=== PATIENT | male | born 1955 | race Caucasian/White ===

== ENCOUNTER 2017-09-16 19:04 | Inpatient (IN) ==
[2017-09-16] MEDS ORDERED: 0.9 % Sodium Chloride 500 ML IVC ONE (19:21)
[2017-09-16] MEDS ORDERED: Pantoprazole 40 MG VIAL IVP ONE (19:21)
--- NOTE | 2017-09-16 19:30 | Emergency Department Note ---
Disposition Clinical Impression: Esophagitis Chest pain Qualifiers: Chest pain type: precordial pain Qualified Code(s): R07.2 - Precordial pain Disposition: Home, Self-Care Condition: Fair Time of Disposition: 00:02 General Adult HPI - General Chief complaint: ED GI Bleed Stated complaint: vomiting blood Time Seen by Provider: 09/16/17 19:17 Source: patient, EMS Mode of arrival: EMS Limitations: no limitations Nursing Notes Reviewed: Yes Vital Signs Reviewed: Yes - History of Present Illness HPI Narrative: Patient is a 62-year-old male with a past medical history of COPD and hiatal hernia presenting to the emergency department with complaint of chest pain and 3 episodes of emesis with blood. Patient states this chest pain started yesterday it has been intermittent since that time he describes it as a sharp stabbing pain in the center of his chest without radiation. States the pain is a 10/10. Associated with exertion and nausea/emesis. Patient denies any cardiac history or history of blood clots. He denies being on a blood thinner at this time. Patient states that he had 2 episodes of vomiting this morning that had streaks of bright red blood in them. He denies any diarrhea or bloody stools, however he states that he does not members last bowel movement. Patient states that one week ago he also had one episode of bloody emesis that was brown/black. Patient denies any fevers, chills, headache, sore throat, congestion, cough, back pain, or lower extremity swelling. Pain Scale: 10 - Related Data Previous Rx's Medication Instructions Recorded Clindamycin [Cleocin] 300 mg PO Q6HR 7 Days capsule 05/28/16 Allergies Allergy/AdvReac Type Severity Reaction Status Date / Time No Known Allergies Allergy Verified 06/30/16 22:46 All systems ED: reviewed and negative except as stated. Review of Systems: As Per HPI Constitutional: Denies: fever, chills ENT ED: Denies: throat pain, epistaxis Cardiovascular: Reports: chest pain. Denies: palpitations, edema, syncope Respiratory: Reports: cough (chronic). Denies: wheezes, hemoptysis, sputum production Gastrointestinal: Reports: abdominal pain, nausea, vomiting, constipation, hematemesis. Denies: melena, hematochezia Genitourinary: Denies: urgency, dysuria, hematuria Musculoskeletal: Denies: back pain, neck pain Integumentary: Denies: rash Neurological: Denies: headache Past Medical History - Past Medical History Attestation: Yes The following information was validated with the patient. Medical history: Reports: arthritis, COPD, GERD, osteoporosis Surgical history: Reports: appendectomy Psychiatric history: Reports: schizophrenia - Social History Smoking Status: Current every day smoker Smokeless Tobacco Status: No Alcohol use: Reports: none Drug use: Reports: none Physical Exam Patient's vital signs are stable at this time he is hypertensive in the 160s/ 110s. Overall he does not appear to be in acute distress, he is able to speak to me in full sentences. - General Limitations: no limitations General appearance: alert, in no apparent distress, cachectic - Head Head exam: atraumatic, normocephalic, normal inspection - Eye Eye exam: Present: PERRL, EOMI. Absent: scleral icterus, conjunctival injection - ENT ENT exam: normal oropharynx, mucous membranes dry - Neck Neck exam: Present: normal inspection, full ROM, trachea midline. Absent: tenderness - Chest Chest inspection: Present: normal inspection, symmetric chest wall rise. Absent : tenderness, rash - Respiratory Respiratory exam: Present: other (coarse breath sounds bilaterally). Absent: respiratory distress, wheezes - Cardiovascular Cardiovascular exam: Present: regular rate, normal rhythm, normal heart sounds, +S1, +S2 - Abdominal Exam Abdominal exam: Present: soft, tenderness, normal bowel sounds - Rectal Exam In Processing Instructor present during exam: Yes Rectal exam: Present: normal inspection, normal rectal tone. Absent: black stool, bloody stool, fecal impaction, mass, tenderness, prostate tenderness - Extremities Exam Extremities exam: Present: normal inspection, full ROM, normal capillary refill. Absent: tenderness, pedal edema - Expanded Lower Extremity Exam Neurovascular/Tendon exam: Present: normal capillary refill. Absent: pulse deficit, motor deficit, sensory deficit Gait: not tested/not observed - Back Exam Back exam: Present: normal inspection, full ROM. Absent: tenderness, CVA tenderness (R), CVA tenderness (L) - Neurological Exam Neurological exam: Present: alert, oriented X3. Absent: motor sensory deficit - Psychiatric Psychiatric exam: Present: normal affect, normal mood - Skin Skin exam: Present: warm, dry, intact, normal color Course Course Narrative: The patient's [place] medical record. Experienced an episode of black/red emesis on 09/10/17 which was treated to history of esophageal ulcers. The patient is on pantoprazole. He currently lives in a prison. Patient's past medical history also includes infectious scoliosis, esophageal strictures, hiatal hernia. Currently the patient's medication list he is on pantoprazole 40 mg twice a day. Patient had laboratory done prior to arrival and his hemoglobin showed 10.1 hematocrit was 31.5 and his metabolic panel showed hypokalemia at 3.1 which according to the patient he received a potassium drink supplementation prior to arrival. On 07/31/17 the patient had esophageal dilation procedure done. Urinalysis to do a cardiac work up of the patient including chest x-ray, EKG and troponin. We will also give the patient IV fluids student and appearing dry on exam and perform basic labs. - Reevaluation(s) Reevaluation #1: Patient's hemoglobin was 9.4 is low when compared to old hemoglobins. His fecal Hemoccult was negative. Patient was elevated at 0.04 and his BNP was elevated in the upper 200s. The patient's CTA of his chest did reveal an esophagitis. Due to the location of the patient's pain is complaints of 2 episodes of hematemesis highly suspicious that this is the cause of the patient' s chest pain. The CT recommends the patient be seen by GI for follow-up endoscopy. I discussed these findings with the hospitalists plans to admit the patient for his chest pain, elevated troponin, and findings of esophagitis on CT scan. Hospitalist agrees with plan. Vital Signs Temperature 98.2 F 09/16/17 19:07 Pulse Rate 90 09/16/17 19:07 Respiratory Rate 20 09/16/17 19:07 Blood Pressure 169/105 09/16/17 19:07 O2 Sat by Pulse Oximetry 99 09/16/17 19:07 Temperature 97.6 F 09/17/17 02:01 Pulse Rate 76 09/17/17 02:01 Respiratory Rate 14 09/17/17 02:01 Blood Pressure 144/83 09/17/17 02:01 O2 Sat by Pulse Oximetry 94 09/17/17 02:01 Oxygen Delivery Oxygen Delivery Nasal Cannula Medical Decision Making - Medical Records Medical records reviewed: Yes I reviewed the patient's medical records. - Lab Data Lab results reviewed: Yes I reviewed the patient's lab results. Result diagrams: 09/16/17 19:48 09/16/17 19:48 Lab Results 09/16/17 09/16/17 09/16/17 Range/Units 19:48 19:48 19:48 WBC (4.3-11.1) K/mcL RBC (4.19-5.50) M/mcL Hgb (12.9-16.9) g/dL Hct (37.5-50.1) % MCV (83.0-100.0) fL MCH (28.0-33.3) pg MCHC (31.6-35.5) g/dL RDW (11.5-14.5) % Plt Count (140-400) K/mcL MPV (9.4-12.4) fL Immature Gran % (0-4) % Seg Neutrophils % % Lymphocytes % % Monocytes % % Eosinophils % % Basophils % % Neutrophils # (1.6-8.9) K/mcL Lymphocytes # (0.6-4.6) K/mcL Monocytes # (0.0-1.3) K/mcL Eosinophils # (0.0-0.6) K/mcL Basophils # (0.0-0.2) K/mcL PT 13.2 H (9.4-12.1) Seconds INR 1.2 APTT 36.1 H (26.0-36.0) Seconds Sodium (136-145) mEq/L Potassium (3.5-5.1) mEq/L Chloride (98-107) mEq/L Carbon Dioxide (23-29) mEq/L BUN (8-23) mg/dL Creatinine (0.70-1.30) mg/dL Est GFR ( Amer) (> 60) Est GFR (Non-Af Amer) (> 60) BUN/Creatinine Ratio (6-26) Glucose (70-105) mg/dL Calculated Osmolality (280-300) Calcium (8.6-10.3) mg/dL Troponin I (< 0.04) ng/mL B-Natriuretic Peptide 309 H (Less than 100) pg/mL Lipase < 3 L (11-82) Units/L Stool Occult Blood (Negative) 09/16/17 09/16/17 09/16/17 Range/Units 19:48 19:48 19:48 WBC 12.6 H (4.3-11.1) K/mcL RBC 3.28 L (4.19-5.50) M/mcL Hgb 9.4 L (12.9-16.9) g/dL Hct 29.7 L (37.5-50.1) % MCV 90.5 (83.0-100.0) fL MCH 28.7 (28.0-33.3) pg MCHC 31.6 (31.6-35.5) g/dL RDW 15.0 H (11.5-14.5) % Plt Count 396 (140-400) K/mcL MPV 9.3 L (9.4-12.4) fL Immature Gran % 0.4 (0-4) % Seg Neutrophils % 85.6 % Lymphocytes % 7.8 % Monocytes % 5.8 % Eosinophils % 0.2 % Basophils % 0.2 % Neutrophils # 10.8 H (1.6-8.9) K/mcL Lymphocytes # 1.0 (0.6-4.6) K/mcL Monocytes # 0.7 (0.0-1.3) K/mcL Eosinophils # 0.0 (0.0-0.6) K/mcL Basophils # 0.0 (0.0-0.2) K/mcL PT (9.4-12.1) Seconds INR APTT (26.0-36.0) Seconds Sodium 138 (136-145) mEq/L Potassium 3.7 (3.5-5.1) mEq/L Chloride 98 (98-107) mEq/L Carbon Dioxide 38 H (23-29) mEq/L BUN 15 (8-23) mg/dL Creatinine 0.80 (0.70-1.30) mg/dL Est GFR ( Amer) > 60 (> 60) Est GFR (Non-Af Amer) > 60 (> 60) BUN/Creatinine Ratio 19 (6-26) Glucose 100 (70-105) mg/dL Calculated Osmolality 287 (280-300) Calcium 8.3 L (8.6-10.3) mg/dL Troponin I 0.04 H* (< 0.04) ng/mL B-Natriuretic Peptide (Less than 100) pg/mL Lipase (11-82) Units/L Stool Occult Blood (Negative) 09/16/17 Range/Units 21:10 WBC (4.3-11.1) K/mcL RBC (4.19-5.50) M/mcL Hgb (12.9-16.9) g/dL Hct (37.5-50.1) % MCV (83.0-100.0) fL MCH (28.0-33.3) pg MCHC (31.6-35.5) g/dL RDW (11.5-14.5) % Plt Count (140-400) K/mcL MPV (9.4-12.4) fL Immature Gran % (0-4) % Seg Neutrophils % % Lymphocytes % % Monocytes % % Eosinophils % % Basophils % % Neutrophils # (1.6-8.9) K/mcL Lymphocytes # (0.6-4.6) K/mcL Monocytes # (0.0-1.3) K/mcL Eosinophils # (0.0-0.6) K/mcL Basophils # (0.0-0.2) K/mcL PT (9.4-12.1) Seconds INR APTT (26.0-36.0) Seconds Sodium (136-145) mEq/L Potassium (3.5-5.1) mEq/L Chloride (98-107) mEq/L Carbon Dioxide (23-29) mEq/L BUN (8-23) mg/dL Creatinine (0.70-1.30) mg/dL Est GFR ( Amer) (> 60) Est GFR (Non-Af Amer) (> 60) BUN/Creatinine Ratio (6-26) Glucose (70-105) mg/dL Calculated Osmolality (280-300) Calcium (8.6-10.3) mg/dL Troponin I (< 0.04) ng/mL B-Natriuretic Peptide (Less than 100) pg/mL Lipase (11-82) Units/L Stool Occult Blood Negative (Negative) - Radiology Data Radiology results reviewed: Yes I reviewed the patient's radiology results. Chest X-Ray 09/16/17 19:21 IMPRESSION: Stable chest x-ray. No definite acute disease. Small hiatal hernia. Moderate formed stool load in the upper abdomen suggesting constipation. D/ / Khoa Marino MD / Khoa Marino MD Interpreting Provider: Khoa Marino MD Chest CTA 09/16/17 20:24 IMPRESSION: 1. Mild atherosclerotic changes of the aorta. No acute abnormality. 2. Centrilobular emphysema in the chest with no acute airspace findings. 3. Moderate stool in the colon may indicate underlying constipation. No evidence of inflammation or bowel obstruction. D/ / Justin Velasquez MD / Justin Velasquez MD Interpreting Provider: Justin Velasquez MD - EKG Data EKG #1 EKG attestation: Yes I reviewed and interpreted this EKG. EKG results narrative: EKG done at 19:15 shows sinus rhythm at a rate of 86 bpm. Normal axis. Patient does have S T abnormalities in leads 23 and aVF, however the other leads all appear to not have no ST elevation or depression, and no Q waves. I have no old EKG for comparison at this time. This is unchanged when compared to EKG done at 16:56 earlier today at the [place]. Attestation Statement - Attestation Attestation: I, Seven Jacobsen DO, examined this patient [id number] and my medical decision-making was reviewed with Dr. Refugio Bass, Resident Physician. I agree with the documented findings, disposition and treatment plan as described except to the extent set forth below. Please see my progress notes for details. 62-year-old male presents emergency room from the [facility] for evaluation of chest pain and hematemesis. Patient has had these symptoms on and off for greater than 24 hours at this time. Patient does have known history of esophageal stricture, hiatal hernia and inflammation of the distal aspect of the esophagus. He has had a dilation performed at the end of July. Denies any other symptoms after the dilation was completed. Currently today he is denying chest pain fevers chills nausea vomiting diarrhea. Denies any headache or vision change. He has intermittent shortness of breath at this time. Patient is concerning for possible ACS like presentation at this time. Patient will be provided aspirin once we know that he is not Hemoccult positive. He has had approximately 2 g drop in his hemoglobin in comparison to A hemoglobin collected greater than a year ago. Patient/the [facility] also reviewed. CT imaging with contrast to be completed the chest and abdomen looking for any other potential infection, injury to the chest wall or vascular system. Definitive management will be established in the emergency room and the patient will be admitted for chest pain rule out. Otherwise his physical exam is unremarkable. Lungs are clear heart is regular trachea is midline. Abdomen is soft nontender nondistended with no guarding or rigidity. He has no peritoneal like symptoms and pulsatile masses in the abdomen at this time. Disposition will most likely be admission to hospital. See detailed documentation of physical exam, medical intervention , medical decision-making and disposition and the resident physician's note. [id number] Patient found to have esophagitis based on imaging modality. Probably consistent with his hematemesis. Patient be started on antibiotics on the hospital for chest pain rule out esophagitis presentation symptom treatment.
[2017-09-16 20:08] LABS: Basophils % 0.2 %; Eosinophils % 0.2 %; Hematocrit 29.7 % (37.5-50.1); Hemoglobin 9.4 g/dL (12.9-16.9); Immature Granulocytes % 0.4 % (0-4); Lymphocytes % 7.8 %; Mean Corpuscular HGB Conc 31.6 g/dL (31.6-35.5); Mean Corpuscular Hemoglobin 28.7 pg (28.0-33.3); Mean Corpuscular Volume 90.5 fL (83.0-100.0); Mean Platelet Volume 9.3 fL (9.4-12.4); Monocytes # 0.7 K/mcL (0.0-1.3); Monocytes % 5.8 %; Neutrophils # 10.8 K/mcL (1.6-8.9); Platelet Count 396 K/mcL (140-400); Red Blood Count 3.28 M/mcL (4.19-5.50); Segmented Neutrophils % 85.6 %
[2017-09-16 20:11] LABS: INR 1.2; Prothrombin Time 13.2 Seconds (9.4-12.1)
[2017-09-16 20:13] LABS: Activated Partial Thrombo Time 36.1 Seconds (26.0-36.0)
[2017-09-16 20:17] LABS: BUN/Creatinine Ratio 19 (6-26); Blood Urea Nitrogen 15 mg/dL (8-23); Calcium 8.3 mg/dL (8.6-10.3); Carbon Dioxide 38 mEq/L (23-29); Chloride 98 mEq/L (98-107); Glucose 100 mg/dL (70-105); Osmolality,Calculated 287 (280-300); Potassium 3.7 mEq/L (3.5-5.1); Sodium 138 mEq/L (136-145); eGFR For African Americans > 60 (> 60); eGFR For Non-African Americans > 60 (> 60)
[2017-09-16] MEDS ORDERED: Aspirin 81 MG TAB.CHEW PO ONE (22:06)
--- NOTE | 2017-09-17 01:00 | Internal Med History&Physical ---
Date of Encounter: 09/17/17 Time of Encounter: 00:56 Assessment and Plan (1) Chest pain Current visit: Yes Status: Acute admitted for cardiac CP r/o. Troponemia - appears present in 2016 - May be chronic. Trend trop, TTE. If trop stable, consider stress testing in the a.m. If trop continue to be elevated and is >0.1, consider cardiac farrah tele, pulse ox, prn IV morphine, nitro overnightl Qualifiers: Chest pain type: precordial pain Qualified Code(s): R07.2 - Precordial pain (2) Esophagitis Current visit: Yes Status: Acute continue PPI BID, carafate follow up GI in the [facility] (3) Hemoptysis, unspecified Current visit: Yes Status: Acute unwitnessed. Will monitor in the hospital 24-48 hours (4) Psychiatric disorder Current visit: Yes Status: Chronic continue med lives in assisted (5) Depression Current visit: Yes Status: Chronic continue med Qualifiers: Depression Type: other depression Qualified Code(s): F32.89 - Other specified depressive episodes Internal Medicine - H&P: HPI Chief complaint: CP, streaked hemoptysis History of present illness: Mr. Roa is a 62 year old male who is mentally ill and lives in a assisted for the past 30 years who presents with streaked emesis and 3-4 days hx of persistent CP. Admitted for CP eval. He has risk factors of 1/2 PPD or less smoker, hx of [place] in mother - passed age 58. He reported onset of CP since 3-4 days ago described as sternal, sharp in character, no radiation, nothing improves it, rate 9/10 and had been persistent 3-4 days now. Today, he had some nausea that was associated with streaked emesis that was reported but not witnessed per my conversation with assisted hopper feeder. He is established with the [place] and is reported to have multiple GI issues to include esophageal ulcer, hiatal hernia, esophageal dilitation all done at the [place] His med rec was not reconciled at time of encounter. Pending med rec completion EKG reviewed by self with rate 86, NSR CT/CT angio chest IMPRESSION: 1. Mild atherosclerotic changes of the aorta. No acute abnormality. 2. Centrilobular emphysema in the chest with no acute airspace findings. 3. Moderate stool in the colon may indicate underlying constipation. No evidence of inflammation or bowel obstruction. XR/XR chest 1V portable IMPRESSION: Stable chest x-ray. No definite acute disease. Small hiatal hernia. Moderate formed stool load in the upper abdomen suggesting constipation. Past Med Surg Social Fam HX - Past Medical History Medical history: arthritis, COPD, GERD, osteoporosis Psychiatric history: schizophrenia - Past Surgical History Surgical History: appendectomy - Social History Smoking Status: Current every day smoker Smokeless Tobacco Status: No Alcohol use: none Drug use: none - Additional Family History Additional family history: [place] Internal Medicine - H&P: Meds Clindamycin [Cleocin] 300 mg PO Q6HR 7 Days capsule 05/28/16 [Rx] 3 Allergy/AdvReac Type Severity Reaction Status Date / Time No Known Allergies Allergy Verified 06/30/16 22:46 All Systems PM: A 10-system review of systems was performed and is negative for pertinent findings except as documented above in the HPI. Review of systems: ROS 14 point review of systems reviewed as best as possible given presentation. Pertinent positive or negative as per HPI or otherwise reviewed as negative - Constitutional Vitals: Temp Pulse Resp BP Pulse Ox 98.2 F 76 20 154/94 100 09/16/17 19:07 09/16/17 22:22 09/17/17 00:17 09/17/17 00:17 09/16/17 22:22 Exam: General - AAO x 3 Psych - Appropriate affect/speech. No agitation Eyes - JUAN. Eye lids intact. No scleral icterus Heart - Sinus. RRR. S1 and S2 present. No added HS/murmurs appreciated. No elevated JVD appreciated. Lung - Adequate air entry b/l, No crackles/wheezes appreciated GI - Soft, non-tender. No hepatosplenomegaly/ascites. BS+ - No CVA/suprapubic tenderness or palpable bladder distension Skin - Intact. No rash/petechiae/ecchymosis. Warm extremities MSK - Joints with normal ROM. No joint swellings Internal Med - H&P Results - Labs CBC & Chem 7: 09/16/17 19:48 09/16/17 19:48
[2017-09-17] MEDS ORDERED: *HR* Morphine 2 MG/ML SYRINGE IVP PRN (01:02)
[2017-09-17] MEDS ORDERED: Ondansetron 4 MG/2 ML VIAL IVP PRN (01:02)
[2017-09-17] MEDS ORDERED: Naloxone 0.4 MG/ML INJ IVP PRN (01:02)
[2017-09-17] MEDS ORDERED: Ipratropium/Albuterol Neb 3 ML IH PRN (01:09)
[2017-09-17] MEDS: Ringers Solution, Lactated 1,000 ML IVC SCH ×2 (01:37→12:35)
[2017-09-17] MEDS: Valproic Acid Oral Soln 250 MG/5 ML UDC PO SCH (09:52)
[2017-09-17] MEDS: Sucralfate 1 GM TABLET PO SCH ×4 (09:53→20:24)
[2017-09-17] MEDS: ARIPiprazole 5 MG TABLET PO SCH (09:53)
--- NOTE | 2017-09-17 17:13 | Event Note ---
Date of Encounter: 09/17/17 Time of Encounter: 11:00 1. Chest pain: That started 2 days prior to admission after eating a piece of fudge. Patient thinks may be related to gastric ulcer/hiatal hernia. Denies chest pain on my exam. Troponin peaked at 0.04, EKG without acute ST changes. Chest CTA negative for pulmonary embolism. Previous cardiac testing unknown. TTE with EF 55%, unable to evaluate regional wall motion. NPO at midnight. Stress test pending. Consult cardiology if needed. 2. Hemoptysis: Prior to arrival. No current sign patient. Hgb stable. Continue to monitor. 3. Esophagitis: Continue PPI, Carafate. Follow up with GI outpatient
--- NOTE | 2017-09-17 19:13 | Electrocardiograph Report ---
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
[2017-09-17] MEDS: Sennosides 8.6 MG TABLET PO SCH (20:24)
[2017-09-17] MEDS: OLANZapine 10 MG TAB.RAPDIS PO SCH (20:24)
[2017-09-18 06:17] LABS: Hematocrit 27.4 % (37.5-50.1); Hemoglobin 8.6 g/dL (12.9-16.9); Mean Corpuscular HGB Conc 31.4 g/dL (31.6-35.5); Mean Corpuscular Hemoglobin 28.3 pg (28.0-33.3); Mean Corpuscular Volume 90.1 fL (83.0-100.0); Mean Platelet Volume 9.4 fL (9.4-12.4); Platelet Count 394 K/mcL (140-400); Red Blood Count 3.04 M/mcL (4.19-5.50); Red Cell Distribution Width 15.1 % (11.5-14.5)
[2017-09-18 06:32] LABS: BUN/Creatinine Ratio 24 (6-26); Blood Urea Nitrogen 17 mg/dL (8-23); Calcium 7.9 mg/dL (8.6-10.3); Carbon Dioxide 32 mEq/L (23-29); Chloride 101 mEq/L (98-107); Glucose 74 mg/dL (70-105); Osmolality,Calculated 280 (280-300); Potassium 3.7 mEq/L (3.5-5.1); Sodium 135 mEq/L (136-145); eGFR For African Americans > 60 (> 60); eGFR For Non-African Americans > 60 (> 60)
[2017-09-18] MEDS ORDERED: Regadenoson 0.4 MG/5 ML SYRINGE IVP ONE (09:05)
[2017-09-18] MEDS: Sucralfate 1 GM TABLET PO SCH ×4 (10:31→20:31)
[2017-09-18] MEDS: Valproic Acid Oral Soln 250 MG/5 ML UDC PO SCH (10:44)
[2017-09-18] MEDS: Sennosides 8.6 MG TABLET PO SCH ×2 (10:44→20:31)
[2017-09-18] MEDS: ARIPiprazole 5 MG TABLET PO SCH (10:44)
--- NOTE | 2017-09-18 15:07 | Internal Med Progress Note ---
Date of Encounter: 09/18/17 Time of Encounter: 15:06 - Assessment and plan (1) Chest pain Current Visit: Yes Status: Acute Assessment and plan: presented with CP that started 2 days prior to admisison. Suspect GI etiology as chest pain started after eating. Troponin peaked at 0.04 and trended down. TTE with 55%. Stress test for ischemia or infarct on visualized portions of the left ventricle, increased bowel wall intake obscured interpretation of the inferior wall. Cardiology consulted Qualifiers: Chest pain type: precordial pain Qualified Code(s): R07.2 - Precordial pain (2) Esophagitis Current Visit: Yes Status: Acute Assessment and plan: patient with history of gastric ulcer and hiatal hernia. He suspects this is contributing to chest pain. Chest CTA with moderate amount of stool in colon, otherwise nonacute for abdomen/pelvic abnormality. Continue PPI, Carafate. [facility] (3) Hemoptysis, unspecified Current Visit: Yes Status: Acute Assessment and plan: per patient reported history prior to arrival. No hemoptysis while inpatient. Hgb stable (4) Depression Current Visit: Yes Status: Chronic Assessment and plan: per hx. Mood appears stable. Cont home medications Qualifiers: Depression Type: other depression Qualified Code(s): F32.89 - Other specified depressive episodes (5) DVT prophylaxis Current Visit: Yes Status: Acute Assessment and plan: SCD - Subjective Interval history: Seen and examined at bedside. He had an episode of chest pain that occurred after eating earlier this morning, now resolved. He tells me he thinks chest pain is related to his hiatal hernia and possible gastric ulcer. Of note his abdominal CT did show moderate amount stool; constipation could be playing a role as well. No further hemoptysis. No chest pain or shortness of breath on my exam. - Constitutional Vitals: Temp Pulse Resp BP Pulse Ox 97.4 F L 85 16 174/98 94 09/18/17 11:08 09/18/17 11:08 09/18/17 11:08 09/18/17 11:08 09/18/17 11:08 General appearance: Present: cachectic, A&O X 3, pleasant - Head Head exam: Present: atraumatic, normocephalic - Eye Eye exam: Present: PERRL, conjuntiva pink, sclera anicteric Pupils: Present: PERRL - Neck Neck exam general surgery: Present: supple, trachea midline. Absent: lymphadenopathy - Respiratory Respiratory exam: Present: CTAB. Absent: accessory muscle use, rales, rhonchi, wheezes - Cardiovascular Cardiovascular exam: Present: RRR, +S1, +S2. Absent: diastolic murmur, gallop, rubs, systolic murmur - GI/Abdominal GI/Abdominal exam: Present: normal bowel sounds, soft, no peritoneal signs. Absent: distended, tenderness - Extremities Exam Extremities exam: Present: warm, radial pulses palpable and symmetrical. Absent : calf tenderness, cyanotic, pedal edema - Neurological Exam Neurological exam: Present: CN II-XII intact, oriented X3, no focal deficits. Absent: pronater drift, facial droop, speech deficit - Skin Skin exam: Present: dry, intact Internal Medicine: Result - Labs CBC & Chem 7: 09/18/17 05:39 09/18/17 05:39 Labs: Short CBC 09/18/17 Range/Units 05:39 WBC 8.1 (4.3-11.1) K/mcL Hgb 8.6 L (12.9-16.9) g/dL Hct 27.4 L (37.5-50.1) % Plt Count 394 (140-400) K/mcL [facility] 09/18/17 05:39 Sodium 135 L Potassium 3.7 Chloride 101 Carbon Dioxide 32 H BUN 17 Creatinine 0.72 Glucose 74 Calcium 7.9 L - ABG Interpretation ABG results: PT/INR, D-dimer PT 13.2 Seconds (9.4-12.1) H 09/16/17 19:48 Consult Discharge Plan - Plan [facility]errals: [facility]Primary Care Provider[facility] -
[2017-09-18] MEDS: OLANZapine 10 MG TAB.RAPDIS PO SCH (20:31)
[2017-09-19 05:49] LABS: Hematocrit 27.1 % (37.5-50.1); Hemoglobin 8.7 g/dL (12.9-16.9); Mean Corpuscular HGB Conc 32.1 g/dL (31.6-35.5); Mean Corpuscular Hemoglobin 28.4 pg (28.0-33.3); Mean Corpuscular Volume 88.6 fL (83.0-100.0); Mean Platelet Volume 9.2 fL (9.4-12.4); Platelet Count 360 K/mcL (140-400); Red Blood Count 3.06 M/mcL (4.19-5.50); Red Cell Distribution Width 15.2 % (11.5-14.5)
[2017-09-19 05:57] LABS: BUN/Creatinine Ratio 27 (6-26); Blood Urea Nitrogen 20 mg/dL (8-23); Carbon Dioxide 29 mEq/L (23-29); Chloride 103 mEq/L (98-107); Glucose 90 mg/dL (70-105); Osmolality,Calculated 282 (280-300); Potassium 4.1 mEq/L (3.5-5.1); Sodium 135 mEq/L (136-145); eGFR For African Americans > 60 (> 60); eGFR For Non-African Americans > 60 (> 60)
[2017-09-19] MEDS: Valproic Acid Oral Soln 250 MG/5 ML UDC PO SCH (09:20)
[2017-09-19] MEDS: Sennosides 8.6 MG TABLET PO SCH (10:09)
[2017-09-19] MEDS: Sucralfate 1 GM TABLET PO SCH ×2 (10:09→11:00)
[2017-09-19] MEDS: ARIPiprazole 5 MG TABLET PO SCH (10:09)
[2017-09-19] MEDS ORDERED: *HR* FentaNYL (PF) 100 MCG/2 ML VIAL ONE (13:13)
[2017-09-19] MEDS ORDERED: *HR* Midazolam HCl 5 MG/5 ML VIAL IVP ONE ×2 (13:13→13:30)
[2017-09-19] MEDS ORDERED: *HR* FentaNYL (PF) 100 MCG/2 ML VIAL IVP ONE (13:30)
[2017-09-19] MEDS ORDERED: Simethicone 40 MG/0.6 ML MLS IR ONE (13:30)
[2017-09-19] MEDS ORDERED: Tetracaine/Benzocaine/Butamben 200MG/SPRAY (100SPY/BOT) MM ONE (13:30)
[2017-09-19] MEDS ORDERED: 0.9 % Sodium Chloride 1,000 ML IVC SCH (13:30)
--- NOTE | 2017-09-19 13:33 | Pre-Sedation Evaluation ---
Pre-sedation evaluation - Pre-sedation checklist Date of procedure: 09/19/17 Procedure: egd Recent Vitals: Last Vital Signs Temp 98.8 F 09/19/17 13:26 Pulse 95 09/19/17 13:26 Resp 16 09/19/17 13:26 BP 163/97 09/19/17 13:26 Pulse Ox 94 09/19/17 13:26 H&P (including ROS) documented in medical record: Yes Previous reaction to sedatives/anesthetics: No Dietary Status: NPO after Midnight Dentition: dentures removed ASA Classification *see protocol: CLASS III-Severe systemic disease Plan of Care: Pt appropriate candidate for procedure/moderate/conscious sedation , Risks/benefits of procedure/sedation discussed w/ patient/family
--- NOTE | 2017-09-19 13:50 | Gastroenterology Consult Note ---
Date of Encounter: 09/19/17 Time of Encounter: 13:00 - Assessment and plan (1) Upper gastrointestinal bleed Current Visit: Yes Status: Acute Assessment and plan: 62-year-old male with a history of previous esophagitis/esophageal ulcer and hiatal hernia now admitted because of chest pain along with hematemesis currently hemoglobin is stable. Not vomiting blood anymore. Recommendation: EGD to rule out esophageal/gastric causes for his upper GI bleed. Follow H&H - Time Spent With Patient Total time spent is greater than 50% in coordination of care (as documented) at patient's floor/unit and/or counseling patient: GI History of Present Illness - Data of Consult Consult date: 09/19/17 Requesting Physician: Ginger Alvarado CNP - Consult Narrative Reason for consult: Upper GI bleed History of present illness: Mr. Roa is a 62 year old male lives in a senior care for the past 30 years who presents with streaked emesis and 3-4 days hx of persistent CP. Admitted for CP eval. CT chest done which was negative. On admission his hemoglobin was 9.4 and it has since trended down to 8.7. No more hematemesis. [facility] and is reported to have multiple GI issues to include esophageal ulcer, hiatal hernia, esophageal dilitation [facility] at [facility]. Also seen at our office for his ongoing dysphagia symptoms and had esophageal manometry done that showed the a very incompetent LES along with the esophageal motility disorder. Currently is denying any chest pain or abdominal pain and is not complaining of any troubles with swallowing Past Med Surg Social Fam HX - Past Medical History Medical history: arthritis, COPD, GERD, osteoporosis Psychiatric history: schizophrenia - Past Surgical History Surgical History: appendectomy - Social History Smoking Status: Current every day smoker Smokeless Tobacco Status: No Alcohol use: none Drug use: none - Family History Mother History Unknown: Yes Father History Unknown: Yes Review of Systems: GI: as per [facility]: denies fever, EYES: denies yellow discoloration ENT: denies difficulty swallowing CARDIO: denies chest pain, palpitations RESP: No Shortness of breath with exertion : denies change in color of urine NEURO: denies any weakness HEME: Denies any bruising MS: denies joint pain, DERM: denies rash or itching - Constitutional Vitals: Temp Pulse Resp BP Pulse Ox 98.8 F 98 16 156/93 98 09/19/17 13:26 09/19/17 13:34 09/19/17 13:34 09/19/17 13:34 09/19/17 13:34 - Head Head exam: Present: atraumatic - Eye Eye exam: Present: sclera anicteric - Respiratory Additional comments: Bilateral good air entry no wheezing - Cardiovascular Additional comments: S1-S2 and rhythm is regular - GI/Abdominal Additional comments: Soft no focal tenderness - Neurological Exam Neurological exam: Present: oriented X3 - Skin Skin exam: Present: dry, warm Results - Labs CBC & Chem 7: 09/19/17 05:35 09/19/17 05:35 Labs: Last Result Calcium 8.0 mg/dL (8.6-10.3) L 09/19/17 05:35 Troponin I 0.03 ng/mL (< 0.04) 09/17/17 13:23 Stool Occult Blood Negative (Negative) 09/16/17 21:10 Entire Visit Hgb 8.7 g/dL (12.9-16.9) L 09/19/17 05:35 Hct 27.1 % (37.5-50.1) L 09/19/17 05:35 PT 13.2 Seconds (9.4-12.1) H 09/16/17 19:48 Lipase < 3 Units/L (11-82) L 09/16/17 19:48 - ABG ABG results: PT/INR, D-dimer PT 13.2 Seconds (9.4-12.1) H 09/16/17 19:48 Consult Discharge Plan - Plan [facility]errals: [facility] [Primary Care Provider[facility] -
[2017-09-19 14:38] VITALS: BP 166/88
--- NOTE | 2017-09-19 14:51 | Discharge Summary ---
Date of Encounter: 09/19/17 Time of Encounter: 14:49 - Discharge Diagnosis (1) Yanez esophagus Priority: Primary Status: Acute Comments: per hx. Suspect this was the cause of chest pain. 09/19/2017 EGD with diffuse Barretts espohagus per Dr. Suero (official report pending). Discharge home on PPI , BID liquid carafate. Will need repeat EGD in [address] Suero. 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 Suspect GI etiology as chest pain started after eating. Troponin peaked at 0.04 and trended down. TTE with 55%. Stress test for ischemia or infarct on visualized portions of the left ventricle. Suspect chest pain secondary to GI etiology. No further cardiac work-up indicated at this time. Qualifiers: Chest pain type: precordial pain Qualified Code(s): R07.2 - Precordial pain (3) Anemia Priority: Primary Status: Acute Comments: Hgb 9.4 on arrival; patient reported hemoptysis for the apst 2-3 days; none while inpatient. 09/19/17 EGD without evidence of bleeding. Recommend repeat CBC in 3-5 days with PCP. Hgb 8.7 at discharge Qualifiers: Anemia type: iron deficiency Qualified Code(s): D50.0 - Iron deficiency anemia secondary to blood loss (chronic) (4) Depression Priority: Secondary Status: Chronic Comments: per hx. Mood appears stable. Cont home medications Qualifiers: Depression Type: other depression Qualified Code(s): F32.89 - Other specified depressive episodes - Discharge Medications Prescriptions: Sucralfate [Carafate] 1 gm PO BID #600 oral.susp Home Medications: ARIPiprazole [Abilify] 5 mg PO DAILY 09/17/17 [History] Benztropine Mesylate 1 mg PO BID 09/17/17 [History] Cetirizine HCl [All Day Allergy] 10 mg PO DAILY 09/17/17 [History] Multivit-Minerals/Ferrous Fum [Complete Multivit-Mineral Liq] 10 ml PO DAILY [History] Mupirocin 1 appl TP TID 09/17/17 [History] Naproxen [Naprosyn] 500 mg PO BID 09/17/17 [History] OLANZapine [Zyprexa] 2.5 mg PO Q8H PRN 09/17/17 [History] OLANZapine [Zyprexa] 20 mg PO HS 09/17/17 [History] Olodaterol HCl [Striverdi Respimat] 2 puff IH DAILY 09/17/17 [History] Pantoprazole Sodium [Protonix] 40 mg PO BID 09/17/17 [History] Potassium Chloride Elixir [Potassium Chloride] 40 meq PO DAILY 09/17/17 [History ] Valproic Acid Oral Soln [Depakene Oral Soln] 500 mg PO DAILY 09/17/17 [History] fluPHENAZine decanoate [Fluphenazine Decanoate] 87.5 mg IM Q2W 09/17/17 [History ] hydrOXYzine HCl [Hydroxyzine HCl] 25 mg PO QID PRN 09/17/17 [History] Sucralfate [Carafate] 1 gm PO BID #600 oral.susp 09/19/17 [Rx] Allergies/Adverse Reactions: 3 Allergy/AdvReac Type Severity Reaction Status Date / Time No Known Allergies Allergy Verified 06/30/16 22:46 Procedures/tests Complete & Pending: Procedures Performed prior 72 hours Category Date Time Status NM magi perf SPECT multi [NM] Routine Exams 09/17/17 14:47 Taken EKG [ECG 12 lead ECG] [ECG] Stat Y 09/18/17 11:24 Ordered SP pharm nuclear stress Routine Y 09/18/17 07:45 Completed Date of admission: 09/17/17 11:40 [facility] care physician: [facility] Consults: 09/19/17 06:00 Consult to Gastroenterology [CONS] Routine Consulting Provider: [facility] Reason for Consult: Esophagitis with history gastric ulcer, hiatal hernia and recent hemoptysis. Call Completed: No Discharging clinician: Ginger Alvarado Anticipated date of discharge: 09/19/17 - Patient Status Disposition: Home, Self-Care Condition: Good Functional capacity at discharge: independent ambulation Overall status at discharge: patient is back to baseline - Discharge Instructions Instructions: Yanez Esophagus (DC) Follow Up With: [facility] [Primary Care Provider[facility] - Phillip Suero MD [Partnered Physician] - (Will need repeat EGD in 2 months) - Diet and Activity Activity: increase activity as tolerated Diet: advance to your usual diet Interval History: Seen and examined at bedside, says he feels better and would like to go home today. No further chest pain or ABD pain. He is aware of need for repeat EGD in 2 months. Hospital course: Mr. Roa is a 62 year old male - Time Spent with Patient Total time spent providing and/or coordinating discharge services: - Constitutional Vitals: Temp Pulse Resp BP Pulse Ox 97.8 F 75 16 166/88 94 09/19/17 14:30 09/19/17 14:30 09/19/17 14:30 09/19/17 14:30 09/19/17 14:30 General appearance: Present: cachectic, A&O X 3, pleasant - Head Head exam: Present: atraumatic, normocephalic - Eye Eye exam: Present: PERRL, conjuntiva pink, sclera anicteric Pupils: Present: PERRL - Neck Neck exam general surgery: Present: supple, trachea midline. Absent: lymphadenopathy - Respiratory Respiratory exam: Present: CTAB. Absent: accessory muscle use, rales, rhonchi, wheezes - Cardiovascular Cardiovascular exam: Present: RRR, +S1, +S2. Absent: diastolic murmur, gallop, rubs, systolic murmur - GI/Abdominal GI/Abdominal exam: Present: normal bowel sounds, soft, no peritoneal signs. Absent: distended, tenderness - Extremities Exam Extremities exam: Present: warm, radial pulses palpable and symmetrical. Absent : calf tenderness, cyanotic, pedal edema - Neurological Exam Neurological exam: Present: CN II-XII intact, oriented X3, no focal deficits. Absent: pronater drift, facial droop, speech deficit - Skin Skin exam: Present: dry, intact
== END 2017-09-19 16:39 | disposition home or self-care (01) | DRG 381 ==
LOC: EMEROO 19:04 → 3BNU 19:04
PROVIDERS: ADMIT Internal Medicine Hematology & Oncology; ATTEND Registered Nurse

== ENCOUNTER 2017-09-24 15:18 | Inpatient (IN) ==
[2017-09-24] MEDS ORDERED: 0.9 % Sodium Chloride 1,000 ML IVC ONE (15:44)
[2017-09-24 16:16] LABS: Red Cell Distribution Width 14.6 % (11.5-14.5)
[2017-09-24 16:24] LABS: INR 1.9; Prothrombin Time 20.3 Seconds (9.4-12.1)
[2017-09-24 16:25] LABS: Bilirubin,Urine Small (Negative); Blood,Urine Negative (Negative); Clarity,Urine Cloudy (Clear); Color,Urine Dark Yellow (Yellow); Glucose,Urine (UA) Normal (Normal); Ketones,Urine Negative (Negative); Leukocyte Esterase,Urine Negative (Negative); Nitrite,Urine Negative (Negative); Protein,Urine Trace mg/dL (Neg-Trace); Specific Gravity,Urine 1.015 (1.010-1.025); Urobilinogen,Urine Normal (Normal)
[2017-09-24 16:27] LABS: Activated Partial Thrombo Time 35.5 Seconds (26.0-36.0)
[2017-09-24 16:29] LABS: Alanine Aminotransferase 12 Units/L (7-52); Albumin 2.5 g/dL (3.5-5.7); Albumin/Globulin Ratio 1.1 (1.1-2.2); Alkaline Phosphatase 48 Units/L (34-104); Aspartate Amino Transferase 13 Units/L (13-39); BUN/Creatinine Ratio 70 (6-26); Bilirubin,Direct 0.1 mg/dL (0.0-0.2); Bilirubin,Indirect 0.3 mg/dL (0.0-1.2); Bilirubin,Total 0.4 mg/dL (0.3-1.0); Blood Urea Nitrogen 71 mg/dL (8-23); Calcium 8.5 mg/dL (8.6-10.3); Carbon Dioxide 32 mEq/L (23-29); Chloride 92 mEq/L (98-107); Creatine Kinase 55 Units/L (30-223); Globulin 2.3 g/dL (2.4-3.5); Glucose 106 mg/dL (70-105); Mean Corpuscular Hemoglobin 28.8 pg (28.0-33.3); Osmolality,Calculated 289 (280-300); Potassium 3.5 mEq/L (3.5-5.1); Sodium 129 mEq/L (136-145); Total Protein 4.8 g/dL (6.4-8.9); eGFR For African Americans > 60 (> 60); eGFR For Non-African Americans > 60 (> 60)
[2017-09-24 16:36] LABS: Hematocrit 18.6 % (37.5-50.1); Mean Corpuscular HGB Conc 32.3 g/dL (31.6-35.5); Mean Corpuscular Volume 89.4 fL (83.0-100.0); Mean Platelet Volume 10.1 fL (9.4-12.4); Platelet Count 340 K/mcL (140-400); Red Blood Count 2.08 M/mcL (4.19-5.50)
[2017-09-24 16:41] LABS: Neutrophils # 23.2 K/mcL (1.6-8.9)
[2017-09-24 16:58] LABS: Lymphocytes # 0.5 K/mcL (0.6-4.6)
[2017-09-24] MEDS ORDERED: Pantoprazole 80 MG in 0.9 % Sodium Chloride 50 ML IVPB ONE (16:59)
[2017-09-24 17:00] LABS: Platelet Estimate Normal (Normal)
[2017-09-24] MEDS ORDERED: Octreotide 400 MCG in 0.9 % Sodium Chloride 100 ML IVC SCH (17:00)
--- NOTE | 2017-09-24 17:17 | Emergency Department Note ---
Disposition Clinical Impression: HCAP (healthcare-associated pneumonia), Severe sepsis Anemia Qualifiers: Anemia type: unspecified type Qualified Code(s): D64.9 - Anemia, unspecified GI bleed Qualifiers: GI bleed type/associated pathology: unspecified gastrointestinal hemorrhage type Qualified Code(s): K92.2 - Gastrointestinal hemorrhage, unspecified Disposition: Admitted As Inpatient Condition: Fair [facility] Care Provider[facility] - Forms: ED Satisfaction Letter Time of Disposition: 20:17 General Adult HPI - General Chief complaint: ED Shortness of Breath/Dyspnea Stated complaint: "n/v weak" Time Seen by Provider: 09/24/17 15:22 Source: EMS Limitations: altered mental status, physical limitation Nursing Notes Reviewed: Yes Vital Signs Reviewed: Yes - History of Present Illness HPI Narrative: Patient presents to the ED via EMS as a transfer from the [place] with the chief complaint of generalized weakness, shortness of breath, nausea and vomiting. Patient reportedly was just discharged from the hospital for similar symptoms. Presenting again today for increasing symptoms. Patient states he feels okay, but he is still been short of breath and still having a few episodes of nausea and vomiting each day. Complains of intermittent chest discomfort that is in his epigastrium. Other than that, patient replies I do not know to most questions. After independent medical record review, it was noted that the patient had an endoscopy during his last admission one week ago and was found to have severe erosive circumferential esophagitis. He was placed on Carafate and a PPI, but patient is unsure if he is told taking that. Pain Scale: 0 - Related Data Home Medications Medication Instructions Recorded Confirmed ARIPiprazole [Abilify] 5 mg PO QAM 09/17/17 09/24/17 Benztropine Mesylate 1 mg PO BID 09/17/17 09/24/17 Cetirizine HCl [All Day Allergy] 10 mg PO DAILY 09/17/17 09/24/17 Multivit-Minerals/Ferrous Fum 10 ml PO DAILY 09/17/17 09/24/17 [Complete Multivit-Mineral Liq] Mupirocin 1 appl TP TID 09/17/17 09/24/17 Naproxen [Naprosyn] 500 mg PO BID PRN 09/17/17 09/24/17 OLANZapine [Zyprexa] 2.5 mg PO Q8H PRN 09/17/17 09/24/17 OLANZapine [Zyprexa] 20 mg PO HS 09/17/17 09/24/17 Olodaterol HCl [Striverdi Respimat] 2 puff IH DAILY 09/17/17 09/24/17 Pantoprazole Sodium [Protonix] 40 mg PO BID 09/17/17 09/24/17 Valproic Acid Oral Soln [Depakene 500 mg PO DAILY 09/17/17 09/24/17 Oral Soln] fluPHENAZine decanoate 87.5 mg IM Q2W 09/17/17 09/24/17 [Fluphenazine Decanoate] Calcium Carbonate/Vitamin D3 1 each PO BID 09/24/17 09/24/17 [Calcium 500-Vit D3 200 Tablet] Citalopram Hydrobromide 10 mg PO DAILY 09/24/17 09/24/17 [Citalopram HBr] Docusate [Colace] 100 mg PO BID 09/24/17 09/24/17 Levalbuterol Tartrate [Xopenex Hfa] 2 puff IH Q6H PRN 09/24/17 09/24/17 Losartan [Cozaar] 25 mg PO DAILY 09/24/17 09/24/17 hydrOXYzine pamoate [HydrOXYzine 25 mg PO QID PRN 09/24/17 09/24/17 Pamoate] Allergies Allergy/AdvReac Type Severity Reaction Status Date / Time azithromycin [From Zithromax] AdvReac See Verified 09/24/17 16:55 Comments Thiothixene [From Navane] AdvReac See Verified 09/24/17 16:55 Comments All systems ED: reviewed and negative except as stated. Constitutional: Denies: fever Cardiovascular: Reports: chest pain Respiratory: Reports: dyspnea Gastrointestinal: Reports: abdominal pain, nausea, vomiting Musculoskeletal: Denies: back pain Neurological: Reports: confusion. Denies: headache Past Medical History - Past Medical History Source: old records reviewed, obtained from family Medical history: Reports: arthritis, COPD, GERD, osteoporosis Surgical history: Reports: appendectomy Psychiatric history: Reports: schizophrenia - Social History Smoking Status: Current every day smoker Smokeless Tobacco Status: No Alcohol use: Reports: none Drug use: Reports: none Physical Exam - General Limitations: altered mental status, physical limitation General appearance: alert, in no apparent distress - Head Head exam: atraumatic, normocephalic, normal inspection - Eye Eye exam: Present: PERRL, EOMI, other (pale ) - ENT ENT exam: mucous membranes dry - Chest Chest inspection: Present: normal inspection, symmetric chest wall rise - Respiratory Respiratory exam: Present: normal lung sounds bilaterally - Cardiovascular Cardiovascular exam: Present: tachycardia, normal heart sounds - Abdominal Exam Abdominal exam: Present: soft, Non-Tender. Absent: distention, guarding, rebound - Extremities Exam Extremities exam: Present: normal inspection, full ROM, normal capillary refill (3s). Absent: tenderness, pedal edema - Neurological Exam Neurological exam: Present: alert. Absent: oriented X3 (oriented to person and place but not time ) - Psychiatric Psychiatric exam: Present: flat affect - Skin Skin exam: Present: warm, dry, intact, pallor Course Course Narrative: Patient presenting to the ED with weakness, nausea, vomiting, and gait disturbance. Concern that the patient could be developing GI bleed from her rotating esophagitis. He is pale and tachycardic and slightly hypotensive. We will check labs, chest x-ray and CT brain. If he is anemic or has other abnormalities. We will CT his chest, abdomen and pelvis - Reevaluation(s) Reevaluation #1: patient's chest CT did show R sided PNA. Likely HCAP due to being at the [facility] care [facility]. Will start on TABx therapy. Patient did not recieve full 30cc/kg fluid bolus because of his symptomatic anemia and limiting dilution and further drop. He did receive blood and protonix drip which both have repleted some of his intravascular fluid resulting in a decreased lactic acid. Will admit to hospitalist service at this time. Time: 19:44 Vital Signs Temperature 97.5 F L 09/24/17 15:26 Pulse Rate 106 09/24/17 15:26 Respiratory Rate 20 09/24/17 15:26 Blood Pressure 98/65 09/24/17 15:26 O2 Sat by Pulse Oximetry 97 09/24/17 15:26 Temperature 98 F 09/24/17 19:05 Pulse Rate 103 09/24/17 20:10 Respiratory Rate 14 09/24/17 20:10 Blood Pressure 107/63 09/24/17 20:10 O2 Sat by Pulse Oximetry 96 09/24/17 20:10 Oxygen Delivery Oxygen Delivery Room Air Medical Decision Making - Medical Records Medical records reviewed: Yes I reviewed the patient's medical records. - Lab Data Lab results reviewed: Yes I reviewed the patient's lab results. Result diagrams: 09/24/17 16:00 09/24/17 16:00 Lab Results 09/24/17 09/24/17 09/24/17 Range/Units 16:00 16:00 16:00 WBC 25.2 H D (4.3-11.1) K/mcL RBC 2.08 L (4.19-5.50) M/mcL Hgb 6.0 L* D (12.9-16.9) g/dL Hct 18.6 L (37.5-50.1) % MCV 89.4 (83.0-100.0) fL MCH 28.8 (28.0-33.3) pg MCHC 32.3 (31.6-35.5) g/dL RDW 14.6 H (11.5-14.5) % Plt Count 340 (140-400) K/mcL MPV 10.1 (9.4-12.4) fL Seg Neutrophils % 92.0 % Lymphocytes % 2.0 % Monocytes % 4.0 % Myelocytes % 2.0 H (0) % Neutrophils # 23.2 H (1.6-8.9) K/mcL Lymphocytes # 0.5 L (0.6-4.6) K/mcL Monocytes # 1.0 (0.0-1.3) K/mcL Platelet Estimate Normal (Normal) PT 20.3 H (9.4-12.1) Seconds INR 1.9 APTT 35.5 (26.0-36.0) Seconds Sodium 129 L (136-145) mEq/L Potassium 3.5 (3.5-5.1) mEq/L Chloride 92 L (98-107) mEq/L Carbon Dioxide 32 H (23-29) mEq/L BUN 71 H (8-23) mg/dL Creatinine 1.02 (0.70-1.30) mg/dL Est GFR ( Amer) > 60 (> 60) Est GFR (Non-Af Amer) > 60 (> 60) BUN/Creatinine Ratio 70 H (6-26) Glucose 106 H (70-105) mg/dL Calculated Osmolality 289 (280-300) Lactic Acid (0.5-2.2) mmol/L Calcium 8.5 L (8.6-10.3) mg/dL Total Bilirubin 0.4 (0.3-1.0) mg/dL Direct Bilirubin 0.1 (0.0-0.2) mg/dL Indirect Bilirubin 0.3 (0.0-1.2) mg/dL AST 13 (13-39) Units/L ALT 12 (7-52) Units/L Alkaline Phosphatase 48 (34-104) Units/L Creatine Kinase 55 (30-223) Units/L Troponin I (< 0.04) ng/mL B-Natriuretic Peptide (Less than 100) pg/mL Serum Total Protein 4.8 L (6.4-8.9) g/dL Albumin 2.5 L (3.5-5.7) g/dL Globulin 2.3 L (2.4-3.5) g/dL Albumin/Globulin Ratio 1.1 (1.1-2.2) Urine Color (Yellow) Urine Clarity (Clear) Urine pH (5.0-8.0) pH Units Ur Specific [place] (1.010-1.025) Urine Protein (Neg-Trace) mg/dL Urine Glucose (UA) (Normal) mg/dL Urine Ketones (Negative) mg/dL Urine Blood (Negative) Urine Nitrite (Negative) Urine Bilirubin (Negative) Urine Urobilinogen (Normal) mg/dL Ur Leukocyte Esterase (Negative) Urine Microscopic RBC (0-3) per hpf Urine Microscopic WBC (0-3) per hpf Ur Squamous Epith Cells (None-Few) per lpf Urine Bacteria (None-Few) per hpf Hyaline Casts (None-Few) per lpf Ur Culture Indicated? (NO) Blood Type Antibody Screen Crossmatch 09/24/17 09/24/17 09/24/17 Range/Units 16:00 16:00 16:00 WBC (4.3-11.1) K/mcL RBC (4.19-5.50) M/mcL Hgb (12.9-16.9) g/dL Hct (37.5-50.1) % MCV (83.0-100.0) fL MCH (28.0-33.3) pg MCHC (31.6-35.5) g/dL RDW (11.5-14.5) % Plt Count (140-400) K/mcL MPV (9.4-12.4) fL Seg Neutrophils % % Lymphocytes % % Monocytes % % Myelocytes % (0) % Neutrophils # (1.6-8.9) K/mcL Lymphocytes # (0.6-4.6) K/mcL Monocytes # (0.0-1.3) K/mcL Platelet Estimate (Normal) PT (9.4-12.1) Seconds INR APTT (26.0-36.0) Seconds Sodium (136-145) mEq/L Potassium (3.5-5.1) mEq/L Chloride (98-107) mEq/L Carbon Dioxide (23-29) mEq/L BUN (8-23) mg/dL Creatinine (0.70-1.30) mg/dL Est GFR ( Amer) (> 60) Est GFR (Non-Af Amer) (> 60) BUN/Creatinine Ratio (6-26) Glucose (70-105) mg/dL Calculated Osmolality (280-300) Lactic Acid 3.2 H (0.5-2.2) mmol/L Calcium (8.6-10.3) mg/dL Total Bilirubin (0.3-1.0) mg/dL Direct Bilirubin (0.0-0.2) mg/dL Indirect Bilirubin (0.0-1.2) mg/dL AST (13-39) Units/L ALT (7-52) Units/L Alkaline Phosphatase (34-104) Units/L Creatine Kinase (30-223) Units/L Troponin I 0.05 H* (< 0.04) ng/mL B-Natriuretic Peptide 81 (Less than 100) pg/mL Serum Total Protein (6.4-8.9) g/dL Albumin (3.5-5.7) g/dL Globulin (2.4-3.5) g/dL Albumin/Globulin Ratio (1.1-2.2) Urine Color (Yellow) Urine Clarity (Clear) Urine pH (5.0-8.0) pH Units Ur Specific [place] (1.010-1.025) Urine Protein (Neg-Trace) mg/dL Urine Glucose (UA) (Normal) mg/dL Urine Ketones (Negative) mg/dL Urine Blood (Negative) Urine Nitrite (Negative) Urine Bilirubin (Negative) Urine Urobilinogen (Normal) mg/dL Ur Leukocyte Esterase (Negative) Urine Microscopic RBC (0-3) per hpf Urine Microscopic WBC (0-3) per hpf Ur Squamous Epith Cells (None-Few) per lpf Urine Bacteria (None-Few) per hpf Hyaline Casts (None-Few) per lpf Ur Culture Indicated? (NO) Blood Type Antibody Screen Crossmatch 09/24/17 09/24/17 09/24/17 Range/Units 16:10 17:25 17:25 WBC (4.3-11.1) K/mcL RBC (4.19-5.50) M/mcL Hgb (12.9-16.9) g/dL Hct (37.5-50.1) % MCV (83.0-100.0) fL MCH (28.0-33.3) pg MCHC (31.6-35.5) g/dL RDW (11.5-14.5) % Plt Count (140-400) K/mcL MPV (9.4-12.4) fL Seg Neutrophils % % Lymphocytes % % Monocytes % % Myelocytes % (0) % Neutrophils # (1.6-8.9) K/mcL Lymphocytes # (0.6-4.6) K/mcL Monocytes # (0.0-1.3) K/mcL Platelet Estimate (Normal) PT (9.4-12.1) Seconds INR APTT (26.0-36.0) Seconds Sodium (136-145) mEq/L Potassium (3.5-5.1) mEq/L Chloride (98-107) mEq/L Carbon Dioxide (23-29) mEq/L BUN (8-23) mg/dL Creatinine (0.70-1.30) mg/dL Est GFR ( Amer) (> 60) Est GFR (Non-Af Amer) (> 60) BUN/Creatinine Ratio (6-26) Glucose (70-105) mg/dL Calculated Osmolality (280-300) Lactic Acid 2.0 (0.5-2.2) mmol/L Calcium (8.6-10.3) mg/dL Total Bilirubin (0.3-1.0) mg/dL Direct Bilirubin (0.0-0.2) mg/dL Indirect Bilirubin (0.0-1.2) mg/dL AST (13-39) Units/L ALT (7-52) Units/L Alkaline Phosphatase (34-104) Units/L Creatine Kinase (30-223) Units/L Troponin I (< 0.04) ng/mL B-Natriuretic Peptide (Less than 100) pg/mL Serum Total Protein (6.4-8.9) g/dL Albumin (3.5-5.7) g/dL Globulin (2.4-3.5) g/dL Albumin/Globulin Ratio (1.1-2.2) Urine Color Dark Yellow (Yellow) Urine Clarity Cloudy A (Clear) Urine pH 7.0 (5.0-8.0) pH Units Ur Specific [place] 1.015 (1.010-1.025) Urine Protein Trace (Neg-Trace) mg/dL Urine Glucose (UA) Normal (Normal) mg/dL Urine Ketones Negative (Negative) mg/dL Urine Blood Negative (Negative) Urine Nitrite Negative (Negative) Urine Bilirubin Small H (Negative) Urine Urobilinogen Normal (Normal) mg/dL Ur Leukocyte Esterase Negative (Negative) Urine Microscopic RBC 0-3 (0-3) per hpf Urine Microscopic WBC 3-5 H (0-3) per hpf Ur Squamous Epith Cells Many H (None-Few) per lpf Urine Bacteria None Seen (None-Few) per hpf Hyaline Casts Few (None-Few) per lpf Ur Culture Indicated? NO (NO) Blood Type O POSITIVE Antibody Screen NEGATIVE Crossmatch See Detail - Radiology Data Radiology results reviewed: Yes I reviewed the patient's radiology results. Chest X-Ray 09/24/17 15:44 IMPRESSION: No acute process. Stable findings of COPD and emphysema. D/ / Tylre Tolliver MD / Tyler Tolliver MD Interpreting Provider: Tyler Tolliver MD Head CT 09/24/17 15:45 IMPRESSION: No acute intracranial abnormality. D/ / Ronal Prescott MD / Ronal Prescott MD Interpreting Provider: Ronal Prescott MD - EKG Data EKG #1 EKG attestation: Yes I reviewed and interpreted this EKG. EKG results narrative: Sinus rhythm, rate 99, MO interval 137, QRS 100, QTC 3:30, normal axis, mild ST segment depression, no acute ischemic changes Critical Care Time Critical Care Time: Yes Total Critical Care Time: 45 Attestation: Critical care performed: Time is exclusive of separately billable procedures. Time includes: direct patient care, patient reassessment, coordination of patient care, interpretation of data (laboratory data, radiology data, and respiratory data), review of patient's medical records, medical consultation and documentation of patient care. Procedures included in critical care time: Procedures excluded from critical care time: S.B.A.R. - S.B.A.R. Situation: Demographics, MOA Background: Presenting Complaint, Relevant PMH, Meds, & Allergies Assessment: Vital Signs, Course and respsone to treatment, Exam Concerns, Patient/Family Expectation, Pertinant Lab Results, Outstanding Labs Recommendation: Recommendation based on pending studies, treatments, or consults S.B.A.R. Report Given to: Hospitalist service S.BJenniferAMonica Repor Time: 20:17 Attestation Statement - Attestation Attestation: I, Seven Jacobsen DO, examined this patient [id number] and my medical decision-making was reviewed with Dr. Nicolas Gregg, Resident Physician. I agree with the documented findings, disposition and treatment plan as described except to the extent set forth below. Please see my progress notes for details. 62-year-old male presents to emergency room with complaints of nausea vomiting and abdominal discomfort and generalized malaise. Patient has been seen and discharged from this facility within the last week. He currently a resident of a skilled nursing or at the [facility]. Patient denies any trauma or injury. He is alert and answers questions at this time. On presentation patient is pale in presentation his heart rate is elevated in the 106 range. His blood pressure is marginal at 96/65. Otherwise his reasoning physical exam is relatively unremarkable. His oral mucosa is patent to the mucous membranes are slightly dry. Trachea is midline. He has no stridor no trismus he has no tenderness to palpation to the chest wall no crepitus or deformity. Abdomen is soft nontender nondistended with no guarding or rigidity no peritoneal like symptoms. There is no pulsatile masses noted on exam. Detailed review of the previous evaluation including echocardiogram, EGD, stress test was reviewed by myself here in the emergency room. His discharge curvature workup was also reviewed. On presentation here today patient is significantly anemic with a hemoglobin of 6.0. The EGD performed previously does show significant distal esophageal ulcerations and esophagitis. Patient this point is very concerning for possible esophageal bleeding secondary to the erosive presentation. Patient will be typed and screened and transfused 2 units of blood here. On- call surgeon Dr. franco was contacted for his input on the esophageal-related symptoms. Recommended admission and endoscopy to be completed if the patient starts to bleed. Hemoccult testing will be ordered but is not necessary at this point considering the history and recent imaging modalities. Patient otherwise does not have any acute signs of abdominal related issues including perforation or ruptured AAA. He had a previous CT angiography of the abdomen completed his last evaluation did not show dissection or aneurysm at that time. Patient otherwise is resting comfortably in the bed mentating from what appears to be appropriately. Vital signs of an stabilizing with fluid resuscitation and blood transfusion to be completed. Rest of his laboratory workup does show significant I drainage which could be secondary to chronic issues versus his anemia. Patient will require admission once the definitive workup and treatment course are completed here in the emergency room. Possibly 45 minutes of critical care problems patient's care. See detailed documentation of physical exam, medical intervention, medical decision-making, critical care and disposition in the resident physician's note. 2000 Patient found to have pneumonia as well as a significantly low hemoglobin. Consult placed onto the border police endoscopist. Patient will be seen in the hospital setting for definitive management. Hospice patient consult this time. Symptoms under control. Will be admitted for definitive management at this time.
[2017-09-24] MEDS ORDERED: Ondansetron 4 MG/2 ML VIAL IVP ONE (17:19)
[2017-09-24 17:25] LABS: Bacteria,Urine None Seen per hpf (None-Few); Hyaline Casts,Urine Few per lpf (None-Few); RBC,Urine 0-3 per hpf (0-3); Squamous Epithelial Cell,Urine Many per lpf (None-Few)
[2017-09-24] MEDS ORDERED: cefTRIAXone 1,000 MG in Water for inj. (sterile) 20 ML 10 ML IVP ONE (17:46)
[2017-09-24] MEDS: Pantoprazole 80 MG in 0.9 % Sodium Chloride 250 ML IVC SCH (18:18)
[2017-09-24] MEDS ORDERED: Levofloxacin 750 MG/150 ML 750 MG/150 ML BAG IVPB ONE (19:42)
[2017-09-24] MEDS ORDERED: Vancomycin 1,000 MG in D5% in Water 250 ML IVPB ONE (19:42)
[2017-09-24] MEDS ORDERED: Piperacillin/Tazobactam 3.375 GM in Water for inj. (sterile) 20 ML IVP ONE (19:49)
[2017-09-24] MEDS ORDERED: Acetaminophen 325 MG TABLET PO PRN (21:23)
[2017-09-24] MEDS ORDERED: Naloxone 0.4 MG/ML INJ IVP PRN (21:23)
[2017-09-24] MEDS ORDERED: Ondansetron 4 MG/2 ML VIAL IVP PRN (21:23)
[2017-09-24] MEDS ORDERED: *HR* HYDROcodone/Acet 5/325 mg TABLET PO PRN (21:23)
[2017-09-24] MEDS ORDERED: hydrOXYzine pamoate 25 MG CAPSULE PO PRN (21:32)
[2017-09-24] MEDS ORDERED: Levalbuterol 1 PUFF INHALER IH PRN (21:32)
[2017-09-24] MEDS ORDERED: OLANZAPINE 2.5 MG PO PRN (21:32)
[2017-09-24] MEDS ORDERED: Furosemide 20 MG/2 ML VIAL IVP ONE (21:59)
[2017-09-24] MEDS ORDERED: Vancomycin 1,000 MG in D5% in Water 250 ML IVPB SCH (22:00)
--- NOTE | 2017-09-24 22:10 | Internal Med History&Physical ---
<Harsh Chambers - Last Filed: 09/24/17 23:02> Date of Encounter: 09/24/17 Time of Encounter: 21:00 Assessment and Plan (1) HCAP (healthcare-associated pneumonia) Current visit: Yes Status: Acute Acute HCAP. Pt. has been at [facility] and was recently hospitalized w/similar sx. Pt. reports SOB/dyspnea/cough since September 03. IVPB levaquin 750 mg daily, vancomycin w/pharmacy dosing, and Zosyn 3.375 gm Q8 for infection coverage. Blood cultures x2. Sputum culture. Legionella and strep pneumoniae antigens ordered. Will adjust abx coverage based on culture results. Continuous cardiac telemetry for tachycardia r/t sepsis. Supplemental O2 w/ titration and SpO2 monitoring. DuoNebs Q6 scheduled. Will continue pts. inhalers. Monitor pt. and f/u labs closely. Pt. discussed w/Dr. Rosas who is in agreement w/plan of care. Pt. is at high risk for further morbidity d/t current pneumonia, sepsis, drop in Hgb/Hct d/t possible GI bleed, hx, and risk factors. Inpatient. (2) Sepsis Current visit: Yes Status: Acute Sepsis criteria based on HCAP, WBC of 25.2, HR of 93, RR of 22, and initial lactic acid of 3.2 on admission. Pt. placed on continuous cardiac telemetry for tachycardia. Blood cultures x2 ordered. Sputum culture ordered. Legionella and strep pneumoniae antigens ordered. IVPB levaquin 750 daily, vancomycin w/ pharmacy dosing, and Zosyn 3.375 gm Q8 for HCAP infection coverage. Will adjust abx coverage based on culture results. Pt. given IV fluids in ED and will continue w/ 0.9 NS @ 90 mL/HR. Second lactic acid 2.0 following IV fluids. Will repeat at 0400. Monitor pt. and f/u labs for signs of increasing infection, cardiac, and/or respiratory distress. Qualifiers: Sepsis type: sepsis due to unspecified organism Qualified Code(s): A41.9 - Sepsis, unspecified organism (3) Hypocalcemia Current visit: Yes Status: Acute Acute hypocalcemia w/calcium of 8.5 on admission. PO calcium carbonate 1,000 mg TID. Monitor f/u labs. Continuous tele. (4) Hyponatremia Current visit: Yes Status: Acute Acute hyponatremia w/sodium of 129 on admission. Pt. is also hypochloremic w/ chloride of 92. Pt. given 0.9 NS fluids. Monitor sodium and chloride status in a.m. labs. Continuous tele. (5) GERD (gastroesophageal reflux disease) Current visit: Yes Status: Chronic Hx of chronic GERD. Pt. takes PO Protonix. Will hold PO d/t Protonix drip being administered for GI bleed. Qualifiers: Esophagitis presence: with esophagitis Qualified Code(s): K21.0 - Gastro- esophageal reflux disease with esophagitis (6) Arthritis Current visit: Yes Status: Chronic Hx of chronic arthritis and osteoporosis. Continue pts. Naprosyn. (7) Anemia Current visit: Yes Status: Chronic Hx of chronic anemia. Hgb 6.0 and Hct 18.6 on admission, down from 8.7 and 27.1 on 09/19/17. Pt. reports hx of melanotic stools but cannot remember when last one was. Fecal hemoccult ordered. Pt. was typed and screened in ED w/order for two units of PRBCs. 20 mg IVP lasix ONCE to be administered after 1st unit and before starting 2nd unit. H/H Q6. Qualifiers: Anemia type: unspecified type Qualified Code(s): D64.9 - Anemia, unspecified (8) GI bleed Current visit: Yes Status: Chronic Hx of chronic GI bleed. Hgb 6.0 and Hct 18.6 on admission, down from 8.7 and 27.1 on 09/19/17. Pt. reports hx of melanotic stools but cannot remember when last one was. Fecal hemoccult ordered. Pt. was typed and screened in ED w/order for two units of PRBCs. Monitor pt. closely for signs of bleeding. Qualifiers: GI bleed type/associated pathology: unspecified gastrointestinal hemorrhage type Qualified Code(s): K92.2 - Gastrointestinal hemorrhage, unspecified (9) Schizophrenia Current visit: Yes Status: Chronic Hx of chronic schizophrenia and depression. Continue pts. Abilify, citalopram, fluphenazine decanoate, hydroxyzine pamoate, valproic acid, olanzapine. Qualifiers: Schizophrenia type: unspecified Qualified Code(s): F20.9 - Schizophrenia, unspecified (10) DVT prophylaxis Current visit: Yes Status: Acute Anti-embolic stockings on bilateral LEs for DVT prophylaxis. Pharmacologic DVT prophylaxis contraindicated d/t dropping Hgb/Hct and hx of GI bleed. Internal Medicine - H&P: HPI Chief complaint: SOB/Dyspnea Admitted From: Emergency Dept Plans for Post Hospital Care: Home History of present illness: Mr. Roa is a 62 year old male with medical hx of COPD, GERD, osteoporosis , and scoliosisarthritis, COPD, GERD, osteoporosis, and scoliosis presents from the [place] with chief complaint of SOB, dyspnea, nausea, and vomiting since September 03. Pt. states he has had issues w/vomiting intermittently since 1994. States that the SOB and dyspnea have worsened over the past several days. Pt. states he was recently discharged from the hospital w/similar sx. Reports vomiting twice today but denies presence of blood in emesis. Pt. reports melanotic stool in the past but cannot recall when last one was. Pt. had recent endoscopy which showed severe erosive circumferential esophagitis. Pt. reports weakness, diarrhea, and cough but denies fever, chills, headache, changes in vision, chest pain, palpitations, unusual bleeding, numbness, tingling, dizziness, lightheadedness, pre-syncope, or syncope. Past Med Surg Social Fam HX - Past Medical History Source: patient, old records reviewed Medical history: arthritis, COPD, GERD, osteoporosis, other (Scoliosis) Psychiatric history: schizophrenia - Past Surgical History Surgical History: appendectomy - Social History Smoking Status: Current every day smoker Packs per day: <1/2 PPD Smokeless Tobacco Status: No Alcohol use: none Drug use: none Current living situation: [facility] ([place]) Activity Level: Uses cane/walker Recent Out of Country Travel Within the Last 8 Weeks: No Exposure or Possible Exposure to Illness During Travel: No - Family History Father Race: Family Member Ethnicity: Non- Living Status: Age at : 89 Cause of : DM complications Hx Family Cardiac Disorders: Yes (MT) Hx Family Endocrine Disorder: Yes (DM) Mother Race: Family Member Ethnicity: Non- Living Status: Age at : 58 Cause of : MT Hx Family Cardiac Disorders: Yes (MT) Brother Race: Family Member Ethnicity: Non- Living Status: Age at : 31 Cause of : AIDS Hx Family Autoimmune Disorders: Yes (AIDS) Sister Race: Family Member Ethnicity: Non- Living Status: Age at : 73 Cause of : MT Hx Family Cardiac Disorders: Yes (MT) Internal Medicine - H&P: Meds ARIPiprazole [Abilify] 5 mg PO QAM 09/17/17 [History] Benztropine Mesylate 1 mg PO BID 09/17/17 [History] Cetirizine HCl [All Day Allergy] 10 mg PO DAILY 09/17/17 [History] Multivit-Minerals/Ferrous Fum [Complete Multivit-Mineral Liq] 10 ml PO DAILY [History] Mupirocin 1 appl TP TID 09/17/17 [History] Naproxen [Naprosyn] 500 mg PO BID PRN 09/17/17 [History] OLANZapine [Zyprexa] 2.5 mg PO Q8H PRN 09/17/17 [History] OLANZapine [Zyprexa] 20 mg PO HS 09/17/17 [History] Olodaterol HCl [Striverdi Respimat] 2 puff IH DAILY 09/17/17 [History] Pantoprazole Sodium [Protonix] 40 mg PO BID 09/17/17 [History] Valproic Acid Oral Soln [Depakene Oral Soln] 500 mg PO DAILY 09/17/17 [History] fluPHENAZine decanoate [Fluphenazine Decanoate] 87.5 mg IM Q2W 09/17/17 [History ] Calcium Carbonate/Vitamin D3 [Calcium 500-Vit D3 200 Tablet] 1 each PO BID 09/24 [History] Citalopram Hydrobromide [Citalopram HBr] 10 mg PO DAILY 09/24/17 [History] Docusate [Colace] 100 mg PO BID 09/24/17 [History] Levalbuterol Tartrate [Xopenex Hfa] 2 puff IH Q6H PRN 09/24/17 [History] Losartan [Cozaar] 25 mg PO DAILY 09/24/17 [History] hydrOXYzine pamoate [HydrOXYzine Pamoate] 25 mg PO QID PRN 09/24/17 [History] 3 Allergy/AdvReac Type Severity Reaction Status Date / Time azithromycin [From Zithromax] AdvReac See Verified 09/24/17 16:55 Comments Thiothixene [From Navane] AdvReac See Verified 09/24/17 16:55 Comments All Systems PM: A 10-system review of systems was performed and is negative for pertinent findings except as documented above in the HPI. - Constitutional Constitutional: as per HPI, weakness, no chills, no fever(s), no night sweats - EENT Eyes: no change in vision, no discharge, no pain, no photophobia Ears: no ear discharge, no ear pain, no tinnitus Nose, mouth and throat: no dysphagia, no nasal discharge, no neck pain, no sore throat - Breasts Breasts: as per HPI - Cardiovascular Cardiovascular ROS IM: as per HPI, dyspnea, dyspnea on exertion, no chest pain, no diaphoresis, no lightheadedness, no palpitations, no syncope - Respiratory Respiratory: as per HPI, cough, dyspnea, dyspnea on exertion, no wheezing, no excessive phlegm production - Gastrointestinal Gastrointestinal: as per HPI, diarrhea, melena, no abdominal pain, no hematemesis, no hematochezia, no nausea, no vomiting - Genitourinary Genitourinary ROS male: as per HPI - Musculoskeletal Musculoskeletal ROS IM: as per HPI, back pain (R/T scoliosis), no numbness, no tingling - Integumentary Integumentary IM: no rash, no unusual bruising - Neurological Neurological ROS: no confusion, no convulsions, no focal weakness, no numbness, no tingling, no tremor(s) - Psychiatric Psychiatric: as per HPI, other (Schizophrenia) - Endocrine Endocrine IM: as per HPI - Hematologic/Lymphatic Hematologic/Lymphatic: no easy bruising - Allergic/Immunologic Allergic/Immunologic: as per HPI - Constitutional Vitals: Temp Pulse Resp BP Pulse Ox 98 F 98 19 102/60 96 09/24/17 20:52 09/24/17 20:52 09/24/17 20:52 09/24/17 20:52 09/24/17 20:52 General appearance: Present: cooperative, mild distress, A&O X 3, pleasant, underweight, answers questions appropriately - Head Head exam: Present: atraumatic, normal inspection, normocephalic - Eye Eye exam: Present: PERRL, conjuntiva pink, sclera anicteric Pupils: Present: PERRL - ENT ENT exam: Present: normal exam - Neck Neck exam general surgery: Present: normal inspection, supple, trachea midline. Absent: lymphadenopathy - Respiratory Respiratory exam: Present: decreased breath sounds, wheezes. Absent: rales, rhonchi - Cardiovascular Cardiovascular exam: Present: tachycardia - GI/Abdominal GI/Abdominal exam: Present: normal bowel sounds, soft, no peritoneal signs. Absent: distended, tenderness - Rectal Rectal exam: Present: deferred - Additional comments: exam deferred. - Extremities Exam Extremities exam: Present: warm, radial pulses palpable and symmetrical. Absent : calf tenderness, cyanotic, pedal edema - Back Exam Back exam: Present: normal inspection - Neurological Exam Neurological exam: Present: CN II-XII intact, oriented X3, no focal deficits. Absent: pronater drift, facial droop, speech deficit - Psychiatric Psychiatric exam: Present: normal affect, normal mood - Skin Skin exam: Present: dry, intact Internal Med - H&P Results - Labs CBC & Chem 7: 09/24/17 22:42 09/24/17 16:00 - EKG Data EKG shows normal: sinus rhythm - EKG Data Prior EKG available for review: yes EKG comments: 09/24/17 22:19 EKG dated 09/16/17 shows sinus rhythm. EKG dated 09/24/17 15:29 shows sinus tachycardia and non-specific T-wave abnormality. EKG dated 09/24/17 17:08 shows sinus rhythm and non-specific T-wave abnormality. - Diagnostic Studies Chest x-ray Additional comments: Impressions Chest X-Ray 09/24/17 15:44 IMPRESSION: No acute process. Stable findings of COPD and emphysema. D/ / Tyler Tolliver MD / Tyler Tolliver MD Interpreting Provider: Tyler Tolliver MD CT scan - head Additional comments: Impressions Head CT 09/24/17 15:45 IMPRESSION: No acute intracranial abnormality. D/ / Ronal Prescott MD / Ronal Prescott MD Interpreting Provider: Ronal Prescott MD CT scan - chest Additional comments: Impressions Chest CT 09/24/17 16:52 IMPRESSION: 1. New airspace disease noted in the posterior aspects of the right upper lobe and the lower lobes bilaterally. A multilobar pneumonia needs to be considered. 2. Hiatal hernia with a dilated distal esophagus. 3. Emphysematous changes again noted in both lungs. D/ / 09/24/2017 19:17:35 Pietro Fragoso MD / jose Interpreting Provider: Pietro Fragoso MD CT scan - abdomen Additional comments: Impressions Abdomen/Pelvis CT 09/24/17 16:52 IMPRESSION: 1. No acute findings identified in the abdomen and pelvis. 2. Hiatal hernia. D/ / 09/24/2017 19:20:21 Ronal Prescott MD / jose Interpreting Provider: Ronal Prescott MD <Beny Rosas - Last Filed: 09/25/17 01:04> Date of Encounter: 09/25/17 Internal Medicine - H&P: HPI History of present illness: Mr. Roa is a 62 year old male All Systems PM: A 10-system review of systems was performed and is negative for pertinent findings except as documented above in the HPI. - Constitutional Vitals: Temp Pulse Resp BP Pulse Ox 98.1 F 90 18 95/54 91 09/25/17 00:05 09/25/17 00:05 09/25/17 00:05 09/25/17 00:05 09/24/17 23:55 Internal Med - H&P Results - Labs CBC & Chem 7: 09/24/17 22:42 09/24/17 16:00 Labs: Short CBC 09/24/17 Range/Units 22:42 Hgb 6.2 L (12.9-16.9) g/dL Hct 18.9 L (37.5-50.1) % Cardiac Enzymes 09/24/17 Range/Units 22:42 Troponin I 0.14 H* (< 0.04) ng/mL - Attending Attestation I have seen and examined Pt independently. I have discussed with ASSISTANT TEACHING PROFESSOR Mr Chambers regarding the management plan, agree with the documentation.
[2017-09-24] MEDS: OLANZapine 10 MG TAB.RAPDIS PO SCH (22:47)
[2017-09-24] MEDS: Ipratropium/Albuterol Neb 3 ML IH SCH (22:50)
[2017-09-24] MEDS ORDERED: Piperacillin/Tazobactam 3.375 GM in 0.9 % Sodium Chloride Mini Bag 100 ML IVPB ONE (23:00)
[2017-09-24 23:01] LABS: Hematocrit 18.9 % (37.5-50.1); Hemoglobin 6.2 g/dL (12.9-16.9)
[2017-09-24] MEDS ORDERED: OLANZapine 5 MG TAB.RAPDIS PO PRN (23:07)
[2017-09-24] MEDS ORDERED: 0.9 % Sodium Chloride 250 ML ONE (23:51)
[2017-09-25] MEDS: 0.9 % Sodium Chloride 1,000 ML IVC SCH ×2 (01:54→18:05)
[2017-09-25] MEDS: Vancomycin 1,000 MG in D5% in Water 250 ML IVPB SCH ×2 (03:31→18:09)
[2017-09-25] MEDS: Ipratropium/Albuterol Neb 3 ML IH SCH ×4 (04:42→21:48)
[2017-09-25 04:55] LABS: Basophils % 0.3 %; Eosinophils # 0.1 K/mcL (0.0-0.6); Eosinophils % 0.5 %; Hematocrit 20.6 % (37.5-50.1); Immature Granulocytes % 0.4 % (0-4); Lymphocytes # 1.2 K/mcL (0.6-4.6); Mean Corpuscular Hemoglobin 28.6 pg (28.0-33.3); Mean Corpuscular Volume 84.1 fL (83.0-100.0); Mean Platelet Volume 9.7 fL (9.4-12.4); Monocytes # 0.7 K/mcL (0.0-1.3); Monocytes % 4.5 %; Neutrophils # 12.8 K/mcL (1.6-8.9); Platelet Count 260 K/mcL (140-400); Red Blood Count 2.45 M/mcL (4.19-5.50); Red Cell Distribution Width 14.6 % (11.5-14.5); Segmented Neutrophils % 86.3 %
[2017-09-25] MEDS: Pantoprazole 80 MG in 0.9 % Sodium Chloride 250 ML IVC SCH ×2 (05:02→18:06)
[2017-09-25 05:06] LABS: INR 1.5; Prothrombin Time 16.3 Seconds (9.4-12.1)
[2017-09-25 05:09] LABS: Activated Partial Thrombo Time 42.8 Seconds (26.0-36.0)
[2017-09-25 05:18] LABS: Hemoglobin A1C 4.8 %
[2017-09-25 05:25] LABS: Alanine Aminotransferase 10 Units/L (7-52); Albumin 2.2 g/dL (3.5-5.7); Alkaline Phosphatase 43 Units/L (34-104); Aspartate Amino Transferase 13 Units/L (13-39); BUN/Creatinine Ratio 67 (6-26); Bilirubin,Total 0.5 mg/dL (0.3-1.0); Blood Urea Nitrogen 63 mg/dL (8-23); Calcium 7.6 mg/dL (8.6-10.3); Carbon Dioxide 31 mEq/L (23-29); Chloride 98 mEq/L (98-107); Chol/HDL Ratio 2.6 (0-4.9); Cholesterol 82 mg/dL (< 200); Globulin 2.2 g/dL (2.4-3.5); Glucose 97 mg/dL (70-105); HDL Cholesterol 31 mg/dL (40-59); LDL Cholesterol,Calculated 32 mg/dL (0-99); Magnesium 1.6 mg/dL (1.6-2.6); Osmolality,Calculated 294 (280-300); Sodium 133 mEq/L (136-145); Total Protein 4.4 g/dL (6.4-8.9); Triglycerides 93 mg/dL (< 150); eGFR For African Americans > 60 (> 60); eGFR For Non-African Americans > 60 (> 60)
[2017-09-25] MEDS ORDERED: Piperacillin/Tazobactam 3.375 GM/200 ML BAG IVPB SCH ×2 (07:00)
[2017-09-25] MEDS ORDERED: NON-FORMULARY MEDICATION 1 EACH EACH (Calcium Carbonate/Vitamin D3 [Calcium 500-Vit D3 200 PO SCH (09:00)
[2017-09-25] MEDS: Loratadine 10 MG TABLET PO SCH (09:21)
[2017-09-25] MEDS: Valproic Acid Oral Soln 250 MG/5 ML UDC PO SCH (09:21)
[2017-09-25] MEDS: ARIPiprazole 5 MG TABLET PO SCH (09:21)
[2017-09-25] MEDS: Multivit/Ca/Min/Fe/FA 1 TAB TABLET PO SCH (09:21)
[2017-09-25] MEDS: Cholecalciferol (D-3) 1,000 UNIT TABLET PO SCH (09:22)
[2017-09-25] MEDS ORDERED: 0.9 % Sodium Chloride 250 ML ONE ×2 (13:07→18:02)
[2017-09-25] MEDS: (Olodaterol Hcl [Striverdi Respimat] 2 PUFF) IH SCH (15:04)
[2017-09-25] MEDS: Piperacillin/Tazobactam 3.375 GM/200 ML BAG IVPB SCH ×2 (15:05→21:33)
--- NOTE | 2017-09-25 18:17 | Internal Med Progress Note ---
Date of Encounter: 09/26/17 Time of Encounter: 18:13 - Assessment and plan (1) HCAP (healthcare-associated pneumonia) Current Visit: Yes Status: Acute Assessment and plan: 62/male Presented with shortness of breath. X-ray chest: Stable COPD CT chest: Right upper lobe infiltrates along with bilateral lower lobe infiltrates consistent with multifocal pneumonia. Noted that patient is on vancomycin/Zosyn/levofloxacin White blood cell count trending down (2) GI bleed Current Visit: Yes Status: Chronic Assessment and plan: Patient presented with GI bleed. Patient is known to have a chronic GI bleed. Upon arrival his hemoglobin was 6.2. Noted that patient was transfused with 2 PRBC. This morning with hemoglobin was 7. Patient had a recent EGD less than 2 weeks ago. It was observed that patient has a naproxen 500 mg twice a day as a home medication. Plan: Discontinue naproxen. IV PPI 40 mg twice a day. I personally discussed case with Dr. Canseco and he does not have any plans to do endoscopy now. He recommended stabilize patient with the blood transfusion and we will discuss this tomorrow again. Qualifiers: GI bleed type/associated pathology: unspecified gastrointestinal hemorrhage type Qualified Code(s): K92.2 - Gastrointestinal hemorrhage, unspecified (3) Schizophrenia Current Visit: Yes Status: Chronic Assessment and plan: resumed home meds Qualifiers: Schizophrenia type: unspecified Qualified Code(s): F20.9 - Schizophrenia, unspecified (4) Psychiatric disorder Current Visit: No Status: Chronic Assessment and plan: see above (5) DVT prophylaxis Current Visit: Yes Status: Acute Assessment and plan: Agent is not a candidate for pharmacological DVT prophylaxis. This is due to the possible GI bleed. - Subjective Interval history: Patient seen and examined. Chart reviewed. Patient is comfortably lying in bed. Patient denies any chest pain, nausea, vomiting, abdominal pain, hematemesis or melena - Constitutional Vitals: Temp Pulse Resp BP Pulse Ox 98.2 F 84 17 128/76 94 09/25/17 16:59 09/25/17 16:59 09/25/17 16:59 09/25/17 16:59 09/25/17 16:59 General appearance: Present: cooperative, mild distress, A&O X 3, pleasant, underweight, answers questions appropriately - Head Head exam: Present: atraumatic, normocephalic - Eye Eye exam: Present: PERRL, conjuntiva pink, sclera anicteric Pupils: Present: PERRL - Neck Neck exam general surgery: Present: supple, trachea midline. Absent: lymphadenopathy - Respiratory Respiratory exam: Present: CTAB. Absent: accessory muscle use, rales, rhonchi, wheezes - Cardiovascular Cardiovascular exam: Present: RRR, +S1, +S2. Absent: diastolic murmur, gallop, rubs, systolic murmur - GI/Abdominal GI/Abdominal exam: Present: normal bowel sounds, soft, no peritoneal signs. Absent: distended, tenderness - Extremities Exam Extremities exam: Present: warm, radial pulses palpable and symmetrical. Absent : calf tenderness, cyanotic, pedal edema - Neurological Exam Neurological exam: Present: CN II-XII intact, oriented X3, no focal deficits. Absent: pronater drift, facial droop, speech deficit - Skin Skin exam: Present: dry, intact Internal Medicine: Result - Labs CBC & Chem 7: 09/26/17 03:31 09/26/17 03:31 Labs: Short CBC 09/24/17 09/25/17 Range/Units 22:42 04:43 WBC 14.8 H (4.3-11.1) K/mcL Hgb 6.2 L 7.0 L (12.9-16.9) g/dL Hct 18.9 L 20.6 L (37.5-50.1) % Plt Count 260 (140-400) K/mcL Neutrophils # 12.8 H (1.6-8.9) K/mcL BMP 09/25/17 04:43 Sodium 133 L Potassium 3.0 L Chloride 98 Carbon Dioxide 31 H BUN 63 H Creatinine 0.94 Glucose 97 Calcium 7.6 L Cardiac Enzymes 09/24/17 09/25/17 Range/Units 22:42 04:43 Troponin I 0.14 H* 0.08 H* (< 0.04) ng/mL Liver Function 09/25/17 Range/Units 04:43 Total Bilirubin 0.5 (0.3-1.0) mg/dL AST 13 (13-39) Units/L ALT 10 (7-52) Units/L Alkaline Phosphatase 43 (34-104) Units/L Albumin 2.2 L (3.5-5.7) g/dL - ABG Interpretation ABG results: PT/INR, D-dimer PT 16.3 Seconds (9.4-12.1) H 09/25/17 04:43 Consult Discharge Plan - Plan [facility]: [facility] [Primary Care Provider] -
[2017-09-25] MEDS: OLANZapine 10 MG TAB.RAPDIS PO SCH (21:15)
[2017-09-25] MEDS: Levofloxacin 750 MG/150 ML 750 MG/150 ML BAG IVPB SCH (21:26)
[2017-09-26] MEDS: 0.9 % Sodium Chloride 1,000 ML IVC SCH ×2 (00:27→14:42)
[2017-09-26] MEDS: Pantoprazole 80 MG in 0.9 % Sodium Chloride 250 ML IVC SCH ×2 (01:48→04:38)
[2017-09-26] MEDS: Ipratropium/Albuterol Neb 3 ML IH SCH ×4 (04:00→21:52)
[2017-09-26 04:18] LABS: Basophils % 0.6 %; Eosinophils # 0.6 K/mcL (0.0-0.6); Eosinophils % 8.2 %; Hemoglobin 8.2 g/dL (12.9-16.9); Immature Granulocytes % 0.6 % (0-4); Lymphocytes # 0.9 K/mcL (0.6-4.6); Lymphocytes % 13.4 %; Mean Corpuscular HGB Conc 32.8 g/dL (31.6-35.5); Mean Corpuscular Hemoglobin 28.6 pg (28.0-33.3); Mean Corpuscular Volume 87.1 fL (83.0-100.0); Mean Platelet Volume 9.7 fL (9.4-12.4); Monocytes # 0.5 K/mcL (0.0-1.3); Monocytes % 7.6 %; Neutrophils # 4.9 K/mcL (1.6-8.9); Platelet Count 254 K/mcL (140-400); Red Blood Count 2.87 M/mcL (4.19-5.50); Red Cell Distribution Width 15.1 % (11.5-14.5); Segmented Neutrophils % 69.6 %
[2017-09-26] MEDS: Vancomycin 1,000 MG in D5% in Water 250 ML IVPB SCH ×2 (04:26→17:50)
[2017-09-26 04:40] LABS: Alanine Aminotransferase 9 Units/L (7-52); Albumin 2.1 g/dL (3.5-5.7); Albumin/Globulin Ratio 1.1 (1.1-2.2); Alkaline Phosphatase 39 Units/L (34-104); Aspartate Amino Transferase 12 Units/L (13-39); BUN/Creatinine Ratio 51 (6-26); Bilirubin,Total 0.5 mg/dL (0.3-1.0); Blood Urea Nitrogen 37 mg/dL (8-23); Calcium 7.5 mg/dL (8.6-10.3); Carbon Dioxide 28 mEq/L (23-29); Chloride 104 mEq/L (98-107); Glucose 63 mg/dL (70-105); Osmolality,Calculated 293 (280-300); Potassium 3.1 mEq/L (3.5-5.1); Sodium 138 mEq/L (136-145); Total Protein 4.1 g/dL (6.4-8.9); eGFR For African Americans > 60 (> 60); eGFR For Non-African Americans > 60 (> 60)
[2017-09-26] MEDS: Piperacillin/Tazobactam 3.375 GM/200 ML BAG IVPB SCH (06:01)
[2017-09-26] MEDS ORDERED: Aminoglycoside Consult 1 EACH MC ONE (08:06)
[2017-09-26] MEDS: ARIPiprazole 5 MG TABLET PO SCH (09:56)
[2017-09-26] MEDS: Multivit/Ca/Min/Fe/FA 1 TAB TABLET PO SCH (09:56)
[2017-09-26] MEDS: Cholecalciferol (D-3) 1,000 UNIT TABLET PO SCH (09:56)
[2017-09-26] MEDS: Loratadine 10 MG TABLET PO SCH (09:56)
[2017-09-26] MEDS: Valproic Acid Oral Soln 250 MG/5 ML UDC PO SCH (09:56)
[2017-09-26] MEDS: Pantoprazole 40 MG VIAL IVP SCH ×2 (09:57→17:48)
[2017-09-26] MEDS: (Olodaterol Hcl [Striverdi Respimat] 2 PUFF) IH SCH (09:58)
[2017-09-26] MEDS ORDERED: Piperacillin/Tazobactam 3.375 GM/200 ML BAG IVPB SCH (12:00)
--- NOTE | 2017-09-26 18:11 | Internal Med Progress Note ---
Date of Encounter: 09/26/17 Time of Encounter: 18:07 - Assessment and plan (1) HCAP (healthcare-associated pneumonia) Current Visit: Yes Status: Acute Assessment and plan: 62/male Presented with shortness of breath. X-ray chest: Stable COPD CT chest: Right upper lobe infiltrates along with bilateral lower lobe infiltrates consistent with multifocal pneumonia. Noted that patient is on vancomycin/Zosyn/levofloxacin White blood cell count trending down 09/26/2017 Upon admissions patient's white blood cell count was 25.2 Yesterday patient's white blood cell count was 14.8 Today patient's white blood cell count is 7 Patient presented with shortness of breath. Today patient's breathing has improved and patient is able to communicate well. He is not using any accessory muscles of respiration. (2) GI bleed Current Visit: Yes Status: Chronic Assessment and plan: Patient presented with GI bleed. Patient is known to have a chronic GI bleed. Upon arrival his hemoglobin was 6.2. Noted that patient was transfused with 2 PRBC. This morning with hemoglobin was 7. Patient had a recent EGD less than 2 weeks ago. It was observed that patient has a naproxen 500 mg twice a day as a home medication. Plan: Discontinue naproxen. IV PPI 40 mg twice a day. I personally discussed case with Dr. Canseco and he does not have any plans to do endoscopy now. He recommended stabilize patient with the blood transfusion and we will discuss this tomorrow again. 09/26/2017 Upon admission patient's hemoglobin was 6.2 patient received altogether 3 packed red blood cells. Today patient's hemoglobin is 8.2 and patient is holding his hemoglobin pretty well Noted that patient's potassium was on the lower side and oral potassium and oral replacement order placed. We will repeat labs tomorrow morning to monitor patient's hemoglobin/potassium Qualifiers: GI bleed type/associated pathology: unspecified gastrointestinal hemorrhage type Qualified Code(s): K92.2 - Gastrointestinal hemorrhage, unspecified (3) Schizophrenia Current Visit: Yes Status: Chronic Assessment and plan: resumed home meds Qualifiers: Schizophrenia type: unspecified Qualified Code(s): F20.9 - Schizophrenia, unspecified (4) Psychiatric disorder Current Visit: No Status: Chronic Assessment and plan: see above (5) DVT prophylaxis Current Visit: Yes Status: Acute Assessment and plan: Agent is not a candidate for pharmacological DVT prophylaxis. This is due to the possible GI bleed. - Subjective Interval history: Patient seen and examined. Chart reviewed. Patient is comfortably lying in bed. Patient denies any chest pain, nausea, vomiting, abdominal pain, hematemesis or melena 09/26/2017. Patient seen and examined. Patient is comfortably lying in bed. Patient denies any melena, hematemesis, vomiting or diarrhea. - Constitutional Vitals: Temp Pulse Resp BP Pulse Ox 97.5 F L 76 16 162/88 95 09/26/17 16:20 09/26/17 16:20 09/26/17 16:20 09/26/17 16:20 09/26/17 16:20 General appearance: Present: cooperative, mild distress, A&O X 3, pleasant, underweight, answers questions appropriately - Head Head exam: Present: atraumatic, normocephalic - Eye Eye exam: Present: PERRL, conjuntiva pink, sclera anicteric Pupils: Present: PERRL - Neck Neck exam general surgery: Present: supple, trachea midline. Absent: lymphadenopathy - Respiratory Respiratory exam: Present: CTAB. Absent: accessory muscle use, rales, rhonchi, wheezes - Cardiovascular Cardiovascular exam: Present: RRR, +S1, +S2. Absent: diastolic murmur, gallop, rubs, systolic murmur - GI/Abdominal GI/Abdominal exam: Present: normal bowel sounds, soft, no peritoneal signs. Absent: distended, tenderness - Extremities Exam Extremities exam: Present: warm, radial pulses palpable and symmetrical. Absent : calf tenderness, cyanotic, pedal edema - Neurological Exam Neurological exam: Present: CN II-XII intact, oriented X3, no focal deficits. Absent: pronater drift, facial droop, speech deficit - Skin Skin exam: Present: dry, intact Internal Medicine: Result - Labs CBC & Chem 7: 09/26/17 03:31 09/26/17 03:31 Labs: Short CBC 09/26/17 Range/Units 03:31 WBC 7.0 D (4.3-11.1) K/mcL Hgb 8.2 L (12.9-16.9) g/dL Hct 25.0 L (37.5-50.1) % Plt Count 254 (140-400) K/mcL Neutrophils # 4.9 (1.6-8.9) K/mcL BMP 09/26/17 03:31 Sodium 138 Potassium 3.1 L Chloride 104 Carbon Dioxide 28 BUN 37 H Creatinine 0.73 Glucose 63 L Calcium 7.5 L Liver Function 09/26/17 Range/Units 03:31 Total Bilirubin 0.5 (0.3-1.0) mg/dL AST 12 L (13-39) Units/L ALT 9 (7-52) Units/L Alkaline Phosphatase 39 (34-104) Units/L Albumin 2.1 L (3.5-5.7) g/dL - ABG Interpretation ABG results: PT/INR, D-dimer PT 16.3 Seconds (9.4-12.1) H 09/25/17 04:43 Consult Discharge Plan - Plan [facility]errals: [facility] [Primary Care Provider] -
[2017-09-26] MEDS: OLANZapine 10 MG TAB.RAPDIS PO SCH (20:05)
[2017-09-26] MEDS: Levofloxacin 750 MG/150 ML 750 MG/150 ML BAG IVPB SCH (20:08)
[2017-09-27] MEDS: Piperacillin/Tazobactam 3.375 GM/200 ML BAG IVPB SCH ×3 (01:07→17:50)
[2017-09-27] MEDS: 0.9 % Sodium Chloride 1,000 ML IVC SCH ×2 (02:50→14:39)
[2017-09-27] MEDS: Ipratropium/Albuterol Neb 3 ML IH SCH ×4 (03:46→21:47)
[2017-09-27] MEDS: Vancomycin 1,000 MG in D5% in Water 250 ML IVPB SCH (04:12)
[2017-09-27 05:14] LABS: Basophils # 0.1 K/mcL (0.0-0.2); Basophils % 0.9 %; Eosinophils # 0.7 K/mcL (0.0-0.6); Eosinophils % 9.3 %; Hematocrit 31.5 % (37.5-50.1); Immature Granulocytes % 0.6 % (0-4); Lymphocytes # 0.9 K/mcL (0.6-4.6); Lymphocytes % 11.2 %; Mean Corpuscular HGB Conc 32.4 g/dL (31.6-35.5); Mean Corpuscular Hemoglobin 28.6 pg (28.0-33.3); Mean Corpuscular Volume 88.2 fL (83.0-100.0); Mean Platelet Volume 9.7 fL (9.4-12.4); Monocytes # 0.8 K/mcL (0.0-1.3); Monocytes % 10.1 %; Neutrophils # 5.4 K/mcL (1.6-8.9); Platelet Count 303 K/mcL (140-400); Red Blood Count 3.57 M/mcL (4.19-5.50); Red Cell Distribution Width 15.2 % (11.5-14.5); Segmented Neutrophils % 67.9 %
[2017-09-27 05:16] LABS: Hemoglobin 10.2 g/dL (12.9-16.9)
[2017-09-27 05:20] LABS: Alanine Aminotransferase 10 Units/L (7-52); Albumin 2.6 g/dL (3.5-5.7); Albumin/Globulin Ratio 1.1 (1.1-2.2); Alkaline Phosphatase 50 Units/L (34-104); Aspartate Amino Transferase 16 Units/L (13-39); BUN/Creatinine Ratio 28 (6-26); Bilirubin,Total 0.5 mg/dL (0.3-1.0); Blood Urea Nitrogen 21 mg/dL (8-23); Calcium 7.9 mg/dL (8.6-10.3); Carbon Dioxide 27 mEq/L (23-29); Chloride 106 mEq/L (98-107); Globulin 2.4 g/dL (2.4-3.5); Glucose 61 mg/dL (70-105); Osmolality,Calculated 285 (280-300); Potassium 3.6 mEq/L (3.5-5.1); Sodium 137 mEq/L (136-145); eGFR For African Americans > 60 (> 60); eGFR For Non-African Americans > 60 (> 60)
[2017-09-27] MEDS: ARIPiprazole 5 MG TABLET PO SCH (08:22)
[2017-09-27] MEDS: Cholecalciferol (D-3) 1,000 UNIT TABLET PO SCH (08:22)
[2017-09-27] MEDS: Multivit/Ca/Min/Fe/FA 1 TAB TABLET PO SCH (08:22)
[2017-09-27] MEDS: Valproic Acid Oral Soln 250 MG/5 ML UDC PO SCH (08:23)
[2017-09-27] MEDS: Loratadine 10 MG TABLET PO SCH (08:23)
[2017-09-27] MEDS: Pantoprazole 40 MG VIAL IVP SCH (08:31)
[2017-09-27] MEDS: (Olodaterol Hcl [Striverdi Respimat] 2 PUFF) IH SCH (08:31)
--- NOTE | 2017-09-27 10:10 | Electrocardiograph Report ---
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
--- NOTE | 2017-09-27 10:35 | Electrocardiograph Report ---
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
--- NOTE | 2017-09-27 15:17 | Gastroenterology Consult Note ---
<Pietro Esquivel - Last Filed: 09/27/17 15:15> Date of Encounter: 09/27/17 Time of Encounter: 11:40 - Assessment and plan (1) Anemia Current Visit: Yes Status: Chronic Assessment and plan: On admission Hgb 6, received a total of 4 units PRBC, and this AM Hgb 10.2. Continue to monitor CBC and transfuse PRBC as needed. Plan for EGD today to r/o esophagitis, gastritis, duodenitis, PUD, MW tear, or AVM. If EGD negative, consider colonoscopy tomorrow. Qualifiers: Anemia type: unspecified type Qualified Code(s): D64.9 - Anemia, unspecified (2) Erosive esophagitis Current Visit: Yes Status: Acute Assessment and plan: Recent EGD 09/19/[address] Suero with severe erosive/ulcerated circumferential reflux esophagitis, large hiatal hernia, plan to repeat in 2 months. Continue BID PPI. Plan for repeat EGD today, continue PPI BID. - Time Spent With Patient Total time spent is greater than 50% in coordination of care (as documented) at patient's floor/unit and/or counseling patient: GI History of Present Illness - Data of Consult Patient: known to practice within the last 3 years Consult date: 09/27/17 Requesting Physician: Torres Robertson MD - Consult Narrative Reason for consult: Anemia, melena, Hx GI bleed History of present illness: Mr. Roa is a 62 year old male with PMHx of COPD, GERD, osteoporosis [facility], dyspnea, nausea, and vomiting since September 03. On admission WBC 25.[address] chest showed right upper lobe infiltrates along with bilateral lower lobe infiltrates consistent with multifocal pneumonia. He was started on Vancomycin, Zosyn, Levofloxacin. Reported vomiting twice but denied presence of blood in emesis. Pt reports melanotic stool in the past but cannot recall when last one was. Pt had recent EGD which showed severe erosive circumferential esophagitis. He denies fever, chills, chest pain, hematemesis. We were consulted for possible GI bleed. On admission Hgb 6, received a total of 4 units PRBC, and this AM Hgb 10.2. CT A/P with no acute findings. Procedures: EGD 09/19/2017 Dr. Suero: Severe erosive/ulcerated circumferential reflux esophagitis, large hiatal hernia, repeat in 2 months. Esophageal Manometry 05/31/2017 Dr. Suero: Low mean IRP consistent with very weak LES, frequent failed peristalsis. NSAIDs: None Anticoagulation: None Past Med Surg Social Fam HX - Past Medical History Medical history: arthritis, COPD, GERD, osteoporosis, other Psychiatric history: schizophrenia - Past Surgical History Surgical History: appendectomy - Social History Smoking Status: Current every day smoker Packs per day: <1/2 PPD Smokeless Tobacco Status: No Alcohol use: none Drug use: none - Family History Father History Unknown: Yes Race: Family Member Ethnicity: Non- Living Status: Age at : 93 Cause of : DM complications Hx Family Cardiac Disorders: Yes ([place]) Hx Family Endocrine Disorder: Yes (DM) Mother History Unknown: Yes Race: Family Member Ethnicity: Non- Living Status: Age at : 58 Cause of : [place] Hx Family Cardiac Disorders: Yes ([place]) Brother History Unknown: Yes Race: Family Member Ethnicity: Non- Living Status: Age at : 31 Cause of : AIDS Hx Family Autoimmune Disorders: Yes (AIDS) Sister History Unknown: Yes Race: Family Member Ethnicity: Non- Living Status: Age at : 73 Cause of : [place] Hx Family Cardiac Disorders: Yes ([place]) - Gastrointestinal Gastrointestinal: Present: as per HPI - Constitutional Constitutional: as per HPI - EENT Eyes: as per HPI Ears: Present: as per HPI Nose, mouth and throat: Present: as per HPI - Cardiovascular Cardiovascular ROS: Present: as per HPI - Respiratory Respiratory IM: Present: as per HPI - Genitourinary Genitourinary: Absent: change in color, Urinary frequency - Neurological ROS Neurological GI: Present: as per HPI - Hematologic/Lymphatic Hematologic/Lymphatic pediatric: Present: as per HPI - Musculoskeletal Musculoskeletal ROS GI: Present: as per HPI - Integumentary Integumentary GI: Present: as per HPI - Psychiatric ROS Psychiatric GI: Present: as per HPI - Endocrine Endocrine IM: Present: as per HPI - Constitutional Vitals: Temp Pulse Resp BP Pulse Ox 97.5 F L 66 17 154/80 99 09/27/17 11:27 09/27/17 11:27 09/27/17 11:27 09/27/17 11:27 09/27/17 11:27 General appearance: Present: cooperative, A&O X 3, no acute distress, answers questions appropriately - Head Head exam: Present: atraumatic, normocephalic - Eye Eye exam: Present: normal appearance, sclera anicteric - ENT ENT exam: Present: mucous membranes moist - Neck Neck exam general surgery: Present: normal inspection, trachea midline - Respiratory Respiratory exam: Present: CTAB - Cardiovascular Cardiovascular exam: Present: RRR, +S1, +S2 - GI/Abdominal GI/Abdominal exam: Present: soft, no peritoneal signs. Absent: distended, firm , guarding, tenderness - Rectal Rectal exam: Present: deferred - Extremities Exam Extremities exam: Present: warm - Neurological Exam Neurological exam: Present: no focal deficits - Psychiatric Psychiatric exam: Present: normal affect, normal mood - Skin Skin exam: Present: dry, intact, normal color, warm Results - Labs CBC & Chem 7: 09/27/17 04:24 09/27/17 04:24 Labs: Last Result Calcium 7.9 mg/dL (8.6-10.3) L 09/27/17 04:24 Troponin I 0.08 ng/mL (< 0.04) H* 09/25/17 04:43 Triglycerides 93 mg/dL (< 150) 09/25/17 04:43 Entire Visit Hgb 10.2 g/dL (12.9-16.9) L D 09/27/17 04:24 Hct 31.5 % (37.5-50.1) L 09/27/17 04:24 PT 16.3 Seconds (9.4-12.1) H 09/25/17 04:43 Total Bilirubin 0.5 mg/dL (0.3-1.0) 09/27/17 04:24 AST 16 Units/L (13-39) 09/27/17 04:24 ALT 10 Units/L (7-52) 09/27/17 04:24 - ABG ABG results: PT/INR, D-dimer PT 16.3 Seconds (9.4-12.1) H 09/25/17 04:43 Consult Discharge Plan - Plan [facility]errals: [facility] Provider[facility] - <Gul,Phillip - Last Filed: 09/27/17 18:05> Date of Encounter: 09/27/17 Time of Encounter: 17:00 - Time Spent With Patient Total time spent is greater than 50% in coordination of care (as documented) at patient's floor/unit and/or counseling patient: GI History of Present Illness - Data of Consult Requesting Physician: Torres Robertson MD - Consult Narrative History of present illness: Mr. Roa is a 62 year old male - Constitutional Vitals: Temp Pulse Resp BP Pulse Ox 97.4 F L 74 16 161/87 97 09/27/17 15:58 09/27/17 17:13 09/27/17 17:13 09/27/17 17:13 09/27/17 17:13 Results - Labs CBC & Chem 7: 09/27/17 04:24 09/27/17 04:24 Labs: Last Result Calcium 7.9 mg/dL (8.6-10.3) L 09/27/17 04:24 Troponin I 0.08 ng/mL (< 0.04) H* 09/25/17 04:43 Triglycerides 93 mg/dL (< 150) 09/25/17 04:43 Entire Visit Hgb 10.2 g/dL (12.9-16.9) L D 09/27/17 04:24 Hct 31.5 % (37.5-50.1) L 09/27/17 04:24 PT 16.3 Seconds (9.4-12.1) H 09/25/17 04:43 Total Bilirubin 0.5 mg/dL (0.3-1.0) 09/27/17 04:24 AST 16 Units/L (13-39) 09/27/17 04:24 ALT 10 Units/L (7-52) 09/27/17 04:24 - ABG ABG results: PT/INR, D-dimer PT 16.3 Seconds (9.4-12.1) H 09/25/17 04:43 - Attending Attestation I examined this patient and my medical decision-making was reviewed with the Resident Physician. I agree with the documented findings, disposition and treatment plan as described except to the extent set forth below. Patient 62-year-old male with a history of significant acid reflux with severe erosive esophagitis and large hiatal hernia now admitted with a drop in his hemoglobin and cane. Denies any overt GI bleeding such as hematemesis or melena. Recommendation: EGD to reassess his lower esophageal finding as stated concern the patient could have bled from a ulcer in the esophagus. If the EGD does not explain the drop in his hemoglobin then he will need a colonoscopy
[2017-09-27] MEDS ORDERED: *HR* Midazolam HCl 5 MG/5 ML VIAL IVP ONE ×2 (16:33→16:51)
[2017-09-27] MEDS ORDERED: *HR* FentaNYL (PF) 100 MCG/2 ML VIAL ONE (16:33)
[2017-09-27] MEDS ORDERED: Tetracaine/Benzocaine/Butamben 200MG/SPRAY (100SPY/BOT) MM ONE (16:51)
[2017-09-27] MEDS ORDERED: *HR* FentaNYL (PF) 100 MCG/2 ML VIAL IVP ONE (16:51)
[2017-09-27] MEDS ORDERED: Simethicone 40 MG/0.6 ML MLS IR ONE (16:51)
--- NOTE | 2017-09-27 16:52 | Pre-Sedation Evaluation ---
Pre-sedation evaluation - Pre-sedation checklist Procedure: egd Recent Vitals: Last Vital Signs Temp 97.4 F L 09/27/17 15:58 Pulse 78 09/27/17 16:41 Resp 18 09/27/17 16:41 BP 165/95 09/27/17 16:41 Pulse Ox 95 09/27/17 16:41 H&P (including ROS) documented in medical record: Yes Previous reaction to sedatives/anesthetics: No Dietary Status: NPO after Midnight Dentition: dentures removed ASA Classification *see protocol: CLASS III-Severe systemic disease Plan of Care: Pt appropriate candidate for procedure/moderate/conscious sedation , Risks/benefits of procedure/sedation discussed w/ patient/family
[2017-09-27] MEDS ORDERED: SODIUM CHLORIDE/NAHCO3/KCL/PEG 4,000 ML SOLN.RECON PO ONE (17:00)
[2017-09-27] MEDS ORDERED: Pantoprazole 40 MG in 0.9 % Sodium Chloride Mini Bag 100 ML IVC SCH (17:15)
--- NOTE | 2017-09-27 17:53 | Internal Med Progress Note ---
Date of Encounter: 09/27/17 Time of Encounter: 17:51 - Assessment and plan (1) HCAP (healthcare-associated pneumonia) Current Visit: Yes Status: Acute Assessment and plan: 62/male Presented with shortness of breath. X-ray chest: Stable COPD CT chest: Right upper lobe infiltrates along with bilateral lower lobe infiltrates consistent with multifocal pneumonia. Noted that patient is on vancomycin/Zosyn/levofloxacin White blood cell count trending down 09/26/2017 Upon admissions patient's white blood cell count was 25.2 Yesterday patient's white blood cell count was 14.8 Today patient's white blood cell count is 7 Patient presented with shortness of breath. Today patient's breathing has improved and patient is able to communicate well. He is not using any accessory muscles of respiration. 09/27/2017 Patient's white blood cell count trending appropriately down. Electrolytes are within acceptable range. Patient's hemoglobin is 10.2 and this is after transfusion. Noted from gastroenterology that he is scheduled for upper and lower endoscopy tomorrow. Plan of care explained to the patient at length (2) GI bleed Current Visit: Yes Status: Chronic Assessment and plan: Patient presented with GI bleed. Patient is known to have a chronic GI bleed. Upon arrival his hemoglobin was 6.2. Noted that patient was transfused with 2 PRBC. This morning with hemoglobin was 7. Patient had a recent EGD less than 2 weeks ago. It was observed that patient has a naproxen 500 mg twice a day as a home medication. Plan: Discontinue naproxen. IV PPI 40 mg twice a day. I personally discussed case with Dr. Canseco and he does not have any plans to do endoscopy now. He recommended stabilize patient with the blood transfusion and we will discuss this tomorrow again. 09/26/2017 Upon admission patient's hemoglobin was 6.2 patient received altogether 3 packed red blood cells. Today patient's hemoglobin is 8.2 and patient is holding his hemoglobin pretty well Noted that patient's potassium was on the lower side and oral potassium and oral replacement order placed. We will repeat labs tomorrow morning to monitor patient's hemoglobin/potassium Qualifiers: GI bleed type/associated pathology: unspecified gastrointestinal hemorrhage type Qualified Code(s): K92.2 - Gastrointestinal hemorrhage, unspecified (3) Schizophrenia Current Visit: Yes Status: Chronic Assessment and plan: resumed home meds Qualifiers: Schizophrenia type: unspecified Qualified Code(s): F20.9 - Schizophrenia, unspecified (4) Psychiatric disorder Current Visit: No Status: Chronic Assessment and plan: see above (5) DVT prophylaxis Current Visit: Yes Status: Acute Assessment and plan: Agent is not a candidate for pharmacological DVT prophylaxis. This is due to the possible GI bleed. - Subjective Interval history: Patient seen and examined. Chart reviewed. Patient is comfortably lying in bed. Patient denies any chest pain, nausea, vomiting, abdominal pain, hematemesis or melena 09/26/2017. Patient seen and examined. Patient is comfortably lying in bed. Patient denies any melena, hematemesis, vomiting or diarrhea. 09/27/2017. Patient seen and examined. Patient is comfortably lying in the bed. Patient denies any melena/hematemesis/vomiting or diarrhea. Plan patient at length regarding plan for endoscopy tomorrow - Constitutional Vitals: Temp Pulse Resp BP Pulse Ox 97.4 F L 74 16 161/87 97 09/27/17 15:58 09/27/17 17:13 09/27/17 17:13 09/27/17 17:13 09/27/17 17:13 General appearance: Present: cooperative, mild distress, A&O X 3, pleasant, underweight, answers questions appropriately - Head Head exam: Present: atraumatic, normocephalic - Eye Eye exam: Present: PERRL, conjuntiva pink, sclera anicteric Pupils: Present: PERRL - Neck Neck exam general surgery: Present: supple, trachea midline. Absent: lymphadenopathy - Respiratory Respiratory exam: Present: CTAB. Absent: accessory muscle use, rales, rhonchi, wheezes - Cardiovascular Cardiovascular exam: Present: RRR, +S1, +S2. Absent: diastolic murmur, gallop, rubs, systolic murmur - GI/Abdominal GI/Abdominal exam: Present: normal bowel sounds, soft, no peritoneal signs. Absent: distended, tenderness - Extremities Exam Extremities exam: Present: warm, radial pulses palpable and symmetrical. Absent : calf tenderness, cyanotic, pedal edema - Neurological Exam Neurological exam: Present: CN II-XII intact, oriented X3, no focal deficits. Absent: pronater drift, facial droop, speech deficit - Skin Skin exam: Present: dry, intact Internal Medicine: Result - Labs CBC & Chem 7: 09/27/17 04:24 09/27/17 04:24 Labs: Short CBC 09/27/17 Range/Units 04:24 WBC 7.9 (4.3-11.1) K/mcL Hgb 10.2 L D (12.9-16.9) g/dL Hct 31.5 L (37.5-50.1) % Plt Count 303 (140-400) K/mcL Neutrophils # 5.4 (1.6-8.9) K/mcL BMP 09/27/17 04:24 Sodium 137 Potassium 3.6 Chloride 106 Carbon Dioxide 27 BUN 21 Creatinine 0.74 Glucose 61 L Calcium 7.9 L Liver Function 09/27/17 Range/Units 04:24 Total Bilirubin 0.5 (0.3-1.0) mg/dL AST 16 (13-39) Units/L ALT 10 (7-52) Units/L Alkaline Phosphatase 50 (34-104) Units/L Albumin 2.6 L (3.5-5.7) g/dL - ABG Interpretation ABG results: PT/INR, D-dimer PT 16.3 Seconds (9.4-12.1) H 09/25/17 04:43 Consult Discharge Plan - Plan [facility]errals: [facility] [[facility] Provider[facility] -
[2017-09-27] MEDS: Pantoprazole 80 MG in 0.9 % Sodium Chloride 250 ML IVPB SCH (18:35)
[2017-09-27] MEDS: Levofloxacin 750 MG/150 ML 750 MG/150 ML BAG IVPB SCH (23:14)
[2017-09-27] MEDS: OLANZapine 10 MG TAB.RAPDIS PO SCH (23:15)
[2017-09-28] MEDS: Piperacillin/Tazobactam 3.375 GM/200 ML BAG IVPB SCH (02:24)
[2017-09-28] MEDS: 0.9 % Sodium Chloride 1,000 ML IVC SCH (04:09)
[2017-09-28] MEDS: Ipratropium/Albuterol Neb 3 ML IH SCH ×4 (05:01→21:09)
[2017-09-28] MEDS: Pantoprazole 80 MG in 0.9 % Sodium Chloride 250 ML IVPB SCH ×2 (05:24→17:19)
[2017-09-28 05:26] LABS: Basophils % 0.6 %; Eosinophils # 0.6 K/mcL (0.0-0.6); Eosinophils % 8.8 %; Hematocrit 29.1 % (37.5-50.1); Hemoglobin 9.5 g/dL (12.9-16.9); Immature Granulocytes % 0.4 % (0-4); Lymphocytes # 0.9 K/mcL (0.6-4.6); Mean Corpuscular HGB Conc 32.6 g/dL (31.6-35.5); Mean Corpuscular Hemoglobin 29.1 pg (28.0-33.3); Mean Platelet Volume 9.3 fL (9.4-12.4); Monocytes # 0.5 K/mcL (0.0-1.3); Monocytes % 6.9 %; Neutrophils # 5.2 K/mcL (1.6-8.9); Platelet Count 287 K/mcL (140-400); Red Blood Count 3.27 M/mcL (4.19-5.50); Red Cell Distribution Width 14.8 % (11.5-14.5); Segmented Neutrophils % 71.3 %
[2017-09-28 05:41] LABS: Alanine Aminotransferase 10 Units/L (7-52); Albumin 2.3 g/dL (3.5-5.7); Alkaline Phosphatase 49 Units/L (34-104); Aspartate Amino Transferase 17 Units/L (13-39); BUN/Creatinine Ratio 22 (6-26); Bilirubin,Total 0.4 mg/dL (0.3-1.0); Blood Urea Nitrogen 15 mg/dL (8-23); Calcium 7.6 mg/dL (8.6-10.3); Carbon Dioxide 22 mEq/L (23-29); Chloride 108 mEq/L (98-107); Globulin 2.4 g/dL (2.4-3.5); Glucose 48 mg/dL (70-105); Osmolality,Calculated 280 (280-300); Potassium 3.7 mEq/L (3.5-5.1); Sodium 136 mEq/L (136-145); Total Protein 4.7 g/dL (6.4-8.9); eGFR For African Americans > 60 (> 60); eGFR For Non-African Americans > 60 (> 60)
[2017-09-28] MEDS: Multivit/Ca/Min/Fe/FA 1 TAB TABLET PO SCH (08:05)
[2017-09-28] MEDS: Loratadine 10 MG TABLET PO SCH (08:05)
[2017-09-28] MEDS: ARIPiprazole 5 MG TABLET PO SCH (08:05)
[2017-09-28] MEDS: Cholecalciferol (D-3) 1,000 UNIT TABLET PO SCH (08:05)
[2017-09-28] MEDS: Valproic Acid Oral Soln 250 MG/5 ML UDC PO SCH (08:06)
[2017-09-28] MEDS: OLANZapine 10 MG TAB.RAPDIS PO SCH (20:21)
[2017-09-28] MEDS: Levofloxacin 750 MG/150 ML 750 MG/150 ML BAG IVPB SCH (20:21)
[2017-09-29] MEDS: Pantoprazole 80 MG in 0.9 % Sodium Chloride 250 ML IVPB SCH (03:10)
[2017-09-29] MEDS: Ipratropium/Albuterol Neb 3 ML IH SCH ×4 (04:11→22:11)
[2017-09-29 06:54] LABS: Alanine Aminotransferase 13 Units/L (7-52); Albumin 2.6 g/dL (3.5-5.7); Alkaline Phosphatase 55 Units/L (34-104); Aspartate Amino Transferase 21 Units/L (13-39); BUN/Creatinine Ratio 13 (6-26); Bilirubin,Total 0.3 mg/dL (0.3-1.0); Blood Urea Nitrogen 9 mg/dL (8-23); Calcium 7.9 mg/dL (8.6-10.3); Carbon Dioxide 27 mEq/L (23-29); Chloride 108 mEq/L (98-107); Globulin 2.7 g/dL (2.4-3.5); Glucose 79 mg/dL (70-105); Osmolality,Calculated 286 (280-300); Sodium 139 mEq/L (136-145); Total Protein 5.3 g/dL (6.4-8.9); eGFR For African Americans > 60 (> 60); eGFR For Non-African Americans > 60 (> 60)
[2017-09-29 07:25] LABS: Basophils % 0.4 %; Eosinophils # 0.4 K/mcL (0.0-0.6); Eosinophils % 6.3 %; Hematocrit 31.8 % (37.5-50.1); Hemoglobin 10.3 g/dL (12.9-16.9); Immature Granulocytes % 0.4 % (0-4); Lymphocytes % 14.1 %; Mean Corpuscular HGB Conc 32.4 g/dL (31.6-35.5); Mean Corpuscular Hemoglobin 28.8 pg (28.0-33.3); Mean Corpuscular Volume 88.8 fL (83.0-100.0); Mean Platelet Volume 9.4 fL (9.4-12.4); Monocytes # 0.5 K/mcL (0.0-1.3); Neutrophils # 4.8 K/mcL (1.6-8.9); Nucleated Red Blood Cells 0.3 /100 WBC (0); Platelet Count 343 K/mcL (140-400); Red Blood Count 3.58 M/mcL (4.19-5.50); Segmented Neutrophils % 70.8 %
[2017-09-29] MEDS: Multivit/Ca/Min/Fe/FA 1 TAB TABLET PO SCH (09:37)
[2017-09-29] MEDS: Cholecalciferol (D-3) 1,000 UNIT TABLET PO SCH (09:37)
[2017-09-29] MEDS: ARIPiprazole 5 MG TABLET PO SCH (09:39)
[2017-09-29] MEDS: Loratadine 10 MG TABLET PO SCH (09:39)
[2017-09-29] MEDS: Valproic Acid Oral Soln 250 MG/5 ML UDC PO SCH (10:10)
--- NOTE | 2017-09-29 13:18 | Internal Med Progress Note ---
Date of Encounter: 09/28/17 Time of Encounter: 16:15 - Assessment and plan (1) Upper gastrointestinal bleed Status: Acute Assessment and plan: Patient presented with anemia; Recent EGD 09/19/[address] Suero with severe erosive/ulcerated circumferential reflux esophagitis, large hiatal hernia, plan to repeat in 2 months. GI was consulted during this admission, patient underwent EGD, which showed reflux esophagitis, large cratered nonbleeding esophageal ulcer, large hiatal hernia, nonbleeding angioectasia in the stomach. On IV Protonix drip. (2) Anemia Status: Chronic Assessment and plan: Likely due to upper GI bleed from esophageal ulcer. Continue IV PPI. Avoid aspirin, NSAIDs. Patient will need hiatal hernia repair to prevent reflux esophagitis. Qualifiers: Anemia type: unspecified type Qualified Code(s): D64.9 - Anemia, unspecified (3) HCAP (healthcare-associated pneumonia) Status: Acute Assessment and plan: CT chest shows right-sided pneumonia. Continue IV antibiotics. 2 sets of blood cultures are negative. Supportive care and supplemental oxygen. (4) Schizophrenia Status: Chronic Assessment and plan: Mood stable. Continue home medications. Qualifiers: Schizophrenia type: unspecified Qualified Code(s): F20.9 - Schizophrenia, unspecified (5) Sepsis Status: Resolved Assessment and plan: Likely secondary to pneumonia. Improved. Qualifiers: Sepsis type: sepsis due to unspecified organism Qualified Code(s): A41.9 - Sepsis, unspecified organism - Subjective Interval history: Feels better; denies nausea, vomiting, abdominal pain; came back from EGD, on Protonix drip at this time; - Constitutional Vitals: Temp Pulse Resp BP Pulse Ox 97.5 F L 89 16 167/99 99 09/29/17 10:58 09/29/17 10:58 09/29/17 11:16 09/29/17 10:58 09/29/17 11:16 General appearance: Present: cooperative, A&O X 3, underweight, answers questions appropriately - Respiratory Respiratory exam: Present: CTAB. Absent: accessory muscle use, rales, rhonchi, wheezes - Cardiovascular Cardiovascular exam: Present: RRR, +S1, +S2. Absent: diastolic murmur, gallop, rubs, systolic murmur - GI/Abdominal GI/Abdominal exam: Present: normal bowel sounds, soft, no peritoneal signs. Absent: distended, tenderness - Extremities Exam Extremities exam: Present: full ROM, warm, radial pulses palpable and symmetrical. Absent: calf tenderness, cyanotic, pedal edema Internal Medicine: Result - Labs CBC & Chem 7: 09/29/17 05:48 09/30/17 05:13 Labs: Short CBC 09/29/17 Range/Units 05:48 WBC 6.8 (4.3-11.1) K/mcL Hgb 10.3 L (12.9-16.9) g/dL Hct 31.8 L (37.5-50.1) % Plt Count 343 (140-400) K/mcL Neutrophils # 4.8 (1.6-8.9) K/mcL BMP 09/29/17 05:48 Sodium 139 Potassium 3.0 L Chloride 108 H Carbon Dioxide 27 BUN 9 Creatinine 0.67 L Glucose 79 Calcium 7.9 L Liver Function 09/29/17 Range/Units 05:48 Total Bilirubin 0.3 (0.3-1.0) mg/dL AST 21 (13-39) Units/L ALT 13 (7-52) Units/L Alkaline Phosphatase 55 (34-104) Units/L Albumin 2.6 L (3.5-5.7) g/dL - ABG Interpretation ABG results: PT/INR, D-dimer PT 16.3 Seconds (9.4-12.1) H 09/25/17 04:43 Consult Discharge Plan - Plan Instructions: Levofloxacin (By mouth), Anemia (GEN), Pneumonia (DC) Additional Instructions: F/up with PCP in 1-2 weeks F/up with [facility] in 3-4 weeks for hiatal hernia surgery Referrals: Bryce Canseco MD [Partnered Physician] - 10/26/17 1:40 pm [facility] - 10/06/17 10:30 am Prescriptions: levoFLOXacin [Levaquin] 750 mg PO DAILY@2100 #2 tablet Metoprolol [Lopressor] 12.5 mg PO BID #15 tablet Sucralfate [Carafate] 1 gm PO QIDAC 30 Days [facility] [place]
--- NOTE | 2017-09-29 13:20 | Internal Med Progress Note ---
Date of Encounter: 09/29/17 Time of Encounter: 13:19 - Assessment and plan (1) Upper gastrointestinal bleed Status: Acute Assessment and plan: Patient presented with anemia; Recent EGD 09/19/[address] Suero with severe erosive/ulcerated circumferential reflux esophagitis, large hiatal hernia, plan to repeat in 2 months. GI was consulted during this admission, patient underwent EGD, which showed reflux esophagitis, large cratered nonbleeding esophageal ulcer, large hiatal hernia, nonbleeding angioectasia in the stomach. Case d/w GI today, Discontinue IV Protonix drip. Clear liquid diet and advance as tolerated. Patient will need evaluation for hiatal hernia repair as an outpatient; (2) Anemia Status: Chronic Assessment and plan: Likely due to upper GI bleed from esophageal ulcer. Continue PPI. Avoid aspirin, NSAIDs. Patient will need hiatal hernia repair to prevent reflux esophagitis. Qualifiers: Anemia type: unspecified type Qualified Code(s): D64.9 - Anemia, unspecified (3) HCAP (healthcare-associated pneumonia) Status: Acute Assessment and plan: CT chest shows right-sided pneumonia. Continue IV antibiotics. 2 sets of blood cultures are negative. Supportive care and supplemental oxygen. (4) Schizophrenia Status: Chronic Qualifiers: Schizophrenia type: unspecified Qualified Code(s): F20.9 - Schizophrenia, unspecified (5) Sepsis Status: Resolved Qualifiers: Sepsis type: sepsis due to unspecified organism Qualified Code(s): A41.9 - Sepsis, unspecified organism (6) Hiatal hernia Status: Chronic (7) Reflux esophagitis Status: Chronic (8) Esophageal ulcer without bleeding Status: Acute - Subjective Interval history: Denies new complaints; tolerates clear liquid diet; on Protonix IV drip; no nausea, vomiting, epigastric pain, dyspnea; - Constitutional Vitals: Temp Pulse Resp BP Pulse Ox 97.5 F L 89 16 167/99 99 09/29/17 10:58 09/29/17 10:58 09/29/17 11:16 09/29/17 10:58 09/29/17 11:16 General appearance: Present: cooperative, A&O X 3, underweight, answers questions appropriately - Respiratory Respiratory exam: Present: CTAB. Absent: accessory muscle use, rales, rhonchi, wheezes - Cardiovascular Cardiovascular exam: Present: RRR, +S1, +S2. Absent: diastolic murmur, gallop, rubs, systolic murmur - GI/Abdominal GI/Abdominal exam: Present: normal bowel sounds, soft, no peritoneal signs. Absent: distended, tenderness - Extremities Exam Extremities exam: Present: full ROM, warm, radial pulses palpable and symmetrical. Absent: calf tenderness, cyanotic, pedal edema Internal Medicine: Result - Labs CBC & Chem 7: 09/29/17 05:48 09/30/17 05:13 Labs: Short CBC 09/29/17 Range/Units 05:48 WBC 6.8 (4.3-11.1) K/mcL Hgb 10.3 L (12.9-16.9) g/dL Hct 31.8 L (37.5-50.1) % Plt Count 343 (140-400) K/mcL Neutrophils # 4.8 (1.6-8.9) K/mcL BMP 09/29/17 05:48 Sodium 139 Potassium 3.0 L Chloride 108 H Carbon Dioxide 27 BUN 9 Creatinine 0.67 L Glucose 79 Calcium 7.9 L Liver Function 09/29/17 Range/Units 05:48 Total Bilirubin 0.3 (0.3-1.0) mg/dL AST 21 (13-39) Units/L ALT 13 (7-52) Units/L Alkaline Phosphatase 55 (34-104) Units/L Albumin 2.6 L (3.5-5.7) g/dL - ABG Interpretation ABG results: PT/INR, D-dimer PT 16.3 Seconds (9.4-12.1) H 09/25/17 04:43 Consult Discharge Plan - Plan Instructions: Levofloxacin (By mouth), Anemia (GEN), Pneumonia (DC) Additional Instructions: F/up with PCP in 1-2 weeks F/up with [facility] in 3-4 weeks for hiatal hernia surgery Referrals: Bryce Canseco MD [Partnered Physician] - 10/26/17 1:40 pm [facility],PCP [Primary Care Provider] - 10/06/17 10:30 am Prescriptions: levoFLOXacin [Levaquin] 750 mg PO DAILY@2100 #2 tablet Metoprolol [Lopressor] 12.5 mg PO BID #15 tablet Sucralfate [Carafate] 1 gm PO QIDAC 30 Days [facility]
[2017-09-29] MEDS ORDERED: levoFLOXacin 750 MG TABLET PO SCH (21:00)
[2017-09-29] MEDS: OLANZapine 10 MG TAB.RAPDIS PO SCH (21:28)
[2017-09-29] MEDS ORDERED: Magnesium Sulfate 2 GM in D5% in Water 100 ML IVPB ONE (22:52)
[2017-09-30] MEDS: Ipratropium/Albuterol Neb 3 ML IH SCH ×2 (04:05→10:39)
[2017-09-30 06:07] LABS: BUN/Creatinine Ratio 9 (6-26); Blood Urea Nitrogen 6 mg/dL (8-23); Calcium 8.5 mg/dL (8.6-10.3); Carbon Dioxide 26 mEq/L (23-29); Chloride 107 mEq/L (98-107); Glucose 90 mg/dL (70-105); Osmolality,Calculated 279 (280-300); Potassium 4.2 mEq/L (3.5-5.1); Sodium 136 mEq/L (136-145); eGFR For African Americans > 60 (> 60); eGFR For Non-African Americans > 60 (> 60)
[2017-09-30 07:33] VITALS: BP 166/95
[2017-09-30] MEDS: Multivit/Ca/Min/Fe/FA 1 TAB TABLET PO SCH (09:45)
[2017-09-30] MEDS: Valproic Acid Oral Soln 250 MG/5 ML UDC PO SCH (09:45)
[2017-09-30] MEDS: Cholecalciferol (D-3) 1,000 UNIT TABLET PO SCH (09:45)
[2017-09-30] MEDS: Loratadine 10 MG TABLET PO SCH (09:45)
[2017-09-30] MEDS: ARIPiprazole 5 MG TABLET PO SCH (09:45)
--- NOTE | 2017-09-30 09:57 | Discharge Summary ---
Date of Encounter: 09/30/17 Time of Encounter: 09:49 - Discharge Diagnosis (1) Upper gastrointestinal bleed Priority: Primary Status: Acute (2) Anemia Priority: Primary Status: Chronic Qualifiers: Anemia type: unspecified type Qualified Code(s): D64.9 - Anemia, unspecified (3) HCAP (healthcare-associated pneumonia) Priority: Primary Status: Acute (4) Schizophrenia Priority: Secondary Status: Chronic Qualifiers: Schizophrenia type: unspecified Qualified Code(s): F20.9 - Schizophrenia, unspecified (5) Sepsis Priority: Primary Status: Resolved Qualifiers: Sepsis type: sepsis due to unspecified organism Qualified Code(s): A41.9 - Sepsis, unspecified organism (6) Hiatal hernia Priority: Primary Status: Chronic (7) Reflux esophagitis Priority: Primary Status: Chronic (8) Esophageal ulcer without bleeding Priority: Primary Status: Acute (9) Essential hypertension Priority: Secondary Status: Chronic - Discharge Medications Prescriptions: levoFLOXacin [Levaquin] 750 mg PO DAILY@2100 #2 tablet Metoprolol [Lopressor] 12.5 mg PO BID #15 tablet Sucralfate [Carafate] 1 gm PO QIDAC 30 Days [facility] [place] Home Medications: ARIPiprazole [Abilify] 5 mg PO QAM 09/17/17 [History] Benztropine Mesylate 1 mg PO BID 09/17/17 [History] Cetirizine HCl [All Day Allergy] 10 mg PO DAILY 09/17/17 [History] Multivit-Minerals/Ferrous Fum [Complete Multivit-Mineral Liq] 10 ml PO DAILY [History] Mupirocin 1 appl TP TID 09/17/17 [History] Naproxen [Naprosyn] 500 mg PO BID PRN 09/17/17 [History] OLANZapine [Zyprexa] 2.5 mg PO Q8H PRN 09/17/17 [History] OLANZapine [Zyprexa] 20 mg PO HS 09/17/17 [History] Olodaterol HCl [Striverdi Respimat] 2 puff IH DAILY 09/17/17 [History] Pantoprazole Sodium [Protonix] 40 mg PO BID 09/17/17 [History] Valproic Acid Oral Soln [Depakene Oral Soln] 500 mg PO DAILY 09/17/17 [History] fluPHENAZine decanoate [Fluphenazine Decanoate] 87.5 mg IM Q2W 09/17/17 [History ] Calcium Carbonate/Vitamin D3 [Calcium 500-Vit D3 200 Tablet] 1 each PO BID 09/24 [History] Citalopram Hydrobromide [Citalopram HBr] 10 mg PO DAILY 09/24/17 [History] Docusate [Colace] 100 mg PO BID 09/24/17 [History] Levalbuterol Tartrate [Xopenex Hfa] 2 puff IH Q6H PRN 09/24/17 [History] hydrOXYzine pamoate [HydrOXYzine Pamoate] 25 mg PO QID PRN 09/24/17 [History] Losartan [Cozaar] 50 mg PO DAILY #0 09/30/17 [Rx] Metoprolol [Lopressor] 12.5 mg PO BID #15 tablet 09/30/17 [Rx] Sucralfate [Carafate] 1 gm PO QIDAC 30 Days udc 09/30/17 [Rx] levoFLOXacin [Levaquin] 750 mg PO DAILY@2100 #2 tablet 09/30/17 [Rx] Allergies/Adverse Reactions: 3 Allergy/AdvReac Type Severity Reaction Status Date / Time azithromycin [From Zithromax] AdvReac See Verified 09/24/17 16:55 Comments Thiothixene [From Navane] AdvReac See Verified 09/24/17 16:55 Comments Date of admission: 09/24/17 21:24 [facility] care physician: [facility] Consults: 09/24/17 23:12 Consult to Gastroenterology [CONS] Routine Consulting Provider: [facility] Reason for Consult: Pt. has hx of GI bleeding and current Hgb is 6.0 (down from 8.7 on 09/19/17). Pt reports melanotic stool but cannot recall when last one was. Receiving 2 units PRBCs. H/H Q6. Pt. also meets sepsis criteria and has dx of HCAP on admission. Pt. discussed w/Dr. Canseco in ED. Call Completed: No Discharging clinician: Aixa Andrews Anticipated date of discharge: 09/30/17 - Patient Status Disposition: Home, Self-Care Condition: Fair Functional capacity at discharge: independent ambulation Overall status at discharge: patient is progressing back to baseline - Discharge Instructions Instructions: Levofloxacin (By mouth), Anemia (GEN), Pneumonia (DC) Follow Up With: Bryce Canseco MD [Partnered Physician] - 10/26/17 1:40 pm MA,PCP [Primary Care Provider] - 10/06/17 10:30 am Additional Instructions: F/up with PCP in 1-2 weeks F/up with [facility] in 3-4 weeks for hiatal hernia surgery - Diet and Activity Activity: resume usual activities as tolerated Diet: low fat, low cholesterol, low salt diet Hospital course: Mr. Roa is a 62 year old male with the above medical problems, who was admitted with cough and shortness of breath. Patient was noted to be septic with pneumonia and was started on IV antibiotics. Blood cultures remained negative. While in the hospital, he was noted to be anemic. 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 He was started on IV Protonix drip, which was continued for 24 hours after EGD. His Hb is stable and he is asymptomatic. He is now medically stable for discharge. He is being scheduled for outpatient surgery appointment for possible repair of hiatal hernia to prevent reflux esophagitis in the future. - Time Spent with Patient Total time spent providing and/or coordinating discharge services: Greater than 30 minutes (45min) - Constitutional Vitals: Temp Pulse Resp BP Pulse Ox 97.4 F L 81 20 166/95 94 09/30/17 07:31 09/30/17 07:31 09/30/17 07:31 09/30/17 07:31 09/30/17 07:31 General appearance: Present: cooperative, A&O X 3, underweight, answers questions appropriately - Cardiovascular Cardiovascular exam: Present: RRR, +S1, +S2. Absent: diastolic murmur, gallop, rubs, systolic murmur - VTE Documentation of Mechanical Device: Graduated compression elastic hosiery
== END 2017-09-30 10:56 | disposition home or self-care (01) | DRG 871 ==
LOC: 2ANU 15:18 → EMEROO 15:18 → 2ANU 20:50 → SUATTDRO 21:24
PROVIDERS: ADMIT Internal Medicine; ATTEND Internal Medicine

== ENCOUNTER 2017-10-06 15:44 | Inpatient (IN) ==
[2017-10-06] MEDS ORDERED: Pantoprazole 80 MG in 0.9 % Sodium Chloride 50 ML IVPB ONE (16:09)
--- NOTE | 2017-10-06 16:22 | Emergency Department Note ---
Disposition Clinical Impression: Hematemesis Qualifiers: Nausea presence: with nausea Qualified Code(s): K92.0 - Hematemesis Anemia Qualifiers: Anemia type: other cause Other causes of anemia: acute posthemorrhagic Qualified Code(s): D62 - Acute posthemorrhagic anemia Disposition: Admitted As Inpatient Condition: Fair [facility]errals: [facility] [Primary Care Provider[facility] - Forms: ED Satisfaction Letter Time of Disposition: 19:47 Recheck wound or abnormal lab - General Chief Complaint: ED Recheck/Abnormal Lab/Rx Stated Complaint: Low hemoglobin Time Seen by Provider: 10/06/17 16:04 Source: EMS Limitations: no limitations Nursing Notes Reviewed: Yes Vital Signs Reviewed: Yes - History of Present Illness HPI Narrative: Mr. Roa, a 62yo male, presents from primary care office with reported low hemoglobin. Patient was discharged from this facility 6 days ago with sepsis for hospital-acquired pneumonia and esophageal bleed. Today was routine follow- up where routine labs were drawn and his hemoglobin was found to be in the 7 range. Patient has intermittent nausea streaked hematemesis. He is otherwise asymptomatic with no fatigue, no melena, no hematochezia. No chest pains or palpitations. No dyspnea. ROS: Positive: Hematemesis Negative: As above - Related Data Home Medications Medication Instructions Recorded Confirmed ARIPiprazole [Abilify] 5 mg PO QAM 09/17/17 10/06/17 Benztropine Mesylate 1 mg PO BID 09/17/17 10/06/17 Cetirizine HCl [All Day Allergy] 10 mg PO DAILY 09/17/17 10/06/17 Multivit-Minerals/Ferrous Fum 10 ml PO DAILY 09/17/17 10/06/17 [Complete Multivit-Mineral Liq] Mupirocin 1 appl TP TID 09/17/17 10/06/17 Naproxen [Naprosyn] 500 mg PO BID PRN 09/17/17 10/06/17 OLANZapine [Zyprexa] 2.5 mg PO Q8H PRN 09/17/17 10/06/17 OLANZapine [Zyprexa] 20 mg PO HS 09/17/17 10/06/17 Olodaterol HCl [Striverdi Respimat] 2 puff IH DAILY 09/17/17 10/06/17 Pantoprazole Sodium [Protonix] 40 mg PO BID 09/17/17 10/06/17 Valproic Acid Oral Soln [Depakene 500 mg PO DAILY 09/17/17 10/06/17 Oral Soln] fluPHENAZine decanoate 87.5 mg IM Q2W 09/17/17 10/06/17 [Fluphenazine Decanoate] Calcium Carbonate/Vitamin D3 1 each PO BID 09/24/17 10/06/17 [Calcium 500-Vit D3 200 Tablet] Citalopram Hydrobromide 10 mg PO DAILY 09/24/17 10/06/17 [Citalopram HBr] Docusate [Colace] 100 mg PO BID 09/24/17 10/06/17 Levalbuterol Tartrate [Xopenex Hfa] 2 puff IH Q6H PRN 09/24/17 10/06/17 hydrOXYzine pamoate [HydrOXYzine 25 mg PO QID PRN 09/24/17 10/06/17 Pamoate] Previous Rx's Medication Instructions Recorded Losartan [Cozaar] 50 mg PO DAILY #0 09/30/17 Metoprolol [Lopressor] 12.5 mg PO BID #15 tablet 09/30/17 Sucralfate [Carafate] 1 gm PO QIDAC 30 Days udc 09/30/17 Allergies Allergy/AdvReac Type Severity Reaction Status Date / Time azithromycin [From Zithromax] AdvReac See Verified 09/24/17 16:55 Comments Thiothixene [From Navane] AdvReac See Verified 09/24/17 16:55 Comments All systems ED: reviewed and negative except as stated. Review of Systems: As Per HPI Past Medical History - Past Medical History Medical history: Reports: arthritis, COPD, GERD, osteoporosis, other Surgical history: Reports: appendectomy Psychiatric history: Reports: schizophrenia - Social History Smoking Status: Current every day smoker Smokeless Tobacco Status: No Alcohol use: Reports: none Drug use: Reports: none Physical Exam Vital Signs Reviewed General: Patient is alert, oriented, in no acute distress, pleasant, appears older than stated age. HEENT: No facial asymmetry. Head is normocephalic and atraumatic. PERRL, EOMI. oral mucosa tacky. Cardiovascular: Heart regular rate and rhythm without clicks, rubs, gallops, or murmurs. No JVD. PMI nondisplaced. I little radial pulses 2/4 and equal. Respiratory: Symmetric chest rise with good respiratory effort. Bilateral breath sounds are clear without wheezing, crackles, or rhonchi. Abdomen: The point. Bowel sounds present normoactive x-4 quadrants. Abdomen is soft, nondistended, and nontender. No organomegaly noted. Musculoskeletal: Spontaneously moving all extremities. Neuro: Alert and oriented 4. Sensation light touch intact. Rectal: No gross blood on rectal exam. Appropriate rectal tone with no hemorrhoids or fissures noted. Hemoccult submitted. Skin: Warm, dry, pale. Psych: Patient's affect is appropriate for situation. - General Limitations: no limitations General appearance: alert, in no apparent distress Course Course Narrative: Patient discharged from this facility with diagnoses of healthcare associated pneumonia, sepsis, hypocalcemia, hyponatremia, GERD, anemia requiring multiple transfusions, GI bleed, schizophrenia. EGD performed 09/27 showed severe erosive ulcerative esophagitis with esophageal ulcer. Large hiatal hernia. No active bleeding was found but there was stigmata of recent bleeding at the GE junction. Patient's hemoglobin has dropped approximately 3 points the last 7 days. He has hematemesis but is otherwise asymptomatic. Fecal Hemoccult is negative. We will provide 2 units packed red blood cells. Discussed the patient with the admitting hospitalist, Dr. Ha, who agrees to accept the patient. He requests that I speak with endoscopy. Discussed the patient with Dr. Canseco, on-call endoscopy. He will see the patient tomorrow. Vital Signs Temperature 98.7 F 10/06/17 15:46 Pulse Rate 89 10/06/17 15:46 Respiratory Rate 16 10/06/17 15:46 Blood Pressure 150/100 10/06/17 15:46 O2 Sat by Pulse Oximetry 99 10/06/17 15:46 Temperature 98.7 F 10/06/17 15:46 Pulse Rate 80 10/06/17 18:23 Respiratory Rate 18 10/06/17 18:23 Blood Pressure 117/75 10/06/17 18:23 O2 Sat by Pulse Oximetry 98 10/06/17 18:23 Oxygen Delivery Oxygen Delivery Room Air Recheck wound or abnormal lab - Medical Records Medical records reviewed: Yes I reviewed the patient's medical records. - Lab Data Lab results reviewed: Yes I reviewed the patient's lab results. Result diagrams: 10/06/17 16:40 10/06/17 16:40 Lab Results 10/06/17 10/06/17 10/06/17 Range/Units 16:40 16:40 16:40 WBC 9.5 (4.3-11.1) K/mcL RBC 2.76 L (4.19-5.50) M/mcL Hgb 7.7 L (12.9-16.9) g/dL Hct 24.6 L (37.5-50.1) % MCV 89.1 (83.0-100.0) fL MCH 27.9 L (28.0-33.3) pg MCHC 31.3 L (31.6-35.5) g/dL RDW 14.5 (11.5-14.5) % Plt Count 375 (140-400) K/mcL MPV 9.2 L (9.4-12.4) fL Immature Gran % 0.4 (0-4) % Seg Neutrophils % 81.6 % Lymphocytes % 9.9 % Monocytes % 7.1 % Eosinophils % 0.7 % Basophils % 0.3 % Neutrophils # 7.7 (1.6-8.9) K/mcL Lymphocytes # 0.9 (0.6-4.6) K/mcL Monocytes # 0.7 (0.0-1.3) K/mcL Eosinophils # 0.1 (0.0-0.6) K/mcL Basophils # 0.0 (0.0-0.2) K/mcL Sodium 134 L (136-145) mEq/L Potassium 2.9 L (3.5-5.1) mEq/L Chloride 95 L (98-107) mEq/L Carbon Dioxide 36 H (23-29) mEq/L BUN 23 (8-23) mg/dL Creatinine 0.78 (0.70-1.30) mg/dL Est GFR ( Amer) > 60 (> 60) Est GFR (Non-Af Amer) > 60 (> 60) BUN/Creatinine Ratio 29 H (6-26) Glucose 94 (70-105) mg/dL Calculated Osmolality 281 (280-300) Calcium 8.3 L (8.6-10.3) mg/dL Stool Occult Blood (Negative) Blood Type O POSITIVE Antibody Screen NEGATIVE Crossmatch See Detail 10/06/17 Range/Units 16:45 WBC (4.3-11.1) K/mcL RBC (4.19-5.50) M/mcL Hgb (12.9-16.9) g/dL Hct (37.5-50.1) % MCV (83.0-100.0) fL MCH (28.0-33.3) pg MCHC (31.6-35.5) g/dL RDW (11.5-14.5) % Plt Count (140-400) K/mcL MPV (9.4-12.4) fL Immature Gran % (0-4) % Seg Neutrophils % % Lymphocytes % % Monocytes % % Eosinophils % % Basophils % % Neutrophils # (1.6-8.9) K/mcL Lymphocytes # (0.6-4.6) K/mcL Monocytes # (0.0-1.3) K/mcL Eosinophils # (0.0-0.6) K/mcL Basophils # (0.0-0.2) K/mcL Sodium (136-145) mEq/L Potassium (3.5-5.1) mEq/L Chloride (98-107) mEq/L Carbon Dioxide (23-29) mEq/L BUN (8-23) mg/dL Creatinine (0.70-1.30) mg/dL Est GFR ( Amer) (> 60) Est GFR (Non-Af Amer) (> 60) BUN/Creatinine Ratio (6-26) Glucose (70-105) mg/dL Calculated Osmolality (280-300) Calcium (8.6-10.3) mg/dL Stool Occult Blood Negative (Negative) Blood Type Antibody Screen Crossmatch - Radiology Data Radiology results reviewed: Yes I reviewed the patient's radiology results. - EKG Data EKG attestation: Yes I reviewed and interpreted this EKG. EKG results narrative: EKG dated 2017 at 16:49 interpreted as sinus rhythm with rate of 71. Degree AV block with Prolonged VT at 210. Normal axis. Nonspecific ST-T changes. Compared to previous dated 09/24/2017 showing no acute asymmetry of the comparison. Attestation Statement - Attestation Attestation: I examined this patient and my medical decision-making was reviewed with the Resident Physician. I agree with the documented findings, disposition and treatment plan as described except to the extent set forth below. Patient to the ED with a chief complaint alleged hemoglobin. Patient was at the NH today for an outpatient appointment. He had routine labs drawn his hemoglobin was 7. He does admit some blood in his stool. Recent admission for GI bleed for which she had a bleeding ulcer in his esophagus. Patient is awake and alert in no acute distress on examination. His conjunctivae are pale. His abdomen is soft, nontender. Plan. Basic labs. Transfuse as needed. Hypokalemia and acute blood loss anemia. We will start transfusion. Protonix ordered. IV potassium replacement. Admit to medicine. 40 minutes of critical care exclusive of separately billable procedures.
[2017-10-06 16:48] LABS: Basophils % 0.3 %; Eosinophils # 0.1 K/mcL (0.0-0.6); Eosinophils % 0.7 %; Hematocrit 24.6 % (37.5-50.1); Immature Granulocytes % 0.4 % (0-4); Lymphocytes # 0.9 K/mcL (0.6-4.6); Lymphocytes % 9.9 %; Mean Corpuscular HGB Conc 31.3 g/dL (31.6-35.5); Mean Corpuscular Hemoglobin 27.9 pg (28.0-33.3); Mean Corpuscular Volume 89.1 fL (83.0-100.0); Mean Platelet Volume 9.2 fL (9.4-12.4); Monocytes # 0.7 K/mcL (0.0-1.3); Monocytes % 7.1 %; Neutrophils # 7.7 K/mcL (1.6-8.9); Platelet Count 375 K/mcL (140-400); Red Blood Count 2.76 M/mcL (4.19-5.50); Red Cell Distribution Width 14.5 % (11.5-14.5); Segmented Neutrophils % 81.6 %
[2017-10-06 16:57] LABS: Calcium 8.3 mg/dL (8.6-10.3); Carbon Dioxide 36 mEq/L (23-29); Chloride 95 mEq/L (98-107); Potassium 2.9 mEq/L (3.5-5.1); Sodium 134 mEq/L (136-145)
[2017-10-06 17:02] LABS: BUN/Creatinine Ratio 29 (6-26); Blood Urea Nitrogen 23 mg/dL (8-23); Glucose 94 mg/dL (70-105); Osmolality,Calculated 281 (280-300); eGFR For African Americans > 60 (> 60); eGFR For Non-African Americans > 60 (> 60)
[2017-10-06 17:03] LABS: Hemoglobin 7.7 g/dL (12.9-16.9)
[2017-10-06] MEDS ORDERED: Potassium Citrate 10 MEQ TABLET.ER PO STA (17:39)
[2017-10-06] MEDS ORDERED: 0.9 % Sodium Chloride 500 ML ONE (20:19)
[2017-10-06] MEDS ORDERED: Naloxone 0.4 MG/ML INJ IVP PRN (20:39)
[2017-10-06] MEDS ORDERED: Ondansetron 4 MG/2 ML VIAL IVP PRN (20:39)
--- NOTE | 2017-10-06 20:55 | Internal Med History&Physical ---
<Pietro Hughes - Last Filed: 10/06/17 22:18> Date of Encounter: 10/06/17 Time of Encounter: 20:48 Assessment and Plan (1) Upper gastrointestinal bleed Current visit: No Status: Acute Recurrent upper GI bleed Patient had EGD with bleeding ulcer 09/27/17 Presents with hematemasis since Wednesday, Repeat Hgb 7.7 Due to documented active bleed, the patient is given 2U PRBC, [address] Canseco was consulted from the ED, will see the patient in the morning Start Protonix Drip, repeat labs in AM, desk monitor (2) Hypokalemia Current visit: Yes Status: Acute Potassium on presentation 2.9, recent Mag 2.0 Patient received 40mEq IV potassium, 20 mEq PO in ED Start NS with 20mEq potassium for maintenance Magnesium level pending (3) Leg edema, left Current visit: Yes Status: Acute Swollen left leg, patient says started after discharge Currently short of breath on exertion, however could be due to h/o pna + anemia Stat LLE Venous Dopple US to r/o DVT Cannot start anticoagulation due to active GI bleed (4) COPD (chronic obstructive pulmonary disease) Current visit: Yes Status: Acute Stable, oxygenating well. Continuous O2 monitoring, continue home meds Qualifiers: COPD type: chronic bronchitis Chronic bronchitis type: unspecified Qualified Code(s): J42 - Unspecified chronic bronchitis (5) Schizophrenia Current visit: No Status: Chronic Controlled on home meds Qualifiers: Schizophrenia type: unspecified Qualified Code(s): F20.9 - Schizophrenia, unspecified (6) DVT prophylaxis Current visit: No Status: Acute Unilateral right leg SCD pending LLE doppler for possible DVT Internal Medicine - H&P: HPI Admitted From: Emergency Dept Plans for Post Hospital Care: Home History of present illness: Mr. Roa is a 62 year old male with history of schizophrenia, COPD, GERD, reflux esophagitis, and recent admission for sepsis/HCAP and GI bleed who presents to the ED with recurrence of hematemesis. The patient says that he continued to have some bloody emesis following discharge from the hospital on Wednesday. of last week. According to his sister, who makes many of his medical decisions, the patient has been complaining of recurrent bloody vomit starting Marco. The patient says it happens about one time per day, and has been dark brown/red in color without obvious clots. In addition to this, he remains fatigued, short of breath, and has a discomfort in his chest that is relatively constant. [facility], at which times labs were drawn and he was apparently told to come to the ED due to low blood count and low magnesium. He says that he has had no fevers, chills, sweats since discharge from the hospital. He does admit to a swollen left leg that is abnormal. During his last admission he had an EGD which demonstrated severe reflux esophagitis, non-bleeding ulcers, angioectasias that were also non- bleeding, and a large hiatal hernia that would need referral to surgery for repair. Past Med Surg Social Fam HX - Past Medical History Medical history: arthritis, COPD, GERD, osteoporosis, other Psychiatric history: schizophrenia - Past Surgical History Surgical History: appendectomy - Social History Smoking Status: Current every day smoker Smokeless Tobacco Status: No Alcohol use: none Drug use: none - Family History Father Family Member Ethnicity: Non- Living Status: Hx Family Cardiac Disorders: Yes ([place]) Hx Family Endocrine Disorder: Yes ([place]) Mother Family Member Ethnicity: Non- Living Status: Hx Family Cardiac Disorders: Yes ([place]) Brother Family Member Ethnicity: Non- Living Status: Hx Family Autoimmune Disorders: Yes (AIDS) Sister Family Member Ethnicity: Non- Living Status: Hx Family Cardiac Disorders: Yes ([place]) Internal Medicine - H&P: Meds ARIPiprazole [Abilify] 5 mg PO QAM 09/17/17 [History] Benztropine Mesylate 1 mg PO BID 09/17/17 [History] Cetirizine HCl [All Day Allergy] 10 mg PO DAILY 09/17/17 [History] Multivit-Minerals/Ferrous Fum [Complete Multivit-Mineral Liq] 10 ml PO DAILY [History] Mupirocin 1 appl TP TID 09/17/17 [History] Naproxen [Naprosyn] 500 mg PO BID PRN 09/17/17 [History] OLANZapine [Zyprexa] 2.5 mg PO Q8H PRN 09/17/17 [History] OLANZapine [Zyprexa] 20 mg PO HS 09/17/17 [History] Olodaterol HCl [Striverdi Respimat] 2 puff IH DAILY 09/17/17 [History] Pantoprazole Sodium [Protonix] 40 mg PO BID 09/17/17 [History] Valproic Acid Oral Soln [Depakene Oral Soln] 500 mg PO DAILY 09/17/17 [History] fluPHENAZine decanoate [Fluphenazine Decanoate] 87.5 mg IM Q2W 09/17/17 [History ] Calcium Carbonate/Vitamin D3 [Calcium 500-Vit D3 200 Tablet] 1 each PO BID 09/24 [History] Citalopram Hydrobromide [Citalopram HBr] 10 mg PO DAILY 09/24/17 [History] Docusate [Colace] 100 mg PO BID 09/24/17 [History] Levalbuterol Tartrate [Xopenex Hfa] 2 puff IH Q6H PRN 09/24/17 [History] hydrOXYzine pamoate [HydrOXYzine Pamoate] 25 mg PO QID PRN 09/24/17 [History] Losartan [Cozaar] 50 mg PO DAILY #0 09/30/17 [Rx] Metoprolol [Lopressor] 12.5 mg PO BID #15 tablet 09/30/17 [Rx] Sucralfate [Carafate] 1 gm PO QIDAC 30 Days udc 09/30/17 [Rx] 3 Allergy/AdvReac Type Severity Reaction Status Date / Time azithromycin [From Zithromax] AdvReac See Verified 09/24/17 16:55 Comments Thiothixene [From Navane] AdvReac See Verified 09/24/17 16:55 Comments All Systems PM: A 10-system review of systems was performed and is negative for pertinent findings except as documented above in the HPI. Review of systems: - Constitutional: Denies fevers, chills, weight loss. Admits to fatigue - Head/Neck: Denies SHERWOOD, neck stiffness - EENT: Denies vision changes/blurriness, tinnitus, auditory changes - CVS: Denies orthopnea, edema, PND, Admits to BANEGAS and Chest pain that is vague. - Pulm: Denies SOB, cough, sputum, hematemesis, wheezing - GI: Admits to hematemesis, diarrhea Denies abdominal pain, anorexia, constipation, melena - : Denies dysuria, increased frequency, urgency, hematuria, - Heme: Admits to easy bleeding - Skin: Denies rashes, ulcers, color changes, - Neuro: Denies SHERWOOD, paresthesias, focal deficits, ataxia, - Constitutional Vitals: Temp Pulse Resp BP Pulse Ox 97.5 F L 74 16 146/91 99 10/06/17 20:29 10/06/17 20:29 10/06/17 20:29 10/06/17 20:29 10/06/17 20:01 Exam: Gen.: Vitals noted. No acute distress. AAOx3 HEENT: oropharynx clear, Normocephalic, atraumatic Neck: Supple. No adenopathy. Cardiac: RRR, no murmur, +S1/S2 Pulmonary: diffusely rhonchorous without obvious wheezes or crackles Abdomen: soft, nontender, BS noted, no guarding Back: Nontender throughout. MSK: ROM intact, no joint swelling noted Extremities: 2+ edema LLE Neuro: A&Ox3, moves all extremities, no focal deficits Psych: Appropriate mood and behavior Internal Med - H&P Results - Labs CBC & Chem 7: 10/06/17 16:40 10/06/17 16:40 <Sherwin Dennis - Last Filed: 10/07/17 01:00> Date of Encounter: 10/06/17 Time of Encounter: 23:00 - Constitutional Constitutional: no chills, no fever(s) - EENT Eyes: no change in vision Ears: no ear pain, no tinnitus Nose, mouth and throat: no sinus pressure, no sore throat - Cardiovascular Cardiovascular ROS IM: no chest pain, no dyspnea, no dyspnea on exertion - Respiratory Respiratory: no cough, no hemoptysis, no wheezing - Gastrointestinal Gastrointestinal: dyspepsia, heartburn, hematemesis, nausea, vomiting, no abdominal pain, no melena - Genitourinary Genitourinary ROS male: no dysuria, no flank pain, no hematuria - Musculoskeletal Musculoskeletal ROS IM: no arthralgias, no back pain - Integumentary Integumentary IM: no rash, no jaundice - Neurological Neurological ROS: weakness, no dizziness, no focal weakness - Endocrine Endocrine IM: no polydipsia, no polyuria - Allergic/Immunologic Allergic/Immunologic: GI upset with certain foods, no wheezing - Constitutional Vitals: Temp Pulse Resp BP Pulse Ox 97.5 F L 70 16 119/77 93 10/07/17 00:13 10/07/17 00:13 10/07/17 00:13 10/07/17 00:13 10/06/17 23:39 General appearance: Present: cooperative, A&O X 3, pleasant, no acute distress, answers questions appropriately - Head Head exam: Present: normal inspection - Eye Eye exam: Present: PERRL. Absent: scleral icterus - ENT ENT exam: Present: mucous membranes dry, normal exam - Neck Neck exam general surgery: Present: supple - Respiratory Respiratory exam: Present: CTAB. Absent: rales, rhonchi, wheezes - Cardiovascular Cardiovascular exam: Present: RRR, +S1, +S2 - GI/Abdominal GI/Abdominal exam: Present: normal bowel sounds, soft. Absent: guarding, hepatomegaly, rebound, splenomegaly, tenderness - Extremities Exam Extremities exam: Present: full ROM, warm, radial pulses palpable and symmetrical - Back Exam Back exam: Absent: CVA tenderness (L), CVA tenderness (R) - Neurological Exam Neurological exam: Present: alert, oriented X3, no focal deficits - Skin Skin exam: Present: dry, warm. Absent: petechiae, rash Internal Med - H&P Results - Labs CBC & Chem 7: 10/06/17 16:40 10/06/17 16:40 - Attending Attestation I discussed the SEMINOLE, PMH, ROS, lab data, and exam findings with Dr. Hughes. I then saw and examined patient independently as well. Patient presents with recurrent UGI bleed as he did before during last admission about 12 days ago. He went to his PCP at [facility] today who referred him to our ER with noted significant hemoglobin drop of ~ [address] Canseco and consulted him. He will see patient in the morning. Patient confirms recurrent hematemesis about 1 -2 times per day since discharge. He denies any acute LGI bleed and denies any melena. Appetite and fluid intake have been depressed as well. He feels fine presently. We will hydrate, transfuse PRBC's, and monitor H/H closely. Other than my comments above and noted exam findings, I agree with Dr. Hughes's assessment and plan.
[2017-10-06] MEDS ORDERED: OLANZapine 5 MG TAB.RAPDIS PO PRN (21:08)
[2017-10-06] MEDS ORDERED: hydrOXYzine pamoate 25 MG CAPSULE PO PRN (21:08)
[2017-10-06] MEDS: Levalbuterol 1 PUFF INHALER IH SCH (22:37)
[2017-10-06] MEDS: 0.9 % Sodium Chloride w KCl 20 MEQ/1,000 ML MLS IVC SCH (22:54)
[2017-10-06] MEDS: Pantoprazole 40 MG in 0.9 % Sodium Chloride Mini Bag 100 ML IVC SCH (23:22)
[2017-10-07] MEDS ORDERED: 0.9 % Sodium Chloride 250 ML ONE (00:02)
[2017-10-07] MEDS: Levalbuterol 1 PUFF INHALER IH SCH ×2 (03:36→11:05)
[2017-10-07 04:46] LABS: Basophils # 0.1 K/mcL (0.0-0.2); Basophils % 0.6 %; Eosinophils # 0.3 K/mcL (0.0-0.6); Eosinophils % 4.2 %; Hematocrit 29.3 % (37.5-50.1); Immature Granulocytes % 0.3 % (0-4); Lymphocytes # 1.3 K/mcL (0.6-4.6); Lymphocytes % 16.3 %; Mean Corpuscular HGB Conc 32.8 g/dL (31.6-35.5); Mean Corpuscular Hemoglobin 28.7 pg (28.0-33.3); Mean Corpuscular Volume 87.7 fL (83.0-100.0); Mean Platelet Volume 9.5 fL (9.4-12.4); Monocytes # 0.6 K/mcL (0.0-1.3); Monocytes % 7.4 %; Neutrophils # 5.6 K/mcL (1.6-8.9); Platelet Count 310 K/mcL (140-400); Red Blood Count 3.34 M/mcL (4.19-5.50); Red Cell Distribution Width 14.7 % (11.5-14.5); Segmented Neutrophils % 71.2 %
[2017-10-07 04:47] LABS: Hemoglobin 9.6 g/dL (12.9-16.9)
[2017-10-07 05:09] LABS: BUN/Creatinine Ratio 31 (6-26); Blood Urea Nitrogen 21 mg/dL (8-23); Calcium 7.8 mg/dL (8.6-10.3); Carbon Dioxide 32 mEq/L (23-29); Chloride 100 mEq/L (98-107); Glucose 70 mg/dL (70-105); Osmolality,Calculated 281 (280-300); Potassium 3.5 mEq/L (3.5-5.1); Sodium 135 mEq/L (136-145); eGFR For African Americans > 60 (> 60); eGFR For Non-African Americans > 60 (> 60)
[2017-10-07] MEDS ORDERED: Pantoprazole 40 MG VIAL IVP SCH (06:00)
--- NOTE | 2017-10-07 08:30 | Event Note ---
Date of Encounter: 10/07/17 Time of Encounter: 08:27 Per record review, the ED physician called Dr. Canseco regarding Mr Janina; however, Mr Janina was recently scoped by Dr. Suero and therefore Dr. Suero should notified. At this time, surgery will not evaluate this patient. Please call if questions or needs arise. Thank you. Reviewed with [id number] equal opportunity assistant.
[2017-10-07] MEDS: Pantoprazole 40 MG in 0.9 % Sodium Chloride Mini Bag 100 ML IVC SCH ×3 (09:01→23:45)
[2017-10-07] MEDS: Loratadine 10 MG TABLET PO SCH (09:02)
[2017-10-07] MEDS: ARIPiprazole 5 MG TABLET PO SCH (09:02)
[2017-10-07] MEDS: Valproic Acid Oral Soln 250 MG/5 ML UDC PO SCH (09:02)
[2017-10-07] MEDS: STRIVERDI RESPIMAT IH SCH (11:05)
[2017-10-07] MEDS: 0.9 % Sodium Chloride w KCl 20 MEQ/1,000 ML MLS IVC SCH (11:09)
--- NOTE | 2017-10-07 11:26 | Gastroenterology Consult Note ---
<Faiza Pillai - Last Filed: 10/07/17 11:23> Date of Encounter: 10/07/17 Time of Encounter: 11:00 - Assessment and plan (1) Upper gastrointestinal bleed Current Visit: No Status: Acute Assessment and plan: Pt had recent EGD which showed severe erosive esophagitis and esophageal ulceration. He presents with hematemesis and Hgb was 7.7 on admission. He has been transfused. Will monitor H&H, continue PPI and carafate. Will repeat EGD for bleeding control. He may need surgical referral for large hiatal hernia. Pt is alert and oriented and consents to EGD, also spoke with pts FAB Carmela Ronel [phone] who also consents to the procedure. Risks and benefits explained to both and they verbalize understanding. (2) Erosive esophagitis Current Visit: No Status: Acute Assessment and plan: protonix and carafate, repeat EGD (3) Esophageal ulcer without bleeding Current Visit: No Status: Acute - Time Spent With Patient Total time spent is greater than 50% in coordination of care (as documented) at patient's floor/unit and/or counseling patient: GI History of Present Illness - Data of Consult Patient: known to practice within the last 3 years Consult date: 10/07/17 Requesting Physician: Donn Anderson DO - Consult Narrative Reason for consult: [place] History of present illness: Mr. Roa is a 62 year old male with history of schizophrenia, COPD, GERD, reflux esophagitis, and recent admission for sepsis/HCAP and GI bleed who presents to the ED with recurrence of hematemesis. He reports 2-3 episodes of dark bloody emesis and nausea since being discharged. He complains of nausea. He denies abdominal pain, GERD. He had some diarrhea but denies any bloody or tarry stools. He denies fever. He reports chronic and unchanged chest discomfort and dyspnea on eertion. The patient says that he continued to have some bloody emesis following discharge from the hospital on Wednesday. of last week. According to his sister, who makes many of his medical decisions, the patient has been complaining of recurrent bloody vomit starting Wednesday. [facility] for follow-up, at which times labs were drawn and he was apparently told to come to the ED due to low blood count and low magnesium. During his last admission he had an EGD on 09/27/17 which demonstrated severe reflux esophagitis, non-bleeding ulcers, angioectasias that were also non-bleeding, and a large hiatal hernia that would need referral to surgery for repair. On admission Hgb was 7.7 is up to 9.6 after 2 units PRBCs. EGD: 09/27/17 severe esophagitis with nonbleeding ulcers and large hiatal hernia Esophageal Manometry 05/31/2017 Dr. Suero: Low mean IRP consistent with very weak LES, frequent failed peristalsis. NSAIDS/ASA: none Anticoagulants: none Past Med Surg Social Fam HX - Past Medical History Medical history: arthritis, COPD, GERD, osteoporosis, other Psychiatric history: schizophrenia - Past Surgical History Surgical History: appendectomy - Social History Smoking Status: Current every day smoker Packs per day: "less than 1/2" Smokeless Tobacco Status: No Alcohol use: none Drug use: none - Family History Father Family Member Ethnicity: Non- Living Status: Hx Family Cardiac Disorders: Yes ([place]) Hx Family Endocrine Disorder: Yes (DM) Mother Family Member Ethnicity: Non- Living Status: Hx Family Cardiac Disorders: Yes ([place]) Brother Family Member Ethnicity: Non- Living Status: Hx Family Autoimmune Disorders: Yes (AIDS) Sister Family Member Ethnicity: Non- Living Status: Hx Family Cardiac Disorders: Yes ([place]) Review of Systems: GI: as per [facility]: denies fever, has some chills EYES: denies yellow discoloration ENT: denies pain with swallowing or difficulty swallowing CARDIO: see HPI RESP:Shortness of breath with exertion : denies change in color of urine NEURO: weakness HEME: Denies any bruising MS: chronic back and joint pain DERM: denies rash or itching PSYCH: history of anxiety, depression and schizophrenia - Constitutional Vitals: Temp Pulse Resp BP Pulse Ox 98.1 F 84 18 151/92 93 10/07/17 07:37 10/07/17 07:37 10/07/17 07:37 10/07/17 07:37 10/07/17 07:37 Exam: CONSTITUTIONAL:~alert, no acute distress.~HEAD:~normocephalic.~EYES:~no jaundice.~NECK:~no obvious swelling.~HEART:~regular rate and rhythm, no murmurs. ~LUNGS:~bilateral good air entry.~ABDOMEN:~non distended, soft, non tender, no masses palpable, no organomegaly.~RECTAL EXAM:~Deferred.~EXTREMITIES:~no clubbing, cyanosis, 1+ Le edema, scoliosis noted~SKIN:~no stigmata of chronic liver disease.~NEUROLOGIC:~no obvious focal defect.~~~~ Results - Labs CBC & Chem 7: 10/07/17 03:58 10/07/17 03:58 Labs: Last Result Calcium 7.8 mg/dL (8.6-10.3) L 10/07/17 03:58 Stool Occult Blood Negative (Negative) 10/06/17 16:45 Entire Visit Hgb 9.6 g/dL (12.9-16.9) L D 10/07/17 03:58 Hct 29.3 % (37.5-50.1) L 10/07/17 03:58 Consult Discharge Plan - Plan [facility] Care Provider[facility] - <Phillip Suero - Last Filed: 10/07/17 18:56> Date of Encounter: 10/07/17 Time of Encounter: 17:00 - Time Spent With Patient Total time spent is greater than 50% in coordination of care (as documented) at patient's floor/unit and/or counseling patient: GI History of Present Illness - Data of Consult Requesting Physician: Donn Anderson DO - Consult Narrative History of present illness: Mr. Roa is a 62 year old male - Constitutional Vitals: Temp Pulse Resp BP Pulse Ox 97.8 F 61 16 151/74 94 10/07/17 16:00 10/07/17 18:44 10/07/17 18:44 10/07/17 18:44 10/07/17 18:44 Results - Labs CBC & Chem 7: 10/07/17 03:58 10/07/17 03:58 Labs: Last Result Calcium 7.8 mg/dL (8.6-10.3) L 10/07/17 03:58 Stool Occult Blood Negative (Negative) 10/06/17 16:45 Entire Visit Hgb 9.6 g/dL (12.9-16.9) L D 10/07/17 03:58 Hct 29.3 % (37.5-50.1) L 10/07/17 03:58 - Attending Attestation I examined this patient and my medical decision-making was reviewed with the Resident Physician. I agree with the documented findings, disposition and treatment plan as described except to the extent set forth below.
[2017-10-07] MEDS ORDERED: *HR* Dextrose 50 % in Water (Syg) 50 ML SYRINGE ONE (12:52)
[2017-10-07] MEDS ORDERED: *HR* Dextrose 50 % in Water (Syg) 50 ML SYRINGE IVP PRN (12:59)
[2017-10-07] MEDS ORDERED: D5% in Water 1,000 ML IVC PRN (12:59)
[2017-10-07] MEDS ORDERED: Dextrose Gel 15 GM/37.5 ML TUBE PO PRN ×2 (12:59)
[2017-10-07 15:05] LABS: Hemoglobin A1C 5.1 %
[2017-10-07] MEDS ORDERED: Albuterol 2.5 MG/3 ML NEBULIZER IH PRN (15:38)
--- NOTE | 2017-10-07 16:18 | Internal Med Progress Note ---
<IsmaelEmil carrasquillo - Last Filed: 10/07/17 16:15> Date of Encounter: 10/07/17 Time of Encounter: 11:10 - Assessment and plan (1) Upper gastrointestinal bleed Current Visit: Yes Status: Acute Assessment and plan: - Known history of esophagitis with severe ulcers on EGD - Hemoglobin on presentation of 7.7, status post 2 units packed red blood cells - Most recent hemoglobin 9.6, hematocrit 29.3 - Hemodynamically stable - Recently discharged from this facility for similar symptoms, discharged home on Protonix and Carafate Plan - Consult gastroenterology. Gen. surgery deferred to GI as they had previously seen the patient - Daily labs and continue to trend H/H - BUN of 21, within normal limits. Likely suggesting that was not transiting through the bowels and is likely upper GI in nature with hematemesis. - Continue Carafate, Protonix, nothing by mouth diet - Plan for EGD this afternoon with GI (2) Anemia Current Visit: Yes Status: Chronic Assessment and plan: - Related GI bleed as above - H&H stable at 9.6/29.3 this morning - Continue to monitor and transfuse as necessary - Asymptomatic at this time Qualifiers: Anemia type: other cause Other causes of anemia: acute posthemorrhagic Qualified Code(s): D62 - Acute posthemorrhagic anemia (3) Chest pain Current Visit: Yes Status: Acute Assessment and plan: Substernal in nature, no association with exertion - If that is very similar to his reflux pain Plan Treat as above for gastroesophageal reflux Qualifiers: Chest pain type: other chest pain Qualified Code(s): R07.89 - Other chest pain; R07.8 - Other chest pain (4) GERD (gastroesophageal reflux disease) Current Visit: Yes Status: Chronic Assessment and plan: - Severe GERD with large hiatal hernia and esophageal ulcers as demonstrated on EGD most recently 09/29/17 - Has had multiple EGDs during previous admission - Not well controlled as outpatient. Patient denies heavy drinking, NSAID use Plan - continue Protonix gtt, Carafate - GI consult Qualifiers: Esophagitis presence: with esophagitis Qualified Code(s): K21.0 - Gastro- esophageal reflux disease with esophagitis (5) Schizophrenia Current Visit: Yes Status: Chronic Assessment and plan: Continue home meds Qualifiers: Schizophrenia type: unspecified Qualified Code(s): F20.9 - Schizophrenia, unspecified (6) Essential hypertension Current Visit: Yes Status: Chronic Assessment and plan: - Mildly high at this time at 151/92 - Continue home meds as tolerated, carefully monitoring due to GI bleed (7) Hematemesis Current Visit: Yes Status: Resolved Assessment and plan: - Chief complaint on admission of hematemesis with dark emesis - Appears to have resolved at this time and patient is having no symptoms - Continue to monitor, Zofran when necessary nausea Qualifiers: Nausea presence: with nausea Qualified Code(s): K92.0 - Hematemesis (8) DVT prophylaxis Current Visit: Yes Status: Acute Assessment and plan: - Anticoagulation contraindicated at this time due to GI bleed with anemia - SCDs - Subjective Interval history: Patient was seen and examined this morning at bedside. He states that he is unsure of what brought to the hospital and appears not to be a reliable historian. When prompted about a hematemesis, he still does state that he was throwing up multiple bags of dark vomit yesterday. Denies any current symptoms of abdominal pain, fevers, chills, nausea, vomiting. Does admit to some substernal chest pain likely reflux in nature. He does admit to reflux symptoms , however his Carafate that he was discharged home on last visit does help. He also admits to taking naproxen before his most recent hospitalization last week. - Constitutional Vitals: Temp Pulse Resp BP Pulse Ox 98.3 F 68 18 132/74 94 10/07/17 12:37 10/07/17 12:37 10/07/17 12:37 10/07/17 12:37 10/07/17 12:37 General appearance: Present: cooperative, A&O X 3, pleasant, no acute distress, answers questions appropriately Exam: Gen.: Vitals noted. No acute distress. HEENT: PERRL/EOMI, oropharynx clear, Normocephalic, atraumatic Cardiac: RRR, no murmur, +S1/S2 Pulmonary: CTA bilaterally, no wheezes, rales or rhonchi, equal chest expansion Abdomen: soft, nontender, BS noted, no guarding MSK: ROM intact, no joint swelling noted Extremities: no BLE edema, nontender calf, no cyanosis or clubbing Neuro: A&Ox3, moves all extremities, no focal deficits Psych: Appropriate mood and behavior Internal Medicine: Result - Labs CBC & Chem 7: 10/07/17 03:58 10/07/17 03:58 Labs: Short CBC 10/07/17 Range/Units 03:58 WBC 7.8 (4.3-11.1) K/mcL Hgb 9.6 L D (12.9-16.9) g/dL Hct 29.3 L (37.5-50.1) % Plt Count 310 (140-400) K/mcL Neutrophils # 5.6 (1.6-8.9) K/mcL BMP 10/07/17 03:58 Sodium 135 L Potassium 3.5 Chloride 100 Carbon Dioxide 32 H BUN 21 Creatinine 0.67 L Glucose 70 Calcium 7.8 L - VTE Documentation of Mechanical Device: Intermittent pneumatic compression device Consult Discharge Plan - Plan [facility]errals: [facility]Primary Care Provider[facility] - <Donn Anderson - Last Filed: 10/07/17 19:11> Date of Encounter: 10/07/17 - Assessment and plan (1) Erosive esophagitis Current Visit: No Status: Acute (2) Reflux esophagitis Current Visit: No Status: Chronic (3) Hematemesis Current Visit: Yes Status: Resolved Qualifiers: Nausea presence: with nausea Qualified Code(s): K92.0 - Hematemesis (4) Anemia Current Visit: Yes Status: Chronic Qualifiers: Anemia type: other cause Other causes of anemia: acute posthemorrhagic Qualified Code(s): D62 - Acute posthemorrhagic anemia (5) Essential hypertension Current Visit: Yes Status: Chronic (6) Schizophrenia Current Visit: Yes Status: Chronic Qualifiers: Schizophrenia type: unspecified Qualified Code(s): F20.9 - Schizophrenia, unspecified - Constitutional Vitals: Temp Pulse Resp BP Pulse Ox 97.8 F 61 16 151/74 94 10/07/17 16:00 10/07/17 18:44 10/07/17 18:44 10/07/17 18:44 10/07/17 18:44 Internal Medicine: Result - Labs CBC & Chem 7: 10/07/17 03:58 10/07/17 03:58 Labs: Short CBC 10/07/17 Range/Units 03:58 WBC 7.8 (4.3-11.1) K/mcL Hgb 9.6 L D (12.9-16.9) g/dL Hct 29.3 L (37.5-50.1) % Plt Count 310 (140-400) K/mcL Neutrophils # 5.6 (1.6-8.9) K/mcL BMP 10/07/17 03:58 Sodium 135 L Potassium 3.5 Chloride 100 Carbon Dioxide 32 H BUN 21 Creatinine 0.67 L Glucose 70 Calcium 7.8 L - Attending Attestation I examined this patient and my medical decision-making was reviewed with the Resident Physician on 10/07/17. I agree with the documented findings, disposition and treatment plan as described except to the extent set forth below. Mr Roa is currently admitted for acute GI bleed due to esophagitis. He remains moderate to high risk due to potential for worsening clinical status. Mr Roa is resting comfortably. EGD shows persistent esophagitis. No fever or chills. Exam Alert. Comfortable now Heart reg No wheeze Abd soft No edema I/P 1. Esophagitis 2. GERD Further diagnoses and plan as above.
[2017-10-07] MEDS ORDERED: *HR* Midazolam HCl 5 MG/5 ML VIAL IVP ONE ×2 (18:10→18:19)
[2017-10-07] MEDS ORDERED: *HR* FentaNYL (PF) 100 MCG/2 ML VIAL ONE (18:11)
[2017-10-07] MEDS ORDERED: *HR* FentaNYL (PF) 100 MCG/2 ML VIAL IVP ONE (18:19)
[2017-10-07] MEDS ORDERED: Simethicone 40 MG/0.6 ML MLS IR ONE (18:19)
[2017-10-07] MEDS ORDERED: Tetracaine/Benzocaine/Butamben 200MG/SPRAY (100SPY/BOT) MM ONE (18:19)
--- NOTE | 2017-10-07 18:19 | Pre-Sedation Evaluation ---
Pre-sedation evaluation - Pre-sedation checklist Date of procedure: 10/07/17 Procedure: EGD Recent Vitals: Last Vital Signs Temp 97.8 F 10/07/17 16:00 Pulse 71 10/07/17 16:00 Resp 18 10/07/17 16:00 BP 135/85 10/07/17 16:00 Pulse Ox 95 10/07/17 16:00 H&P (including ROS) documented in medical record: Yes Previous reaction to sedatives/anesthetics: No Dietary Status: NPO after Midnight Dentition: dentures removed ASA Classification *see protocol: CLASS III-Severe systemic disease Plan of Care: Pt appropriate candidate for procedure/moderate/conscious sedation , Risks/benefits of procedure/sedation discussed w/ patient/family
[2017-10-07] MEDS ORDERED: 0.9 % Sodium Chloride 500 ML IVC SCH (18:30)
[2017-10-07] MEDS: OLANZapine 10 MG TAB.RAPDIS PO SCH (21:06)
[2017-10-08 04:55] LABS: Basophils # 0.1 K/mcL (0.0-0.2); Basophils % 0.6 %; Eosinophils # 0.5 K/mcL (0.0-0.6); Eosinophils % 6.2 %; Hemoglobin 10.2 g/dL (12.9-16.9); Immature Granulocytes % 0.4 % (0-4); Lymphocytes # 1.1 K/mcL (0.6-4.6); Lymphocytes % 12.8 %; Mean Corpuscular HGB Conc 30.9 g/dL (31.6-35.5); Mean Corpuscular Hemoglobin 27.9 pg (28.0-33.3); Mean Corpuscular Volume 90.4 fL (83.0-100.0); Mean Platelet Volume 9.6 fL (9.4-12.4); Monocytes # 0.6 K/mcL (0.0-1.3); Monocytes % 7.2 %; Neutrophils # 6.1 K/mcL (1.6-8.9); Nucleated Red Blood Cells 0.2 /100 WBC (0); Platelet Count 377 K/mcL (140-400); Red Blood Count 3.65 M/mcL (4.19-5.50); Red Cell Distribution Width 15.1 % (11.5-14.5); Segmented Neutrophils % 72.8 %
[2017-10-08 05:18] LABS: BUN/Creatinine Ratio 23 (6-26); Blood Urea Nitrogen 16 mg/dL (8-23); Calcium 7.7 mg/dL (8.6-10.3); Carbon Dioxide 29 mEq/L (23-29); Chloride 103 mEq/L (98-107); Glucose 62 mg/dL (70-105); Osmolality,Calculated 277 (280-300); Potassium 4.3 mEq/L (3.5-5.1); Sodium 134 mEq/L (136-145); eGFR For African Americans > 60 (> 60); eGFR For Non-African Americans > 60 (> 60)
[2017-10-08] MEDS: Valproic Acid Oral Soln 250 MG/5 ML UDC PO SCH (07:50)
[2017-10-08] MEDS: ARIPiprazole 5 MG TABLET PO SCH (07:50)
[2017-10-08] MEDS: Loratadine 10 MG TABLET PO SCH (07:51)
[2017-10-08] MEDS: 0.9 % Sodium Chloride w KCl 20 MEQ/1,000 ML MLS IVC SCH (07:51)
[2017-10-08] MEDS: Pantoprazole 40 MG in 0.9 % Sodium Chloride Mini Bag 100 ML IVC SCH ×3 (07:51→18:43)
[2017-10-08] MEDS: STRIVERDI RESPIMAT IH SCH (08:01)
--- NOTE | 2017-10-08 15:40 | Internal Med Progress Note ---
<IrvingEmil soto - Last Filed: 10/08/17 15:38> Date of Encounter: 10/08/17 Time of Encounter: 09:45 - Assessment and plan (1) Upper gastrointestinal bleed Current Visit: Yes Status: Acute Assessment and plan: - Known history of esophagitis with severe ulcers on EGD - Hemoglobin on presentation of 7.7, status post 2 units packed red blood cells - Most recent hemoglobin 10.2, hematocrit 33.0, increased from previous - Hemodynamically stable - Recently discharged from this facility for similar symptoms, discharged home on Protonix and Carafate - Repeat EGD on 10/07/17 revealed 2 large/gigantic esophageal ulcers with some spontaneous bleeding. Biopsies taken and pending. Gastroenterology recommends continue Carafate, PPI drip, H2 jed. They also state that he may benefit from a transfer to a higher care facility for possible distal esophagectomy as he has failed conservative treatment at this time. He recommends the patient stay through this weekend to monitor with possible [facility]. Plan - Consult gastroenterology. Gen. surgery deferred to GI as they had previously seen the patient - Daily labs and continue to trend H/H - BUN of 21, within normal limits. Likely suggesting that was not transiting through the bowels and is likely upper GI in nature with hematemesis. - Continue Carafate, Protonix, Pepcid 40 mg daily at bedtime IV, her liquid diet as tolerated (2) Anemia Current Visit: Yes Status: Chronic Assessment and plan: - Related GI bleed as above - H&H stable at 10.2/33.0 this morning, stable from previous - Continue to monitor and transfuse as necessary - Asymptomatic at this time Qualifiers: Anemia type: other cause Other causes of anemia: acute posthemorrhagic Qualified Code(s): D62 - Acute posthemorrhagic anemia (3) Chest pain Current Visit: Yes Status: Resolved Assessment and plan: Substernal in nature, no association with exertion - If that is very similar to his reflux pain - No complaints of retrosternal pain this morning Plan Treat as above for gastroesophageal reflux Qualifiers: Chest pain type: other chest pain Qualified Code(s): R07.89 - Other chest pain; R07.8 - Other chest pain (4) GERD (gastroesophageal reflux disease) Current Visit: Yes Status: Chronic Assessment and plan: - Severe GERD with large hiatal hernia and esophageal ulcers as demonstrated on EGD most recently 09/29/17 - Has had multiple EGDs during previous admission - Not well controlled as outpatient. Patient denies heavy drinking, NSAID use Plan - continue Protonix gtt, Carafate, Pepcid - GI consult - Further management as above Qualifiers: Esophagitis presence: with esophagitis Qualified Code(s): K21.0 - Gastro- esophageal reflux disease with esophagitis (5) Schizophrenia Current Visit: Yes Status: Chronic Assessment and plan: Continue home meds Qualifiers: Schizophrenia type: unspecified Qualified Code(s): F20.9 - Schizophrenia, unspecified (6) Essential hypertension Current Visit: Yes Status: Chronic Assessment and plan: - Mildly high at this time at 157/99 - Continue home meds as tolerated, carefully monitoring due to GI bleed - Putting hydralazine order when necessary hypertension (7) Hematemesis Current Visit: Yes Status: Resolved Assessment and plan: - Chief complaint on admission of hematemesis with dark emesis - Appears to have resolved at this time and patient is having no symptoms - Continue to monitor, Zofran when necessary nausea Qualifiers: Nausea presence: with nausea Qualified Code(s): K92.0 - Hematemesis (8) DVT prophylaxis Current Visit: Yes Status: Acute Assessment and plan: - Anticoagulation contraindicated at this time due to GI bleed with anemia - SCDs - Time Spent With Patient 25 - 35 minutes - Subjective Interval history: Patient was seen and examined this morning at bedside. He states that overall he is feeling well with no complaints of abdominal pain, nausea, vomiting. He does admit to some lightheadedness exacerbated when he rises from a seated position. He did have 1 small bowel movement this morning which she described as dark in color and sticky. He tolerated his EGD yesterday without any complaints. This physician did contact his sister, Carmela, at [phone] and updated her on his progress and plan per patient request. She had multiple questions which were answered to the best of this interviewer's ability. He expressed frustration at this recurring problem, but was understandable. She states she will be seeing the patient on Wednesday and one appreciate a face-to- face interaction. - Constitutional Vitals: Temp Pulse Resp BP Pulse Ox 98 F 61 16 144/92 96 10/08/17 11:47 10/08/17 11:47 10/08/17 11:47 10/08/17 11:47 10/08/17 11:47 General appearance: Present: cooperative, A&O X 3, pleasant, no acute distress, answers questions appropriately Exam: Gen.: Vitals noted. No acute distress. AAOx3 HEENT: PERRL/EOMI, oropharynx clear, Normocephalic, atraumatic Cardiac: RRR, no murmur, +S1/S2 Pulmonary: CTA bilaterally, no wheezes, rales or rhonchi, equal chest expansion Abdomen: soft, nontender, BS noted, no guarding MSK: ROM intact, no joint swelling noted Extremities: no BLE edema, nontender calf, no cyanosis or clubbing Neuro: A&Ox3, moves all extremities, no focal deficits Psych: Appropriate mood and behavior Internal Medicine: Result - Labs CBC & Chem 7: 10/08/17 04:22 10/08/17 04:22 Labs: Short CBC 10/08/17 Range/Units 04:22 WBC 8.4 (4.3-11.1) K/mcL Hgb 10.2 L (12.9-16.9) g/dL Hct 33.0 L (37.5-50.1) % Plt Count 377 (140-400) K/mcL Neutrophils # 6.1 (1.6-8.9) K/mcL BMP 10/08/17 04:22 Sodium 134 L Potassium 4.3 Chloride 103 Carbon Dioxide 29 BUN 16 Creatinine 0.69 L Glucose 62 L Calcium 7.7 L - VTE Documentation of Mechanical Device: Intermittent pneumatic compression device Consult Discharge Plan - Plan [facility]errals: [facility]Primary Care Provider[facility] - <Donn Anderson - Last Filed: 10/08/17 17:51> Date of Encounter: 10/08/17 - Assessment and plan (1) Erosive esophagitis Current Visit: No Status: Acute (2) Reflux esophagitis Current Visit: No Status: Chronic (3) Hematemesis Current Visit: Yes Status: Resolved Qualifiers: Nausea presence: with nausea Qualified Code(s): K92.0 - Hematemesis (4) Anemia Current Visit: Yes Status: Chronic Qualifiers: Anemia type: other cause Other causes of anemia: acute posthemorrhagic Qualified Code(s): D62 - Acute posthemorrhagic anemia (5) Essential hypertension Current Visit: Yes Status: Chronic (6) Schizophrenia Current Visit: Yes Status: Chronic Qualifiers: Schizophrenia type: unspecified Qualified Code(s): F20.9 - Schizophrenia, unspecified - Constitutional Vitals: Temp Pulse Resp BP Pulse Ox 97.8 F 69 16 133/91 96 10/08/17 16:16 10/08/17 16:16 10/08/17 16:16 10/08/17 16:16 10/08/17 16:16 Internal Medicine: Result - Labs CBC & Chem 7: 10/08/17 04:22 10/08/17 04:22 Labs: Short CBC 10/08/17 Range/Units 04:22 WBC 8.4 (4.3-11.1) K/mcL Hgb 10.2 L (12.9-16.9) g/dL Hct 33.0 L (37.5-50.1) % Plt Count 377 (140-400) K/mcL Neutrophils # 6.1 (1.6-8.9) K/mcL BMP 10/08/17 04:22 Sodium 134 L Potassium 4.3 Chloride 103 Carbon Dioxide 29 BUN 16 Creatinine 0.69 L Glucose 62 L Calcium 7.7 L - Attending Attestation I examined this patient and my medical decision-making was reviewed with the Resident Physician on 10/08/17. I agree with the documented findings, disposition and treatment plan as described except to the extent set forth below. Mr Roa is currently admitted for GI bleed due to severe esophagitis. He remains moderate to high risk due to potential for worsening clinical status. Mr Roa feels OK at this time. No pain currently. Spoke with GI - will keep here this weekend for IV medications and Carafate. Monitoring H/H. No fever or chills. Exam Alert. Comfortable Mucus membranes dry Heart reg No wheeze Abd soft - nontender No edema I/P 1. Esophagitis with bleeding 2. Anemia Further diagnoses and plan as above.
[2017-10-08] MEDS ORDERED: Famotidine 20 MG/2 ML VIAL IVP SCH (21:00)
[2017-10-08] MEDS: OLANZapine 10 MG TAB.RAPDIS PO SCH (22:27)
[2017-10-08] MEDS: Famotidine 20 MG/2 ML VIAL IVP SCH (22:32)
[2017-10-09] MEDS: Pantoprazole 40 MG in 0.9 % Sodium Chloride Mini Bag 100 ML IVC SCH ×4 (00:10→20:51)
[2017-10-09] MEDS: 0.9 % Sodium Chloride w KCl 20 MEQ/1,000 ML MLS IVC SCH (00:11)
--- NOTE | 2017-10-09 06:44 | Electrocardiograph Report ---
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
[2017-10-09 08:36] LABS: Basophils # 0.1 K/mcL (0.0-0.2); Basophils % 0.5 %; Eosinophils # 0.6 K/mcL (0.0-0.6); Eosinophils % 5.1 %; Immature Granulocytes % 0.7 % (0-4); Immature Platelets 1.3 % (1.1-6.1); Lymphocytes # 1.4 K/mcL (0.6-4.6); Lymphocytes % 11.5 %; Mean Corpuscular Hemoglobin 27.7 pg (28.0-33.3); Mean Corpuscular Volume 89.2 fL (83.0-100.0); Mean Platelet Volume 8.8 fL (9.4-12.4); Monocytes # 0.7 K/mcL (0.0-1.3); Monocytes % 5.9 %; Neutrophils # 9.2 K/mcL (1.6-8.9); Platelet Count 499 K/mcL (140-400); Red Blood Count 4.37 M/mcL (4.19-5.50); Red Cell Distribution Width 15.1 % (11.5-14.5); Segmented Neutrophils % 76.3 %
--- NOTE | 2017-10-09 08:46 | Gastroenterology Progress Note ---
Date of Encounter: 10/09/17 Time of Encounter: 08:38 - Assessment and plan (1) Upper gastrointestinal bleed Current Visit: Yes Status: Acute Assessment and plan: Pt had recent EGD which showed severe erosive esophagitis and esophageal ulceration. He presents with hematemesis and Hgb was 7.7 on admission. He has been transfused. Will monitor H&H, continue PPI and carafate. Will repeat EGD for bleeding control. He may need surgical referral for large hiatal hernia. Pt is alert and oriented and consents to EGD, also spoke with pts POA Carmela Ronel [phone] who also consents to the procedure. Risks and benefits explained to both and they verbalize understanding. - Time Spent With Patient Total time spent is greater than 50% in coordination of care (as documented) at patient's floor/unit and/or counseling patient: 25 - 35 minutes - Subjective Interval history: Patient was seen and examined this morning at bedside. He states that overall he is feeling well with no complaints of abdominal pain, nausea, vomiting. He does admit to some lightheadedness exacerbated when he rises from a seated position. He did have 1 small bowel movement this morning which she described as dark in color and sticky. He tolerated his EGD yesterday without any complaints. This physician did contact his sister, Carmela, at [phone] and updated her on his progress and plan per patient request. She had multiple questions which were answered to the best of this interviewer's ability. He expressed frustration at this recurring problem, but was understandable. She states she will be seeing the patient on Wednesday and one appreciate a face-to- face interaction. GASTROENTEROLOGY: Patient has been in and out of hospital with recurrent GI bleed, failure to thrive. Repeat endoscopies have revealed severe non healing esophagitis with ulceration and friability and a very large hiatal hernia apparently. We are asked for an opinion. Feel the best thing for this rather malnourished patient is to have a jejunostomy placed surgically (PEG has no value in this patient) so he can get sustained nutrition, improve his nutritional status and if he improves significantly then he could have a Obed fundoplication at some point in the future. In the interim patient can get PPN and 20% lipids (500 ml/day). An NGT/Pramod feeding tube is not an option in his case. Patient will need a cardiology clearance also. 1. Recurrent UGI bleed with anemia secondary to chronic disease, acute and chronic bleeding secondary to extensive esophageal ulceration. 2. Malnutrition moderately severe 3. COPD 4. Schizophrenia 5. Other medical problems as listed in consult. - Constitutional Vitals: Temp Pulse Resp BP Pulse Ox 98.2 F 77 14 148/90 94 10/09/17 07:00 10/09/17 07:00 10/09/17 07:00 10/09/17 07:00 10/09/17 07:00 - Head Head exam: Present: normal inspection - Eye Eye exam: Present: EOMI, PERRL, sclera anicteric - GI/Abdominal GI/Abdominal exam: Present: normal bowel sounds, soft - Rectal Rectal exam: Present: deferred Results - Labs CBC & Chem 7: 10/08/17 04:22 10/08/17 04:22 Labs: Last Result Calcium 7.7 mg/dL (8.6-10.3) L 10/08/17 04:22 Stool Occult Blood Negative (Negative) 10/06/17 16:45 Entire Visit Hgb 10.2 g/dL (12.9-16.9) L 10/08/17 04:22 Hct 33.0 % (37.5-50.1) L 10/08/17 04:22 - VTE Documentation of Mechanical Device: Intermittent pneumatic compression device Consult Discharge Plan - Plan [facility]errals: [facility] [Primary Care Provider[facility] -
[2017-10-09 08:51] LABS: Hemoglobin 12.1 g/dL (12.9-16.9)
[2017-10-09] MEDS: ARIPiprazole 5 MG TABLET PO SCH (08:53)
[2017-10-09] MEDS: Valproic Acid Oral Soln 250 MG/5 ML UDC PO SCH (08:53)
[2017-10-09] MEDS: Loratadine 10 MG TABLET PO SCH (08:54)
[2017-10-09 08:56] LABS: BUN/Creatinine Ratio 16 (6-26); Blood Urea Nitrogen 11 mg/dL (8-23); Calcium 7.9 mg/dL (8.6-10.3); Carbon Dioxide 28 mEq/L (23-29); Chloride 105 mEq/L (98-107); Glucose 91 mg/dL (70-105); Osmolality,Calculated 279 (280-300); Potassium 4.6 mEq/L (3.5-5.1); Sodium 135 mEq/L (136-145); eGFR For African Americans > 60 (> 60); eGFR For Non-African Americans > 60 (> 60)
--- NOTE | 2017-10-09 10:11 | Internal Med Progress Note ---
<Emil Maharaj - Last Filed: 10/09/17 13:23> Date of Encounter: 10/09/17 Time of Encounter: 10:10 - Assessment and plan (1) Upper gastrointestinal bleed Current Visit: Yes Status: Acute Assessment and plan: - Known history of esophagitis with severe ulcers on EGD - Hemoglobin on presentation of 7.7, status post 2 units packed red blood cells - Most recent H/H of 12.1/39.0, stable from previous. - Hemodynamically stable - Recently discharged from this facility for similar symptoms on 09/30/17, discharged home on Protonix and Carafate - Repeat EGD on 10/07/17 revealed 2 large/gigantic esophageal ulcers with some spontaneous bleeding. Biopsies taken and pending. Gastroenterology recommends continue Carafate, PPI drip, H2 jed. - GI this morning recommended surgery consult for possible J-tube placement for nutrition as well as cardiac clearance for possible surgical intervention including distal esophagectomy as outpatient. Plan - Consult gastroenterology. Gen. surgery deferred to GI as they had previously seen the patient - Daily labs and continue to trend H/H - BUN of 21, within normal limits. Likely suggesting that was not transiting through the bowels and is likely upper GI in nature with hematemesis. - Continue Carafate, Protonix, Pepcid 40 mg daily at bedtime IV, clear liquid diet as tolerated - Monitor through weekend with possible discharge and outpatient surgical intervention. (2) Anemia Current Visit: Yes Status: Chronic Assessment and plan: - Related GI bleed as above - H&H stable at 12.1/39.0 this morning, stable from previous - Continue to monitor and transfuse as necessary - Asymptomatic at this time Qualifiers: Anemia type: other cause Other causes of anemia: acute posthemorrhagic Qualified Code(s): D62 - Acute posthemorrhagic anemia (3) Chest pain Current Visit: Yes Status: Resolved Assessment and plan: Substernal in nature, no association with exertion - If that is very similar to his reflux pain - No complaints of retrosternal pain this morning Plan Treat as above for gastroesophageal reflux - Obtain cardiac clearance for possible surgery including echocardiogram Qualifiers: Chest pain type: other chest pain Qualified Code(s): R07.89 - Other chest pain; R07.8 - Other chest pain (4) GERD (gastroesophageal reflux disease) Current Visit: Yes Status: Chronic Assessment and plan: - Severe GERD with large hiatal hernia and esophageal ulcers as demonstrated on EGD most recently 09/29/17 - Has had multiple EGDs during previous admission - Not well controlled as outpatient. Patient denies heavy drinking, NSAID use Plan - continue Protonix gtt, Carafate, Pepcid - GI consult - Further management as above Qualifiers: Esophagitis presence: with esophagitis Qualified Code(s): K21.0 - Gastro- esophageal reflux disease with esophagitis (5) Schizophrenia Current Visit: Yes Status: Chronic Assessment and plan: Continue home meds Qualifiers: Schizophrenia type: unspecified Qualified Code(s): F20.9 - Schizophrenia, unspecified (6) Essential hypertension Current Visit: Yes Status: Chronic Assessment and plan: - Mildly high at this time at 148/90 - Continue home meds as tolerated, carefully monitoring due to GI bleed - Putting hydralazine order when necessary hypertension (7) Hematemesis Current Visit: Yes Status: Resolved Assessment and plan: - Chief complaint on admission of hematemesis with dark emesis - Appears to have resolved at this time and patient is having no symptoms - Continue to monitor, Zofran when necessary nausea Qualifiers: Nausea presence: with nausea Qualified Code(s): K92.0 - Hematemesis (8) DVT prophylaxis Current Visit: Yes Status: Acute Assessment and plan: - Anticoagulation contraindicated at this time due to GI bleed with anemia - SCDs - Time Spent With Patient 25 - 35 minutes - Subjective Interval history: Patient was seen and examined this morning at bedside. He states that overall he is feeling well with no complaints of abdominal pain, nausea, vomiting. Denies any further bowel movements. No symptoms fevers, chills, chest pain, shortness of breath. No concerns or complaints this time. - Constitutional Vitals: Temp Pulse Resp BP Pulse Ox 98.2 F 77 14 148/90 94 10/09/17 07:00 10/09/17 07:00 10/09/17 07:00 10/09/17 07:00 10/09/17 07:00 General appearance: Present: cooperative, A&O X 3, pleasant, no acute distress, answers questions appropriately Exam: Gen.: Vitals noted. No acute distress. AAOx3 HEENT: PERRL/EOMI, oropharynx clear, Normocephalic, atraumatic Cardiac: RRR, no murmur, +S1/S2 Pulmonary: CTA bilaterally, no wheezes, rales or rhonchi, equal chest expansion Abdomen: soft, nontender, BS noted, no guarding MSK: ROM intact, no joint swelling noted Extremities: no BLE edema, nontender calf, no cyanosis or clubbing Neuro: A&Ox3, moves all extremities, no focal deficits Psych: Appropriate mood and behavior Internal Medicine: Result - Labs CBC & Chem 7: 10/09/17 08:28 10/09/17 08:28 Labs: Short CBC 10/09/17 Range/Units 08:28 WBC 12.0 H (4.3-11.1) K/mcL Hgb 12.1 L D (12.9-16.9) g/dL Hct 39.0 (37.5-50.1) % Plt Count 499 H (140-400) K/mcL Neutrophils # 9.2 H (1.6-8.9) K/mcL BMP 10/09/17 08:28 Sodium 135 L Potassium 4.6 Chloride 105 Carbon Dioxide 28 BUN 11 Creatinine 0.69 L Glucose 91 Calcium 7.9 L - VTE Documentation of Mechanical Device: Intermittent pneumatic compression device Consult Discharge Plan - Plan Referrals: [facility] [Primary Care Provider] - <Donn Anderson - Last Filed: 10/09/17 18:22> Date of Encounter: 10/09/17 - Assessment and plan (1) Erosive esophagitis Current Visit: No Status: Acute (2) Reflux esophagitis Current Visit: No Status: Chronic (3) Hematemesis Current Visit: Yes Status: Resolved Qualifiers: Nausea presence: with nausea Qualified Code(s): K92.0 - Hematemesis (4) Anemia Current Visit: Yes Status: Chronic Qualifiers: Anemia type: other cause Other causes of anemia: acute posthemorrhagic Qualified Code(s): D62 - Acute posthemorrhagic anemia (5) Essential hypertension Current Visit: Yes Status: Chronic (6) Schizophrenia Current Visit: Yes Status: Chronic Qualifiers: Schizophrenia type: unspecified Qualified Code(s): F20.9 - Schizophrenia, unspecified - Constitutional Vitals: Temp Pulse Resp BP Pulse Ox 98 F 70 16 153/70 99 10/09/17 11:00 10/09/17 17:45 10/09/17 17:45 10/09/17 17:45 10/09/17 17:45 Internal Medicine: Result - Labs CBC & Chem 7: 10/09/17 08:28 10/09/17 08:28 Labs: Short CBC 10/09/17 Range/Units 08:28 WBC 12.0 H (4.3-11.1) K/mcL Hgb 12.1 L D (12.9-16.9) g/dL Hct 39.0 (37.5-50.1) % Plt Count 499 H (140-400) K/mcL Neutrophils # 9.2 H (1.6-8.9) K/mcL BMP 10/09/17 08:28 Sodium 135 L Potassium 4.6 Chloride 105 Carbon Dioxide 28 BUN 11 Creatinine 0.69 L Glucose 91 Calcium 7.9 L - Attending Attestation I examined this patient and my medical decision-making was reviewed with the Resident Physician on 10/09/17. I agree with the documented findings, disposition and treatment plan as described except to the extent set forth below. Mr Roa is currently admitted for acute UGI bleed due to esophagitis. He remains moderate to high risk due to potential for worsening clinical status. Mr Roa feels OK. No further emesis or bleeding. On multiple meds at this time. No fever. On clear liquids. Says he has chest pain but it is hard to qualify this with him. Exam alert. Comfortable Mucus membranes dry Heart reg no wheeze Abd soft I/P 1. UGI bleed 2. Esophagitis Further diagnoses and plan as above.
--- NOTE | 2017-10-09 16:25 | General Surgery Progress Note ---
Date of Encounter: 10/09/17 Time of Encounter: 16:24 Subjective Patient reports: no new complaints, no flatus, no bowel movement, afebrile Objective Vital Signs - Last 8 Hours Temp Pulse Resp BP Pulse Ox 10/09/17 11:00 98 F 64 15 161/91 96 Intake and Output 10/09/17 10/09/17 10/09/17 07:59 15:59 23:59 Intake Total 900 / 900 100 / 100 Output Total 0 / 0 Balance 900 / 900 100 / 100 Intake: IV Fluids 100 / 100 100 / 100 Protonix 40 MG In 0.9 % Sodium 100 / 100 100 / 100 Chloride (Mini-Bag +) 100 ML @ 20 mls/hr IVC .Q5H DELFINA Rx#: [id number] Oral 800 / 800 Output: Urine 0 / 0 Other: Meal Breakfast Percent of Meal Consumed 100% Weight 56.9 kg Blood Glucose* 90 95 Patient Weight 10/09/17 23:59 Weight 56.9 kg - General physical appearance no distress - Labs 10/09/17 08:28 10/09/17 08:28 Diabetes panel 10/09/17 Range/Units 08:28 Sodium 135 L (136-145) mEq/L Potassium 4.6 (3.5-5.1) mEq/L Chloride 105 (98-107) mEq/L Carbon Dioxide 28 (23-29) mEq/L BUN 11 (8-23) mg/dL Creatinine 0.69 L (0.70-1.30) mg/dL Glucose 91 (70-105) mg/dL Calcium 7.9 L (8.6-10.3) mg/dL Calcium panel 10/09/17 Range/Units 08:28 Calcium 7.9 L (8.6-10.3) mg/dL Pituitary panel 10/09/17 Range/Units 08:28 Sodium 135 L (136-145) mEq/L Potassium 4.6 (3.5-5.1) mEq/L Chloride 105 (98-107) mEq/L Carbon Dioxide 28 (23-29) mEq/L BUN 11 (8-23) mg/dL Creatinine 0.69 L (0.70-1.30) mg/dL Glucose 91 (70-105) mg/dL Calcium 7.9 L (8.6-10.3) mg/dL Adrenal panel 10/09/17 Range/Units 08:28 Sodium 135 L (136-145) mEq/L Potassium 4.6 (3.5-5.1) mEq/L Chloride 105 (98-107) mEq/L Carbon Dioxide 28 (23-29) mEq/L BUN 11 (8-23) mg/dL Creatinine 0.69 L (0.70-1.30) mg/dL Glucose 91 (70-105) mg/dL Calcium 7.9 L (8.6-10.3) mg/dL - VTE Documentation of Mechanical Device: Intermittent pneumatic compression device Consult Discharge Plan - Plan Referrals: [facility] [Primary Care Provider] -
--- NOTE | 2017-10-09 18:31 | General Surgery Consult Note ---
<Iliana Vo - Last Filed: 10/09/17 18:28> Date of Encounter: 10/09/17 Time of Encounter: 18:28 Assessment and Plan (1) GI bleed Current Visit: No Status: Chronic - Known history of esophagitis with severe ulcers on EGD -Pt may benefit from IV nutrition. Will need to further characterize pt's malnutrition status, hepatic panel ordered. -Complicated decision-making due to multiple ongoing issues including GERD and esophagitis -There are concerns for whether pt will be good candidate for J-tube placement , unclear of whether pt has current ability and support system for adequate post -operative care that would be necessary to avoid potentially serious complication with J-tube. This will need further assessment. Will discuss this case with Dr. Canseco. Qualifiers: GI bleed type/associated pathology: unspecified gastrointestinal hemorrhage type Qualified Code(s): K92.2 - Gastrointestinal hemorrhage, unspecified (2) GERD (gastroesophageal reflux disease) Current Visit: Yes Status: Chronic Continue medical management. As above. Qualifiers: Esophagitis presence: with esophagitis Qualified Code(s): K21.0 - Gastro- esophageal reflux disease with esophagitis (3) Anemia Current Visit: Yes Status: Chronic status post 2 units packed red blood cells. Hgb stable. Recommend continued monitoring. Management per primary team. Qualifiers: Anemia type: other cause Other causes of anemia: acute posthemorrhagic Qualified Code(s): D62 - Acute posthemorrhagic anemia (4) Essential hypertension Current Visit: Yes Status: Chronic Management per primary team. (5) Schizophrenia Current Visit: Yes Status: Chronic Management per primary team. Qualifiers: Schizophrenia type: unspecified Qualified Code(s): F20.9 - Schizophrenia, unspecified (6) DVT prophylaxis Current Visit: Yes Status: Acute Anticoagulation contraindicated at this time due to GI bleed with anemia - SCDs History of Present Illness Consult date: 10/09/17 Requesting physician: Donn Anderson History of present illness: 62 y M with Known history of esophagitis with severe ulcers on EGD. Repeat EGD on 10/07/17 revealed 2 large/gigantic esophageal ulcers with some spontaneous bleeding. Biopsies taken and pending. Pt was recently discharged from this facility for similar symptoms on 09/30/17, discharged home on Protonix and Carafate. Pt endorses epigastric abdominal pain. Denies nausea or vomiting. No diarrhea. No BM this Am. H&H stable at 12.1/39.0 this morning, stable from previous Past Med Surg Social Fam HX - Past Medical History Medical history: arthritis, COPD, GERD, osteoporosis, other Psychiatric history: schizophrenia - Past Surgical History Surgical History: appendectomy - Social History Smoking Status: Current every day smoker Packs per day: "less than 1/2" Smokeless Tobacco Status: No Alcohol use: none Drug use: none - Family History Father Family Member Ethnicity: Non- Living Status: Hx Family Cardiac Disorders: Yes (NM) Hx Family Endocrine Disorder: Yes (DM) Mother Family Member Ethnicity: Non- Living Status: Hx Family Cardiac Disorders: Yes (NM) Brother Family Member Ethnicity: Non- Living Status: Hx Family Autoimmune Disorders: Yes (AIDS) Sister Family Member Ethnicity: Non- Living Status: Hx Family Cardiac Disorders: Yes (NM) Medications and Allergies ARIPiprazole [Abilify] 5 mg PO QAM 09/17/17 [History] Benztropine Mesylate 1 mg PO BID 09/17/17 [History] Cetirizine HCl [All Day Allergy] 10 mg PO DAILY 09/17/17 [History] Multivit-Minerals/Ferrous Fum [Complete Multivit-Mineral Liq] 10 ml PO DAILY [History] Mupirocin 1 appl TP TID 09/17/17 [History] Naproxen [Naprosyn] 500 mg PO BID PRN 09/17/17 [History] OLANZapine [Zyprexa] 2.5 mg PO Q8H PRN 09/17/17 [History] OLANZapine [Zyprexa] 20 mg PO HS 09/17/17 [History] Olodaterol HCl [Striverdi Respimat] 2 puff IH DAILY 09/17/17 [History] Pantoprazole Sodium [Protonix] 40 mg PO BID 09/17/17 [History] Valproic Acid Oral Soln [Depakene Oral Soln] 500 mg PO DAILY 09/17/17 [History] fluPHENAZine decanoate [Fluphenazine Decanoate] 87.5 mg IM Q2W 09/17/17 [History ] Calcium Carbonate/Vitamin D3 [Calcium 500-Vit D3 200 Tablet] 1 each PO BID 09/24 [History] Citalopram Hydrobromide [Citalopram HBr] 10 mg PO DAILY 09/24/17 [History] Docusate [Colace] 100 mg PO BID 09/24/17 [History] Levalbuterol Tartrate [Xopenex Hfa] 2 puff IH Q6H PRN 09/24/17 [History] hydrOXYzine pamoate [HydrOXYzine Pamoate] 25 mg PO QID PRN 09/24/17 [History] Losartan [Cozaar] 50 mg PO DAILY #0 09/30/17 [Rx] Metoprolol [Lopressor] 12.5 mg PO BID #15 tablet 09/30/17 [Rx] Sucralfate [Carafate] 1 gm PO QIDAC 30 Days udc 09/30/17 [Rx] 3 Allergy/AdvReac Type Severity Reaction Status Date / Time azithromycin [From Zithromax] AdvReac See Verified 09/24/17 16:55 Comments Thiothixene [From Navane] AdvReac See Verified 09/24/17 16:55 Comments Review of Systems All systems PM: As documented above in the HPI. General Surgery Exam Initial Vital Signs Temp Pulse Resp BP Pulse Ox 98.7 F 89 16 150/100 99 10/06/17 15:46 10/06/17 15:46 10/06/17 15:46 10/06/17 15:46 10/06/17 15:46 - General physical appearance other (thin, protrusion of upper ribs visible). negative: well nourished - Eyes normal ocular movement - Respiratory normal expansion, clear to auscultation - Cardiovascular Cardiovascular exam: Absent: irregular rhythm, murmurs Additional Comments: +S1, S2 - Abdomen Abdomen general surgery: Present: bowel sounds present, soft, non tender - Psychiatric Psychiatric general surgery: Present: oriented to person, oriented to time Exam Initial Vital Signs Temp Pulse Resp BP Pulse Ox 98.7 F 89 16 150/100 99 10/06/17 15:46 10/06/17 15:46 10/06/17 15:46 10/06/17 15:46 10/06/17 15:46 Results - Labs 10/09/17 08:28 10/09/17 08:28 Abnormal lab results WBC 12.0 K/mcL (4.3-11.1) H 10/09/17 08:28 Hgb 12.1 g/dL (12.9-16.9) L D 10/09/17 08:28 MCH 27.7 pg (28.0-33.3) L 10/09/17 08:28 MCHC 31.0 g/dL (31.6-35.5) L 10/09/17 08:28 RDW 15.1 % (11.5-14.5) H 10/09/17 08:28 Plt Count 499 K/mcL (140-400) H 10/09/17 08:28 MPV 8.8 fL (9.4-12.4) L 10/09/17 08:28 Neutrophils # 9.2 K/mcL (1.6-8.9) H 10/09/17 08:28 Nucleated RBCs/100 WBC 0.2 /100 WBC (0) H 10/08/17 04:22 Sodium 135 mEq/L (136-145) L 10/09/17 08:28 Creatinine 0.69 mg/dL (0.70-1.30) L 10/09/17 08:28 Calculated Osmolality 279 (280-300) L 10/09/17 08:28 Calcium 7.9 mg/dL (8.6-10.3) L 10/09/17 08:28 Diabetes panel 10/09/17 Range/Units 08:28 Sodium 135 L (136-145) mEq/L Potassium 4.6 (3.5-5.1) mEq/L Chloride 105 (98-107) mEq/L Carbon Dioxide 28 (23-29) mEq/L BUN 11 (8-23) mg/dL Creatinine 0.69 L (0.70-1.30) mg/dL Glucose 91 (70-105) mg/dL Calcium 7.9 L (8.6-10.3) mg/dL Calcium panel 10/09/17 Range/Units 08:28 Calcium 7.9 L (8.6-10.3) mg/dL Pituitary panel 10/09/17 Range/Units 08:28 Sodium 135 L (136-145) mEq/L Potassium 4.6 (3.5-5.1) mEq/L Chloride 105 (98-107) mEq/L Carbon Dioxide 28 (23-29) mEq/L BUN 11 (8-23) mg/dL Creatinine 0.69 L (0.70-1.30) mg/dL Glucose 91 (70-105) mg/dL Calcium 7.9 L (8.6-10.3) mg/dL Adrenal panel 10/09/17 Range/Units 08:28 Sodium 135 L (136-145) mEq/L Potassium 4.6 (3.5-5.1) mEq/L Chloride 105 (98-107) mEq/L Carbon Dioxide 28 (23-29) mEq/L BUN 11 (8-23) mg/dL Creatinine 0.69 L (0.70-1.30) mg/dL Glucose 91 (70-105) mg/dL Calcium 7.9 L (8.6-10.3) mg/dL All other labs normal. - Imaging Additional studies: 10/07/17 Endoscopy report reviewed with attending Dr. Amezcua Consult Discharge Plan - Plan [facility] - <Eddie Amezcua - Last Filed: 10/10/17 17:33> Date of Encounter: 10/09/17 Review of Systems All systems PM: A 10-system review of systems was performed and is negative for pertinent findings except as documented above in the HPI. General Surgery Exam Initial Vital Signs Temp Pulse Resp BP Pulse Ox 98.7 F 89 16 150/100 99 10/06/17 15:46 10/06/17 15:46 10/06/17 15:46 10/06/17 15:46 10/06/17 15:46 Exam Initial Vital Signs Temp Pulse Resp BP Pulse Ox 98.7 F 89 16 150/100 99 10/06/17 15:46 10/06/17 15:46 10/06/17 15:46 10/06/17 15:46 10/06/17 15:46 Results - Labs 10/10/17 05:48 10/09/17 08:28 Abnormal lab results RBC 3.66 M/mcL (4.19-5.50) L 10/10/17 05:48 Hgb 10.3 g/dL (12.9-16.9) L D 10/10/17 05:48 Hct 32.4 % (37.5-50.1) L 10/10/17 05:48 RDW 15.2 % (11.5-14.5) H 10/10/17 05:48 Plt Count 422 K/mcL (140-400) H 10/10/17 05:48 MPV 8.9 fL (9.4-12.4) L 10/10/17 05:48 Nucleated RBCs/100 WBC 0.2 /100 WBC (0) H 10/08/17 04:22 Sodium 135 mEq/L (136-145) L 10/09/17 08:28 Creatinine 0.69 mg/dL (0.70-1.30) L 10/09/17 08:28 POC Glucose 110 (58-89) H 10/09/17 22:25 Calculated Osmolality 279 (280-300) L 10/09/17 08:28 Calcium 7.9 mg/dL (8.6-10.3) L 10/09/17 08:28 AST 11 Units/L (13-39) L 10/10/17 05:48 Serum Total Protein 4.4 g/dL (6.4-8.9) L 10/10/17 05:48 Albumin 2.1 g/dL (3.5-5.7) L 10/10/17 05:48 Globulin 2.3 g/dL (2.4-3.5) L 10/10/17 05:48 Albumin/Globulin Ratio 0.9 (1.1-2.2) L 10/10/17 05:48 Prealbumin 13.9 mg/dL (17.0-34.0) L 10/10/17 05:48 Diabetes panel 10/10/17 Range/Units 05:48 AST 11 L (13-39) Units/L ALT 9 (7-52) Units/L Alkaline Phosphatase 58 (34-104) Units/L Albumin 2.1 L (3.5-5.7) g/dL Calcium panel 10/10/17 Range/Units 05:48 Albumin 2.1 L (3.5-5.7) g/dL Adrenal panel 10/10/17 Range/Units 05:48 Total Bilirubin 0.3 (0.3-1.0) mg/dL AST 11 L (13-39) Units/L ALT 9 (7-52) Units/L Alkaline Phosphatase 58 (34-104) Units/L Albumin 2.1 L (3.5-5.7) g/dL All other labs normal. - Attending Attestation Review the above assessment and evaluation. The patient was able to verbalize a lot of his history. He admits to some epigastric pain and some chest pain symptoms. He admits to some nausea at times and has had episodes of vomiting. Most of the significant history however is by note is in the computer system demonstrating significant erosive esophagitis and problems with upper GI bleed likely from the erosive esophagitis. She has had blood transfusions due to this as well. A been consulted for the possibility of performing a jejunostomy feeding tube. I am concerned about the mechanics of the J-tube placement while the patient is in a alf setting. Additionally, he will ultimately require a hiatal hernia repair and my thinking is that perhaps with IV nutrition and a short waiting period that all of this can be performed in one sitting/setting. I will talk to my colleague this upcoming Wednesday so I can review my concerns with him and asked that he see the patient in consultation as well. He is scheduled to see Dr. Canseco on 10/26/2017. Also be in contact with his sister who is the power of consumer attorney to inform her of my plan.
[2017-10-09] MEDS: OLANZapine 10 MG TAB.RAPDIS PO SCH (20:52)
[2017-10-09] MEDS: Famotidine 20 MG/2 ML VIAL IVP SCH (20:57)
[2017-10-10 06:01] LABS: Basophils % 0.5 %; Eosinophils # 0.3 K/mcL (0.0-0.6); Eosinophils % 4.1 %; Hematocrit 32.4 % (37.5-50.1); Immature Granulocytes % 0.3 % (0-4); Lymphocytes # 1.5 K/mcL (0.6-4.6); Lymphocytes % 18.4 %; Mean Corpuscular HGB Conc 31.8 g/dL (31.6-35.5); Mean Corpuscular Hemoglobin 28.1 pg (28.0-33.3); Mean Corpuscular Volume 88.5 fL (83.0-100.0); Mean Platelet Volume 8.9 fL (9.4-12.4); Monocytes # 0.7 K/mcL (0.0-1.3); Monocytes % 8.5 %; Neutrophils # 5.4 K/mcL (1.6-8.9); Platelet Count 422 K/mcL (140-400); Red Blood Count 3.66 M/mcL (4.19-5.50); Red Cell Distribution Width 15.2 % (11.5-14.5); Segmented Neutrophils % 68.2 %
[2017-10-10 06:10] LABS: Hemoglobin 10.3 g/dL (12.9-16.9)
[2017-10-10 06:21] LABS: Albumin 2.1 g/dL (3.5-5.7); Albumin/Globulin Ratio 0.9 (1.1-2.2); Bilirubin,Indirect 0.3 mg/dL (0.0-1.2); Bilirubin,Total 0.3 mg/dL (0.3-1.0); Globulin 2.3 g/dL (2.4-3.5); Total Protein 4.4 g/dL (6.4-8.9)
[2017-10-10] MEDS: Pantoprazole 40 MG in 0.9 % Sodium Chloride Mini Bag 100 ML IVC SCH ×5 (07:26→23:58)
[2017-10-10] MEDS: ARIPiprazole 5 MG TABLET PO SCH (08:01)
[2017-10-10] MEDS: Loratadine 10 MG TABLET PO SCH (08:01)
[2017-10-10] MEDS: Valproic Acid Oral Soln 250 MG/5 ML UDC PO SCH (08:02)
[2017-10-10] MEDS: 0.9 % Sodium Chloride w KCl 20 MEQ/1,000 ML MLS IVC SCH ×3 (08:03→23:55)
--- NOTE | 2017-10-10 11:13 | Internal Med Progress Note ---
<Emil Maharaj - Last Filed: 10/10/17 11:56> Date of Encounter: 10/10/17 Time of Encounter: 11:13 - Assessment and plan (1) Upper gastrointestinal bleed Current Visit: Yes Status: Acute Assessment and plan: - Known history of esophagitis with severe ulcers on EGD - Hemoglobin on presentation of 7.7, status post 2 units packed red blood cells - Most recent H/H of 10.3/32.4, stable from previous. - Hemodynamically stable - Recently discharged from this facility for similar symptoms on 09/30/17, discharged home on Protonix and Carafate - Repeat EGD on 10/07/17 revealed 2 large/gigantic esophageal ulcers with some spontaneous bleeding. Biopsies taken and pending. Gastroenterology recommends continue Carafate, PPI drip, H2 jed. - GI this morning recommended surgery consult for possible J-tube placement for nutrition as well as cardiac clearance for possible surgical intervention including distal esophagectomy as outpatient. - Surgery consulted and are determining malnutrition status today for possible need for parenteral nutrition Plan - Consult gastroenterology. Gen. surgery deferred to GI as they had previously seen the patient - Daily labs and continue to trend H/H - BUN of 11, within normal limits. Likely suggesting that was not transiting through the bowels and is likely upper GI in nature with hematemesis. - Continue Carafate, Protonix, Pepcid 40 mg daily at bedtime IV, clear liquid diet as tolerated - Monitor through weekend with possible discharge and outpatient surgical intervention vs inpatient distal esophagectomy pending surgeon consult. (2) Anemia Current Visit: Yes Status: Chronic Assessment and plan: - Related GI bleed as above - H&H stable at 10.3/32.4 this morning, stable from previous - Continue to monitor and transfuse as necessary - Asymptomatic at this time Qualifiers: Anemia type: other cause Other causes of anemia: acute posthemorrhagic Qualified Code(s): D62 - Acute posthemorrhagic anemia (3) Chest pain Current Visit: Yes Status: Resolved Assessment and plan: Substernal in nature, no association with exertion - If that is very similar to his reflux pain - No complaints of retrosternal pain this morning Plan Treat as above for gastroesophageal reflux - Obtain cardiac clearance for possible surgery - Echocardiogram performed in August 2017, EF 55% - Stress test in September 2017 non diagnostic for ischemia, gated EF 37% Qualifiers: Chest pain type: other chest pain Qualified Code(s): R07.89 - Other chest pain; R07.8 - Other chest pain (4) GERD (gastroesophageal reflux disease) Current Visit: Yes Status: Chronic Assessment and plan: - Severe GERD with large hiatal hernia and esophageal ulcers as demonstrated on EGD most recently 09/29/17 - Has had multiple EGDs during previous admission - Not well controlled as outpatient. Patient denies heavy drinking, NSAID use Plan - continue Protonix gtt, Carafate, Pepcid - GI consult - Further management as above Qualifiers: Esophagitis presence: with esophagitis Qualified Code(s): K21.0 - Gastro- esophageal reflux disease with esophagitis (5) Schizophrenia Current Visit: Yes Status: Chronic Assessment and plan: Continue home meds Qualifiers: Schizophrenia type: unspecified Qualified Code(s): F20.9 - Schizophrenia, unspecified (6) Essential hypertension Current Visit: Yes Status: Chronic Assessment and plan: - Well controlled at this time 135/90 - Continue home meds as tolerated, carefully monitoring due to GI bleed - Putting hydralazine order when necessary hypertension (7) Hematemesis Current Visit: Yes Status: Resolved Assessment and plan: - Resolved - Chief complaint on admission of hematemesis with dark emesis - Appears to have resolved at this time and patient is having no symptoms - Continue to monitor, Zofran when necessary nausea Qualifiers: Nausea presence: with nausea Qualified Code(s): K92.0 - Hematemesis (8) DVT prophylaxis Current Visit: Yes Status: Acute Assessment and plan: - Anticoagulation contraindicated at this time due to GI bleed with anemia - SCDs - Time Spent With Patient Greater than 35 minutes - Subjective Interval history: Patient was seen and examined this morning at bedside. He states that overall he is feeling well with no complaints of abdominal pain, nausea, vomiting. Denies any further bowel movements. No symptoms fevers, chills, chest pain, shortness of breath. No concerns or complaints this time. Long discussion with sisters this morning at bedside. All questions were answered. Sister who is POA is wondering plan from this point and would like to be kept informed after Dr. Canseco evaluates him. - Constitutional Vitals: Temp Pulse Resp BP Pulse Ox 98.1 F 76 15 127/70 94 10/10/17 07:00 10/10/17 07:00 10/10/17 07:00 10/10/17 07:00 10/10/17 07:00 General appearance: Present: cooperative, A&O X 3, pleasant, no acute distress, answers questions appropriately Exam: Gen.: Vitals noted. No acute distress. AAOx3. Mildly chachetic appearing male. pleasant. HEENT: PERRL/EOMI, oropharynx clear, Normocephalic, atraumatic Cardiac: RRR, no murmur, +S1/S2 Pulmonary: CTA bilaterally, no wheezes, rales or rhonchi, equal chest expansion Abdomen: soft, nontender, BS noted, no guarding MSK: ROM intact, no joint swelling noted Extremities: no BLE edema, nontender calf, no cyanosis or clubbing Neuro: A&Ox3, moves all extremities, no focal deficits Psych: Appropriate mood and behavior Internal Medicine: Result - Labs CBC & Chem 7: 10/10/17 05:48 10/09/17 08:28 Labs: Short CBC 10/10/17 Range/Units 05:48 WBC 7.9 (4.3-11.1) K/mcL Hgb 10.3 L D (12.9-16.9) g/dL Hct 32.4 L (37.5-50.1) % Plt Count 422 H (140-400) K/mcL Neutrophils # 5.4 (1.6-8.9) K/mcL Liver Function 10/10/17 Range/Units 05:48 Total Bilirubin 0.3 (0.3-1.0) mg/dL Direct Bilirubin 0.0 (0.0-0.2) mg/dL AST 11 L (13-39) Units/L ALT 9 (7-52) Units/L Alkaline Phosphatase 58 (34-104) Units/L Albumin 2.1 L (3.5-5.7) g/dL - VTE Documentation of Mechanical Device: Intermittent pneumatic compression device Consult Discharge Plan - Plan [facility]: [facility] Provider[facility] - <Donn Anderson - Last Filed: 10/10/17 18:28> Date of Encounter: 10/10/17 - Assessment and plan (1) Erosive esophagitis Current Visit: No Status: Acute (2) Reflux esophagitis Current Visit: No Status: Chronic (3) Hematemesis Current Visit: Yes Status: Resolved Qualifiers: Nausea presence: with nausea Qualified Code(s): K92.0 - Hematemesis (4) Anemia Current Visit: Yes Status: Chronic Qualifiers: Anemia type: other cause Other causes of anemia: acute posthemorrhagic Qualified Code(s): D62 - Acute posthemorrhagic anemia (5) Essential hypertension Current Visit: Yes Status: Chronic (6) Schizophrenia Current Visit: Yes Status: Chronic Qualifiers: Schizophrenia type: unspecified Qualified Code(s): F20.9 - Schizophrenia, unspecified - Constitutional Vitals: Temp Pulse Resp BP Pulse Ox 97.7 F 63 17 153/89 98 10/10/17 17:35 10/10/17 17:35 10/10/17 17:35 10/10/17 17:35 10/10/17 17:35 Internal Medicine: Result - Labs CBC & Chem 7: 10/10/17 05:48 10/09/17 08:28 Labs: Short CBC 10/10/17 Range/Units 05:48 WBC 7.9 (4.3-11.1) K/mcL Hgb 10.3 L D (12.9-16.9) g/dL Hct 32.4 L (37.5-50.1) % Plt Count 422 H (140-400) K/mcL Neutrophils # 5.4 (1.6-8.9) K/mcL Liver Function 10/10/17 Range/Units 05:48 Total Bilirubin 0.3 (0.3-1.0) mg/dL Direct Bilirubin 0.0 (0.0-0.2) mg/dL AST 11 L (13-39) Units/L ALT 9 (7-52) Units/L Alkaline Phosphatase 58 (34-104) Units/L Albumin 2.1 L (3.5-5.7) g/dL - Attending Attestation I examined this patient and my medical decision-making was reviewed with the Resident Physician on 10/10/17. I agree with the documented findings, disposition and treatment plan as described except to the extent set forth below. Mr Roa is currently admitted for GI bleed associated with esophagitis. He remains moderate risk due to potential for worsening clinical status. Mr Roa is doing OK. No further bleeding. On PPI and carafate. Tolerating clear liquids. Exam Alert. Comfortable Mucus membranes dry Heart reg No wheeze Abd soft I/P 1. GI bleed 2. Esophagitis Further diagnoses and plan as above.
--- NOTE | 2017-10-10 11:24 | General Surgery Progress Note ---
<Iliana Vo - Last Filed: 10/10/17 16:13> Date of Encounter: 10/10/17 Time of Encounter: 11:21 - Assessment and Plan (1) GI bleed Current Visit: No Status: Chronic -Known history of esophagitis with severe ulcers on EGD -AM labs reviewed, concerning for moderate malnutrition. Prealbumin 13.9. -Complicated decision-making due to multiple ongoing issues including GERD and esophagitis -Active consideration whether pt good candidate for IV nutrition and/or procedure, some concerns remain -Carmela Knapp identified herself as sister and PoA before patient, with advance directive sheet. Contact: . Advised to submit evidence to RN for inclusion into file. Qualifiers: GI bleed type/associated pathology: unspecified gastrointestinal hemorrhage type Qualified Code(s): K92.2 - Gastrointestinal hemorrhage, unspecified (2) GERD (gastroesophageal reflux disease) Current Visit: Yes Status: Chronic Continue medical management. As above. Qualifiers: Esophagitis presence: with esophagitis Qualified Code(s): K21.0 - Gastro- esophageal reflux disease with esophagitis (3) Anemia Current Visit: Yes Status: Chronic status post 2 units packed red blood cells. Management per primary team. Qualifiers: Anemia type: other cause Other causes of anemia: acute posthemorrhagic Qualified Code(s): D62 - Acute posthemorrhagic anemia (4) Essential hypertension Current Visit: Yes Status: Chronic Management per primary team. (5) Schizophrenia Current Visit: Yes Status: Chronic Management per primary team. Qualifiers: Schizophrenia type: unspecified Qualified Code(s): F20.9 - Schizophrenia, unspecified (6) DVT prophylaxis Current Visit: Yes Status: Acute Anticoagulation contraindicated at this time due to GI bleed with anemia - SCDs Subjective Patient reports: no new complaints, feels better Narrative: No acute events overnight. Pt endorses nausea this AM, but no emesis. Endorses gas, non-bloody bowel movement. PoA sister Carmela Knapp with patient. Resident MD asked patient directly if he is OK for PoA to be involved in decision making and make certain medical decision for pt. Pt states he is OK with this. Objective Vital Signs - Last 8 Hours Temp Pulse Resp BP Pulse Ox 10/10/17 07:00 98.1 F 76 15 127/70 94 Intake and Output 10/09/17 10/10/17 10/10/17 23:59 07:59 15:59 Intake Total 680 / 680 100 / 100 Output Total 350 / 350 0 / 0 Balance 330 / 330 100 / 100 Intake: IV Fluids 100 / 100 100 / 100 Protonix 40 MG In 0.9 % Sodium 100 / 100 100 / 100 Chloride (Mini-Bag +) 100 ML @ 20 mls/hr IVC .Q5H [facility] Rx#: [id number] Oral 580 / 580 0 / 0 Output: Urine 350 / 350 0 / 0 Other: Meal Breakfast Weight 58.1 kg Blood Glucose* 110 88 Patient Weight 10/10/17 23:59 Weight 58.1 kg - General physical appearance no distress, cachectic - Eyes normal ocular movement - Respiratory clear to auscultation, other (upper ribs protrusion evident. ) - Cardiovascular Cardiovascular exam: Present: RRR. Absent: murmurs - Abdomen Abdomen: Present: bowel sounds present, soft, non tender - Psychiatric oriented to time, oriented to person, oriented to place - Labs 10/10/17 05:48 10/09/17 08:28 Diabetes panel 10/10/17 Range/Units 05:48 AST 11 L (13-39) Units/L ALT 9 (7-52) Units/L Alkaline Phosphatase 58 (34-104) Units/L Albumin 2.1 L (3.5-5.7) g/dL Calcium panel 10/10/17 Range/Units 05:48 Albumin 2.1 L (3.5-5.7) g/dL Adrenal panel 10/10/17 Range/Units 05:48 Total Bilirubin 0.3 (0.3-1.0) mg/dL AST 11 L (13-39) Units/L ALT 9 (7-52) Units/L Alkaline Phosphatase 58 (34-104) Units/L Albumin 2.1 L (3.5-5.7) g/dL - VTE Documentation of Mechanical Device: Intermittent pneumatic compression device Consult Discharge Plan - Plan [facility] Provider[facility] - <Eddie Amezcua - Last Filed: 10/10/17 17:34> Date of Encounter: 10/10/17 Objective Vital Signs - Last 8 Hours Temp Pulse Resp BP Pulse Ox 10/10/17 12:00 98.1 F 68 15 135/90 94 Intake and Output 10/10/17 10/10/17 10/10/17 07:59 15:59 23:59 Intake Total 100 / 100 100 / 100 Output Total 0 / 0 Balance 100 / 100 100 / 100 Intake: IV Fluids 100 / 100 100 / 100 Protonix 40 MG In 0.9 % Sodium 100 / 100 100 / 100 Chloride (Mini-Bag +) 100 ML @ 20 mls/hr IVC .Q5H [facility] Rx#: [id number] Oral 0 / 0 Output: Urine 0 / 0 Other: # Voids 1 Weight 58.1 kg Blood Glucose* 88 Patient Weight 10/10/17 23:59 Weight 58.1 kg - Labs 10/10/17 05:48 10/09/17 08:28 Diabetes panel 10/10/17 Range/Units 05:48 AST 11 L (13-39) Units/L ALT 9 (7-52) Units/L Alkaline Phosphatase 58 (34-104) Units/L Albumin 2.1 L (3.5-5.7) g/dL Calcium panel 10/10/17 Range/Units 05:48 Albumin 2.1 L (3.5-5.7) g/dL Adrenal panel 10/10/17 Range/Units 05:48 Total Bilirubin 0.3 (0.3-1.0) mg/dL AST 11 L (13-39) Units/L ALT 9 (7-52) Units/L Alkaline Phosphatase 58 (34-104) Units/L Albumin 2.1 L (3.5-5.7) g/dL - Attending Attestation I examined this patient and my medical decision-making was reviewed with the Resident Physician. I agree with the documented findings, disposition and treatment plan as described except to the extent set forth below. Review the above assessment and evaluation with the resident and agree with the above plan. Nutritional parameters demonstrate mild to moderate protein calorie malnutrition. I will discuss my concerns with my colleague tomorrow. I have also had a chance to speak to the patient's sister regarding my plan and she is in agreement as well. To consider starting TPN tomorrow. Additionally, I had an opportunity to speak with gastroenterology as well.
[2017-10-10] MEDS ORDERED: Naloxone 0.4 MG/ML INJ IVP PRN (15:22)
[2017-10-10] MEDS ORDERED: Ondansetron 4 MG/2 ML VIAL IVP PRN (15:22)
[2017-10-10] MEDS ORDERED: D5% in Water 1,000 ML IVC PRN (15:22)
[2017-10-10] MEDS ORDERED: hydrOXYzine pamoate 25 MG CAPSULE PO PRN (15:22)
[2017-10-10] MEDS ORDERED: *HR* Dextrose 50 % in Water (Syg) 50 ML SYRINGE IVP PRN (15:22)
[2017-10-10] MEDS ORDERED: Albuterol 2.5 MG/3 ML NEBULIZER IH PRN (15:22)
[2017-10-10] MEDS ORDERED: OLANZapine 5 MG TAB.RAPDIS PO PRN (15:22)
[2017-10-10] MEDS ORDERED: Dextrose Gel 15 GM/37.5 ML TUBE PO PRN ×2 (15:22)
[2017-10-10] MEDS: OLANZapine 10 MG TAB.RAPDIS PO SCH (21:20)
[2017-10-10] MEDS: Famotidine 20 MG/2 ML VIAL IVP SCH (21:25)
[2017-10-11] MEDS: Pantoprazole 40 MG in 0.9 % Sodium Chloride Mini Bag 100 ML IVC SCH ×5 (00:32→18:21)
[2017-10-11 05:07] LABS: Basophils # 0.1 K/mcL (0.0-0.2); Basophils % 0.8 %; Eosinophils # 0.3 K/mcL (0.0-0.6); Eosinophils % 4.4 %; Hematocrit 33.5 % (37.5-50.1); Hemoglobin 10.5 g/dL (12.9-16.9); Immature Granulocytes % 0.3 % (0-4); Lymphocytes # 1.1 K/mcL (0.6-4.6); Mean Corpuscular HGB Conc 31.3 g/dL (31.6-35.5); Mean Corpuscular Hemoglobin 28.2 pg (28.0-33.3); Mean Corpuscular Volume 90.1 fL (83.0-100.0); Mean Platelet Volume 9.3 fL (9.4-12.4); Monocytes # 0.6 K/mcL (0.0-1.3); Monocytes % 9.7 %; Neutrophils # 4.5 K/mcL (1.6-8.9); Platelet Count 433 K/mcL (140-400); Red Blood Count 3.72 M/mcL (4.19-5.50); Red Cell Distribution Width 15.3 % (11.5-14.5); Segmented Neutrophils % 67.8 %
[2017-10-11 05:14] LABS: BUN/Creatinine Ratio 11 (6-26); Blood Urea Nitrogen 7 mg/dL (8-23); Calcium 7.8 mg/dL (8.6-10.3); Carbon Dioxide 29 mEq/L (23-29); Chloride 106 mEq/L (98-107); Glucose 77 mg/dL (70-105); Osmolality,Calculated 281 (280-300); Potassium 3.7 mEq/L (3.5-5.1); Sodium 137 mEq/L (136-145); eGFR For African Americans > 60 (> 60); eGFR For Non-African Americans > 60 (> 60)
--- NOTE | 2017-10-11 07:14 | General Surgery Progress Note ---
<Iliana Vo - Last Filed: 10/11/17 11:30> Date of Encounter: 10/11/17 Time of Encounter: 07:14 - Assessment and Plan (1) GI bleed Current Visit: No Status: Chronic -Known history of severe reflux esophagitis with ulcers identified on EGD -Labs suggestive of moderate malnutrition. Per PoA, pt [place] [facility] [place] [facility] -Complicated decision-making due to multiple ongoing issues including GERD and esophagitis -Attending Dr. Canseco discussed case with PoA this morning and pt for shared decision-making. -Plan to initiate TPN, plan for surgery this later week -Will follow pt's clinical status, tentative plan for hernia repair with emphasis on continued shared decision-making. Qualifiers: GI bleed type/associated pathology: unspecified gastrointestinal hemorrhage type Qualified Code(s): K92.2 - Gastrointestinal hemorrhage, unspecified (2) GERD (gastroesophageal reflux disease) Current Visit: Yes Status: Chronic As above. Qualifiers: Esophagitis presence: with esophagitis Qualified Code(s): K21.0 - Gastro- esophageal reflux disease with esophagitis (3) Malnutrition of moderate degree Current Visit: Yes Status: Acute Plan to initiate TPN. Pt likely chronic undernourishment, supplemental thiamine indicated. Locomotive Mechanic involved with care. (4) Essential hypertension Current Visit: Yes Status: Chronic Management per primary team. (5) Anemia Current Visit: Yes Status: Chronic status post 2 units packed red blood cells. Management per primary team. Qualifiers: Anemia type: other cause Other causes of anemia: acute posthemorrhagic Qualified Code(s): D62 - Acute posthemorrhagic anemia (6) Schizophrenia Current Visit: Yes Status: Chronic Management per primary team. Qualifiers: Schizophrenia type: unspecified Qualified Code(s): F20.9 - Schizophrenia, unspecified (7) DVT prophylaxis Current Visit: Yes Status: Acute Per primary. Subjective Patient reports: no new complaints, pain is less, afebrile Objective Vital Signs - Last 8 Hours Temp Pulse Resp BP Pulse Ox 10/11/17 07:09 97.8 F 56 16 180/84 92 10/11/17 04:08 97.5 F L 55 16 138/85 95 10/11/17 00:35 92 10/10/17 23:24 97.7 F 61 17 136/72 92 Intake and Output 10/10/17 10/10/17 10/11/17 15:59 23:59 07:59 Intake Total 100 / 100 820 / 820 100 / 100 Balance 100 / 100 820 / 820 100 / 100 Intake: IV Fluids 100 / 100 100 / 100 100 / 100 Protonix 40 MG In 0.9 % Sodium 100 / 100 100 / 100 100 / 100 Chloride (Mini-Bag +) 100 ML @ 20 mls/hr IVC .Q5H [facility] Rx#: [id number] Oral 720 / 720 Other: # Voids 1 1 # Bowel Movements 1 Weight 60.866 kg Blood Glucose* 76 69 - General physical appearance no distress, no pain - Eyes normal ocular movement - Respiratory normal expansion, clear to auscultation, other (upper rib protrusion ) - Cardiovascular Cardiovascular exam: Present: RRR. Absent: murmurs - Abdomen Abdomen: Present: bowel sounds present, soft, non tender - Labs 10/11/17 04:01 10/11/17 04:01 Diabetes panel 10/11/17 Range/Units 04:01 Sodium 137 (136-145) mEq/L Potassium 3.7 (3.5-5.1) mEq/L Chloride 106 (98-107) mEq/L Carbon Dioxide 29 (23-29) mEq/L BUN 7 L (8-23) mg/dL Creatinine 0.66 L (0.70-1.30) mg/dL Glucose 77 (70-105) mg/dL Calcium 7.8 L (8.6-10.3) mg/dL Calcium panel 10/11/17 Range/Units 04:01 Calcium 7.8 L (8.6-10.3) mg/dL Pituitary panel 10/11/17 Range/Units 04:01 Sodium 137 (136-145) mEq/L Potassium 3.7 (3.5-5.1) mEq/L Chloride 106 (98-107) mEq/L Carbon Dioxide 29 (23-29) mEq/L BUN 7 L (8-23) mg/dL Creatinine 0.66 L (0.70-1.30) mg/dL Glucose 77 (70-105) mg/dL Calcium 7.8 L (8.6-10.3) mg/dL Adrenal panel 10/11/17 Range/Units 04:01 Sodium 137 (136-145) mEq/L Potassium 3.7 (3.5-5.1) mEq/L Chloride 106 (98-107) mEq/L Carbon Dioxide 29 (23-29) mEq/L BUN 7 L (8-23) mg/dL Creatinine 0.66 L (0.70-1.30) mg/dL Glucose 77 (70-105) mg/dL Calcium 7.8 L (8.6-10.3) mg/dL - VTE Documentation of Mechanical Device: Intermittent pneumatic compression device Consult Discharge Plan - Plan [facility]: [facility]Primary Care Provider[facility] - <Bryce Canseco - Last Filed: 10/12/17 15:03> Date of Encounter: 10/11/17 Objective Vital Signs - Last 8 Hours Temp Pulse Resp BP Pulse Ox 10/12/17 11:56 98.0 F 65 16 136/80 97 Intake and Output 10/11/17 10/12/17 10/12/17 23:59 07:59 15:59 Intake Total 1450 / 1450 1320 / 1320 Balance 1450 / 1450 1320 / 1320 Intake: IV Fluids 1450 / 1450 KCl 20 mEq in 0.9% Sodium 1000 / 1000 Chloride 20 meq In 1,000 ml @ 75 mls/hr IVC .[id number] [facility] Rx#: [id number] Protonix 40 MG In 0.9 % Sodium 200 / 200 Chloride (Mini-Bag +) 100 ML @ 20 mls/hr IVC .Q5H [facility] Rx#: [id number] Intralipid 20% 250 ML @ 21 mls/ 250 / 250 hr IVPB DAILY@1700 [facility] Rx#: [id number] Oral 1320 / 1320 Other: Meal clears Weight 63.82 kg Blood Glucose* 79 105 119 Patient Weight 10/12/17 23:59 Weight 63.82 kg - Labs 10/12/17 11:50 10/12/17 03:10 Diabetes panel 10/12/17 Range/Units 03:10 Sodium 137 (136-145) mEq/L Potassium 4.1 (3.5-5.1) mEq/L Chloride 108 H (98-107) mEq/L Carbon Dioxide 27 (23-29) mEq/L BUN 7 L (8-23) mg/dL Creatinine 0.60 L (0.70-1.30) mg/dL Glucose 92 (70-105) mg/dL Calcium 7.7 L (8.6-10.3) mg/dL Triglycerides 114 (< 150) mg/dL Calcium panel 10/12/17 Range/Units 03:10 Calcium 7.7 L (8.6-10.3) mg/dL Phosphorus 2.7 (2.7-4.5) mg/dL Pituitary panel 10/12/17 Range/Units 03:10 Sodium 137 (136-145) mEq/L Potassium 4.1 (3.5-5.1) mEq/L Chloride 108 H (98-107) mEq/L Carbon Dioxide 27 (23-29) mEq/L BUN 7 L (8-23) mg/dL Creatinine 0.60 L (0.70-1.30) mg/dL Glucose 92 (70-105) mg/dL Calcium 7.7 L (8.6-10.3) mg/dL Adrenal panel 10/12/17 Range/Units 03:10 Sodium 137 (136-145) mEq/L Potassium 4.1 (3.5-5.1) mEq/L Chloride 108 H (98-107) mEq/L Carbon Dioxide 27 (23-29) mEq/L BUN 7 L (8-23) mg/dL Creatinine 0.60 L (0.70-1.30) mg/dL Glucose 92 (70-105) mg/dL Calcium 7.7 L (8.6-10.3) mg/dL - Attending Attestation I examined this patient and my medical decision-making was reviewed with the Resident Physician. I agree with the documented findings, disposition and treatment plan as described except to the extent set forth below. The patient is seen and evaluated on morning rounds with resting. He has a large paraesophageal hernia that is causing reflux esophagitis. He now presents for. We will plan on proceeding with repair after the preoperative and is trending for positive nitrogen balance. Bryce Canseco MD FACS
[2017-10-11] MEDS: ARIPiprazole 5 MG TABLET PO SCH (09:51)
[2017-10-11] MEDS: Loratadine 10 MG TABLET PO SCH (09:51)
[2017-10-11] MEDS: Valproic Acid Oral Soln 250 MG/5 ML UDC PO SCH (09:52)
[2017-10-11] MEDS ORDERED: D10% in Water 500 ML IVC PRN (10:46)
[2017-10-11] MEDS ORDERED: Thiamine (B-1) 100 MG in D5% in Water 50 ML IVPB STA (11:23)
--- NOTE | 2017-10-11 11:52 | Internal Med Progress Note ---
<HarryfredrickEmil soto - Last Filed: 10/11/17 17:57> Date of Encounter: 10/11/17 Time of Encounter: 11:51 - Assessment and plan (1) Upper gastrointestinal bleed Current Visit: Yes Status: Acute Assessment and plan: - Known history of esophagitis with severe ulcers on EGD - Hemoglobin on presentation of 7.7, status post 2 units packed red blood cells - Most recent H/H of 10.5/33.5, stable from previous. - Hemodynamically stable - Recently discharged from this facility for similar symptoms on 09/30/17, discharged home on Protonix and Carafate - Repeat EGD on 10/07/17 revealed 2 large/gigantic esophageal ulcers with some spontaneous bleeding. Biopsies taken and pending. Gastroenterology recommends continue Carafate, PPI drip, H2 jed. - GI recommended surgery consultation possible J-tube - Surgery consulted and are determining malnutrition status today for possible need for parenteral nutrition as well as possible hiatal hernia repair versus distal esophagectomy. Awaiting recommendations Plan - Consult gastroenterology. Gen. surgery deferred to GI as they had previously seen the patient - Daily labs and continue to trend H/H - BUN of 11, within normal limits. Likely suggesting that was not transiting through the bowels and is likely upper GI in nature with hematemesis. - Continue Carafate, Protonix, Pepcid 40 mg daily at bedtime IV, clear liquid diet as tolerated - Awaiting surgery recommendations for disposition (2) Anemia Current Visit: Yes Status: Chronic Assessment and plan: - Related GI bleed as above - H&H stable at 10.5/33.5 this morning, stable from previous - Continue to monitor and transfuse as necessary - Asymptomatic at this time Qualifiers: Anemia type: other cause Other causes of anemia: acute posthemorrhagic Qualified Code(s): D62 - Acute posthemorrhagic anemia (3) Chest pain Current Visit: Yes Status: Resolved Assessment and plan: Substernal in nature, no association with exertion - If that is very similar to his reflux pain - No complaints of retrosternal pain this morning Plan Treat as above for gastroesophageal reflux - Obtain cardiac clearance for possible surgery - Echocardiogram performed in August 2017, EF 55% - Stress test in September 2017 non diagnostic for ischemia, gated EF 37% Qualifiers: Chest pain type: other chest pain Qualified Code(s): R07.89 - Other chest pain; R07.8 - Other chest pain (4) GERD (gastroesophageal reflux disease) Current Visit: Yes Status: Chronic Assessment and plan: - Severe GERD with large hiatal hernia and esophageal ulcers as demonstrated on EGD most recently 09/29/17 - Has had multiple EGDs during previous admission - Not well controlled as outpatient. Patient denies heavy drinking, NSAID use Plan - continue Protonix gtt, Carafate, Pepcid - GI consult - Further management as above Qualifiers: Esophagitis presence: with esophagitis Qualified Code(s): K21.0 - Gastro- esophageal reflux disease with esophagitis (5) Schizophrenia Current Visit: Yes Status: Chronic Assessment and plan: Continue home meds Qualifiers: Schizophrenia type: unspecified Qualified Code(s): F20.9 - Schizophrenia, unspecified (6) Essential hypertension Current Visit: Yes Status: Chronic Assessment and plan: - Mildly elevated today at 156/86 - Continue home meds as tolerated, carefully monitoring due to GI bleed - Putting hydralazine order when necessary hypertension (7) Hematemesis Current Visit: Yes Status: Resolved Assessment and plan: - Resolved - Chief complaint on admission of hematemesis with dark emesis - Appears to have resolved at this time and patient is having no symptoms - Continue to monitor, Zofran when necessary nausea Qualifiers: Nausea presence: with nausea Qualified Code(s): K92.0 - Hematemesis (8) DVT prophylaxis Current Visit: Yes Status: Acute Assessment and plan: - Anticoagulation contraindicated at this time due to GI bleed with anemia - SCDs - Time Spent With Patient 25 - 35 minutes - Subjective Interval history: Patient was seen and examined this morning at bedside. He states that overall he is feeling well with no complaints of abdominal pain, nausea, vomiting. Denies any further bowel movements. No symptoms fevers, chills, chest pain, shortness of breath. No concerns or complaints this time. - Constitutional Vitals: Temp Pulse Resp BP Pulse Ox 97.8 F 76 18 161/84 99 10/11/17 11:03 10/11/17 11:03 10/11/17 11:03 10/11/17 11:03 10/11/17 11:03 General appearance: Present: cooperative, A&O X 3, pleasant, no acute distress, answers questions appropriately Exam: Gen.: Vitals noted. No acute distress. AAOx3 HEENT: PERRL/EOMI, oropharynx clear, Normocephalic, atraumatic Cardiac: RRR, no murmur, +S1/S2 Pulmonary: CTA bilaterally, no wheezes, rales or rhonchi, equal chest expansion Abdomen: soft, nontender, BS noted, no guarding MSK: ROM intact, no joint swelling noted Extremities: no BLE edema, nontender calf, no cyanosis or clubbing Neuro: A&Ox3, moves all extremities, no focal deficits Psych: Appropriate mood and behavior Internal Medicine: Result - Labs CBC & Chem 7: 10/11/17 04:01 10/11/17 04:01 Labs: Short CBC 10/11/17 Range/Units 04:01 WBC 6.6 (4.3-11.1) K/mcL Hgb 10.5 L (12.9-16.9) g/dL Hct 33.5 L (37.5-50.1) % Plt Count 433 H (140-400) K/mcL Neutrophils # 4.5 (1.6-8.9) K/mcL BMP 10/11/17 04:01 Sodium 137 Potassium 3.7 Chloride 106 Carbon Dioxide 29 BUN 7 L Creatinine 0.66 L Glucose 77 Calcium 7.8 L - VTE Documentation of Mechanical Device: Intermittent pneumatic compression device Consult Discharge Plan - Plan [facility]errals: [facility] [Primary Care Provider[facility] - <Donn Anderson - Last Filed: 10/11/17 19:33> Date of Encounter: 10/11/17 - Assessment and plan (1) Erosive esophagitis Current Visit: No Status: Acute (2) Reflux esophagitis Current Visit: No Status: Chronic (3) Hematemesis Current Visit: Yes Status: Resolved Qualifiers: Nausea presence: with nausea Qualified Code(s): K92.0 - Hematemesis (4) Anemia Current Visit: Yes Status: Chronic Qualifiers: Anemia type: other cause Other causes of anemia: acute posthemorrhagic Qualified Code(s): D62 - Acute posthemorrhagic anemia (5) Essential hypertension Current Visit: Yes Status: Chronic (6) Schizophrenia Current Visit: Yes Status: Chronic Qualifiers: Schizophrenia type: unspecified Qualified Code(s): F20.9 - Schizophrenia, unspecified - Constitutional Vitals: Temp Pulse Resp BP Pulse Ox 98.5 F 60 17 183/75 99 10/11/17 18:51 10/11/17 18:51 10/11/17 18:51 10/11/17 18:51 10/11/17 18:51 Internal Medicine: Result - Labs CBC & Chem 7: 10/11/17 04:01 10/11/17 04:01 Labs: Short CBC 10/11/17 Range/Units 04:01 WBC 6.6 (4.3-11.1) K/mcL Hgb 10.5 L (12.9-16.9) g/dL Hct 33.5 L (37.5-50.1) % Plt Count 433 H (140-400) K/mcL Neutrophils # 4.5 (1.6-8.9) K/mcL BMP 10/11/17 04:01 Sodium 137 Potassium 3.7 Chloride 106 Carbon Dioxide 29 BUN 7 L Creatinine 0.66 L Glucose 77 Calcium 7.8 L - Attending Attestation I examined this patient and my medical decision-making was reviewed with the Resident Physician on 10/11/17. I agree with the documented findings, disposition and treatment plan as described except to the extent set forth below. Mr Roa is currently admitted for severe esophagitis with bleeding. He remains moderate risk due to potential for worsening clinical status. Mr Roa feels OK. Pain is controlled. Tolerating clear liquids. No fever. Exam Alert. Comfortable Mucus membranes dry Heart reg No wheeze I/P 1. Esophagitis 2. GI bleed Awaiting surgery plans Further diagnoses and plan as above
[2017-10-11] MEDS ORDERED: Lidocaine -MPF 1% 2 ML VIAL INFILT ONE (14:43)
[2017-10-11] MEDS ORDERED: Clinimix E 5%-15% SOLUTION 2,000 ML with MVI, adult with vitamin K 10 ML IVC SCH (17:00)
[2017-10-11] MEDS: 0.9 % Sodium Chloride w KCl 20 MEQ/1,000 ML MLS IVC SCH (18:21)
[2017-10-11] MEDS: OLANZapine 10 MG TAB.RAPDIS PO SCH (21:54)
[2017-10-11] MEDS: Famotidine 20 MG/2 ML VIAL IVP SCH (21:54)
[2017-10-12] MEDS: Pantoprazole 40 MG in 0.9 % Sodium Chloride Mini Bag 100 ML IVC SCH ×7 (00:31→21:38)
[2017-10-12 03:44] LABS: VBG PH 7.37 pH Units (7.32-7.42)
[2017-10-12 04:10] LABS: BUN/Creatinine Ratio 12 (6-26); Blood Urea Nitrogen 7 mg/dL (8-23); Calcium 7.7 mg/dL (8.6-10.3); Carbon Dioxide 27 mEq/L (23-29); Chloride 108 mEq/L (98-107); Glucose 92 mg/dL (70-105); Magnesium 1.6 mg/dL (1.6-2.6); Osmolality,Calculated 282 (280-300); Phosphorous 2.7 mg/dL (2.7-4.5); Potassium 4.1 mEq/L (3.5-5.1); Sodium 137 mEq/L (136-145); Triglycerides 114 mg/dL (< 150); eGFR For African Americans > 60 (> 60); eGFR For Non-African Americans > 60 (> 60)
--- NOTE | 2017-10-12 07:24 | General Surgery Progress Note ---
<Iliana Vo - Last Filed: 10/12/17 08:59> Date of Encounter: 10/12/17 Time of Encounter: 07:22 - Assessment and Plan (1) GI bleed Current Visit: No Status: Chronic Known history of severe reflux esophagitis with ulcers identified on 10/07/17 EGD -Pre-albumin up-trending. Will continue to follow. -Continue TPN. Will Continue to reassses pt's nutritional status, -Plan for parasesophageal repair, Obed fundoplication later this week. -Attending Ajith discussed plan with PoA yesterday, plan for shared decision- making with PoA and patient Qualifiers: GI bleed type/associated pathology: unspecified gastrointestinal hemorrhage type Qualified Code(s): K92.2 - Gastrointestinal hemorrhage, unspecified (2) GERD (gastroesophageal reflux disease) Current Visit: Yes Status: Chronic As above. Qualifiers: Esophagitis presence: with esophagitis Qualified Code(s): K21.0 - Gastro- esophageal reflux disease with esophagitis (3) Malnutrition of moderate degree Current Visit: Yes Status: Acute TPN initiated. -Plan for cautious refeeding -Pharmacy Intake Technician involved with care. -No ongoing process of electrolyte loss, notify MD of onset of diarrhea or emesis -Will follow CMP, Mg, phosphate levels -Pre-albumin uptrending (4) Essential hypertension Current Visit: Yes Status: Chronic Management per primary team. (5) Anemia Current Visit: Yes Status: Chronic status post 2 units packed red blood cells. Management per primary team. Qualifiers: Anemia type: other cause Other causes of anemia: acute posthemorrhagic Qualified Code(s): D62 - Acute posthemorrhagic anemia (6) Schizophrenia Current Visit: Yes Status: Chronic Management per primary team. Qualifiers: Schizophrenia type: unspecified Qualified Code(s): F20.9 - Schizophrenia, unspecified (7) DVT prophylaxis Current Visit: Yes Status: Acute Per primary. Subjective Patient reports: no new complaints, tolerating liquids well, afebrile Objective Vital Signs - Last 8 Hours Temp Pulse Resp BP Pulse Ox 10/12/17 06:44 98.6 F 56 16 173/85 94 10/12/17 03:44 97.9 F 59 16 154/87 94 Intake and Output 10/11/17 10/11/17 10/12/17 15:59 23:59 07:59 Intake Total 2220 / 2220 100 / 100 Balance 2220 / 2220 100 / 100 Intake: IV Fluids 1200 / 1200 100 / 100 KCl 20 mEq in 0.9% Sodium 1000 / 1000 Chloride 20 meq In 1,000 ml @ 75 mls/hr IVC .[id number] [facility] Rx#: [id number] Protonix 40 MG In 0.9 % Sodium 200 / 200 100 / 100 Chloride (Mini-Bag +) 100 ML @ 20 mls/hr IVC .Q5H [facility] Rx#: [id number] Oral 1020 / 1020 Other: Meal clears Weight 63.82 kg Blood Glucose* 112 79 105 Patient Weight 10/12/17 23:59 Weight 63.82 kg - General physical appearance no distress, other (appears comfortable in bed) - Eyes normal ocular movement - Respiratory normal respiratory effort, clear to auscultation, other (Upper rib protrusion evident) - Cardiovascular Cardiovascular exam: Present: NR, regular rhythm. Absent: murmurs - Abdomen Abdomen: Present: bowel sounds present, soft, non tender - Psychiatric oriented to person, oriented to place - Labs 10/11/17 04:01 10/12/17 03:10 Diabetes panel 10/12/17 Range/Units 03:10 Sodium 137 (136-145) mEq/L Potassium 4.1 (3.5-5.1) mEq/L Chloride 108 H (98-107) mEq/L Carbon Dioxide 27 (23-29) mEq/L BUN 7 L (8-23) mg/dL Creatinine 0.60 L (0.70-1.30) mg/dL Glucose 92 (70-105) mg/dL Calcium 7.7 L (8.6-10.3) mg/dL Triglycerides 114 (< 150) mg/dL Calcium panel 10/12/17 Range/Units 03:10 Calcium 7.7 L (8.6-10.3) mg/dL Phosphorus 2.7 (2.7-4.5) mg/dL Pituitary panel 10/12/17 Range/Units 03:10 Sodium 137 (136-145) mEq/L Potassium 4.1 (3.5-5.1) mEq/L Chloride 108 H (98-107) mEq/L Carbon Dioxide 27 (23-29) mEq/L BUN 7 L (8-23) mg/dL Creatinine 0.60 L (0.70-1.30) mg/dL Glucose 92 (70-105) mg/dL Calcium 7.7 L (8.6-10.3) mg/dL Adrenal panel 10/12/17 Range/Units 03:10 Sodium 137 (136-145) mEq/L Potassium 4.1 (3.5-5.1) mEq/L Chloride 108 H (98-107) mEq/L Carbon Dioxide 27 (23-29) mEq/L BUN 7 L (8-23) mg/dL Creatinine 0.60 L (0.70-1.30) mg/dL Glucose 92 (70-105) mg/dL Calcium 7.7 L (8.6-10.3) mg/dL - VTE Documentation of Mechanical Device: Intermittent pneumatic compression device Consult Discharge Plan - Plan [facility] Care Provider[facility] - <Bryce Canseco - Last Filed: 10/12/17 15:08> Date of Encounter: 10/12/17 Objective Vital Signs - Last 8 Hours Temp Pulse Resp BP Pulse Ox 10/12/17 11:56 98.0 F 65 16 136/80 97 Intake and Output 10/11/17 10/12/17 10/12/17 23:59 07:59 15:59 Intake Total 1450 / 1450 1320 / 1320 Balance 1450 / 1450 1320 / 1320 Intake: IV Fluids 1450 / 1450 KCl 20 mEq in 0.9% Sodium 1000 / 1000 Chloride 20 meq In 1,000 ml @ 75 mls/hr IVC .[id number] [facility] Rx#: [id number] Protonix 40 MG In 0.9 % Sodium 200 / 200 Chloride (Mini-Bag +) 100 ML @ 20 mls/hr IVC .Q5H [facility] Rx#: [id number] Intralipid 20% 250 ML @ 21 mls/ 250 / 250 hr IVPB DAILY@1700 [facility] Rx#: [id number] Oral 1320 / 1320 Other: Meal clears Weight 63.82 kg Blood Glucose* 79 105 119 Patient Weight 10/12/17 23:59 Weight 63.82 kg - Labs 10/12/17 11:50 10/12/17 03:10 Diabetes panel 10/12/17 Range/Units 03:10 Sodium 137 (136-145) mEq/L Potassium 4.1 (3.5-5.1) mEq/L Chloride 108 H (98-107) mEq/L Carbon Dioxide 27 (23-29) mEq/L BUN 7 L (8-23) mg/dL Creatinine 0.60 L (0.70-1.30) mg/dL Glucose 92 (70-105) mg/dL Calcium 7.7 L (8.6-10.3) mg/dL Triglycerides 114 (< 150) mg/dL Calcium panel 10/12/17 Range/Units 03:10 Calcium 7.7 L (8.6-10.3) mg/dL Phosphorus 2.7 (2.7-4.5) mg/dL Pituitary panel 10/12/17 Range/Units 03:10 Sodium 137 (136-145) mEq/L Potassium 4.1 (3.5-5.1) mEq/L Chloride 108 H (98-107) mEq/L Carbon Dioxide 27 (23-29) mEq/L BUN 7 L (8-23) mg/dL Creatinine 0.60 L (0.70-1.30) mg/dL Glucose 92 (70-105) mg/dL Calcium 7.7 L (8.6-10.3) mg/dL Adrenal panel 10/12/17 Range/Units 03:10 Sodium 137 (136-145) mEq/L Potassium 4.1 (3.5-5.1) mEq/L Chloride 108 H (98-107) mEq/L Carbon Dioxide 27 (23-29) mEq/L BUN 7 L (8-23) mg/dL Creatinine 0.60 L (0.70-1.30) mg/dL Glucose 92 (70-105) mg/dL Calcium 7.7 L (8.6-10.3) mg/dL - Attending Attestation I examined this patient and my medical decision-making was reviewed with the Resident Physician. I agree with the documented findings, disposition and treatment plan as described except to the extent set forth below. The patient is seen and evaluated on morning rounds with resident. His preoperative albumin is trending upwards and I think that he is ready for surgical repair of complex paraesophageal hernia and Obed fundoplication. We will schedule this for tomorrow. Bryce Canseco MD FACS
[2017-10-12] MEDS: Valproic Acid Oral Soln 250 MG/5 ML UDC PO SCH (09:37)
[2017-10-12] MEDS: Loratadine 10 MG TABLET PO SCH (09:38)
[2017-10-12] MEDS: ARIPiprazole 5 MG TABLET PO SCH (09:38)
[2017-10-12] MEDS: 0.9 % Sodium Chloride w KCl 20 MEQ/1,000 ML MLS IVC SCH (09:44)
--- NOTE | 2017-10-12 10:46 | Internal Med Progress Note ---
<Emil Maharaj - Last Filed: 10/12/17 11:16> Date of Encounter: 10/12/17 Time of Encounter: 09:00 - Assessment and plan (1) Upper gastrointestinal bleed Current Visit: Yes Status: Acute Assessment and plan: - Known history of esophagitis with severe ulcers on EGD - Hemoglobin on presentation of 7.7, status post 2 units packed red blood cells - Most recent H/H of 10.5/33.5, stable from previous. - Hemodynamically stable - Recently discharged from this facility for similar symptoms on 09/30/17, discharged home on Protonix and Carafate - Repeat EGD on 10/07/17 revealed 2 large/gigantic esophageal ulcers with some spontaneous bleeding. Biopsies taken and pending. Gastroenterology recommends continue Carafate, PPI drip, H2 jed. - GI recommended surgery consultation possible J-tube - Surgery consulted and are determining malnutrition status today for possible need for parenteral nutrition preceding possible hiatal hernia repair and Obed fundoplication. Awaiting recommendations Plan - Gastroenterology and surgery following, appreciate recs. - Daily labs - Continue Carafate, Protonix, Pepcid 40 mg daily at bedtime IV, clear liquid diet as tolerated - Per surgery team, likely surgical intervention on Wednesday or of this week. (2) Anemia Current Visit: Yes Status: Chronic Assessment and plan: - Related GI bleed as above - H&H stable at 10.5/33.5 most recent, stable from previous - Continue to monitor and transfuse as necessary - Asymptomatic at this time Qualifiers: Anemia type: other cause Other causes of anemia: acute posthemorrhagic Qualified Code(s): D62 - Acute posthemorrhagic anemia (3) Chest pain Current Visit: Yes Status: Resolved Assessment and plan: Substernal in nature, no association with exertion - If that is very similar to his reflux pain - No complaints of retrosternal pain this morning Plan Treat as above for gastroesophageal reflux - Obtain cardiac clearance for possible surgery - Echocardiogram performed in August 2017, EF 55% - Stress test in September 2017 non diagnostic for ischemia, gated EF 37% - preoperative risk stratification is low risk based on revised cardiac risk index. History of heart failure with IDDM, CAD, CKD. Risk of 1.0% Qualifiers: Chest pain type: other chest pain Qualified Code(s): R07.89 - Other chest pain; R07.8 - Other chest pain (4) GERD (gastroesophageal reflux disease) Current Visit: Yes Status: Chronic Assessment and plan: - Severe GERD with large hiatal hernia and esophageal ulcers as demonstrated on EGD most recently 09/29/17 - Has had multiple EGDs during previous admission - Not well controlled as outpatient. Patient denies heavy drinking, NSAID use Plan - continue Protonix gtt, Carafate, Pepcid - GI consult - Further management as above - SCheduled for Obed later this week Qualifiers: Esophagitis presence: with esophagitis Qualified Code(s): K21.0 - Gastro- esophageal reflux disease with esophagitis (5) Schizophrenia Current Visit: Yes Status: Chronic Assessment and plan: Continue home meds Qualifiers: Schizophrenia type: unspecified Qualified Code(s): F20.9 - Schizophrenia, unspecified (6) Essential hypertension Current Visit: Yes Status: Chronic Assessment and plan: - Mildly elevated today at 173/85 - Continue home meds as tolerated, carefully monitoring due to GI bleed - Putting hydralazine order when necessary hypertension (7) Hematemesis Current Visit: Yes Status: Resolved Assessment and plan: - Resolved - Chief complaint on admission of hematemesis with dark emesis - Appears to have resolved at this time and patient is having no symptoms - Continue to monitor, Zofran when necessary nausea Qualifiers: Nausea presence: with nausea Qualified Code(s): K92.0 - Hematemesis (8) DVT prophylaxis Current Visit: Yes Status: Acute Assessment and plan: - Anticoagulation contraindicated at this time due to GI bleed with anemia - SCDs - Time Spent With Patient 25 - 35 minutes - Subjective Interval history: Patient was seen and examined this morning at bedside. He states that overall he is feeling well with no complaints of abdominal pain, nausea, vomiting. States he has had a BM last night with no evidence of bleed. No symptoms fevers , chills, chest pain, shortness of breath. No concerns or complaints this time. - Constitutional Vitals: Temp Pulse Resp BP Pulse Ox 98.6 F 56 16 173/85 94 10/12/17 06:44 10/12/17 06:44 10/12/17 06:44 10/12/17 06:44 10/12/17 06:44 General appearance: Present: cooperative, A&O X 3, pleasant, no acute distress, answers questions appropriately Exam: Gen.: Vitals noted. No acute distress. AAOx3. Cachectic appearing male. HEENT: PERRL/EOMI, oropharynx clear, Normocephalic, atraumatic, MMM Cardiac: RRR, no murmur, +S1/S2 Pulmonary: CTA bilaterally, no wheezes, rales or rhonchi, equal chest expansion Abdomen: soft, nontender, BS noted, no guarding MSK: ROM intact, no joint swelling noted Extremities: no BLE edema, nontender calf, no cyanosis or clubbing Neuro: A&Ox3, moves all extremities, no focal deficits Psych: Appropriate mood and behavior Internal Medicine: Result - Labs CBC & Chem 7: 10/11/17 04:01 10/12/17 03:10 Labs: BMP 10/12/17 03:10 Sodium 137 Potassium 4.1 Chloride 108 H Carbon Dioxide 27 BUN 7 L Creatinine 0.60 L Glucose 92 Calcium 7.7 L - VTE Documentation of Mechanical Device: Intermittent pneumatic compression device Consult Discharge Plan - Plan [facility]errals: [facility]Primary Care Provider[facility] - <Donn Anderson - Last Filed: 10/12/17 18:53> Date of Encounter: 10/12/17 - Assessment and plan (1) Erosive esophagitis Current Visit: No Status: Acute (2) Reflux esophagitis Current Visit: No Status: Chronic (3) Hematemesis Current Visit: Yes Status: Resolved Qualifiers: Nausea presence: with nausea Qualified Code(s): K92.0 - Hematemesis (4) Anemia Current Visit: Yes Status: Chronic Qualifiers: Anemia type: other cause Other causes of anemia: acute posthemorrhagic Qualified Code(s): D62 - Acute posthemorrhagic anemia (5) Essential hypertension Current Visit: Yes Status: Chronic (6) Schizophrenia Current Visit: Yes Status: Chronic Qualifiers: Schizophrenia type: unspecified Qualified Code(s): F20.9 - Schizophrenia, unspecified (7) Malnutrition of moderate degree Current Visit: Yes Status: Chronic - Constitutional Vitals: Temp Pulse Resp BP Pulse Ox 97.5 F L 62 16 156/67 99 10/12/17 18:35 10/12/17 18:35 10/12/17 18:35 10/12/17 18:35 10/12/17 18:35 Internal Medicine: Result - Labs CBC & Chem 7: 10/12/17 11:50 10/12/17 03:10 Labs: Short CBC 10/12/17 Range/Units 11:50 WBC 6.8 (4.3-11.1) K/mcL Hgb 10.2 L (12.9-16.9) g/dL Hct 33.5 L (37.5-50.1) % Plt Count 370 (140-400) K/mcL Neutrophils # 5.1 (1.6-8.9) K/mcL BMP 10/12/17 03:10 Sodium 137 Potassium 4.1 Chloride 108 H Carbon Dioxide 27 BUN 7 L Creatinine 0.60 L Glucose 92 Calcium 7.7 L - Attending Attestation I examined this patient and my medical decision-making was reviewed with the Resident Physician on 10/12/17. I agree with the documented findings, disposition and treatment plan as described except to the extent set forth below. Mr Roa is currently admitted for acute severe esophagitis. He remains moderate risk at this time. Mr Roa is feeling OK. There is a plan for surgery later this week. No fever. No CP or SOB. Exam Alert. Comfortable Mucus membranes dry Heart reg No wheeze I/P 1. Esophagitis 2. GERD Further diagnoses and plan as above.
[2017-10-12 12:00] LABS: Basophils % 0.4 %; Eosinophils # 0.4 K/mcL (0.0-0.6); Eosinophils % 5.1 %; Hematocrit 33.5 % (37.5-50.1); Hemoglobin 10.2 g/dL (12.9-16.9); Immature Granulocytes % 0.3 % (0-4); Lymphocytes # 0.8 K/mcL (0.6-4.6); Mean Corpuscular HGB Conc 30.4 g/dL (31.6-35.5); Mean Corpuscular Hemoglobin 27.8 pg (28.0-33.3); Mean Corpuscular Volume 91.3 fL (83.0-100.0); Monocytes # 0.5 K/mcL (0.0-1.3); Monocytes % 7.2 %; Neutrophils # 5.1 K/mcL (1.6-8.9); Platelet Count 370 K/mcL (140-400); Red Blood Count 3.67 M/mcL (4.19-5.50); Red Cell Distribution Width 15.1 % (11.5-14.5)
[2017-10-12] MEDS ORDERED: Clinimix E 5%-15% SOLUTION 2,000 ML with MVI, adult with vitamin K 10 ML IVC SCH (17:00)
[2017-10-12] MEDS: OLANZapine 10 MG TAB.RAPDIS PO SCH (20:59)
[2017-10-12] MEDS: Famotidine 20 MG/2 ML VIAL IVP SCH (21:05)
--- NOTE | 2017-10-12 21:10 | Anesthesia Evaluation PreOp ---
Date of Encounter: 10/12/17 Time of Encounter: 18:45 - Past History Planned Operation: Open Paraesophageal Hernia Repair Cardiac History: HTN (On Losartan) Pulmonary History: Smoker, COPD [employer] History: Denies Any Significant HX Other Medical History: GERD, Other (Schizophrenia, Arthritis, Admitted for Upper GI Bleed) Anesthesia History: No Prior Anesthetic Complications Alcohol Use: none Drug use: none Medications and Allergies ARIPiprazole [Abilify] 5 mg PO QAM 09/17/17 [History] Benztropine Mesylate 1 mg PO BID 09/17/17 [History] Cetirizine HCl [All Day Allergy] 10 mg PO DAILY 09/17/17 [History] Multivit-Minerals/Ferrous Fum [Complete Multivit-Mineral Liq] 10 ml PO DAILY [History] Mupirocin 1 appl TP TID 09/17/17 [History] Naproxen [Naprosyn] 500 mg PO BID PRN 09/17/17 [History] OLANZapine [Zyprexa] 2.5 mg PO Q8H PRN 09/17/17 [History] OLANZapine [Zyprexa] 20 mg PO HS 09/17/17 [History] Olodaterol HCl [Striverdi Respimat] 2 puff IH DAILY 09/17/17 [History] Pantoprazole Sodium [Protonix] 40 mg PO BID 09/17/17 [History] Valproic Acid Oral Soln [Depakene Oral Soln] 500 mg PO DAILY 09/17/17 [History] fluPHENAZine decanoate [Fluphenazine Decanoate] 87.5 mg IM Q2W 09/17/17 [History ] Calcium Carbonate/Vitamin D3 [Calcium 500-Vit D3 200 Tablet] 1 each PO BID 09/24 [History] Citalopram Hydrobromide [Citalopram HBr] 10 mg PO DAILY 09/24/17 [History] Docusate [Colace] 100 mg PO BID 09/24/17 [History] Levalbuterol Tartrate [Xopenex Hfa] 2 puff IH Q6H PRN 09/24/17 [History] hydrOXYzine pamoate [HydrOXYzine Pamoate] 25 mg PO QID PRN 09/24/17 [History] Losartan [Cozaar] 50 mg PO DAILY #0 09/30/17 [Rx] Metoprolol [Lopressor] 12.5 mg PO BID #15 tablet 09/30/17 [Rx] Sucralfate [Carafate] 1 gm PO QIDAC 30 Days udc 09/30/17 [Rx] 3 Allergy/AdvReac Type Severity Reaction Status Date / Time azithromycin [From Zithromax] AdvReac See Verified 09/24/17 16:55 Comments Thiothixene [From Navane] AdvReac See Verified 09/24/17 16:55 Comments - Meds/Allergy Pre-op Review Medications Reviewed: Yes Allergies Reviewed: Yes Beta Blockers on Current Med List: No Anesthesia Results - Labs 10/12/17 11:50 10/12/17 03:10 Laboratory Tests 09/25/17 10/10/17 10/12/17 04:43 05:48 03:10 Hgb Hct Plt Count PT 16.3 H INR 1.5 APTT 42.8 H Sodium 137 Potassium 4.1 BUN 7 L Creatinine 0.60 L AST 11 L ALT 9 Albumin 2.1 L 10/12/17 11:50 Hgb 10.2 L Hct 33.5 L Plt Count 370 PT INR APTT Sodium Potassium BUN Creatinine AST ALT Albumin - Imaging EKG: report reviewed (Sinus Rhytmn with sinus arrhythmia First Degree Block) Additional studies: ECHO LVEF 55%, no pulmonary htn Stress Test non diagnostic for ischemia Anesthesia Exam Vital Signs/O2 Sat/Glucose, Most Current Temp Pulse Resp BP Pulse Ox 10/12/17 18:35 97.5 F L 62 16 156/67 99 Height: 5'8 Weight: 140 lbs NPO (# of Hours): MN Pain Scale: 1 - HEENT Pupil (Motor): Pupils equal, EOMI Mallampati: III Teeth: Edentulous Oral Opening: Less than or equal to 3 - [employer] LOC: Oriented [employer] Motor: Normal RUE, Normal LUE, Normal RLE, Normal LLE, Normal Face [employer] Sensory: Normal: RUE, LUE, RLE, LLE, Face - Cardiac Rhythm: Regular Murmur: None JVD: No Carotid Bruit: No - Pulmonary Breath Sounds: bilateral Clear Respiratory Effort: Symmetrical Anesthesia Assess/Plan ASA Score: 3 (HTN COPD Tobacco GERD GI bleed) Modified Kleber Scale for Level of Consciousness: Cooperative, oriented, and tranquil Anesthetic Plan: General Monitoring Plan: Standard Monitors Recovery Plan: PACU (Discussed GA, high risk for post op intubation, not able to reach POA)
[2017-10-13] MEDS: Pantoprazole 40 MG in 0.9 % Sodium Chloride Mini Bag 100 ML IVC SCH ×3 (02:26→22:23)
[2017-10-13 04:56] LABS: Basophils % 0.5 %; Eosinophils # 0.5 K/mcL (0.0-0.6); Eosinophils % 6.6 %; Hematocrit 31.5 % (37.5-50.1); Hemoglobin 9.7 g/dL (12.9-16.9); Immature Granulocytes % 0.4 % (0-4); Lymphocytes # 1.1 K/mcL (0.6-4.6); Lymphocytes % 13.7 %; Mean Corpuscular HGB Conc 30.8 g/dL (31.6-35.5); Mean Corpuscular Hemoglobin 27.7 pg (28.0-33.3); Mean Platelet Volume 9.6 fL (9.4-12.4); Monocytes # 0.6 K/mcL (0.0-1.3); Monocytes % 7.9 %; Neutrophils # 5.5 K/mcL (1.6-8.9); Platelet Count 346 K/mcL (140-400); Segmented Neutrophils % 70.9 %
[2017-10-13 05:45] LABS: Alanine Aminotransferase 10 Units/L (7-52); Albumin 2.3 g/dL (3.5-5.7); Albumin/Globulin Ratio 0.8 (1.1-2.2); Alkaline Phosphatase 59 Units/L (34-104); Aspartate Amino Transferase 13 Units/L (13-39); BUN/Creatinine Ratio 18 (6-26); Bilirubin,Total 0.2 mg/dL (0.3-1.0); Blood Urea Nitrogen 11 mg/dL (8-23); Calcium 7.7 mg/dL (8.6-10.3); Carbon Dioxide 28 mEq/L (23-29); Chloride 106 mEq/L (98-107); Globulin 2.9 g/dL (2.4-3.5); Glucose 82 mg/dL (70-105); Osmolality,Calculated 280 (280-300); Potassium 4.4 mEq/L (3.5-5.1); Sodium 136 mEq/L (136-145); Total Protein 5.2 g/dL (6.4-8.9); eGFR For African Americans > 60 (> 60); eGFR For Non-African Americans > 60 (> 60)
[2017-10-13] MEDS: ARIPiprazole 5 MG TABLET PO SCH (08:54)
[2017-10-13] MEDS: Valproic Acid Oral Soln 250 MG/5 ML UDC PO SCH (08:55)
[2017-10-13] MEDS: Loratadine 10 MG TABLET PO SCH (08:55)
[2017-10-13] MEDS ORDERED: CefOXitin 1,000 MG VIAL ONE (15:41)
[2017-10-13] MEDS ORDERED: *HR* Propofol 200 MG/20 ML VIAL IVP ONE (15:52)
[2017-10-13] MEDS ORDERED: *HR* FentaNYL (PF) 100 MCG/2 ML VIAL ONE (15:52)
[2017-10-13] MEDS ORDERED: *HR* Midazolam HCl 2 MG/2 ML VIAL ONE (15:52)
[2017-10-13] MEDS ORDERED: Lidocaine -MPF 2% 2 ML VIAL ONE (15:54)
[2017-10-13] MEDS ORDERED: *HR* Rocuronium Bromide 50 MG/5 ML VIAL ONE (15:55)
[2017-10-13] MEDS ORDERED: *HR* Phenylephrine 10 MG/ML VIAL ONE (16:37)
[2017-10-13] MEDS ORDERED: Clinimix E 5%-15% SOLUTION 2,000 ML with MVI, adult with vitamin K 10 ML IVC SCH ×2 (17:00→19:37)
--- NOTE | 2017-10-13 17:30 | Internal Med Progress Note ---
<IsmaelEmil carrasquillo - Last Filed: 10/13/17 17:28> Date of Encounter: 10/13/17 Time of Encounter: 10:00 - Assessment and plan (1) Upper gastrointestinal bleed Current Visit: Yes Status: Acute Assessment and plan: - Known history of esophagitis with severe ulcers on EGD - Hemoglobin on presentation of 7.7, status post 2 units packed red blood cells - Most recent H/H of 9.7/31.5, stable from previous. - Hemodynamically stable - Recently discharged from this facility for similar symptoms on 09/30/17, discharged home on Protonix and Carafate - Repeat EGD on 10/07/17 revealed 2 large/gigantic esophageal ulcers with some spontaneous bleeding. Biopsies taken and pending. Gastroenterology recommends continue Carafate, PPI drip, H2 jed. - Obed fundoplication this afternoon with hernia repair Plan - Surgery following, appreciate recs. - Daily labs - Continue Carafate, Protonix, Pepcid 40 mg daily at bedtime IV, clear liquid diet as tolerated - Will continue to monitor post operatively. (2) Anemia Current Visit: Yes Status: Resolved Assessment and plan: - Related GI bleed as above - H&H stable at 9.7/31.5 most recent, stable from previous - Continue to monitor and transfuse as necessary - Asymptomatic at this time Qualifiers: Anemia type: other cause Other causes of anemia: acute posthemorrhagic Qualified Code(s): D62 - Acute posthemorrhagic anemia (3) Chest pain Current Visit: Yes Status: Resolved Assessment and plan: Substernal in nature, no association with exertion - If that is very similar to his reflux pain - No complaints of retrosternal pain this morning Plan Treat as above for gastroesophageal reflux - Echocardiogram performed in August 2017, EF 55% - Stress test in September 2017 non diagnostic for ischemia, gated EF 37% - preoperative risk stratification is low risk based on revised cardiac risk index. Risk of 1.0% Qualifiers: Chest pain type: other chest pain Qualified Code(s): R07.89 - Other chest pain; R07.8 - Other chest pain (4) GERD (gastroesophageal reflux disease) Current Visit: Yes Status: Chronic Assessment and plan: - Severe GERD with large hiatal hernia and esophageal ulcers as demonstrated on EGD most recently 09/29/17 - Has had multiple EGDs during previous admission - Not well controlled as outpatient. Plan - continue Protonix gtt, Carafate, Pepcid - Further management as above - Following s/p Obed Qualifiers: Esophagitis presence: with esophagitis Qualified Code(s): K21.0 - Gastro- esophageal reflux disease with esophagitis (5) Schizophrenia Current Visit: Yes Status: Chronic Assessment and plan: Continue home meds Qualifiers: Schizophrenia type: unspecified Qualified Code(s): F20.9 - Schizophrenia, unspecified (6) Essential hypertension Current Visit: Yes Status: Chronic Assessment and plan: - Mildly elevated today at 162/89 - Continue home meds - Putting hydralazine order when necessary hypertension (7) Hematemesis Current Visit: Yes Status: Resolved Assessment and plan: - Resolved - Chief complaint on admission of hematemesis with dark emesis - Appears to have resolved at this time and patient is having no symptoms - Continue to monitor, Zofran when necessary nausea Qualifiers: Nausea presence: with nausea Qualified Code(s): K92.0 - Hematemesis (8) DVT prophylaxis Current Visit: Yes Status: Acute Assessment and plan: - Anticoagulation contraindicated at this time due to GI bleed with anemia - SCDs - Time Spent With Patient less than 15 minutes - Subjective Interval history: Patient was seen and examined this morning at bedside. He states that overall he is feeling well with no complaints of abdominal pain, nausea, vomiting. No symptoms fevers, chills, chest pain, shortness of breath. No concerns or complaints this time. We discussed his surgery today and answered any questions. - Constitutional Vitals: Temp Pulse Resp BP Pulse Ox 97.2 F L 62 16 162/89 97 10/13/17 14:48 10/13/17 14:48 10/13/17 14:48 10/13/17 14:48 10/13/17 14:48 General appearance: Present: cooperative, A&O X 3, pleasant, no acute distress, answers questions appropriately Exam: Gen.: Vitals noted. No acute distress. AAOx3 HEENT: PERRL/EOMI, oropharynx clear, Normocephalic, atraumatic, MMM Cardiac: RRR, no murmur, +S1/S2 Pulmonary: CTA bilaterally, no wheezes, rales or rhonchi, equal chest expansion Abdomen: soft, nontender, BS noted, no guarding MSK: ROM intact, no joint swelling noted Extremities: no BLE edema, nontender calf, no cyanosis or clubbing Neuro: A&Ox3, moves all extremities, no focal deficits Psych: Appropriate mood and behavior Internal Medicine: Result - Labs CBC & Chem 7: 10/13/17 04:10 10/13/17 04:10 Labs: Short CBC 10/13/17 Range/Units 04:10 WBC 7.8 (4.3-11.1) K/mcL Hgb 9.7 L (12.9-16.9) g/dL Hct 31.5 L (37.5-50.1) % Plt Count 346 (140-400) K/mcL Neutrophils # 5.5 (1.6-8.9) K/mcL BMP 10/13/17 04:10 Sodium 136 Potassium 4.4 Chloride 106 Carbon Dioxide 28 BUN 11 Creatinine 0.60 L Glucose 82 Calcium 7.7 L Liver Function 10/13/17 Range/Units 04:10 Total Bilirubin 0.2 L (0.3-1.0) mg/dL AST 13 (13-39) Units/L ALT 10 (7-52) Units/L Alkaline Phosphatase 59 (34-104) Units/L Albumin 2.3 L (3.5-5.7) g/dL - VTE Documentation of Mechanical Device: Intermittent pneumatic compression device Consult Discharge Plan - Plan [facility] Provider[facility] - <Donn Anderson - Last Filed: 10/13/17 18:40> Date of Encounter: 10/13/17 - Assessment and plan (1) Erosive esophagitis Current Visit: No Status: Acute (2) Reflux esophagitis Current Visit: No Status: Chronic (3) Hematemesis Current Visit: Yes Status: Resolved Qualifiers: Nausea presence: with nausea Qualified Code(s): K92.0 - Hematemesis (4) Anemia Current Visit: Yes Status: Resolved Qualifiers: Anemia type: other cause Other causes of anemia: acute posthemorrhagic Qualified Code(s): D62 - Acute posthemorrhagic anemia (5) Essential hypertension Current Visit: Yes Status: Chronic (6) Schizophrenia Current Visit: Yes Status: Chronic Qualifiers: Schizophrenia type: unspecified Qualified Code(s): F20.9 - Schizophrenia, unspecified (7) Malnutrition of moderate degree Current Visit: Yes Status: Chronic - Constitutional Vitals: Temp Pulse Resp BP Pulse Ox 97.2 F L 79 22 173/90 100 10/13/17 18:17 10/13/17 18:27 10/13/17 18:27 10/13/17 18:27 10/13/17 18:27 Internal Medicine: Result - Labs CBC & Chem 7: 10/13/17 04:10 10/13/17 04:10 Labs: Short CBC 10/13/17 Range/Units 04:10 WBC 7.8 (4.3-11.1) K/mcL Hgb 9.7 L (12.9-16.9) g/dL Hct 31.5 L (37.5-50.1) % Plt Count 346 (140-400) K/mcL Neutrophils # 5.5 (1.6-8.9) K/mcL BMP 10/13/17 04:10 Sodium 136 Potassium 4.4 Chloride 106 Carbon Dioxide 28 BUN 11 Creatinine 0.60 L Glucose 82 Calcium 7.7 L Liver Function 10/13/17 Range/Units 04:10 Total Bilirubin 0.2 L (0.3-1.0) mg/dL AST 13 (13-39) Units/L ALT 10 (7-52) Units/L Alkaline Phosphatase 59 (34-104) Units/L Albumin 2.3 L (3.5-5.7) g/dL - Attending Attestation I examined this patient and my medical decision-making was reviewed with the Resident Physician on 10/13/17. I agree with the documented findings, disposition and treatment plan as described except to the extent set forth below. Mr Roa is currently admitted for severe esophagitis and UGI bleed. He is to have surgery today. He remains moderate risk. Mr Roa feels OK. He is awaiting surgery. No fever. No pain. Exam alert. Comfortable Mucus membranes dry Heart reg Lungs clear Abd soft I/P 1 Esophagitis 2. HTN For OR today Further diagnoses and plan as above
[2017-10-13] MEDS ORDERED: Ondansetron 4 MG/2 ML VIAL IVP ONE (17:46)
[2017-10-13] MEDS ORDERED: *HR* Promethazine 25 MG/ML VIAL IVP PRN (17:46)
[2017-10-13] MEDS ORDERED: Ondansetron 4 MG/2 ML VIAL ONE (17:52)
[2017-10-13] MEDS ORDERED: Dexamethasone 4 MG/ML VIAL ONE (17:52)
[2017-10-13] MEDS ORDERED: Neostigmine Methylsulfate 3 MG/3 ML SYRINGE ONE (17:55)
[2017-10-13] MEDS ORDERED: *HR* Morphine 10 MG/ML VIAL ONE (17:56)
--- NOTE | 2017-10-13 18:19 | Operative Note ---
Date of procedure: 10/13/17 Pre-op diagnosis: Esophageal hernia with severe reflux esophagitis Post-op diagnosis: same Procedure: Open repair of paraesophageal hernia and Obed fundoplication Anesthesia: TONY Surgeon: Bryce Canseco Was there an pharmacy affairs assistant present: Yes [employer] Production Technician: Alexa Dorsey Estimated blood loss (cc): 25 Specimen: None Condition: stable Disposition: PACU Procedure in Detail: After informed consent the patient was taken to the operating room and placed in the supine position given adequate general anesthetic. The abdomen is prepped and draped in sterile fashion utilizing ChloraPrep standard draping techniques. Timeout was taken and the patient was identified. A upper abdominal midline incision and entered the abdomen. The triangular ligament of the liver was divided and the lateral segment of left lobe was retracted inferiorly and medially to expose the caudate lobe and inferior vena cava. The stomach was pulled out of the chest. There were good deal of adhesions from the cardia into the mediastinum. Initially a nasogastric tube was used for guidance and then a lighted 54-Kazakh bougie was placed. The right and left edita of the diaphragm were completely exposed. All connections between the stomach and the mediastinum were divided. The hernia sac was resected. I divided the short gastrics to the cardia with Harmonic scalpel and 10 mm clip. Once this was done was able to completely identify the right and left edita of the diaphragm. I performed closure of the hiatal hernia with 5 stitches of interrupted 2-0 Ethibond with pledgets. This gave an excellent technical result area the cardia was brought behind the gastroesophageal junction and I created Obed fundoplication. 3 stitches of 2-0 Ethibond with pledgets were used. I then placed 2 shoulder stitches to the diaphragm and to waist stitches the stomach to stabilize the wrap. This gave an excellent technical result there was no evidence of injury to the esophagus. Blood loss was 25 mL. The midline was closed with looped 0 PDS. The skin was closed with interrupted 3-0 Vicryl and skin clips. He tolerated the procedure well.
[2017-10-13] MEDS: *HR* Morphine 2 MG/ML SYRINGE IVP PRN ×2 (18:30→18:38)
[2017-10-13] MEDS: *HR* HYDROmorphone (PF) 1 MG/ML SYRINGE IVP PRN ×3 (18:44→22:24)
[2017-10-13] MEDS: *HR* Labetalol 20 MG/4 ML SYRINGE IVP PRN ×3 (18:45→19:00)
[2017-10-13] MEDS ORDERED: Ondansetron 4 MG/2 ML VIAL IVP PRN (19:37)
[2017-10-13] MEDS ORDERED: D10% in Water 500 ML IVC PRN (19:37)
[2017-10-13] MEDS ORDERED: OLANZapine 5 MG TAB.RAPDIS PO PRN (19:37)
[2017-10-13] MEDS ORDERED: Naloxone 0.4 MG/ML INJ IVP PRN (19:37)
[2017-10-13] MEDS ORDERED: Albuterol 2.5 MG/3 ML NEBULIZER IH PRN (19:37)
[2017-10-13] MEDS ORDERED: *HR* Dextrose 50 % in Water (Syg) 50 ML SYRINGE IVP PRN (19:37)
[2017-10-13] MEDS ORDERED: hydrOXYzine pamoate 25 MG CAPSULE PO PRN (19:37)
[2017-10-13] MEDS ORDERED: D5% in Water 1,000 ML IVC PRN (19:37)
[2017-10-13] MEDS ORDERED: Dextrose Gel 15 GM/37.5 ML TUBE PO PRN ×2 (19:37)
--- NOTE | 2017-10-13 19:37 | Anesthesia Evaluation Post Op ---
Date of Encounter: 10/13/17 Time of Encounter: 19:35 - Vital Signs Vital Signs: Vital Signs/O2 Sat/Glucose, Most Current Temp Pulse Resp BP Pulse Ox 10/13/17 19:27 75 16 178/81 93 10/13/17 19:17 97.4 F L 67 20 189/109 95 10/13/17 19:07 67 20 184/107 98 10/13/17 18:57 68 20 187/115 97 10/13/17 18:47 97.4 F L 73 20 184/107 97 10/13/17 18:37 79 22 198/114 98 10/13/17 18:27 79 22 173/90 100 10/13/17 18:17 97.2 F L 78 26 183/110 100 - Lungs Lungs: Clear Ascult./Percussion - Airway Airway: Non-obstructed - Cardiovascular Regular Rate - Mental Status Mental Status: Alert & Oriented, Answers Appropriately - Pain Pain Scale: 1 - Nausea Vomiting Nausea Vomiting: Not Present - Hydration Hydration: NPO - Discharge PostOp Status: Transfer Patient to floor
[2017-10-13] MEDS: OLANZapine 10 MG TAB.RAPDIS PO SCH (22:27)
[2017-10-13] MEDS: CeFAZolin Premix DUPLEX 2,000 MG/50 ML BAG IVPB SCH (23:50)
[2017-10-14] MEDS: Pantoprazole 40 MG in 0.9 % Sodium Chloride Mini Bag 100 ML IVC SCH ×5 (01:04→21:05)
[2017-10-14] MEDS: *HR* HYDROmorphone (PF) 1 MG/ML SYRINGE IVP PRN ×3 (03:15→09:40)
[2017-10-14 05:06] LABS: Basophils % 0.2 %; Hematocrit 32.8 % (37.5-50.1); Hemoglobin 10.2 g/dL (12.9-16.9); Immature Granulocytes % 0.6 % (0-4); Lymphocytes # 0.5 K/mcL (0.6-4.6); Lymphocytes % 2.7 %; Mean Corpuscular HGB Conc 31.1 g/dL (31.6-35.5); Mean Corpuscular Hemoglobin 28.1 pg (28.0-33.3); Mean Corpuscular Volume 90.4 fL (83.0-100.0); Mean Platelet Volume 9.6 fL (9.4-12.4); Monocytes # 1.1 K/mcL (0.0-1.3); Monocytes % 5.7 %; Neutrophils # 17.7 K/mcL (1.6-8.9); Platelet Count 324 K/mcL (140-400); Red Blood Count 3.63 M/mcL (4.19-5.50); Red Cell Distribution Width 15.1 % (11.5-14.5); Segmented Neutrophils % 90.8 %
[2017-10-14 05:34] LABS: Alanine Aminotransferase 20 Units/L (7-52); Albumin 2.8 g/dL (3.5-5.7); Albumin/Globulin Ratio 1.1 (1.1-2.2); Alkaline Phosphatase 62 Units/L (34-104); Aspartate Amino Transferase 32 Units/L (13-39); BUN/Creatinine Ratio 36 (6-26); Bilirubin,Total 0.2 mg/dL (0.3-1.0); Blood Urea Nitrogen 23 mg/dL (8-23); Calcium 8.1 mg/dL (8.6-10.3); Carbon Dioxide 27 mEq/L (23-29); Chloride 101 mEq/L (98-107); Globulin 2.5 g/dL (2.4-3.5); Glucose 116 mg/dL (70-105); Osmolality,Calculated 279 (280-300); Phosphorous 4.3 mg/dL (2.7-4.5); Potassium 4.2 mEq/L (3.5-5.1); Sodium 132 mEq/L (136-145); Total Protein 5.3 g/dL (6.4-8.9); eGFR For African Americans > 60 (> 60); eGFR For Non-African Americans > 60 (> 60)
[2017-10-14] MEDS: *HR* Heparin 5,000 UNIT/ML VIAL SQ SCH ×2 (05:49→17:52)
[2017-10-14] MEDS ORDERED: Pantoprazole 40 MG VIAL IVP SCH (09:00)
--- NOTE | 2017-10-14 09:26 | Internal Med Progress Note ---
<Emil Maharaj - Last Filed: 10/14/17 15:00> Date of Encounter: 10/14/17 Time of Encounter: 09:25 - Assessment and plan (1) Status post Obed fundoplication Current Visit: Yes Status: Acute Assessment and plan: - POD #1 following Obed fundoplication as well as hiatal hernia repair - Patient tolerated the surgery well without incident. - Moderate amount of pain this morning, MAR shows most recent pain meds 6 hours previous. - Dilaudid 1mg q1hr PRN pain per surgery team - WBC of 19.5 this AM up from 7.8, likely reactive secondary to surgery yesterday. - Afebrile, VSS. - Clear liquid diet with restrictions per surgery. TPN running Plan - Continue management per surgery team - Will monitor WBC count for improvement - CLD and TPN for nutrition - Instructed patient that he must ask for pain meds. - Zofran PRN nausea (2) Malnutrition of moderate degree Current Visit: Yes Status: Chronic Assessment and plan: - Continue TPN and CLD as pt tolerated per surgery. - Following prealbumin - Daily labs. (3) Acute urinary retention Current Visit: Yes Status: Acute Assessment and plan: - Nursing called to report no voiding post surgery - Bladder scan showing 2000 mL in bladder - Recinos catheter placed - Likely post operative urinary retention. - Will reevaluate tomorrow and remove recinos if able. (4) Upper gastrointestinal bleed Current Visit: Yes Status: Acute Assessment and plan: - Known history of esophagitis with severe ulcers on EGD - Hemoglobin on presentation of 7.7, status post 2 units packed red blood cells - Most recent H/H of 10.2/32.8, stable from previous. - Hemodynamically stable - Recently discharged from this facility for similar symptoms on 09/30/17, discharged home on Protonix and Carafate - Repeat EGD on 10/07/17 revealed 2 large/gigantic esophageal ulcers with some spontaneous bleeding. Biopsies taken and pending. Gastroenterology recommends continue Carafate, PPI drip, H2 jed. - Obed fundoplication POD #1 Plan - Surgery following, appreciate recs. - Daily labs - Continue Carafate, Protonix, Pepcid 40 mg daily at bedtime IV, clear liquid diet as tolerated - Will continue to monitor post operatively. (5) Anemia Current Visit: Yes Status: Resolved Assessment and plan: - Related GI bleed as above - H&H stable at 10.2/32.8 most recent, stable from previous - Continue to monitor and transfuse as necessary - Asymptomatic at this time Qualifiers: Anemia type: other cause Other causes of anemia: acute posthemorrhagic Qualified Code(s): D62 - Acute posthemorrhagic anemia (6) Chest pain Current Visit: Yes Status: Resolved Assessment and plan: Substernal in nature, no association with exertion - If that is very similar to his reflux pain - No complaints of retrosternal pain this morning Plan - Treat as above for gastroesophageal reflux - Echocardiogram performed in August 2017, EF 55% - Stress test in September 2017 non diagnostic for ischemia, gated EF 37% Qualifiers: Chest pain type: other chest pain Qualified Code(s): R07.89 - Other chest pain; R07.8 - Other chest pain (7) GERD (gastroesophageal reflux disease) Current Visit: Yes Status: Chronic Assessment and plan: - Severe GERD with large hiatal hernia and esophageal ulcers as demonstrated on EGD most recently 09/29/17 - Has had multiple EGDs during previous admission - Not well controlled as outpatient. Plan - continue Protonix gtt, Carafate, Pepcid - Further management as above - S/p Obed, POD 1 Qualifiers: Esophagitis presence: with esophagitis Qualified Code(s): K21.0 - Gastro- esophageal reflux disease with esophagitis (8) Schizophrenia Current Visit: Yes Status: Chronic Assessment and plan: Continue home meds Qualifiers: Schizophrenia type: unspecified Qualified Code(s): F20.9 - Schizophrenia, unspecified (9) Essential hypertension Current Visit: Yes Status: Chronic Assessment and plan: - Mildly elevated today at 116/76 - Continue home meds - Putting hydralazine order when necessary hypertension (10) Hematemesis Current Visit: Yes Status: Resolved Assessment and plan: - Resolved - Chief complaint on admission of hematemesis with dark emesis - Appears to have resolved at this time and patient is having no symptoms - Continue to monitor, Zofran when necessary nausea Qualifiers: Nausea presence: with nausea Qualified Code(s): K92.0 - Hematemesis (11) DVT prophylaxis Current Visit: Yes Status: Acute Assessment and plan: - Anticoagulation contraindicated at this time due to GI bleed with anemia - SCDs - Time Spent With Patient 25 - 35 minutes - Subjective Interval history: Patient was seen and examined this morning at bedside. He states that overall he is feeling well however is having some moderate pain in his epigastric region after surgery yesterday. No complaints of SOB, nausea, vomiting, dizziness, lightheadedness. - Constitutional Vitals: Temp Pulse Resp BP Pulse Ox 97.8 F 84 18 116/76 97 10/14/17 07:19 10/14/17 07:19 10/14/17 07:19 10/14/17 07:19 10/14/17 07:19 General appearance: Present: cooperative, A&O X 3, pleasant, no acute distress, answers questions appropriately Exam: Gen.: Vitals noted. No acute distress. AAOx2 HEENT: PERRL/EOMI, oropharynx clear, Normocephalic, atraumatic, MMM Cardiac: RRR, no murmur, +S1/S2 Pulmonary: CTA bilaterally, no wheezes, rales or rhonchi, equal chest expansion Abdomen: soft, tender over epigastric region, hypoactive BS noted, no guarding. Dressing intact with no drainage. MSK: ROM intact, no joint swelling noted Extremities: no BLE edema, nontender calf, no cyanosis or clubbing Neuro: A&Ox2, moves all extremities, no focal deficits Psych: Appropriate mood and behavior Internal Medicine: Result - Labs CBC & Chem 7: 10/14/17 04:41 10/14/17 04:41 Labs: Short CBC 10/14/17 Range/Units 04:41 WBC 19.5 H D (4.3-11.1) K/mcL Hgb 10.2 L (12.9-16.9) g/dL Hct 32.8 L (37.5-50.1) % Plt Count 324 (140-400) K/mcL Neutrophils # 17.7 H (1.6-8.9) K/mcL BMP 10/14/17 04:41 Sodium 132 L Potassium 4.2 Chloride 101 Carbon Dioxide 27 BUN 23 Creatinine 0.64 L Glucose 116 H Calcium 8.1 L Liver Function 10/14/17 Range/Units 04:41 Total Bilirubin 0.2 L (0.3-1.0) mg/dL AST 32 (13-39) Units/L ALT 20 (7-52) Units/L Alkaline Phosphatase 62 (34-104) Units/L Albumin 2.8 L (3.5-5.7) g/dL - VTE Documentation of Mechanical Device: Intermittent pneumatic compression device Consult Discharge Plan - Plan [facility]: [facility] Care Provider[facility] - <Donn Anderson - Last Filed: 10/14/17 19:41> Date of Encounter: 10/14/17 - Assessment and plan (1) Acute urinary retention Current Visit: Yes Status: Acute (2) Erosive esophagitis Current Visit: No Status: Acute (3) Reflux esophagitis Current Visit: No Status: Chronic (4) Hematemesis Current Visit: Yes Status: Resolved Qualifiers: Nausea presence: with nausea Qualified Code(s): K92.0 - Hematemesis (5) Anemia Current Visit: Yes Status: Resolved Qualifiers: Anemia type: other cause Other causes of anemia: acute posthemorrhagic Qualified Code(s): D62 - Acute posthemorrhagic anemia (6) Essential hypertension Current Visit: Yes Status: Chronic (7) Schizophrenia Current Visit: Yes Status: Chronic Qualifiers: Schizophrenia type: unspecified Qualified Code(s): F20.9 - Schizophrenia, unspecified (8) Malnutrition of moderate degree Current Visit: Yes Status: Chronic (9) Status post Obed fundoplication Current Visit: Yes Status: Acute - Constitutional Vitals: Temp Pulse Resp BP Pulse Ox 98.7 F 82 20 98/65 93 10/14/17 19:06 10/14/17 19:06 10/14/17 19:06 10/14/17 19:06 10/14/17 19:06 Internal Medicine: Result - Labs CBC & Chem 7: 10/14/17 04:41 10/14/17 04:41 Labs: Short CBC 10/14/17 Range/Units 04:41 WBC 19.5 H D (4.3-11.1) K/mcL Hgb 10.2 L (12.9-16.9) g/dL Hct 32.8 L (37.5-50.1) % Plt Count 324 (140-400) K/mcL Neutrophils # 17.7 H (1.6-8.9) K/mcL BMP 10/14/17 04:41 Sodium 132 L Potassium 4.2 Chloride 101 Carbon Dioxide 27 BUN 23 Creatinine 0.64 L Glucose 116 H Calcium 8.1 L Liver Function 10/14/17 Range/Units 04:41 Total Bilirubin 0.2 L (0.3-1.0) mg/dL AST 32 (13-39) Units/L ALT 20 (7-52) Units/L Alkaline Phosphatase 62 (34-104) Units/L Albumin 2.8 L (3.5-5.7) g/dL Urine 10/14/17 Range/Units 12:00 Urine Color Yellow (Yellow) Urine Clarity Clear (Clear) Urine pH 7.5 (5.0-8.0) pH Units Ur Specific [place] 1.008 L (1.010-1.025) Urine Protein Negative (Neg-Trace) mg/dL Urine Glucose (UA) Normal (Normal) mg/dL - Attending Attestation I examined this patient and my medical decision-making was reviewed with the Resident Physician on 10/14/17. I agree with the documented findings, disposition and treatment plan as described except to the extent set forth below. Mr Roa is currently admitted for esophagitis and is currently s/p obed fundoplication. He remains moderate to high risk due to potential for worsening clinical status. Mr Roa is doing OK but had some urinary retention today. No fever. Pain OK. Exam Alert. Comfortable Heart reg No wheeze I/P 1. Urinary retention 2. S/P fundoplication Further diagnoses and plan as above.
[2017-10-14] MEDS: Valproic Acid Oral Soln 250 MG/5 ML UDC PO SCH (09:37)
[2017-10-14] MEDS: ARIPiprazole 5 MG TABLET PO SCH (09:38)
[2017-10-14] MEDS: CeFAZolin Premix DUPLEX 2,000 MG/50 ML BAG IVPB SCH (09:38)
--- NOTE | 2017-10-14 11:06 | General Surgery Progress Note ---
<JiSalome Bee - Last Filed: 10/14/17 11:56> Date of Encounter: 10/14/17 Time of Encounter: 10:00 - Assessment and Plan (1) Hiatal hernia Current Visit: No Status: Chronic Date of procedure: 10/13/17 Pre-op diagnosis: Esophageal hernia with severe reflux esophagitis Post-op diagnosis: same Procedure: Open repair of paraesophageal hernia and Obed fundoplication Anesthesia: TONY Surgeon: Bryce Canseco Estimated blood loss (cc): 25 POD #1 as above. Abdominal exam is consistent with postoperative tenderness, absent bowel sounds, soft, no flatus or BM at this time. Incision is clean, dry , and intact. Plan: continue supportive care and discomfort management while awaiting return bowel function. Clear liquid diet (300 ML's per shift), and may take PO meds serial abdominal exams repeat a.m. labs ambulate TID with assistance up to chair for all trays continue G.I. and DVT prophylaxis (2) Increased white blood cell count Current Visit: Yes Status: Acute WBC 19.5 today and without bandemia. Reactionary vs infective process. Discussed with primary team Plan: Villarreal for acute urinary retention. UA with reflux to culture his abdomen is overall benign today. Agree with watchful waiting. Serial abdominal exam repeat a.m. labs Qualifiers: Leukocytosis type: unspecified Qualified Code(s): D72.829 - Elevated white blood cell count, unspecified (3) Acute urinary retention Current Visit: Yes Status: Acute Patient with greater than 2 L urinary retention per bedside bladder scan. Presumed postsurgical acute urinary retention. Plan: Flomax 0.4 mg daily insert Villarreal catheter for acute urinary retention we will continue to follow total fluid status per primary team (4) Upper gastrointestinal bleed Current Visit: Yes Status: Acute No overt signs of bleeding. Hemoglobin stable at this point. Management per primary team (5) Schizophrenia Current Visit: Yes Status: Chronic Management per primary team Qualifiers: Schizophrenia type: unspecified Qualified Code(s): F20.9 - Schizophrenia, unspecified Subjective Patient reports: still having pain Narrative: Adonis states that his abdomen is sore and he is having difficulty urinating. He denies cough or shortness of breath. He reports feeling thirsty. Objective Vital Signs - Last 8 Hours Temp Pulse Resp BP Pulse Ox 10/14/17 10:50 97.5 F L 96 18 110/74 93 10/14/17 07:19 97.8 F 84 18 116/76 97 Intake and Output 10/13/17 10/14/17 10/14/17 23:59 07:59 15:59 Intake Total 150 / 150 100 / 100 Output Total Balance -25 / -25 150 / 150 100 / 100 Intake: IV Fluids 150 / 150 100 / 100 Protonix 40 MG In 0.9 % Sodium 100 / 100 100 / 100 Chloride (Mini-Bag +) 100 ML @ 20 mls/hr IVC .Q5H [facility] Rx#: [id number] Ancef Premix DUPLEX 2,000 mg In 50 / 50 50 ml @ 100 mls/hr IVPB Q8HR [facility] Rx#:[id number] Output: Urine 0 / 0 Estimated Blood Loss Other: Blood Glucose* 140 139 160 - General physical appearance no distress, moderate pain - ENT atraumatic, normocephalic - Neck Neck exam: trachea midline, no venous distension - Respiratory normal expansion, normal respiratory effort, clear to auscultation - Cardiovascular Cardiovascular exam: Present: RRR, murmurs - Abdomen Abdomen: Present: soft, tender (Expected postoperative). Absent: bowel sounds present (ABSENT) Hernia: none - Incision Incision: Present: clean and dry, intact - Genitourinary other (Noted bedside bladder scan greater than 2 L urine) - Integumentary no rash - Neurologic normal sensation - Musculoskeletal normal posture - Psychiatric oriented to person, oriented to place, memory intact - Labs 10/14/17 04:41 10/14/17 04:41 Diabetes panel 10/14/17 Range/Units 04:41 Sodium 132 L (136-145) mEq/L Potassium 4.2 (3.5-5.1) mEq/L Chloride 101 (98-107) mEq/L Carbon Dioxide 27 (23-29) mEq/L BUN 23 (8-23) mg/dL Creatinine 0.64 L (0.70-1.30) mg/dL Glucose 116 H (70-105) mg/dL Calcium 8.1 L (8.6-10.3) mg/dL AST 32 (13-39) Units/L ALT 20 (7-52) Units/L Alkaline Phosphatase 62 (34-104) Units/L Albumin 2.8 L (3.5-5.7) g/dL Calcium panel 10/14/17 Range/Units 04:41 Calcium 8.1 L (8.6-10.3) mg/dL Phosphorus 4.3 (2.7-4.5) mg/dL Albumin 2.8 L (3.5-5.7) g/dL Pituitary panel 10/14/17 Range/Units 04:41 Sodium 132 L (136-145) mEq/L Potassium 4.2 (3.5-5.1) mEq/L Chloride 101 (98-107) mEq/L Carbon Dioxide 27 (23-29) mEq/L BUN 23 (8-23) mg/dL Creatinine 0.64 L (0.70-1.30) mg/dL Glucose 116 H (70-105) mg/dL Calcium 8.1 L (8.6-10.3) mg/dL Adrenal panel 10/14/17 Range/Units 04:41 Sodium 132 L (136-145) mEq/L Potassium 4.2 (3.5-5.1) mEq/L Chloride 101 (98-107) mEq/L Carbon Dioxide 27 (23-29) mEq/L BUN 23 (8-23) mg/dL Creatinine 0.64 L (0.70-1.30) mg/dL Glucose 116 H (70-105) mg/dL Calcium 8.1 L (8.6-10.3) mg/dL Total Bilirubin 0.2 L (0.3-1.0) mg/dL AST 32 (13-39) Units/L ALT 20 (7-52) Units/L Alkaline Phosphatase 62 (34-104) Units/L Albumin 2.8 L (3.5-5.7) g/dL - VTE Documentation of Mechanical Device: Intermittent pneumatic compression device Consult Discharge Plan - Plan [facility]errals: [facility] Provider[facility] - <Bryce Canseco - Last Filed: 10/18/17 08:29> Date of Encounter: 10/18/17 Objective Vital Signs - Last 8 Hours Temp Pulse Resp BP Pulse Ox 10/18/17 07:26 98.2 F 85 16 144/68 91 10/18/17 04:37 152/75 10/18/17 03:25 98.0 F 82 16 193/99 97 Intake and Output 10/17/17 10/18/17 10/18/17 23:59 07:59 15:59 Intake Total 1600 / 1600 100 / 100 Output Total 800 / 800 1050 / 1050 900 / 900 Balance 800 / 800 -950 / -950 -900 / -900 Intake: IV Fluids 100 / 100 100 / 100 Protonix 40 MG In 0.9 % Sodium 100 / 100 100 / 100 Chloride (Mini-Bag +) 100 ML @ 20 mls/hr IVC .Q5H [facility] Rx#: [id number] Infusion Intake 1500 / 1500 Output: Urine 800 / 800 1050 / 1050 900 / 900 Other: # Voids 1 Weight 61.915 kg Blood Glucose* 100 98 Patient Weight 10/18/17 23:59 Weight 61.915 kg - Labs 10/18/17 03:38 10/17/17 12:30 Diabetes panel 10/17/17 Range/Units 12:30 Potassium 5.4 H (3.5-5.1) mEq/L Pituitary panel 10/17/17 Range/Units 12:30 Potassium 5.4 H (3.5-5.1) mEq/L Adrenal panel 10/17/17 Range/Units 12:30 Potassium 5.4 H (3.5-5.1) mEq/L - Attending Attestation I have personally performed a face to face evaluation on this patient. I have reviewed and agree with the care plan. History and Exam by me shows: The patient is seen and evaluated on morning rounds. He has excellent pain control. He is developing hyponatremia. This will be watched very carefully and renal evaluation will be necessary if he continues to drop Bryce Canseco MD FACS
[2017-10-14] MEDS ORDERED: *HR* OxyCODONE/APAP 5/325 TABLET PO PRN (11:13)
[2017-10-14 12:20] LABS: Bilirubin,Urine Negative (Negative); Blood,Urine Negative (Negative); Clarity,Urine Clear (Clear); Color,Urine Yellow (Yellow); Glucose,Urine (UA) Normal (Normal); Ketones,Urine Negative (Negative); Leukocyte Esterase,Urine Negative (Negative); Nitrite,Urine Negative (Negative); PH,Urine 7.5 pH Units (5.0-8.0); Protein,Urine Negative (Neg-Trace); Specific Gravity,Urine 1.008 (1.010-1.025); Urobilinogen,Urine Normal (Normal)
[2017-10-14] MEDS: Ketorolac 15 MG/ML VIAL IVP SCH ×3 (14:05→23:51)
[2017-10-14] MEDS ORDERED: Magnesium Sulfate 1 GM in 0.9 % Sodium Chloride 50 ML IVPB ONE (15:10)
[2017-10-14] MEDS ORDERED: Clinimix E 5%-15% SOLUTION 2,000 ML with MVI, adult with vitamin K 10 ML IVC SCH (17:00)
[2017-10-14] MEDS: OLANZapine 10 MG TAB.RAPDIS PO SCH (21:05)
[2017-10-15] MEDS: Pantoprazole 40 MG in 0.9 % Sodium Chloride Mini Bag 100 ML IVC SCH ×4 (02:26→17:30)
[2017-10-15] MEDS: *HR* HYDROmorphone (PF) 1 MG/ML SYRINGE IVP PRN ×3 (03:52→12:04)
[2017-10-15 03:56] LABS: Basophils % 0.3 %; Eosinophils # 0.5 K/mcL (0.0-0.6); Eosinophils % 3.5 %; Hematocrit 28.8 % (37.5-50.1); Immature Granulocytes % 0.3 % (0-4); Lymphocytes # 0.8 K/mcL (0.6-4.6); Lymphocytes % 5.1 %; Mean Corpuscular HGB Conc 31.3 g/dL (31.6-35.5); Mean Corpuscular Volume 89.4 fL (83.0-100.0); Mean Platelet Volume 9.7 fL (9.4-12.4); Monocytes # 1.1 K/mcL (0.0-1.3); Monocytes % 7.2 %; Platelet Count 266 K/mcL (140-400); Red Blood Count 3.22 M/mcL (4.19-5.50); Red Cell Distribution Width 15.2 % (11.5-14.5); Segmented Neutrophils % 83.6 %
[2017-10-15 03:57] LABS: Basophils # 0.1 K/mcL (0.0-0.2); Neutrophils # 12.9 K/mcL (1.6-8.9)
[2017-10-15 04:11] LABS: Magnesium 1.9 mg/dL (1.6-2.6); Phosphorous 3.4 mg/dL (2.7-4.5)
[2017-10-15 05:00] LABS: Alanine Aminotransferase 15 Units/L (7-52); Albumin 2.3 g/dL (3.5-5.7); Albumin/Globulin Ratio 0.9 (1.1-2.2); Alkaline Phosphatase 60 Units/L (34-104); Aspartate Amino Transferase 29 Units/L (13-39); BUN/Creatinine Ratio 56 (6-26); Bilirubin,Total 0.3 mg/dL (0.3-1.0); Blood Urea Nitrogen 37 mg/dL (8-23); Calcium 7.8 mg/dL (8.6-10.3); Carbon Dioxide 26 mEq/L (23-29); Chloride 99 mEq/L (98-107); Globulin 2.6 g/dL (2.4-3.5); Glucose 79 mg/dL (70-105); Osmolality,Calculated 274 (280-300); Potassium 4.8 mEq/L (3.5-5.1); Sodium 128 mEq/L (136-145); Total Protein 4.9 g/dL (6.4-8.9); eGFR For African Americans > 60 (> 60); eGFR For Non-African Americans > 60 (> 60)
[2017-10-15] MEDS: *HR* Heparin 5,000 UNIT/ML VIAL SQ SCH ×2 (06:39→16:49)
[2017-10-15] MEDS: Ketorolac 15 MG/ML VIAL IVP SCH ×4 (06:40→23:57)
--- NOTE | 2017-10-15 07:15 | General Surgery Progress Note ---
Date of Encounter: 10/15/17 Time of Encounter: 07:12 - Assessment and Plan (1) Paraesophageal hernia Current Visit: Yes Status: Acute Date of procedure: 10/13/17 Pre-op diagnosis: Esophageal hernia with severe reflux esophagitis Post-op diagnosis: same Procedure: Open repair of paraesophageal hernia and Obed fundoplication Anesthesia: TONY Surgeon: Bryce Canseco Estimated blood loss (cc): 25 POD #2 as above. Plan: continue supportive care and discomfort management while awaiting return bowel function. Clear liquid diet, and may take PO meds serial abdominal exams repeat a.m. labs ambulate TID with assistance up to chair for all trays Incentive spirometry while awake continue G.I. and DVT prophylaxis (2) GERD (gastroesophageal reflux disease) Current Visit: Yes Status: Chronic As above. Qualifiers: Esophagitis presence: with esophagitis Qualified Code(s): K21.0 - Gastro- esophageal reflux disease with esophagitis (3) Hyponatremia Current Visit: No Status: Acute Hyponatremia, in patient with risk for complication -Pt also on chronic psych meds that increase risk for worsening of hyponatremia -Recommend close monitoring -Will watch repeat BMP at noon, Urine osmolality ordered for r/o SIADH. Concern due to need for ongoing olanzapine for chronic psych issues. -Management per primary team -If worsening profile, recommend nephrology consultation per discretion of primary team (4) Acute urinary retention Current Visit: Yes Status: Acute Elevated postvoid residual s/p procedure Bladder decompression by urethral catherization. Adequate urinary output over 24 hours May d/c Villarreal today (5) Essential hypertension Current Visit: Yes Status: Chronic Management per primary team. (6) Increased white blood cell count Current Visit: Yes Status: Acute WBC downtrending. Qualifiers: Leukocytosis type: unspecified Qualified Code(s): D72.829 - Elevated white blood cell count, unspecified (7) Anemia Current Visit: Yes Status: Resolved Management per primary team. Qualifiers: Anemia type: other cause Other causes of anemia: acute posthemorrhagic Qualified Code(s): D62 - Acute posthemorrhagic anemia (8) Schizophrenia Current Visit: Yes Status: Chronic Management per primary team. Pt has resumed PO home meds. Qualifiers: Schizophrenia type: unspecified Qualified Code(s): F20.9 - Schizophrenia, unspecified (9) DVT prophylaxis Current Visit: Yes Status: Acute Per primary. (10) Malnutrition of moderate degree Current Visit: Yes Status: Chronic Subjective Patient reports: tolerating liquids well, afebrile Objective Vital Signs - Last 8 Hours Temp Pulse Resp BP Pulse Ox 10/15/17 06:44 98.0 F 83 18 137/71 93 10/15/17 03:55 98.3 F 86 12 145/80 93 Intake and Output 10/14/17 10/14/17 10/15/17 15:59 23:59 07:59 Intake Total 200 / 200 200 / 200 350 / 350 Output Total 600 / 600 350 / 350 300 / 300 Balance -400 / -400 -150 / -150 50 / 50 Intake: IV Fluids 200 / 200 100 / 100 350 / 350 Protonix 40 MG In 0.9 % Sodium 200 / 200 100 / 100 100 / 100 Chloride (Mini-Bag +) 100 ML @ 20 mls/hr IVC .Q5H [facility] Rx#: [id number] Intralipid 20% 250 ML @ 21 mls/ 250 / 250 hr IVPB DAILY@1700 [facility] Rx#: [id number] Oral 100 / 100 0 / 0 Output: Urine 600 / 600 Catheter 350 / 350 300 / 300 Other: Weight 63.503 kg Blood Glucose* 160 95 90 Patient Weight 10/15/17 23:59 Weight 63.503 kg - General physical appearance no distress - Eyes normal ocular movement - Respiratory clear to auscultation, other (No crackles. No wheezing ) - Cardiovascular Cardiovascular exam: Present: RRR, no murmurs/rubs/gallops - Abdomen Abdomen: Present: bowel sounds present, soft, non tender - Incision Incision: Present: intact (kaylee in place. No active oozing, No drainage appreciated. Dried blood beneath bandage. Outer layer appears clean. ) - Psychiatric oriented to person, oriented to place, other (speech remains consistent ) - Labs 10/15/17 03:40 10/15/17 10:20 Diabetes panel 10/15/17 Range/Units 03:40 Sodium 128 L (136-145) mEq/L Potassium 4.8 (3.5-5.1) mEq/L Chloride 99 (98-107) mEq/L Carbon Dioxide 26 (23-29) mEq/L BUN 37 H (8-23) mg/dL Creatinine 0.66 L (0.70-1.30) mg/dL Glucose 79 (70-105) mg/dL Calcium 7.8 L (8.6-10.3) mg/dL AST 29 (13-39) Units/L ALT 15 (7-52) Units/L Alkaline Phosphatase 60 (34-104) Units/L Albumin 2.3 L (3.5-5.7) g/dL Calcium panel 10/15/17 10/15/17 Range/Units 03:40 03:40 Calcium 7.8 L (8.6-10.3) mg/dL Phosphorus 3.4 (2.7-4.5) mg/dL Albumin 2.3 L (3.5-5.7) g/dL Pituitary panel 10/15/17 Range/Units 03:40 Sodium 128 L (136-145) mEq/L Potassium 4.8 (3.5-5.1) mEq/L Chloride 99 (98-107) mEq/L Carbon Dioxide 26 (23-29) mEq/L BUN 37 H (8-23) mg/dL Creatinine 0.66 L (0.70-1.30) mg/dL Glucose 79 (70-105) mg/dL Calcium 7.8 L (8.6-10.3) mg/dL Adrenal panel 10/15/17 Range/Units 03:40 Sodium 128 L (136-145) mEq/L Potassium 4.8 (3.5-5.1) mEq/L Chloride 99 (98-107) mEq/L Carbon Dioxide 26 (23-29) mEq/L BUN 37 H (8-23) mg/dL Creatinine 0.66 L (0.70-1.30) mg/dL Glucose 79 (70-105) mg/dL Calcium 7.8 L (8.6-10.3) mg/dL Total Bilirubin 0.3 (0.3-1.0) mg/dL AST 29 (13-39) Units/L ALT 15 (7-52) Units/L Alkaline Phosphatase 60 (34-104) Units/L Albumin 2.3 L (3.5-5.7) g/dL - VTE Documentation of Mechanical Device: Intermittent pneumatic compression device Consult Discharge Plan - Plan [facility]errals: [facility] Care Provider[facility] -
[2017-10-15] MEDS: Valproic Acid Oral Soln 250 MG/5 ML UDC PO SCH (08:31)
[2017-10-15] MEDS: ARIPiprazole 5 MG TABLET PO SCH (08:34)
[2017-10-15] MEDS ORDERED: 0.9 % Sodium Chloride 500 ML IVC ONE (08:58)
[2017-10-15 13:06] LABS: BUN/Creatinine Ratio 58 (6-26); Blood Urea Nitrogen 39 mg/dL (8-23); Carbon Dioxide 27 mEq/L (23-29); Chloride 100 mEq/L (98-107); Glucose 88 mg/dL (70-105); Osmolality,Calculated 275 (280-300); Potassium 4.8 mEq/L (3.5-5.1); Sodium 128 mEq/L (136-145); eGFR For African Americans > 60 (> 60); eGFR For Non-African Americans > 60 (> 60)
--- NOTE | 2017-10-15 15:36 | Nephrology Consult Note ---
Date of Encounter: 10/15/17 Time of Encounter: 15:00 Assessment and Plan (1) Hyponatremia Status: Acute Postoperative hyponatremia likely ADH excess in the setting of TPN use Ideally should minimize fluid intake with restriction but given 2liter TPN, difficult to achieve without taper Urine osm noted at 528 consistent with ADH excess Will check serum osm, uric acid, tsh and cortisl levels Liberalize sodium in diet if eating add more sodium in TPN if possible Will add salt tabs to regimen for now History of Present Illness - Reason for Consult Consult date: 10/15/17 hyponatremia Requesting physician: Bryce Canseco - History of Present Illness 62 y o male with PMH of schizophrenia admitted 10/06/17 with hematemesis, undergoing surgery POD 2 for deo fundoplication and hiatal hernia repair. Renal consulted for worsening sodium levels post surgery. Currently at 128. He is currently receiving TPN but also trying to eat. He also received some NS as well.He reports pain mostly controlled since surgery with opiates. No nausea or vomiting or diarrhea Past Med Surg Social Fam HX - Past Medical History Medical history: arthritis, COPD, GERD, osteoporosis, other Psychiatric history: schizophrenia - Past Surgical History Surgical History: appendectomy - Social History Smoking Status: Current every day smoker Packs per day: "less than 1/2" Smokeless Tobacco Status: No Alcohol use: none Drug use: none - Family History Father Family Member Ethnicity: Non- Living Status: Hx Family Cardiac Disorders: Yes (MT) Hx Family Endocrine Disorder: Yes (DM) Mother Family Member Ethnicity: Non- Living Status: Hx Family Cardiac Disorders: Yes (MT) Brother Family Member Ethnicity: Non- Living Status: Hx Family Autoimmune Disorders: Yes (AIDS) Sister Family Member Ethnicity: Non- Living Status: Hx Family Cardiac Disorders: Yes (MT) Medications and Allergies ARIPiprazole [Abilify] 5 mg PO QAM 09/17/17 [History] Benztropine Mesylate 1 mg PO BID 09/17/17 [History] Cetirizine HCl [All Day Allergy] 10 mg PO DAILY 09/17/17 [History] Multivit-Minerals/Ferrous Fum [Complete Multivit-Mineral Liq] 10 ml PO DAILY [History] Mupirocin 1 appl TP TID 09/17/17 [History] Naproxen [Naprosyn] 500 mg PO BID PRN 09/17/17 [History] OLANZapine [Zyprexa] 2.5 mg PO Q8H PRN 09/17/17 [History] OLANZapine [Zyprexa] 20 mg PO HS 09/17/17 [History] Olodaterol HCl [Striverdi Respimat] 2 puff IH DAILY 09/17/17 [History] Pantoprazole Sodium [Protonix] 40 mg PO BID 09/17/17 [History] Valproic Acid Oral Soln [Depakene Oral Soln] 500 mg PO DAILY 09/17/17 [History] fluPHENAZine decanoate [Fluphenazine Decanoate] 87.5 mg IM Q2W 09/17/17 [History ] Calcium Carbonate/Vitamin D3 [Calcium 500-Vit D3 200 Tablet] 1 each PO BID 09/24 [History] Citalopram Hydrobromide [Citalopram HBr] 10 mg PO DAILY 09/24/17 [History] Docusate [Colace] 100 mg PO BID 09/24/17 [History] Levalbuterol Tartrate [Xopenex Hfa] 2 puff IH Q6H PRN 09/24/17 [History] hydrOXYzine pamoate [HydrOXYzine Pamoate] 25 mg PO QID PRN 09/24/17 [History] Losartan [Cozaar] 50 mg PO DAILY #0 09/30/17 [Rx] Metoprolol [Lopressor] 12.5 mg PO BID #15 tablet 09/30/17 [Rx] Sucralfate [Carafate] 1 gm PO QIDAC 30 Days udc 09/30/17 [Rx] amLODIPine [Norvasc] 5 mg PO DAILY #30 tablet 10/20/17 [Rx] 3 Allergy/AdvReac Type Severity Reaction Status Date / Time azithromycin [From Zithromax] AdvReac See Verified 09/24/17 16:55 Comments Thiothixene [From Navane] AdvReac See Verified 09/24/17 16:55 Comments Review of Systems All Systems: reviewed and no additional remarkable complaints except as stated ( 10 systems reviewed) Exam - Vital Signs Vital signs: Initial Vital Signs Temp Pulse Resp BP Pulse Ox 98.7 F 89 16 150/100 99 10/06/17 15:46 10/06/17 15:46 10/06/17 15:46 10/06/17 15:46 10/06/17 15:46 Vital Signs - Last 8 Hours Temp Pulse Resp BP Pulse Ox 10/15/17 10:34 97.8 F 82 18 155/72 985 Intake and Output 10/14/17 10/15/17 10/15/17 23:59 07:59 15:59 Intake Total 200 / 200 450 / 450 580 / 580 Output Total 350 / 350 300 / 300 Balance -150 / -150 150 / 150 580 / 580 Intake: IV Fluids 100 / 100 450 / 450 100 / 100 Protonix 40 MG In 0.9 % Sodium 100 / 100 200 / 200 100 / 100 Chloride (Mini-Bag +) 100 ML @ 20 mls/hr IVC .Q5H [facility] Rx#: [id number] Intralipid 20% 250 ML @ 21 mls/ 250 / 250 hr IVPB DAILY@1700 [facility] Rx#: [id number] Oral 100 / 100 0 / 0 480 / 480 Output: Catheter 350 / 350 300 / 300 Other: Weight 63.503 kg Blood Glucose* 95 90 143 Patient Weight 10/15/17 23:59 Weight 63.503 kg - General Appearance General appearance: chronically ill, frail EENT: ATNC, mucous membranes dry Neck: no JVD, supple Respiratory: clear Cardiology: no edema, normal S1, normal S2 Gastrointestinal: no tenderness, no guarding Additional Comments: surgical wound with dressing in place Results - Lab Results 10/20/17 10:10 10/20/17 10:10 Most recent lab results Calcium 8.0 mg/dL (8.6-10.3) L 10/15/17 10:20 Phosphorus 3.4 mg/dL (2.7-4.5) 10/15/17 03:40 Magnesium 1.9 mg/dL (1.6-2.6) 10/15/17 03:40 Consult Discharge Plan - Plan Instructions: Hiatal Hernia (DC), Adult Open Deo Fundoplication (DC) Additional Instructions: General Instructions After Deo Surgery 1. No pushing, pulling, or lifting greater than 15 lbs for two weeks. 2. You may shower beginning today, but no tub baths, soaking, or swimming for 2 weeks. 3. You may resume driving when you are off narcotics and are safe to react in a car. 4. Take narcotics as directed. Do not take more narcotics then directed and do not share your narcotics with any other person. Do not drink alcohol while on narcotics. 5. Take stool softeners (Colace) or a water based laxative (Miramax) while taking narcotics. You may hold for loose stools. 6. Report any fevers greater than 100.5F, increase abdominal discomfort, drainage that looks like pus, increased redness or pain at the surgical site, or any vomiting. 7. Report any pain in the calves, shortness of breath, or rapid heartbeat. 8. Continue to take your heartburn medications until directed to stop. Do not stop them abruptly as this can cause symptoms of reflux. 9. Do not drink alcohol or carbonated beverages. 10. Do not deviate from the recommended Deo diet below. Doing so can affect your outcomes. [facility] Diet After Deo Fundoplication Surgery This diet information is for patients who have recently had Deo Fundoplication Surgery to correct reflux disease or to repair various types of hernias, such as hiatal hernia and intrathoracic stomach. This diet may also be used for other gastrointestinal surgeries, such as Heller myotomy and repair of achalasia. The diet will help control diarrhea, excess gas and swallowing problems, which may occur after this type of surgery. Important Steps to Keep Your Stomach From Stretching Eat small, frequent meals (six to eight per day). This will help you consume the majority of the nutrients you need without causing your stomach to feel full or distended. Drinking large amounts of fluids with meals can stretch your stomach. You may drink fluids between meals as often as you like, but limit fluids to 1/2 cup (4 fluid ounces) with meals and one cup (8 fluid ounces) with snacks. Sit upright while eating, and stay upright for 30 minutes after each meal. [place] can help food move through your digestive tract. Do not lie down after eating. Sit upright for 2 hours after your last meal or snack of the day. Eat very slowly. Take your time when eating. Take small bites and chew your food well to construction ironworker helper in swallowing and digestion. Avoid crusty breads and sticky, gummy foods, such as bananas, fresh doughy breads, rolls and doughnuts. These types of foods become sticky and difficult to swallow. Toasted breads tend to be better tolerated. Lastly, if you eat sweets, consume them at the end of your meal to avoid a group of symptoms referred to as dumping syndrome. This describes the rapid emptying of foods from the stomach to the small intestine. Sweetened beverages, candy and desserts move more rapidly and dump quickly into the intestines. This can cause symptoms of nausea, weakness, cold sweats, cramps, diarrhea and dizzy spells. Important Steps to Avoid Gas Do not drink through a straw, chew gum, or chew tobacco. These actions cause you to swallow air, which will produce excess gas in your stomach. Chew with your mouth closed and chew your food thoroughly. Avoid foods that cause stomach gas and distention. The foods include corn, dried beans, peas, lentils, onions, broccoli, cauliflower, and any food item from the cabbage family. Do not drink carbonated drinks, alcohol, citrus, or tomato products. What Will I Be Able To Eat and Drink After Surgery After Deo Fundoplication Surgery, your diet will be advanced slowly by your surgeon. Generally, you will be on a thin/clear liquid diet for the first 10 days. Then you will advance to the full liquid diet for 4 days and eventually to a Deo soft diet for 7 days. After any surgery, protein consumption is important for healing. To get enough protein, drink 3-4 [place] Instant Breakfast, Ensure, or equivalent daily. Reminder: Carbonated beverages (such as sodas, energy drinks, flavored carbonated water), and alcohol are not permitted for the 1st 6 to 8 weeks after surgery. After this time you may attempt to reintroduce them in small amounts. Please note: Dairy products such as milk, ice cream, and pudding may cause diarrhea in some people after surgery. You may need to avoid milk products. If so you may substitute them with lactose free beverages, such as soy, rice, lactate, or almond milk. Please be aware that each patient's tolerance to food is different. Your doctor will advance your diet depending on how well you progress after surgery. Thin Liquid Diet The first diet after Deo Fundoplication Surgery is the thin liquids diet. Follow this diet for postoperative days 1-10 [10/14/17]- [10/23/17]. Thin liquids include: Apple, Cranberry, or Grape Juice (no citrus juice) Chicken Broth Beef Broth Flavored Gelatin (Jell-O) Decaffeinated Tea or Coffee Popsicles or [place] Ice Caffeinated Beverages Will Be Permitted Based upon Tolerance and at a later date Dairy if tolerated Thin Milkshakes (strawberry or vanilla flavored- No chocolate) Drink 3-4 [place] instant breakfast, Ensure, or equivalent daily. May be mixed with dairy for thin milkshakes Full Liquid Diet Follow this diet for postoperative days 11-14 [10/24/17 ] - [10/27/17]. Full liquid diet includes anything in the thin liquid diet plus: Milk: Dairy, Soy, Rice, and Smilax (No Chocolate) Cream of Wheat, Cream of Rice, Grits Strained Creamed Soups (No Tomato or Broccoli) Vanilla and [place] Flavored Ice Cream Sherbet Vanilla and Butterscotch Pudding (No Chocolate or Coconut) Continue 3-4 [place] Instant Breakfast, Ensure, or an Equivalent Daily. May be mixed with Dairy for Thin Milkshakes. Deo Soft Diet Follow this diet for postoperative days 15-20 [10/28/17 ] - [ 11/02/17]. (If you are consuming enough protein, you may stop the protein supplements). Please note: You will need extra fluids throughout the day to meet your fluid needs. Referrals: Bryce Canseco MD [Partnered Physician] - 10/26/17 1:40 pm (Hospital F/u; Repair of Paraesophageal Hernia and s/p Deo Fundoplication ) [facility] Care Provider[facility] - Prescriptions: amLODIPine [Norvasc] 5 mg PO DAILY #30 tablet
[2017-10-15 16:49] LABS: Uric Acid 1.5 mg/dL (2.3-7.6)
[2017-10-15] MEDS ORDERED: Clinimix E 5%-15% SOLUTION 2,000 ML with MVI, adult with vitamin K 10 ML IVC SCH (17:00)
--- NOTE | 2017-10-15 18:21 | Internal Med Progress Note ---
<Emil Maharaj - Last Filed: 10/15/17 18:18> Date of Encounter: 10/15/17 Time of Encounter: 18:18 - Assessment and plan (1) Status post Obed fundoplication Current Visit: Yes Status: Acute Assessment and plan: - POD #2 following Obed fundoplication as well as hiatal hernia repair - Patient tolerated the surgery well without incident. - Pain has been well-controlled with Dilaudid, however patient admits to not ask for medication frequently. - Dilaudid 1mg q1hr PRN pain per surgery team - WBC of down trended following surgery, most recently 15.4. Down trending from 19.5. likely reactive secondary to surgery yesterday. - Afebrile, VSS. - Clear liquid diet with restrictions per surgery. TPN running Plan - Continue management per surgery team - Will monitor WBC count for improvement. Suspect reactive secondary to recent surgery - CLD and TPN for nutrition. Further management per surgery team - Instructed patient that he must ask for pain meds. - Zofran PRN nausea (2) Hyponatremia Current Visit: Yes Status: Acute Assessment and plan: - Hyponatremia with most recent sodium at 128 - Serum osmolality of low at 275 - Possible etiologies include decreased oral intake secondary to surgery, psych medication side effect, postoperative SIADH - Repeat BMP at 1200 revealed stable sodium at 128 - Dietary contact to adjust TPN sodium concentration. State that they may be able to add to Sundays dose - Fluid restrict recommended however patient's oral intake is already low - May recommend sodium tab addition if does not improve. Plan - Surgery has consulted Nephrology, appreciate recommendations - Consider plan above if pt does not improve with monitoring. (3) Malnutrition of moderate degree Current Visit: Yes Status: Chronic Assessment and plan: - Continue TPN and CLD as pt tolerated per surgery. - Following prealbumin - Daily labs. - Focal dietary earlier this afternoon reguarding TPN patient has been hyponatremic. - TPN for tomorrow his early 90s, however we can make adjustments further, pending tomorrow's labs (4) Acute urinary retention Current Visit: Yes Status: Acute Assessment and plan: - Status post Villarreal catheter placement on 10/14/17 - Documented urine output of 650 mL yesterday, 300 this morning - Villarreal catheter discontinued per surgery team today - Likely post operative urinary retention. - We will continue to monitor for urine output (5) Upper gastrointestinal bleed Current Visit: Yes Status: Acute Assessment and plan: - Secondary to Known history of esophagitis with severe ulcers on EGD - Hemoglobin on presentation of 7.7, status post 2 units packed red blood cells - Most recent H/H of 9.0/28.8, stable from previous. - Hemodynamically stable - Recently discharged from this facility for similar symptoms on 09/30/17, discharged home on Protonix and Carafate - Repeat EGD on 10/07/17 revealed 2 large/gigantic esophageal ulcers with some spontaneous bleeding. Biopsies taken and pending. Gastroenterology recommends continue Carafate, PPI drip, H2 jed. - Obed fundoplication POD #2 Plan - Surgery following, appreciate recs. - Daily labs - Continue Carafate, Protonix, Pepcid 40 mg daily at bedtime IV, clear liquid diet as tolerated - Will continue to monitor post operatively. (6) Anemia Current Visit: Yes Status: Resolved Assessment and plan: - Related GI bleed as above - H&H stable at 9.0/28.8 most recent, stable from previous following surgery - Continue to monitor and transfuse as necessary - Asymptomatic at this time Qualifiers: Anemia type: other cause Other causes of anemia: acute posthemorrhagic Qualified Code(s): D62 - Acute posthemorrhagic anemia (7) Chest pain Current Visit: Yes Status: Resolved Assessment and plan: Substernal in nature, no association with exertion - If that is very similar to his reflux pain - No complaints of retrosternal pain this morning - Complaint of epigastric pain likely related to recent open surgery. Controlled with Dilaudid Plan - Treat as above for gastroesophageal reflux - Echocardiogram performed in August 2017, EF 55% - Stress test in September 2017 non diagnostic for ischemia, gated EF 37% Qualifiers: Chest pain type: other chest pain Qualified Code(s): R07.89 - Other chest pain; R07.8 - Other chest pain (8) GERD (gastroesophageal reflux disease) Current Visit: Yes Status: Chronic Assessment and plan: - Severe GERD with large hiatal hernia and esophageal ulcers as demonstrated on EGD most recently 09/29/17 - Has had multiple EGDs during previous admission - Not well controlled as outpatient. Plan - continue Protonix gtt, Carafate, Pepcid - Further management as above - S/p Obed, POD 2 Qualifiers: Esophagitis presence: with esophagitis Qualified Code(s): K21.0 - Gastro- esophageal reflux disease with esophagitis (9) Schizophrenia Current Visit: Yes Status: Chronic Assessment and plan: Continue home meds Qualifiers: Schizophrenia type: unspecified Qualified Code(s): F20.9 - Schizophrenia, unspecified (10) Essential hypertension Current Visit: Yes Status: Chronic Assessment and plan: - Controlled today at 108/67 - Continue home meds - Putting hydralazine order when necessary hypertension (11) Hematemesis Current Visit: Yes Status: Resolved Assessment and plan: - Resolved - Chief complaint on admission of hematemesis with dark emesis - Appears to have resolved at this time and patient is having no symptoms - Continue to monitor, Zofran when necessary nausea Qualifiers: Nausea presence: with nausea Qualified Code(s): K92.0 - Hematemesis (12) DVT prophylaxis Current Visit: Yes Status: Acute Assessment and plan: - Anticoagulation contraindicated at this time due to GI bleed with anemia - SCDs - Subjective Interval history: Patient was seen and examined this morning at bedside. He states that he is doing overall well following his surgery, postop day #2. He is having some mild epigastric pain which is controlled with his pain medications. Denies any symptoms of nausea, vomiting. He was advanced to a full liquid diet earlier in the morning she states she has been tolerating well, however his lunch tray was noticeably untouched during time of interview. He does admit to flatus but denies any bowel movements. - Constitutional Vitals: Temp Pulse Resp BP Pulse Ox 98.5 F 85 18 108/67 93 10/15/17 15:39 10/15/17 15:39 10/15/17 15:39 10/15/17 15:39 10/15/17 15:39 General appearance: Present: cooperative, A&O X 3, pleasant, no acute distress, answers questions appropriately Exam: Gen.: Vitals noted. No acute distress. AAOx3. Resting comfortably in bed. Lunch tray at bedside, untouched. HEENT: PERRL/EOMI, oropharynx clear, Normocephalic, atraumatic Cardiac: RRR, no murmur, +S1/S2 Pulmonary: CTA bilaterally, no wheezes, rales or rhonchi, equal chest expansion Abdomen: soft, nontender, BS noted, no guarding. Abdominal dressing intact without obvious signs of drainage, erythema, warmth. MSK: ROM intact, no joint swelling noted Extremities: no BLE edema, nontender calf, no cyanosis or clubbing Neuro: A&Ox3, moves all extremities, no focal deficits Psych: Appropriate mood and behavior Internal Medicine: Result - Labs CBC & Chem 7: 10/15/17 03:40 10/15/17 10:20 Labs: Short CBC 10/15/17 Range/Units 03:40 WBC 15.4 H (4.3-11.1) K/mcL Hgb 9.0 L (12.9-16.9) g/dL Hct 28.8 L (37.5-50.1) % Plt Count 266 (140-400) K/mcL Neutrophils # 12.9 H (1.6-8.9) K/mcL BMP 10/15/17 10/15/17 03:40 10:20 Sodium 128 L 128 L Potassium 4.8 4.8 Chloride 99 100 Carbon Dioxide 26 27 BUN 37 H 39 H Creatinine 0.66 L 0.67 L Glucose 79 88 Calcium 7.8 L 8.0 L Liver Function 10/15/17 Range/Units 03:40 Total Bilirubin 0.3 (0.3-1.0) mg/dL AST 29 (13-39) Units/L ALT 15 (7-52) Units/L Alkaline Phosphatase 60 (34-104) Units/L Albumin 2.3 L (3.5-5.7) g/dL - VTE Documentation of Mechanical Device: Intermittent pneumatic compression device Consult Discharge Plan - Plan [facility] Provider[facility] - <Donn Anderson - Last Filed: 10/15/17 18:47> Date of Encounter: 10/15/17 - Assessment and plan (1) Hyponatremia Current Visit: Yes Status: Acute (2) Acute urinary retention Current Visit: Yes Status: Acute (3) Erosive esophagitis Current Visit: No Status: Acute (4) Reflux esophagitis Current Visit: No Status: Chronic (5) Hematemesis Current Visit: Yes Status: Resolved Qualifiers: Nausea presence: with nausea Qualified Code(s): K92.0 - Hematemesis (6) Anemia Current Visit: Yes Status: Resolved Qualifiers: Anemia type: other cause Other causes of anemia: acute posthemorrhagic Qualified Code(s): D62 - Acute posthemorrhagic anemia (7) Essential hypertension Current Visit: Yes Status: Chronic (8) Schizophrenia Current Visit: Yes Status: Chronic Qualifiers: Schizophrenia type: unspecified Qualified Code(s): F20.9 - Schizophrenia, unspecified (9) Malnutrition of moderate degree Current Visit: Yes Status: Chronic (10) Status post Obed fundoplication Current Visit: Yes Status: Acute - Constitutional Vitals: Temp Pulse Resp BP Pulse Ox 98.5 F 85 18 108/67 93 10/15/17 15:39 10/15/17 15:39 10/15/17 15:39 10/15/17 15:39 10/15/17 15:39 Internal Medicine: Result - Labs CBC & Chem 7: 10/15/17 03:40 10/15/17 10:20 Labs: Short CBC 10/15/17 Range/Units 03:40 WBC 15.4 H (4.3-11.1) K/mcL Hgb 9.0 L (12.9-16.9) g/dL Hct 28.8 L (37.5-50.1) % Plt Count 266 (140-400) K/mcL Neutrophils # 12.9 H (1.6-8.9) K/mcL BMP 10/15/17 10/15/17 03:40 10:20 Sodium 128 L 128 L Potassium 4.8 4.8 Chloride 99 100 Carbon Dioxide 26 27 BUN 37 H 39 H Creatinine 0.66 L 0.67 L Glucose 79 88 Calcium 7.8 L 8.0 L Liver Function 10/15/17 Range/Units 03:40 Total Bilirubin 0.3 (0.3-1.0) mg/dL AST 29 (13-39) Units/L ALT 15 (7-52) Units/L Alkaline Phosphatase 60 (34-104) Units/L Albumin 2.3 L (3.5-5.7) g/dL - Attending Attestation I examined this patient and my medical decision-making was reviewed with the Resident Physician on 10/15/17. I agree with the documented findings, disposition and treatment plan as described except to the extent set forth below. Mr Roa is currently admitted for esophagitis and is s/p surgical procedure. He remains moderate to high risk due to potential for worsening clinical status. Mr Roa is having some pain . No fever. On clear liquid currently. Sodium is low. Exam alert. Comfortable Mucus membranes dry Heart reg No wheeze I/P 1. Hyponatremia - calculated serum osm is low. Pt needs more solute. Spoke to lawyer criminal about adding more sodium to TPN. Consider salt tablets as well. 2. Esophagitis. Further diagnoses and plan as above.
[2017-10-15] MEDS: OLANZapine 10 MG TAB.RAPDIS PO SCH (21:44)
[2017-10-16 03:54] LABS: Basophils % 0.2 %; Eosinophils # 0.4 K/mcL (0.0-0.6); Eosinophils % 3.4 %; Hematocrit 27.7 % (37.5-50.1); Hemoglobin 8.5 g/dL (12.9-16.9); Immature Granulocytes % 0.5 % (0-4); Lymphocytes # 0.7 K/mcL (0.6-4.6); Lymphocytes % 5.8 %; Mean Corpuscular HGB Conc 30.7 g/dL (31.6-35.5); Mean Corpuscular Hemoglobin 27.6 pg (28.0-33.3); Mean Corpuscular Volume 89.9 fL (83.0-100.0); Mean Platelet Volume 9.8 fL (9.4-12.4); Monocytes # 0.8 K/mcL (0.0-1.3); Monocytes % 7.4 %; Neutrophils # 9.4 K/mcL (1.6-8.9); Platelet Count 217 K/mcL (140-400); Red Blood Count 3.08 M/mcL (4.19-5.50); Segmented Neutrophils % 82.7 %
[2017-10-16 04:14] LABS: BUN/Creatinine Ratio 69 (6-26); Blood Urea Nitrogen 47 mg/dL (8-23); Carbon Dioxide 27 mEq/L (23-29); Chloride 99 mEq/L (98-107); Glucose 84 mg/dL (70-105); Osmolality,Calculated 275 (280-300); Potassium 4.8 mEq/L (3.5-5.1); Sodium 127 mEq/L (136-145); eGFR For African Americans > 60 (> 60); eGFR For Non-African Americans > 60 (> 60)
[2017-10-16 05:34] LABS: Thyroid Stimulating Hormone 0.425 mcIU/mL (0.340-5.600)
[2017-10-16] MEDS: *HR* Heparin 5,000 UNIT/ML VIAL SQ SCH ×2 (06:13→18:15)
[2017-10-16] MEDS: Ketorolac 15 MG/ML VIAL IVP SCH ×3 (06:13→18:14)
[2017-10-16] MEDS: Pantoprazole 40 MG in 0.9 % Sodium Chloride Mini Bag 100 ML IVC SCH ×7 (06:14→20:08)
--- NOTE | 2017-10-16 07:40 | Internal Med Progress Note ---
Date of Encounter: 10/16/17 Time of Encounter: 07:30 - Assessment and plan (1) Hyponatremia Current Visit: Yes Status: Acute Assessment and plan: - Hyponatremia with most recent sodium at 127 today - Serum osmolality of low at 275 - Possible etiologies include decreased oral intake secondary to surgery, psych medication side effect, postoperative SIADH Plan - 10/16 - Nutrition to double sodium in TPN today and tomorrow. - will recheck labs tomorrow. - unable to fluid restrict - on PO sodium chloride (2) Acute urinary retention Current Visit: Yes Status: Acute Assessment and plan: - Status post Recinos catheter placement on 10/14/17 - Recinos discontinued yesterday by surgery - No documented output. - Will bladder scan and reorder I/Os - If retaining will replace recinos (3) Erosive esophagitis Current Visit: No Status: Acute Assessment and plan: H/H stable at this point. (4) Reflux esophagitis Current Visit: No Status: Chronic Assessment and plan: s/p Obed (5) Essential hypertension Current Visit: Yes Status: Chronic Assessment and plan: - Somewhat higher today. - Restart Cozaar - Continue home meds - PRN Hydralazine (6) Schizophrenia Current Visit: Yes Status: Chronic Assessment and plan: Continue home meds. Does not appear to be having any symptoms at this time. Qualifiers: Schizophrenia type: unspecified Qualified Code(s): F20.9 - Schizophrenia, unspecified (7) Malnutrition of moderate degree Current Visit: Yes Status: Chronic Assessment and plan: - Continue TPN and diet as per surgery. - Following prealbumin - Daily labs. - Sodium to be increased in TPN (8) Status post Obed fundoplication Current Visit: Yes Status: Acute Assessment and plan: - POD #3 following Obed fundoplication as well as hiatal hernia repair - Patient tolerated the surgery well without incident. - Pain meds per surgery team - WBC of down trended following surgery, most recently 11.4. - Afebrile, VSS. Plan - Continue management per surgery team - Will monitor WBC count. Suspect reactive secondary to recent surgery - CLD and TPN for nutrition. Further management per surgery team - Zofran PRN nausea - Subjective Interval history: Mr Roa is currently admitted for acute UGI bleed due to esophagitis and is now s/p Obed fundoplication. He remains moderate to high risk due to potential worsening of clinical status. Mr Roa feels he is doing "OK." He said he was sleeping and having bad dreams. No fever. Did not take much PO yesterday per patient. Pain is controlled right now but he just had pain med. Sodium was low yesterday. We did speak to nutrition about increasing sodium in TPN but bag was already made for yesterday and it could not be done. Sodium to be doubled today and tomorrow. - Constitutional Vitals: Temp Pulse Resp BP Pulse Ox 97.7 F 84 16 152/85 94 10/16/17 06:44 10/16/17 06:44 10/16/17 06:44 10/16/17 06:44 10/16/17 06:44 General appearance: Present: cooperative, A&O X 3, pleasant, answers questions appropriately - Head Head exam: Present: atraumatic, normocephalic - Eye Eye exam: Present: EOMI, conjuntiva pink - ENT ENT exam: Present: mucous membranes dry - Respiratory Respiratory exam: Present: decreased breath sounds. Absent: rales, rhonchi, wheezes - Cardiovascular Cardiovascular exam: Present: RRR. Absent: tachycardia - GI/Abdominal GI/Abdominal exam: Present: soft - Extremities Exam Extremities exam: Present: warm. Absent: tenderness - Neurological Exam Neurological exam: Present: alert, oriented X3 - Skin Skin exam: Present: warm. Absent: rash Internal Medicine: Result - Labs CBC & Chem 7: 10/16/17 03:40 10/16/17 03:40 Labs: Short CBC 10/16/17 Range/Units 03:40 WBC 11.4 H (4.3-11.1) K/mcL Hgb 8.5 L (12.9-16.9) g/dL Hct 27.7 L (37.5-50.1) % Plt Count 217 (140-400) K/mcL Neutrophils # 9.4 H (1.6-8.9) K/mcL BMP 10/15/17 10/16/17 10:20 03:40 Sodium 128 L 127 L Potassium 4.8 4.8 Chloride 100 99 Carbon Dioxide 27 27 BUN 39 H 47 H Creatinine 0.67 L 0.68 L Glucose 88 84 Calcium 8.0 L 8.0 L - VTE Documentation of Mechanical Device: Intermittent pneumatic compression device Consult Discharge Plan - Plan [facility]errals: [facility] Care Provider[facility] -
[2017-10-16] MEDS: ARIPiprazole 5 MG TABLET PO SCH (08:58)
[2017-10-16] MEDS: Valproic Acid Oral Soln 250 MG/5 ML UDC PO SCH (09:02)
--- NOTE | 2017-10-16 12:22 | Nephrology Progress Note ---
Date of Encounter: 10/16/17 Time of Encounter: 12:00 - Assessment and Plan (1) Hyponatremia Status: Acute sodium still low at 127, etiology of acute hyponatremia appears to be ADH excess post surgery Would impove once TPN fluids minimzied, discussed with surgery team; may taper tomorrow Continue salt tabs for now and liberalize sodium in diet when able Uric acid very low at 1.5 consistent with excess fluids from ADH TSH and cortisol WNL Subjective Interval history: Pt seen and examined with no new complaints Objective - Vital Signs Vital signs: Vital Signs Temp Pulse Resp BP Pulse Ox 10/16/17 06:44 97.7 F 84 16 152/85 94 10/16/17 03:43 98 F 85 16 175/91 97 10/16/17 00:03 98.5 F 86 14 152/89 94 10/15/17 18:47 98.2 F 89 20 127/76 93 10/15/17 15:39 98.5 F 85 18 108/67 93 Intake and Output 10/15/17 10/16/17 10/16/17 23:59 07:59 15:59 Intake Total 800 / 800 460 / 460 Balance 800 / 800 460 / 460 Intake: IV Fluids 200 / 200 100 / 100 Protonix 40 MG In 0.9 % Sodium 200 / 200 100 / 100 Chloride (Mini-Bag +) 100 ML @ 20 mls/hr IVC .Q5H DELFINA Rx#: [id number] Oral 600 / 600 360 / 360 Other: Meal Dinner clear diet Percent of Meal Consumed 50% # Voids 1 Weight 62.4 kg Blood Glucose* 103 105 Patient Weight 10/16/17 23:59 Weight 62.4 kg - General Appearance General appearance: Present: chronically ill, frail EENT: Present: ATNC, mucous membranes moist Neck: Present: no JVD, supple Respiratory: Present: clear (ant bilat) Cardiology: Present: no edema, normal S1, normal S2 Gastrointestinal: Present: no guarding (Surgical wound with dressing in place) Integumentary: Present: warm and dry Neurologic: Present: no focal deficit Musculoskeletal: Present: no deformities Psychiatric: Present: mood/affect appropriate - Lab 10/20/17 10:10 10/20/17 10:10 Most recent lab results Calcium 8.0 mg/dL (8.6-10.3) L 10/16/17 03:40 Phosphorus 3.4 mg/dL (2.7-4.5) 10/15/17 03:40 Magnesium 1.9 mg/dL (1.6-2.6) 10/15/17 03:40 - VTE Documentation of Mechanical Device: Intermittent pneumatic compression device Consult Discharge Plan - Plan Instructions: Hiatal Hernia (DC), Adult Open Obed Fundoplication (DC) Additional Instructions: General Instructions After Obed Surgery 1. No pushing, pulling, or lifting greater than 15 lbs for two weeks. 2. You may shower beginning today, but no tub baths, soaking, or swimming for 2 weeks. 3. You may resume driving when you are off narcotics and are safe to react in a car. 4. Take narcotics as directed. Do not take more narcotics then directed and do not share your narcotics with any other person. Do not drink alcohol while on narcotics. 5. Take stool softeners (Colace) or a water based laxative (Miramax) while taking narcotics. You may hold for loose stools. 6. Report any fevers greater than 100.5F, increase abdominal discomfort, drainage that looks like pus, increased redness or pain at the surgical site, or any vomiting. 7. Report any pain in the calves, shortness of breath, or rapid heartbeat. 8. Continue to take your heartburn medications until directed to stop. Do not stop them abruptly as this can cause symptoms of reflux. 9. Do not drink alcohol or carbonated beverages. 10. Do not deviate from the recommended Obed diet below. Doing so can affect your outcomes. [facility] Diet After Obed Fundoplication Surgery This diet information is for patients who have recently had Obed Fundoplication Surgery to correct reflux disease or to repair various types of hernias, such as hiatal hernia and intrathoracic stomach. This diet may also be used for other gastrointestinal surgeries, such as Heller myotomy and repair of achalasia. The diet will help control diarrhea, excess gas and swallowing problems, which may occur after this type of surgery. Important Steps to Keep Your Stomach From Stretching Eat small, frequent meals (six to eight per day). This will help you consume the majority of the nutrients you need without causing your stomach to feel full or distended. Drinking large amounts of fluids with meals can stretch your stomach. You may drink fluids between meals as often as you like, but limit fluids to 1/2 cup (4 fluid ounces) with meals and one cup (8 fluid ounces) with snacks. Sit upright while eating, and stay upright for 30 minutes after each meal. [place] can help food move through your digestive tract. Do not lie down after eating. Sit upright for 2 hours after your last meal or snack of the day. Eat very slowly. Take your time when eating. Take small bites and chew your food well to recovery operator helper in swallowing and digestion. Avoid crusty breads and sticky, gummy foods, such as bananas, fresh doughy breads, rolls and doughnuts. These types of foods become sticky and difficult to swallow. Toasted breads tend to be better tolerated. Lastly, if you eat sweets, consume them at the end of your meal to avoid a group of symptoms referred to as dumping syndrome. This describes the rapid emptying of foods from the stomach to the small intestine. Sweetened beverages, candy and desserts move more rapidly and dump quickly into the intestines. This can cause symptoms of nausea, weakness, cold sweats, cramps, diarrhea and dizzy spells. Important Steps to Avoid Gas Do not drink through a straw, chew gum, or chew tobacco. These actions cause you to swallow air, which will produce excess gas in your stomach. Chew with your mouth closed and chew your food thoroughly. Avoid foods that cause stomach gas and distention. The foods include corn, dried beans, peas, lentils, onions, broccoli, cauliflower, and any food item from the cabbage family. Do not drink carbonated drinks, alcohol, citrus, or tomato products. What Will I Be Able To Eat and Drink After Surgery After Obed Fundoplication Surgery, your diet will be advanced slowly by your surgeon. Generally, you will be on a thin/clear liquid diet for the first 10 days. Then you will advance to the full liquid diet for 4 days and eventually to a Obed soft diet for 7 days. After any surgery, protein consumption is important for healing. To get enough protein, drink 3-4 Stone Instant Breakfast, Ensure, or equivalent daily. Reminder: Carbonated beverages (such as sodas, energy drinks, flavored carbonated water), and alcohol are not permitted for the 1st 6 to 8 weeks after surgery. After this time you may attempt to reintroduce them in small amounts. Please note: Dairy products such as milk, ice cream, and pudding may cause diarrhea in some people after surgery. You may need to avoid milk products. If so you may substitute them with lactose free beverages, such as soy, rice, lactate, or almond milk. Please be aware that each patient's tolerance to food is different. Your doctor will advance your diet depending on how well you progress after surgery. Thin Liquid Diet The first diet after Obed Fundoplication Surgery is the thin liquids diet. Follow this diet for postoperative days 1-10 [10/14/17]- [10/23/17]. Thin liquids include: Apple, Cranberry, or Grape Juice (no citrus juice) Chicken Broth Beef Broth Flavored Gelatin (Jell-O) Decaffeinated Tea or Coffee Popsicles or Persian Ice Caffeinated Beverages Will Be Permitted Based upon Tolerance and at a later date Dairy if tolerated Thin Milkshakes (strawberry or vanilla flavored- No chocolate) Drink 3-4 Stone instant breakfast, Ensure, or equivalent daily. May be mixed with dairy for thin milkshakes Full Liquid Diet Follow this diet for postoperative days 11-14 [10/24/17 ] - [10/27/17]. Full liquid diet includes anything in the thin liquid diet plus: Milk: Dairy, Soy, Rice, and [place] (No Chocolate) Cream of Wheat, Cream of Rice, Grits Strained Creamed Soups (No Tomato or Broccoli) Vanilla and Eagle Flavored Ice Cream Sherbet Vanilla and Butterscotch Pudding (No Chocolate or Coconut) Continue 3-4 Stone Instant Breakfast, Ensure, or an Equivalent Daily. May be mixed with Dairy for Thin Milkshakes. Obed Soft Diet Follow this diet for postoperative days 15-20 [10/28/17 ] - [ 11/02/17]. (If you are consuming enough protein, you may stop the protein supplements). Please note: You will need extra fluids throughout the day to meet your fluid needs. Referrals: Bryce Canseco MD [Partnered Physician] - 10/26/17 1:40 pm (Hospital F/u; Repair of Paraesophageal Hernia and s/p Obed Fundoplication ) [facility] - Prescriptions: amLODIPine [Norvasc] 5 mg PO DAILY #30 tablet
--- NOTE | 2017-10-16 14:28 | General Surgery Progress Note ---
<Iliana Vo - Last Filed: 10/16/17 14:51> Date of Encounter: 10/16/17 Time of Encounter: 14:24 - Assessment and Plan (1) Paraesophageal hernia Current Visit: Yes Status: Acute Date of procedure: 10/13/17 Pre-op diagnosis: Esophageal hernia with severe reflux esophagitis Post-op diagnosis: same Procedure: Open repair of paraesophageal hernia and Obed fundoplication Anesthesia: TONY Surgeon: Bryce Canseco Estimated blood loss (cc): 25 POD #3 as above. Plan: Clear liquid diet, and may take PO meds serial abdominal exams repeat a.m. labs ambulate TID with assistance up to chair for all trays Incentive spirometry while awake continue G.I. and DVT prophylaxis Recommend daily dressing changes, cover with gauze for patient comfort (2) GERD (gastroesophageal reflux disease) Current Visit: Yes Status: Chronic As above. Pt tolerating liquids without difficulty. 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 (4) Acute urinary retention Current Visit: Yes Status: Resolved Output not captured yet in EMR. Villarreal d/c'd yesterday. Bladder scan pending. (5) Essential hypertension Current Visit: Yes Status: Chronic Management per primary team. (6) Increased white blood cell count Current Visit: Yes Status: Acute WBC downtrending. Qualifiers: Leukocytosis type: unspecified Qualified Code(s): D72.829 - Elevated white blood cell count, unspecified (7) Anemia Current Visit: Yes Status: Resolved Management per primary team. Qualifiers: Anemia type: other cause Other causes of anemia: acute posthemorrhagic Qualified Code(s): D62 - Acute posthemorrhagic anemia (8) Schizophrenia Current Visit: Yes Status: Chronic Management per primary team. Pt has resumed PO home meds. Qualifiers: Schizophrenia type: unspecified Qualified Code(s): F20.9 - Schizophrenia, unspecified (9) DVT prophylaxis Current Visit: Yes Status: Acute Per primary. (10) Malnutrition of moderate degree Current Visit: Yes Status: Chronic TPN, per primary Recommend replete electrolytes prn Ok to taper if hyponatremia worsening Subjective Patient reports: no new complaints, feels better, tolerating liquids well, afebrile Objective Vital Signs - Last 8 Hours Temp Pulse Resp BP Pulse Ox 10/16/17 12:19 98.5 F 90 16 155/83 96 10/16/17 06:44 97.7 F 84 16 152/85 94 Intake and Output 10/15/17 10/16/17 10/16/17 23:59 07:59 15:59 Intake Total 800 / 800 460 / 460 Balance 800 / 800 460 / 460 Intake: IV Fluids 200 / 200 100 / 100 Protonix 40 MG In 0.9 % Sodium 200 / 200 100 / 100 Chloride (Mini-Bag +) 100 ML @ 20 mls/hr IVC .Q5H [facility] Rx#: [id number] Oral 600 / 600 360 / 360 Other: Meal Dinner clear diet Percent of Meal Consumed 50% # Voids 1 Weight 62.4 kg Blood Glucose* 103 105 99 Patient Weight 10/16/17 23:59 Weight 62.4 kg - General physical appearance no distress, other (thin) - Eyes normal ocular movement - Respiratory normal expansion, normal respiratory effort, clear to auscultation - Abdomen Abdomen: Present: bowel sounds present, soft, non tender (dressing intact, dry.) - Labs 10/16/17 03:40 10/16/17 03:40 Diabetes panel 10/15/17 10/16/17 Range/Units 10:20 03:40 Sodium 128 L 127 L (136-145) mEq/L Potassium 4.8 4.8 (3.5-5.1) mEq/L Chloride 100 99 (98-107) mEq/L Carbon Dioxide 27 27 (23-29) mEq/L BUN 39 H 47 H (8-23) mg/dL Creatinine 0.67 L 0.68 L (0.70-1.30) mg/dL Glucose 88 84 (70-105) mg/dL Calcium 8.0 L 8.0 L (8.6-10.3) mg/dL Thyroid panel 10/16/17 Range/Units 03:40 TSH 0.425 (0.340-5.600) mcIU/mL Calcium panel 10/15/17 10/16/17 Range/Units 10:20 03:40 Calcium 8.0 L 8.0 L (8.6-10.3) mg/dL Pituitary panel 10/15/17 10/16/17 10/16/17 Range/Units 10:20 03:40 03:40 Sodium 128 L 127 L (136-145) mEq/L Potassium 4.8 4.8 (3.5-5.1) mEq/L Chloride 100 99 (98-107) mEq/L Carbon Dioxide 27 27 (23-29) mEq/L BUN 39 H 47 H (8-23) mg/dL Creatinine 0.67 L 0.68 L (0.70-1.30) mg/dL Glucose 88 84 (70-105) mg/dL Calcium 8.0 L 8.0 L (8.6-10.3) mg/dL TSH 0.425 (0.340-5.600) mcIU/mL Adrenal panel 10/15/17 10/16/17 Range/Units 10:20 03:40 Sodium 128 L 127 L (136-145) mEq/L Potassium 4.8 4.8 (3.5-5.1) mEq/L Chloride 100 99 (98-107) mEq/L Carbon Dioxide 27 27 (23-29) mEq/L BUN 39 H 47 H (8-23) mg/dL Creatinine 0.67 L 0.68 L (0.70-1.30) mg/dL Glucose 88 84 (70-105) mg/dL Calcium 8.0 L 8.0 L (8.6-10.3) mg/dL - VTE Documentation of Mechanical Device: Intermittent pneumatic compression device Consult Discharge Plan - Plan [facility]errals: [facility]Primary Care Provider[facility] - <Jeanna Wahl - Last Filed: 10/16/17 16:15> Date of Encounter: 10/16/17 - Assessment and Plan (1) Status post Obed fundoplication Current Visit: Yes Status: Acute s/p obed tolerating clears, continue diet as is prn pain control -well controlled gi/dvt prophylaxis ambulate/OOB (2) Protein calorie malnutrition Current Visit: Yes Status: Chronic continue tpn currently Qualifiers: Protein-calorie malnutrition severity: moderate Qualified Code(s): E44.0 - Moderate protein-calorie malnutrition (3) Schizophrenia Current Visit: Yes Status: Chronic continue home medication, patient seems to be well controlled with med regimen Qualifiers: Schizophrenia type: unspecified Qualified Code(s): F20.9 - Schizophrenia, unspecified (4) Hyponatremia Current Visit: Yes Status: Acute management per nephrology Subjective Patient reports: no new complaints, feels better, pain is less, tolerating liquids well, flatus, no bowel movement, afebrile Objective Vital Signs - Last 8 Hours Temp Pulse Resp BP Pulse Ox 10/16/17 15:13 98.3 F 92 14 146/86 92 10/16/17 12:19 98.5 F 90 16 155/83 96 Intake and Output 10/16/17 10/16/17 10/16/17 07:59 15:59 23:59 Intake Total 460 / 460 Balance 460 / 460 Intake: IV Fluids 100 / 100 Protonix 40 MG In 0.9 % Sodium 100 / 100 Chloride (Mini-Bag +) 100 ML @ 20 mls/hr IVC .Q5H [facility] Rx#: [id number] Oral 360 / 360 Other: Meal clear diet # Voids 1 Weight 62.4 kg Blood Glucose* 105 99 Patient Weight 10/16/17 23:59 Weight 62.4 kg - General physical appearance well nourished, no distress, other - Eyes PERRL, normal ocular movement - ENT normal mucosa, normocephalic - Neck Neck exam: trachea midline - Respiratory normal expansion, clear to auscultation - Cardiovascular Cardiovascular exam: Present: RRR - Abdomen Abdomen: Present: bowel sounds present, soft, tender (appropriate post op tenderness) - Incision Incision: Present: clean and dry, intact - Integumentary no rash, no growths - Neurologic CN 2-12 grossly intact - Musculoskeletal normal posture - Psychiatric oriented to time, oriented to person, memory intact - Labs 10/16/17 03:40 10/16/17 03:40 Diabetes panel 10/15/17 10/16/17 Range/Units 10:20 03:40 Sodium 128 L 127 L (136-145) mEq/L Potassium 4.8 4.8 (3.5-5.1) mEq/L Chloride 100 99 (98-107) mEq/L Carbon Dioxide 27 27 (23-29) mEq/L BUN 39 H 47 H (8-23) mg/dL Creatinine 0.67 L 0.68 L (0.70-1.30) mg/dL Glucose 88 84 (70-105) mg/dL Calcium 8.0 L 8.0 L (8.6-10.3) mg/dL Thyroid panel 10/16/17 Range/Units 03:40 TSH 0.425 (0.340-5.600) mcIU/mL Calcium panel 10/15/17 10/16/17 Range/Units 10:20 03:40 Calcium 8.0 L 8.0 L (8.6-10.3) mg/dL Pituitary panel 10/15/17 10/16/17 10/16/17 Range/Units 10:20 03:40 03:40 Sodium 128 L 127 L (136-145) mEq/L Potassium 4.8 4.8 (3.5-5.1) mEq/L Chloride 100 99 (98-107) mEq/L Carbon Dioxide 27 27 (23-29) mEq/L BUN 39 H 47 H (8-23) mg/dL Creatinine 0.67 L 0.68 L (0.70-1.30) mg/dL Glucose 88 84 (70-105) mg/dL Calcium 8.0 L 8.0 L (8.6-10.3) mg/dL TSH 0.425 (0.340-5.600) mcIU/mL Adrenal panel 10/15/17 10/16/17 Range/Units 10:20 03:40 Sodium 128 L 127 L (136-145) mEq/L Potassium 4.8 4.8 (3.5-5.1) mEq/L Chloride 100 99 (98-107) mEq/L Carbon Dioxide 27 27 (23-29) mEq/L BUN 39 H 47 H (8-23) mg/dL Creatinine 0.67 L 0.68 L (0.70-1.30) mg/dL Glucose 88 84 (70-105) mg/dL Calcium 8.0 L 8.0 L (8.6-10.3) mg/dL - Attending Attestation I examined this patient and my medical decision-making was reviewed with the Resident Physician. I agree with the documented findings, disposition and treatment plan as described except to the extent set forth below.
[2017-10-16] MEDS ORDERED: Clinimix E 5%-15% SOLUTION 2,000 ML with MVI, adult with vitamin K 10 ML IVC SCH (17:00)
[2017-10-16] MEDS ORDERED: [UNRECOGNIZED DRUG - OTHER] IVC SCH (17:00)
[2017-10-16] MEDS ORDERED: CLINIMIX E IVC SCH (17:00)
[2017-10-16] MEDS ORDERED: MVI IVC SCH (17:00)
[2017-10-16] MEDS ORDERED: VITAMIN K IVC SCH (17:00)
[2017-10-16] MEDS: OLANZapine 10 MG TAB.RAPDIS PO SCH (21:43)
[2017-10-17] MEDS: Ketorolac 15 MG/ML VIAL IVP SCH ×5 (01:24→22:58)
[2017-10-17] MEDS: Pantoprazole 40 MG in 0.9 % Sodium Chloride Mini Bag 100 ML IVC SCH ×6 (01:25→22:57)
[2017-10-17 04:08] LABS: BUN/Creatinine Ratio 60 (6-26); Blood Urea Nitrogen 39 mg/dL (8-23); Calcium 7.9 mg/dL (8.6-10.3); Carbon Dioxide 26 mEq/L (23-29); Chloride 99 mEq/L (98-107); Glucose 97 mg/dL (70-105); Osmolality,Calculated 277 (280-300); Potassium 5.4 mEq/L (3.5-5.1); Sodium 129 mEq/L (136-145); eGFR For African Americans > 60 (> 60); eGFR For Non-African Americans > 60 (> 60)
[2017-10-17 04:17] LABS: Basophils % 0.3 %; Eosinophils # 0.9 K/mcL (0.0-0.6); Eosinophils % 9.5 %; Hematocrit 28.3 % (37.5-50.1); Hemoglobin 8.8 g/dL (12.9-16.9); Immature Granulocytes % 0.3 % (0-4); Lymphocytes # 0.8 K/mcL (0.6-4.6); Lymphocytes % 8.8 %; Mean Corpuscular HGB Conc 31.1 g/dL (31.6-35.5); Mean Corpuscular Hemoglobin 27.8 pg (28.0-33.3); Mean Corpuscular Volume 89.3 fL (83.0-100.0); Mean Platelet Volume 10.3 fL (9.4-12.4); Monocytes # 0.8 K/mcL (0.0-1.3); Monocytes % 8.7 %; Neutrophils # 6.5 K/mcL (1.6-8.9); Platelet Count 255 K/mcL (140-400); Red Blood Count 3.17 M/mcL (4.19-5.50); Red Cell Distribution Width 14.8 % (11.5-14.5); Segmented Neutrophils % 72.4 %
[2017-10-17] MEDS: *HR* Heparin 5,000 UNIT/ML VIAL SQ SCH ×2 (05:41→17:22)
--- NOTE | 2017-10-17 09:03 | Internal Med Progress Note ---
Date of Encounter: 10/17/17 Time of Encounter: 07:20 - Assessment and plan (1) Hyponatremia Current Visit: Yes Status: Acute Assessment and plan: - Hyponatremia with most recent sodium at 129 today - Serum osmolality still low at 277 - Possible etiologies include decreased oral intake secondary to surgery, psych medication side effect, postoperative SIADH Plan - 10/17 - Sodium increased in TPN. - will recheck labs tomorrow. - on PO sodium chloride (2) Acute urinary retention Current Visit: Yes Status: Resolved Assessment and plan: - Status post Villarreal catheter placement on 10/14/17 - Villarreal discontinued by surgery - Output appears to be adequate (3) Erosive esophagitis Current Visit: No Status: Acute Assessment and plan: H/H stable at this point. (4) Reflux esophagitis Current Visit: No Status: Chronic Assessment and plan: s/p Obed (5) Essential hypertension Current Visit: Yes Status: Chronic Assessment and plan: - Remains high. - Increase Cozaar dose - PRN Hydralazine (6) Schizophrenia Current Visit: Yes Status: Chronic Assessment and plan: Continue home meds. Does not appear to be having any symptoms at this time. Qualifiers: Qualified Code(s): F20.9 - Schizophrenia, unspecified (7) Malnutrition of moderate degree Current Visit: Yes Status: Chronic Assessment and plan: - Surgery rec d/c TPN today - Will decrease rate today and anticipate d/c tomorrow (8) Status post Obed fundoplication Current Visit: Yes Status: Acute Assessment and plan: - POD # 4 following Obed fundoplication as well as hiatal hernia repair - Patient tolerated the surgery well without incident. - Pain meds per surgery team - Afebrile, VSS. Plan - Continue management per surgery team - Zofran PRN nausea - Subjective Interval history: Mr Roa is currently admitted for acute UGI bleed due to esophagitis and is now s/p Obed fundoplication. He remains moderate to high risk due to potential worsening of clinical status. Mr Roa says he ate clear liquids a little better yesterday. No fever. Tolerating TPN. He has no specific complaints at this time. Sodium in TPN doubled yesterday and serum sodium has improved. To remain the same today. - Constitutional Vitals: Temp Pulse Resp BP Pulse Ox 98.4 F 78 15 160/85 92 10/17/17 07:35 10/17/17 07:35 10/17/17 07:35 10/17/17 07:35 10/17/17 07:35 General appearance: Present: cooperative, A&O X 3, pleasant, answers questions appropriately - Head Head exam: Present: atraumatic, normocephalic - Eye Eye exam: Present: EOMI, conjuntiva pink - ENT ENT exam: Present: mucous membranes moist - Respiratory Respiratory exam: Present: decreased breath sounds, CTAB. Absent: rales, rhonchi, wheezes - Cardiovascular Cardiovascular exam: Present: RRR. Absent: tachycardia - GI/Abdominal GI/Abdominal exam: Present: soft - Extremities Exam Extremities exam: Present: warm. Absent: tenderness - Neurological Exam Neurological exam: Present: alert, oriented X3 - Skin Skin exam: Present: dry, warm. Absent: rash Internal Medicine: Result - Labs CBC & Chem 7: 10/17/17 03:16 10/17/17 12:30 Labs: Short CBC 10/17/17 Range/Units 03:16 WBC 9.0 (4.3-11.1) K/mcL Hgb 8.8 L (12.9-16.9) g/dL Hct 28.3 L (37.5-50.1) % Plt Count 255 (140-400) K/mcL Neutrophils # 6.5 (1.6-8.9) K/mcL BMP 10/17/17 03:16 Sodium 129 L Potassium 5.4 H Chloride 99 Carbon Dioxide 26 BUN 39 H Creatinine 0.65 L Glucose 97 Calcium 7.9 L - VTE Documentation of Mechanical Device: Intermittent pneumatic compression device Consult Discharge Plan - Plan [facility]errals: [facility] [Primary Care Provider] -
[2017-10-17] MEDS: Valproic Acid Oral Soln 250 MG/5 ML UDC PO SCH (10:27)
[2017-10-17] MEDS: ARIPiprazole 5 MG TABLET PO SCH (10:27)
--- NOTE | 2017-10-17 10:34 | General Surgery Progress Note ---
<Iliana Vo - Last Filed: 10/17/17 10:47> Date of Encounter: 10/17/17 Time of Encounter: 10:32 - Assessment and Plan (1) Paraesophageal hernia Current Visit: Yes Status: Acute Date of procedure: 10/13/17 Pre-op diagnosis: Esophageal hernia with severe reflux esophagitis Post-op diagnosis: same Procedure: Open repair of paraesophageal hernia and Obed fundoplication Anesthesia: TONY Surgeon: Bryce Canseco Estimated blood loss (cc): 25 POD 4 as above. Plan: Clear liquid diet, and may take PO meds serial abdominal exams repeat a.m. labs ambulate TID with assistance up to chair for all trays Incentive spirometry while awake continue G.I. and DVT prophylaxis Recommend daily dressing changes, may cover with gauze for patient comfort (2) GERD (gastroesophageal reflux disease) Current Visit: Yes Status: Chronic As above. Pt tolerating liquids without difficulty. Qualifiers: Esophagitis presence: with esophagitis Qualified Code(s): K21.0 - Gastro- esophageal reflux disease with esophagitis (3) Hyponatremia Current Visit: Yes Status: Acute Management per nephro, primary. (4) Malnutrition of moderate degree Current Visit: Yes Status: Chronic TPN, per primary Recommend replete electrolytes prn Ok to taper if hyponatremia worsening (5) Acute urinary retention Current Visit: Yes Status: Resolved Management per primary. (6) Essential hypertension Current Visit: Yes Status: Chronic Management per primary team. (7) Increased white blood cell count Current Visit: Yes Status: Resolved Resolved. Qualifiers: Leukocytosis type: unspecified Qualified Code(s): D72.829 - Elevated white blood cell count, unspecified (8) Anemia Current Visit: Yes Status: Resolved Management per primary team. Qualifiers: Anemia type: other cause Other causes of anemia: acute posthemorrhagic Qualified Code(s): D62 - Acute posthemorrhagic anemia (9) Schizophrenia Current Visit: Yes Status: Chronic Management per primary team. Pt has resumed PO home meds. Qualifiers: Schizophrenia type: unspecified Qualified Code(s): F20.9 - Schizophrenia, unspecified (10) DVT prophylaxis Current Visit: Yes Status: Acute Per primary. Subjective Patient reports: no new complaints, tolerating liquids well Narrative: Denies SOB, nausea, chest pain. Denies abdominal pain. Objective Vital Signs - Last 8 Hours Temp Pulse Resp BP Pulse Ox 10/17/17 07:35 98.4 F 78 15 160/85 92 10/17/17 04:24 98.0 F 83 16 142/79 93 Intake and Output 10/16/17 10/17/17 10/17/17 23:59 07:59 15:59 Intake Total 2580 / 2580 100 / 100 700 / 700 Output Total 525 / 525 600 / 600 Balance 2054 / 2054 100 / 100 100 / 100 Intake: IV Fluids 100 / 100 100 / 100 100 / 100 Protonix 40 MG In 0.9 % Sodium 100 / 100 100 / 100 100 / 100 Chloride (Mini-Bag +) 100 ML @ 20 mls/hr IVC .Q5H [facility] Rx#: [id number] Oral 480 / 480 600 / 600 Infusion Intake 1999 Output: Urine 525 / 525 600 / 600 Other: Meal Dinner Percent of Meal Consumed 90% Blood Glucose* 90 112 - General physical appearance no distress, other - Respiratory normal expansion, normal respiratory effort, clear to auscultation - Abdomen Abdomen: Present: bowel sounds present, soft, non tender (pt also denies tenderness) - Incision Incision: Present: intact. Absent: draining, purulent (kaylee) - Labs 10/17/17 03:16 10/17/17 03:16 Diabetes panel 10/17/17 Range/Units 03:16 Sodium 129 L (136-145) mEq/L Potassium 5.4 H (3.5-5.1) mEq/L Chloride 99 (98-107) mEq/L Carbon Dioxide 26 (23-29) mEq/L BUN 39 H (8-23) mg/dL Creatinine 0.65 L (0.70-1.30) mg/dL Glucose 97 (70-105) mg/dL Calcium 7.9 L (8.6-10.3) mg/dL Calcium panel 10/17/17 Range/Units 03:16 Calcium 7.9 L (8.6-10.3) mg/dL Pituitary panel 10/17/17 Range/Units 03:16 Sodium 129 L (136-145) mEq/L Potassium 5.4 H (3.5-5.1) mEq/L Chloride 99 (98-107) mEq/L Carbon Dioxide 26 (23-29) mEq/L BUN 39 H (8-23) mg/dL Creatinine 0.65 L (0.70-1.30) mg/dL Glucose 97 (70-105) mg/dL Calcium 7.9 L (8.6-10.3) mg/dL Adrenal panel 10/17/17 Range/Units 03:16 Sodium 129 L (136-145) mEq/L Potassium 5.4 H (3.5-5.1) mEq/L Chloride 99 (98-107) mEq/L Carbon Dioxide 26 (23-29) mEq/L BUN 39 H (8-23) mg/dL Creatinine 0.65 L (0.70-1.30) mg/dL Glucose 97 (70-105) mg/dL Calcium 7.9 L (8.6-10.3) mg/dL - VTE Documentation of Mechanical Device: Intermittent pneumatic compression device Consult Discharge Plan - Plan Referrals: [facility] [Primary Care Provider] - <Jeanna Wahl - Last Filed: 10/17/17 13:44> Date of Encounter: 10/17/17 - Assessment and Plan (1) Status post Obed fundoplication Current Visit: Yes Status: Acute tolerating clears well ok to dc tpn today pain well controlled, passing flatus. no bm yet on colace (2) Protein calorie malnutrition Current Visit: Yes Status: Chronic stop tpn, ok to continue clears and supplements Qualifiers: Protein-calorie malnutrition severity: moderate Qualified Code(s): E44.0 - Moderate protein-calorie malnutrition (3) Schizophrenia Current Visit: Yes Status: Chronic appears well managed by home medication, continue po meds Qualifiers: Schizophrenia type: unspecified Qualified Code(s): F20.9 - Schizophrenia, unspecified (4) Hyponatremia Current Visit: Yes Status: Acute improving, management per nephrology, appreciate input ok to stop tpn today Subjective Patient reports: no new complaints, feels better, tolerating liquids well, flatus, no bowel movement, afebrile Objective Vital Signs - Last 8 Hours Temp Pulse Resp BP Pulse Ox 10/17/17 10:53 98.1 F 85 16 154/84 96 10/17/17 07:35 98.4 F 78 15 160/85 92 Intake and Output 10/16/17 10/17/17 10/17/17 23:59 07:59 15:59 Intake Total 2580 / 2580 100 / 100 700 / 700 Output Total 525 / 525 1100 / 1100 Balance 2054 100 / 100 -400 / -400 Intake: IV Fluids 100 / 100 100 / 100 100 / 100 Protonix 40 MG In 0.9 % Sodium 100 / 100 100 / 100 100 / 100 Chloride (Mini-Bag +) 100 ML @ 20 mls/hr IVC .Q5H [facility] Rx#: [id number] Oral 480 / 480 600 / 600 Infusion Intake 1999 Output: Urine 525 / 525 1100 / 1100 Other: Meal Dinner Percent of Meal Consumed 90% Blood Glucose* 90 112 103 - General physical appearance well developed, well nourished, no distress - Eyes PERRL, normal ocular movement - ENT normal mucosa, normocephalic - Neck Neck exam: trachea midline - Respiratory normal expansion, clear to auscultation - Cardiovascular Cardiovascular exam: Present: RRR - Abdomen Abdomen: Present: bowel sounds present, soft, tender (minimal post op tenderness ) - Incision Incision: Present: clean and dry, intact - Integumentary no rash, no growths - Neurologic CN 2-12 grossly intact - Musculoskeletal normal posture - Psychiatric oriented to time, oriented to person, oriented to place, speech is normal, memory intact - Labs 10/17/17 03:16 10/17/17 12:30 Diabetes panel 10/17/17 10/17/17 Range/Units 03:16 12:30 Sodium 129 L (136-145) mEq/L Potassium 5.4 H 5.4 H (3.5-5.1) mEq/L Chloride 99 (98-107) mEq/L Carbon Dioxide 26 (23-29) mEq/L BUN 39 H (8-23) mg/dL Creatinine 0.65 L (0.70-1.30) mg/dL Glucose 97 (70-105) mg/dL Calcium 7.9 L (8.6-10.3) mg/dL Calcium panel 10/17/17 Range/Units 03:16 Calcium 7.9 L (8.6-10.3) mg/dL Pituitary panel 10/17/17 10/17/17 Range/Units 03:16 12:30 Sodium 129 L (136-145) mEq/L Potassium 5.4 H 5.4 H (3.5-5.1) mEq/L Chloride 99 (98-107) mEq/L Carbon Dioxide 26 (23-29) mEq/L BUN 39 H (8-23) mg/dL Creatinine 0.65 L (0.70-1.30) mg/dL Glucose 97 (70-105) mg/dL Calcium 7.9 L (8.6-10.3) mg/dL Adrenal panel 10/17/17 10/17/17 Range/Units 03:16 12:30 Sodium 129 L (136-145) mEq/L Potassium 5.4 H 5.4 H (3.5-5.1) mEq/L Chloride 99 (98-107) mEq/L Carbon Dioxide 26 (23-29) mEq/L BUN 39 H (8-23) mg/dL Creatinine 0.65 L (0.70-1.30) mg/dL Glucose 97 (70-105) mg/dL Calcium 7.9 L (8.6-10.3) mg/dL - Attending Attestation I examined this patient and my medical decision-making was reviewed with the Resident Physician. I agree with the documented findings, disposition and treatment plan as described except to the extent set forth below.
--- NOTE | 2017-10-17 14:33 | Nephrology Progress Note ---
Date of Encounter: 10/17/17 Time of Encounter: 13:45 - Assessment and Plan (1) Hyponatremia Status: Acute sodium improving at 129, etiology of acute hyponatremia appears to be ADH excess post surgery along with decreased intake Would improve even more once TPN fluids off after today Continue salt tabs for now and liberalize sodium in diet when able Uric acid very low at 1.5 consistent with excess fluids from ADH TSH and cortisol WNL (2) Hyperkalemia Status: Acute Potassium noted elevated at 5.4 likely from TPN (normal 3.5-5.1), should improve with TPN stopped Kayexalate not necessary yet Subjective Interval history: Pt seen and examined with no new complaints with family at bedside Objective - Vital Signs Vital signs: Vital Signs Temp Pulse Resp BP Pulse Ox 10/17/17 10:53 98.1 F 85 16 154/84 96 10/17/17 07:35 98.4 F 78 15 160/85 92 10/17/17 04:24 98.0 F 83 16 142/79 93 10/17/17 00:00 98.0 F 85 14 173/85 97 10/16/17 19:04 98.3 F 93 16 138/78 92 10/16/17 15:13 98.3 F 92 14 146/86 92 Intake and Output 10/16/17 10/17/17 10/17/17 23:59 07:59 15:59 Intake Total 2580 / 2580 100 / 100 700 / 700 Output Total 525 / 525 1100 / 1100 Balance 2054 / 2054 100 / 100 -400 / -400 Intake: IV Fluids 100 / 100 100 / 100 100 / 100 Protonix 40 MG In 0.9 % Sodium 100 / 100 100 / 100 100 / 100 Chloride (Mini-Bag +) 100 ML @ 20 mls/hr IVC .Q5H [facility] Rx#: [id number] Oral 480 / 480 600 / 600 Infusion Intake 1999 Output: Urine 525 / 525 1100 / 1100 Other: Meal Dinner Percent of Meal Consumed 90% Blood Glucose* 90 112 103 - General Appearance General appearance: Present: chronically ill (NAD) EENT: Present: ATNC, mucous membranes moist Neck: Present: no JVD, supple Respiratory: Present: clear Cardiology: Present: no edema, normal S1, normal S2 Gastrointestinal: Present: no tenderness, no guarding (Surgical wound with dressing) Integumentary: Present: warm and dry Neurologic: Present: no focal deficit Musculoskeletal: Present: no deformities Psychiatric: Present: mood/affect appropriate - Lab 10/20/17 10:10 10/20/17 10:10 Most recent lab results Calcium 7.9 mg/dL (8.6-10.3) L 10/17/17 03:16 Phosphorus 3.4 mg/dL (2.7-4.5) 10/15/17 03:40 Magnesium 1.9 mg/dL (1.6-2.6) 10/15/17 03:40 - VTE Documentation of Mechanical Device: Intermittent pneumatic compression device Consult Discharge Plan - Plan Instructions: Hiatal Hernia (DC), Adult Open Obed Fundoplication (DC) Additional Instructions: General Instructions After Obed Surgery 1. No pushing, pulling, or lifting greater than 15 lbs for two weeks. 2. You may shower beginning today, but no tub baths, soaking, or swimming for 2 weeks. 3. You may resume driving when you are off narcotics and are safe to react in a car. 4. Take narcotics as directed. Do not take more narcotics then directed and do not share your narcotics with any other person. Do not drink alcohol while on narcotics. 5. Take stool softeners (Colace) or a water based laxative (Miramax) while taking narcotics. You may hold for loose stools. 6. Report any fevers greater than 100.5F, increase abdominal discomfort, drainage that looks like pus, increased redness or pain at the surgical site, or any vomiting. 7. Report any pain in the calves, shortness of breath, or rapid heartbeat. 8. Continue to take your heartburn medications until directed to stop. Do not stop them abruptly as this can cause symptoms of reflux. 9. Do not drink alcohol or carbonated beverages. 10. Do not deviate from the recommended Obed diet below. Doing so can affect your outcomes. [place] [facility] Diet After Obed Fundoplication Surgery This diet information is for patients who have recently had Obed Fundoplication Surgery to correct reflux disease or to repair various types of hernias, such as hiatal hernia and intrathoracic stomach. This diet may also be used for other gastrointestinal surgeries, such as Heller myotomy and repair of achalasia. The diet will help control diarrhea, excess gas and swallowing problems, which may occur after this type of surgery. Important Steps to Keep Your Stomach From Stretching Eat small, frequent meals (six to eight per day). This will help you consume the majority of the nutrients you need without causing your stomach to feel full or distended. Drinking large amounts of fluids with meals can stretch your stomach. You may drink fluids between meals as often as you like, but limit fluids to 1/2 cup (4 fluid ounces) with meals and one cup (8 fluid ounces) with snacks. Sit upright while eating, and stay upright for 30 minutes after each meal. [place] can help food move through your digestive tract. Do not lie down after eating. Sit upright for 2 hours after your last meal or snack of the day. Eat very slowly. Take your time when eating. Take small bites and chew your food well to croze cutter helper in swallowing and digestion. Avoid crusty breads and sticky, gummy foods, such as bananas, fresh doughy breads, rolls and doughnuts. These types of foods become sticky and difficult to swallow. Toasted breads tend to be better tolerated. Lastly, if you eat sweets, consume them at the end of your meal to avoid a group of symptoms referred to as dumping syndrome. This describes the rapid emptying of foods from the stomach to the small intestine. Sweetened beverages, candy and desserts move more rapidly and dump quickly into the intestines. This can cause symptoms of nausea, weakness, cold sweats, cramps, diarrhea and dizzy spells. Important Steps to Avoid Gas Do not drink through a straw, chew gum, or chew tobacco. These actions cause you to swallow air, which will produce excess gas in your stomach. Chew with your mouth closed and chew your food thoroughly. Avoid foods that cause stomach gas and distention. The foods include corn, dried beans, peas, lentils, onions, broccoli, cauliflower, and any food item from the cabbage family. Do not drink carbonated drinks, alcohol, citrus, or tomato products. What Will I Be Able To Eat and Drink After Surgery After Obed Fundoplication Surgery, your diet will be advanced slowly by your surgeon. Generally, you will be on a thin/clear liquid diet for the first 10 days. Then you will advance to the full liquid diet for 4 days and eventually to a Obed soft diet for 7 days. After any surgery, protein consumption is important for healing. To get enough protein, drink 3-4 [place] Instant Breakfast, Ensure, or equivalent daily. Reminder: Carbonated beverages (such as sodas, energy drinks, flavored carbonated water), and alcohol are not permitted for the 1st 6 to 8 weeks after surgery. After this time you may attempt to reintroduce them in small amounts. Please note: Dairy products such as milk, ice cream, and pudding may cause diarrhea in some people after surgery. You may need to avoid milk products. If so you may substitute them with lactose free beverages, such as soy, rice, lactate, or almond milk. Please be aware that each patient's tolerance to food is different. Your doctor will advance your diet depending on how well you progress after surgery. Thin Liquid Diet The first diet after Obed Fundoplication Surgery is the thin liquids diet. Follow this diet for postoperative days 1-10 [10/14/17]- [10/23/17]. Thin liquids include: Apple, Cranberry, or Grape Juice (no citrus juice) Chicken Broth Beef Broth Flavored Gelatin (Jell-O) Decaffeinated Tea or Coffee Popsicles or [place] Ice Caffeinated Beverages Will Be Permitted Based upon Tolerance and at a later date Dairy if tolerated Thin Milkshakes (strawberry or vanilla flavored- No chocolate) Drink 3-4 [place] instant breakfast, Ensure, or equivalent daily. May be mixed with dairy for thin milkshakes Full Liquid Diet Follow this diet for postoperative days 11-14 [10/24/17 ] - [10/27/17]. Full liquid diet includes anything in the thin liquid diet plus: Milk: Dairy, Soy, Rice, and [place] (No Chocolate) Cream of Wheat, Cream of Rice, Grits Strained Creamed Soups (No Tomato or Broccoli) Vanilla and [place] Flavored Ice Cream Sherbet Vanilla and Butterscotch Pudding (No Chocolate or Coconut) Continue 3-4 [place] Instant Breakfast, Ensure, or an Equivalent Daily. May be mixed with Dairy for Thin Milkshakes. Obed Soft Diet Follow this diet for postoperative days 15-20 [10/28/17 ] - [ 11/02/17]. (If you are consuming enough protein, you may stop the protein supplements). Please note: You will need extra fluids throughout the day to meet your fluid needs. Referrals: Bryce Canseco MD [Partnered Physician] - 10/26/17 1:40 pm (Hospital F/u; Repair of Paraesophageal Hernia and s/p Obed Fundoplication ) [facility] - Prescriptions: amLODIPine [Norvasc] 5 mg PO DAILY #30 tablet
[2017-10-17] MEDS ORDERED: [UNRECOGNIZED DRUG - OTHER] IVC SCH (17:00)
[2017-10-17] MEDS ORDERED: Clinimix E 5%-15% SOLUTION 2,000 ML with MVI, adult with vitamin K 10 ML IVC SCH (17:00)
[2017-10-17] MEDS ORDERED: VITAMIN K IVC SCH (17:00)
[2017-10-17] MEDS ORDERED: MVI IVC SCH (17:00)
[2017-10-17] MEDS ORDERED: CLINIMIX E IVC SCH (17:00)
[2017-10-17] MEDS: amLODIPine 5 MG TABLET PO SCH (17:22)
[2017-10-17] MEDS: VITAMIN K IVC SCH (17:25)
[2017-10-17] MEDS: CLINIMIX E IVC SCH (17:25)
[2017-10-17] MEDS: [UNRECOGNIZED DRUG - OTHER] IVC SCH (17:25)
[2017-10-17] MEDS: MVI IVC SCH (17:25)
[2017-10-17] MEDS: OLANZapine 10 MG TAB.RAPDIS PO SCH (22:57)
[2017-10-18] MEDS: Pantoprazole 40 MG in 0.9 % Sodium Chloride Mini Bag 100 ML IVC SCH ×4 (01:46→20:47)
[2017-10-18 03:50] LABS: Basophils % 0.5 %; Eosinophils # 1.1 K/mcL (0.0-0.6); Eosinophils % 14.5 %; Hematocrit 26.8 % (37.5-50.1); Hemoglobin 8.5 g/dL (12.9-16.9); Immature Granulocytes % 0.4 % (0-4); Lymphocytes % 12.8 %; Mean Corpuscular HGB Conc 31.7 g/dL (31.6-35.5); Mean Corpuscular Hemoglobin 28.1 pg (28.0-33.3); Mean Corpuscular Volume 88.7 fL (83.0-100.0); Mean Platelet Volume 9.8 fL (9.4-12.4); Monocytes # 0.8 K/mcL (0.0-1.3); Neutrophils # 4.7 K/mcL (1.6-8.9); Platelet Count 231 K/mcL (140-400); Red Blood Count 3.02 M/mcL (4.19-5.50); Red Cell Distribution Width 14.7 % (11.5-14.5); Segmented Neutrophils % 61.8 %
[2017-10-18] MEDS: *HR* Heparin 5,000 UNIT/ML VIAL SQ SCH ×2 (06:00→17:55)
[2017-10-18] MEDS: Ketorolac 15 MG/ML VIAL IVP SCH ×2 (06:00→12:00)
[2017-10-18 08:41] LABS: Blood Urea Nitrogen 29 mg/dL (8-23); Calcium 7.9 mg/dL (8.6-10.3); Carbon Dioxide 26 mEq/L (23-29); Chloride 101 mEq/L (98-107); Glucose 89 mg/dL (70-105); Magnesium 1.7 mg/dL (1.6-2.6); Osmolality,Calculated 275 (280-300); Phosphorous 3.2 mg/dL (2.7-4.5); Sodium 130 mEq/L (136-145); Triglycerides 67 mg/dL (< 150)
--- NOTE | 2017-10-18 08:46 | General Surgery Progress Note ---
<Iliana Vo - Last Filed: 10/18/17 09:16> Date of Encounter: 10/18/17 Time of Encounter: 08:42 - Assessment and Plan (1) Paraesophageal hernia Current Visit: Yes Status: Acute Date of procedure: 10/13/17 Pre-op diagnosis: Esophageal hernia with severe reflux esophagitis Post-op diagnosis: same Procedure: Open repair of paraesophageal hernia and Obed fundoplication Anesthesia: TONY Surgeon: Bryce Canseco Estimated blood loss (cc): 25 POD 5 as above. Plan: Clear liquid diet, and may take PO meds serial abdominal exams repeat a.m. labs ambulate TID with assistance up to chair for all trays Incentive spirometry while awake continue G.I. and DVT prophylaxis Recommend daily dressing changes, may cover with gauze for patient comfort (2) GERD (gastroesophageal reflux disease) Current Visit: Yes Status: Chronic As above. Pt tolerating liquids without difficulty. Qualifiers: Esophagitis presence: with esophagitis Qualified Code(s): K21.0 - Gastro- esophageal reflux disease with esophagitis (3) Hyponatremia Current Visit: Yes Status: Acute Management per nephro and primary, greatly appreciate recs. Agree to d/c TPN, as pt tolerating diet per mouth (4) Malnutrition of moderate degree Current Visit: Yes Status: Chronic Management per primary. (5) Essential hypertension Current Visit: Yes Status: Chronic Management per primary team. (6) Increased white blood cell count Current Visit: Yes Status: Resolved Resolved. Qualifiers: Leukocytosis type: unspecified Qualified Code(s): D72.829 - Elevated white blood cell count, unspecified (7) Anemia Current Visit: Yes Status: Resolved Management per primary team. Qualifiers: Anemia type: other cause Other causes of anemia: acute posthemorrhagic Qualified Code(s): D62 - Acute posthemorrhagic anemia (8) Schizophrenia Current Visit: Yes Status: Chronic Management per primary team. Pt has resumed PO home meds. Qualifiers: Schizophrenia type: unspecified Qualified Code(s): F20.9 - Schizophrenia, unspecified (9) DVT prophylaxis Current Visit: Yes Status: Acute Per primary. Subjective Patient reports: no new complaints, afebrile Objective Vital Signs - Last 8 Hours Temp Pulse Resp BP Pulse Ox 10/18/17 07:26 98.2 F 85 16 144/68 91 01/29/18 04:37 152/75 10/18/17 03:25 98.0 F 82 16 193/99 97 Intake and Output 10/17/17 10/18/17 10/18/17 23:59 07:59 15:59 Intake Total 1600 / 1600 100 / 100 Output Total 800 / 800 1050 / 1050 900 / 900 Balance 800 / 800 -950 / -950 -900 / -900 Intake: IV Fluids 100 / 100 100 / 100 Protonix 40 MG In 0.9 % Sodium 100 / 100 100 / 100 Chloride (Mini-Bag +) 100 ML @ 20 mls/hr IVC .Q5H [facility] Rx#: [id number] Infusion Intake 1500 / 1500 Output: Urine 800 / 800 1050 / 1050 900 / 900 Other: # Voids 1 Weight 61.915 kg Blood Glucose* 100 98 Patient Weight 10/18/17 23:59 Weight 61.915 kg - General physical appearance no distress, other (thin) - Eyes normal ocular movement - Respiratory normal expansion, normal respiratory effort, clear to auscultation - Cardiovascular Cardiovascular exam: Present: RRR, no murmurs/rubs/gallops - Abdomen Abdomen: Present: bowel sounds present, soft, tender (expected post-op tendernes ) - Incision Incision: Present: clean and dry, intact, approximated. Absent: draining, purulent - Labs 10/18/17 03:38 10/18/17 03:38 Diabetes panel 10/17/17 10/18/17 Range/Units 12:30 03:38 Sodium 130 L (136-145) mEq/L Potassium 5.4 H 5.0 (3.5-5.1) mEq/L Chloride 101 (98-107) mEq/L Carbon Dioxide 26 (23-29) mEq/L BUN 29 H (8-23) mg/dL Glucose 89 (70-105) mg/dL Calcium 7.9 L (8.6-10.3) mg/dL Triglycerides 67 (< 150) mg/dL Calcium panel 10/18/17 Range/Units 03:38 Calcium 7.9 L (8.6-10.3) mg/dL Phosphorus 3.2 (2.7-4.5) mg/dL Pituitary panel 10/17/17 10/18/17 Range/Units 12:30 03:38 Sodium 130 L (136-145) mEq/L Potassium 5.4 H 5.0 (3.5-5.1) mEq/L Chloride 101 (98-107) mEq/L Carbon Dioxide 26 (23-29) mEq/L BUN 29 H (8-23) mg/dL Glucose 89 (70-105) mg/dL Calcium 7.9 L (8.6-10.3) mg/dL Adrenal panel 10/17/17 10/18/17 Range/Units 12:30 03:38 Sodium 130 L (136-145) mEq/L Potassium 5.4 H 5.0 (3.5-5.1) mEq/L Chloride 101 (98-107) mEq/L Carbon Dioxide 26 (23-29) mEq/L BUN 29 H (8-23) mg/dL Glucose 89 (70-105) mg/dL Calcium 7.9 L (8.6-10.3) mg/dL - VTE Documentation of Mechanical Device: Intermittent pneumatic compression device Consult Discharge Plan - Plan [facility]errals: [facility] Provider[facility] - <Bryce Canseco - Last Filed: 10/18/17 19:30> Date of Encounter: 10/18/17 Objective Vital Signs - Last 8 Hours Temp Pulse Resp BP Pulse Ox 10/18/17 15:41 97.8 F 64 16 124/57 93 10/18/17 11:56 97.7 F 78 16 146/78 96 Intake and Output 10/18/17 10/18/17 10/18/17 07:59 15:59 23:59 Intake Total 200 / 200 700 / 700 1180 / 1180 Output Total 1050 / 1050 1100 / 1100 Balance -850 / -850 -400 / -400 1180 / 1180 Intake: IV Fluids 200 / 200 100 / 100 Protonix 40 MG In 0.9 % Sodium 200 / 200 100 / 100 Chloride (Mini-Bag +) 100 ML @ 20 mls/hr IVC .Q5H [facility] Rx#: [id number] Oral 600 / 600 1180 / 1180 Output: Urine 1050 / 1050 1100 / 1100 Other: Meal Dinner Percent of Meal Consumed 0% Stool Size Large Stool Consistency loose Stool Color Brown Green # Voids 1 Weight 61.915 kg Blood Glucose* 98 110 76 Patient Weight 10/18/17 23:59 Weight 61.915 kg - Labs 10/18/17 03:38 10/18/17 03:38 Diabetes panel 10/18/17 Range/Units 03:38 Sodium 130 L (136-145) mEq/L Potassium 5.0 (3.5-5.1) mEq/L Chloride 101 (98-107) mEq/L Carbon Dioxide 26 (23-29) mEq/L BUN 29 H (8-23) mg/dL Creatinine 0.64 L (0.70-1.30) mg/dL Glucose 89 (70-105) mg/dL Calcium 7.9 L (8.6-10.3) mg/dL Triglycerides 67 (< 150) mg/dL Calcium panel 10/18/17 Range/Units 03:38 Calcium 7.9 L (8.6-10.3) mg/dL Phosphorus 3.2 (2.7-4.5) mg/dL Pituitary panel 10/18/17 Range/Units 03:38 Sodium 130 L (136-145) mEq/L Potassium 5.0 (3.5-5.1) mEq/L Chloride 101 (98-107) mEq/L Carbon Dioxide 26 (23-29) mEq/L BUN 29 H (8-23) mg/dL Creatinine 0.64 L (0.70-1.30) mg/dL Glucose 89 (70-105) mg/dL Calcium 7.9 L (8.6-10.3) mg/dL Adrenal panel 10/18/17 Range/Units 03:38 Sodium 130 L (136-145) mEq/L Potassium 5.0 (3.5-5.1) mEq/L Chloride 101 (98-107) mEq/L Carbon Dioxide 26 (23-29) mEq/L BUN 29 H (8-23) mg/dL Creatinine 0.64 L (0.70-1.30) mg/dL Glucose 89 (70-105) mg/dL Calcium 7.9 L (8.6-10.3) mg/dL - Attending Attestation I examined this patient and my medical decision-making was reviewed with the Resident Physician. I agree with the documented findings, disposition and treatment plan as described except to the extent set forth below. The patient was seen and evaluated on morning rounds with rest. He is doing quite well after reduction of gastric volvulus and repair of paraesophageal hernia. He is tolerating his diet. Advance diet and medicines. Continue to observe hyponatremia Bryce Canseco MD FACS
[2017-10-18] MEDS: ARIPiprazole 5 MG TABLET PO SCH (09:23)
[2017-10-18] MEDS: amLODIPine 5 MG TABLET PO SCH (09:23)
[2017-10-18] MEDS: Valproic Acid Oral Soln 250 MG/5 ML UDC PO SCH (09:24)
[2017-10-18] MEDS ORDERED: *HR* OxyCODONE Immed Rel 5 MG TABLET PO PRN ×2 (09:45→10:05)
[2017-10-18] MEDS ORDERED: D10% in Water 500 ML IVC PRN (10:20)
[2017-10-18 10:55] LABS: BUN/Creatinine Ratio 45 (6-26); eGFR For African Americans > 60 (> 60); eGFR For Non-African Americans > 60 (> 60)
--- NOTE | 2017-10-18 13:53 | Nephrology Progress Note ---
<Evans Dutta - Last Filed: 10/18/17 18:07> Date of Encounter: 10/18/17 Time of Encounter: 13:52 - Assessment and Plan (1) Hyponatremia Status: Acute Sodium improving at 130, etiology of acute hyponatremia appears to be ADH excess post surgery along with decreased intake Anticipate even more improvement once TPN fluids off Continue salt tabs for now and liberalize sodium in diet when able Uric acid very low at 1.5 consistent with excess fluids from ADH TSH and cortisol WNL (2) Hyperkalemia Status: Acute Potassium noted elevated at 5.0 likely from TPN (normal 3.5-5.1), should improve once TPN stopped Kayexalate not necessary Subjective Principal diagnosis: Hyponatremia Interval history: Patient seen and examined. Patient denies any new c/o and is tolerating PO intake. Patient reports BM today. TPN will be discontinued today. Objective - Vital Signs Vital signs: Vital Signs Temp Pulse Resp BP Pulse Ox 10/18/17 11:56 97.7 F 78 16 146/78 96 10/18/17 07:26 98.2 F 85 16 144/68 91 10/18/17 04:37 152/75 10/18/17 03:25 98.0 F 82 16 193/99 97 10/17/17 23:00 98.0 F 71 16 167/77 93 10/17/17 19:55 97.7 F 85 16 169/85 93 10/17/17 16:21 97.9 F 80 16 169/86 94 Intake and Output 10/17/17 10/18/17 10/18/17 23:59 07:59 15:59 Intake Total 1600 / 1600 200 / 200 600 / 600 Output Total 800 / 800 1050 / 1050 1100 / 1100 Balance 800 / 800 -850 / -850 -500 / -500 Intake: IV Fluids 100 / 100 200 / 200 Protonix 40 MG In 0.9 % Sodium 100 / 100 200 / 200 Chloride (Mini-Bag +) 100 ML @ 20 mls/hr IVC .Q5H [facility] Rx#: [id number] Oral 600 / 600 Infusion Intake 1500 / 1500 Output: Urine 800 / 800 1050 / 1050 1100 / 1100 Other: Stool Size Large Stool Consistency loose Stool Color Brown Green # Voids 1 Weight 61.915 kg Blood Glucose* 100 98 110 Patient Weight 10/18/17 23:59 Weight 61.915 kg - General Appearance General appearance: Present: well-developed, appears started age EENT: Present: ATNC, PERRL, mucous membranes moist Neck: Present: no JVD, supple Respiratory: Present: clear Cardiology: Present: no murmurs, edema, regular rate, regular rhythm, normal S1 , normal S2 Gastrointestinal: Present: normoactive bowel sounds, tenderness (appropriate TTP midline abd incision C/D/I), no guarding, no organomegaly Integumentary: Present: no rash, warm and dry (midline abd incision C/D/I) Neurologic: Present: no focal deficit, alert and oriented x3 Musculoskeletal: Present: no deformities, no cyanosis Psychiatric: Present: mood/affect appropriate, cooperative - Lab 10/18/17 03:38 10/18/17 03:38 Most recent lab results Calcium 7.9 mg/dL (8.6-10.3) L 10/18/17 03:38 Phosphorus 3.2 mg/dL (2.7-4.5) 10/18/17 03:38 Magnesium 1.7 mg/dL (1.6-2.6) 10/18/17 03:38 - VTE Documentation of Mechanical Device: Intermittent pneumatic compression device Consult Discharge Plan - Plan Instructions: Hiatal Hernia (DC), Adult Open Obed Fundoplication (DC) Additional Instructions: General Instructions After Obed Surgery 1. No pushing, pulling, or lifting greater than 15 lbs for two weeks. 2. You may shower beginning today, but no tub baths, soaking, or swimming for 2 weeks. 3. You may resume driving when you are off narcotics and are safe to react in a car. 4. Take narcotics as directed. Do not take more narcotics then directed and do not share your narcotics with any other person. Do not drink alcohol while on narcotics. 5. Take stool softeners (Colace) or a water based laxative (Miramax) while taking narcotics. You may hold for loose stools. 6. Report any fevers greater than 100.5F, increase abdominal discomfort, drainage that looks like pus, increased redness or pain at the surgical site, or any vomiting. 7. Report any pain in the calves, shortness of breath, or rapid heartbeat. 8. Continue to take your heartburn medications until directed to stop. Do not stop them abruptly as this can cause symptoms of reflux. 9. Do not drink alcohol or carbonated beverages. 10. Do not deviate from the recommended Obed diet below. Doing so can affect your outcomes. [facility] Diet After Obed Fundoplication Surgery This diet information is for patients who have recently had Obed Fundoplication Surgery to correct reflux disease or to repair various types of hernias, such as hiatal hernia and intrathoracic stomach. This diet may also be used for other gastrointestinal surgeries, such as Heller myotomy and repair of achalasia. The diet will help control diarrhea, excess gas and swallowing problems, which may occur after this type of surgery. Important Steps to Keep Your Stomach From Stretching Eat small, frequent meals (six to eight per day). This will help you consume the majority of the nutrients you need without causing your stomach to feel full or distended. Drinking large amounts of fluids with meals can stretch your stomach. You may drink fluids between meals as often as you like, but limit fluids to 1/2 cup (4 fluid ounces) with meals and one cup (8 fluid ounces) with snacks. Sit upright while eating, and stay upright for 30 minutes after each meal. [place] can help food move through your digestive tract. Do not lie down after eating. Sit upright for 2 hours after your last meal or snack of the day. Eat very slowly. Take your time when eating. Take small bites and chew your food well to maintenance helper utility engineer in swallowing and digestion. Avoid crusty breads and sticky, gummy foods, such as bananas, fresh doughy breads, rolls and doughnuts. These types of foods become sticky and difficult to swallow. Toasted breads tend to be better tolerated. Lastly, if you eat sweets, consume them at the end of your meal to avoid a group of symptoms referred to as dumping syndrome. This describes the rapid emptying of foods from the stomach to the small intestine. Sweetened beverages, candy and desserts move more rapidly and dump quickly into the intestines. This can cause symptoms of nausea, weakness, cold sweats, cramps, diarrhea and dizzy spells. Important Steps to Avoid Gas Do not drink through a straw, chew gum, or chew tobacco. These actions cause you to swallow air, which will produce excess gas in your stomach. Chew with your mouth closed and chew your food thoroughly. Avoid foods that cause stomach gas and distention. The foods include corn, dried beans, peas, lentils, onions, broccoli, cauliflower, and any food item from the cabbage family. Do not drink carbonated drinks, alcohol, citrus, or tomato products. What Will I Be Able To Eat and Drink After Surgery After Obed Fundoplication Surgery, your diet will be advanced slowly by your surgeon. Generally, you will be on a thin/clear liquid diet for the first 10 days. Then you will advance to the full liquid diet for 4 days and eventually to a Obed soft diet for 7 days. After any surgery, protein consumption is important for healing. To get enough protein, drink 3-4 [place] Instant Breakfast, Ensure, or equivalent daily. Reminder: Carbonated beverages (such as sodas, energy drinks, flavored carbonated water), and alcohol are not permitted for the 1st 6 to 8 weeks after surgery. After this time you may attempt to reintroduce them in small amounts. Please note: Dairy products such as milk, ice cream, and pudding may cause diarrhea in some people after surgery. You may need to avoid milk products. If so you may substitute them with lactose free beverages, such as soy, rice, lactate, or almond milk. Please be aware that each patient's tolerance to food is different. Your doctor will advance your diet depending on how well you progress after surgery. Thin Liquid Diet The first diet after Obed Fundoplication Surgery is the thin liquids diet. Follow this diet for postoperative days 1-10 [10/14/17]- [10/23/17]. Thin liquids include: Apple, Cranberry, or Grape Juice (no citrus juice) Chicken Broth Beef Broth Flavored Gelatin (Jell-O) Decaffeinated Tea or Coffee Popsicles or [place] Ice Caffeinated Beverages Will Be Permitted Based upon Tolerance and at a later date Dairy if tolerated Thin Milkshakes (strawberry or vanilla flavored- No chocolate) Drink 3-4 [place] instant breakfast, Ensure, or equivalent daily. May be mixed with dairy for thin milkshakes Full Liquid Diet Follow this diet for postoperative days 11-14 [10/24/17 ] - [10/27/17]. Full liquid diet includes anything in the thin liquid diet plus: Milk: Dairy, Soy, Rice, and [place] (No Chocolate) Cream of Wheat, Cream of Rice, Grits Strained Creamed Soups (No Tomato or Broccoli) Vanilla and [place] Flavored Ice Cream Sherbet Vanilla and Butterscotch Pudding (No Chocolate or Coconut) Continue 3-4 [place] Instant Breakfast, Ensure, or an Equivalent Daily. May be mixed with Dairy for Thin Milkshakes. Obed Soft Diet Follow this diet for postoperative days 15-20 [10/28/17 ] - [ 11/02/17]. (If you are consuming enough protein, you may stop the protein supplements). Please note: You will need extra fluids throughout the day to meet your fluid needs. Referrals: Bryce Canseco MD [Partnered Physician] - 10/26/17 1:40 pm (Hospital F/u; Repair of Paraesophageal Hernia and s/p Obed Fundoplication ) [facility] - Prescriptions: amLODIPine [Norvasc] 5 mg PO DAILY #30 tablet <Irlanda Douglas - Last Filed: 11/15/17 17:18> Date of Encounter: 10/18/17 - Assessment and Plan (1) Hyponatremia Status: Acute Objective - Lab 10/20/17 10:10 10/20/17 10:10 Most recent lab results Calcium 7.9 mg/dL (8.6-10.3) L 10/20/17 10:10 Phosphorus 3.0 mg/dL (2.7-4.5) 10/19/17 03:43 Magnesium 1.8 mg/dL (1.6-2.6) 10/20/17 10:10 - Attending Attestation I examined this patient and my medical decision-making was reviewed with the Resident Physician. I agree with the documented findings, disposition and treatment plan as described except to the extent set forth below. Pt seen and examined with no new complaints. Sodium continues to improve at 130 today. Continue salt tabs. Tapered TPN off and minimize fluids. Potassium WNL as well. Continue regular diet with slat packets if tolerating. Exam unremarkable except surgical abdominal wound with dressing.
--- NOTE | 2017-10-18 16:53 | Internal Med Progress Note ---
<Emil Maharaj - Last Filed: 10/18/17 17:35> Date of Encounter: 10/18/17 Time of Encounter: 16:52 - Assessment and plan (1) Status post Obed fundoplication Current Visit: Yes Status: Acute Assessment and plan: - POD # 5 following Obed fundoplication as well as hiatal hernia repair - Patient tolerated the surgery well without incident. - Pain meds per surgery team - Afebrile, VSS. - Tolerating clear liquid diet - Bowel sounds noted, return of bowel function given flatus and bowel movement yesterday Plan - Continue management per surgery team - Zofran PRN nausea - Discontinue TPN today, diet advancement per surgery team. (2) Hyponatremia Current Visit: Yes Status: Acute Assessment and plan: - Hyponatremia with most recent sodium at 130 today - Serum osmolality still low at 275 - Possible etiologies include decreased oral intake secondary to surgery, psych medication side effect, postoperative SIADH Plan - Continue TPN this morning, continue fluid restrict - Nephrology following, appreciate recommendations - will recheck labs tomorrow. - on PO sodium chloride (3) Malnutrition of moderate degree Current Visit: Yes Status: Chronic Assessment and plan: - Discontinue TPN today, tolerating clear liquid diet without complaints (4) Acute urinary retention Current Visit: Yes Status: Resolved Assessment and plan: - Status post Villarreal catheter placement on 10/14/17 - Villarreal discontinued by surgery - Output appears to be adequate (5) Upper gastrointestinal bleed Current Visit: Yes Status: Acute Assessment and plan: - Secondary to Known history of esophagitis with severe ulcers on EGD - Hemoglobin on presentation of 7.7, status post 2 units packed red blood cells - Most recent H/H of 8.5/26.8, stable from previous. - Hemodynamically stable - Recently discharged from this facility for similar symptoms on 09/30/17, discharged home on Protonix and Carafate - Repeat EGD on 10/07/17 revealed 2 large/gigantic esophageal ulcers with some spontaneous bleeding. Biopsies taken and pending. Gastroenterology recommends continue Carafate, PPI drip, H2 jed. - Obed fundoplication POD #5 Plan - Surgery following, appreciate recs. - Daily labs - Continue Carafate, Protonix, Pepcid 40 mg daily at bedtime IV, clear liquid diet as tolerated - Will continue to monitor post operatively. (6) Anemia Current Visit: Yes Status: Resolved Assessment and plan: - Related GI bleed as above - H&H stable at 8.5/26.8 most recent, stable from previous following surgery - Continue to monitor and transfuse as necessary - Asymptomatic at this time Qualifiers: Anemia type: other cause Other causes of anemia: acute posthemorrhagic Qualified Code(s): D62 - Acute posthemorrhagic anemia (7) Chest pain Current Visit: Yes Status: Resolved Assessment and plan: Substernal in nature, no association with exertion - If that is very similar to his reflux pain - No complaints of retrosternal pain this morning - Complaint of epigastric pain likely related to recent open surgery. Controlled with Dilaudid Plan - Treat as above for gastroesophageal reflux - Echocardiogram performed in August 2017, EF 55% - Stress test in September 2017 non diagnostic for ischemia, gated EF 37% Qualifiers: Chest pain type: other chest pain Qualified Code(s): R07.89 - Other chest pain; R07.8 - Other chest pain (8) GERD (gastroesophageal reflux disease) Current Visit: Yes Status: Chronic Assessment and plan: - Severe GERD with large hiatal hernia and esophageal ulcers as demonstrated on EGD most recently 09/29/17 - Has had multiple EGDs during previous admission - Not well controlled as outpatient. Plan - continue Protonix gtt, Carafate, Pepcid - Further management as above - S/p Obed, POD 5 Qualifiers: Esophagitis presence: with esophagitis Qualified Code(s): K21.0 - Gastro- esophageal reflux disease with esophagitis (9) Schizophrenia Current Visit: Yes Status: Chronic Assessment and plan: Continue home meds. Does not appear to be having any symptoms at this time. Qualifiers: Schizophrenia type: unspecified Qualified Code(s): F20.9 - Schizophrenia, unspecified (10) Essential hypertension Current Visit: Yes Status: Chronic Assessment and plan: - Mildly elevated at 144/68 - Increased Cozaar dose - PRN Hydralazine (11) Hematemesis Current Visit: Yes Status: Resolved Assessment and plan: - Resolved - Chief complaint on admission of hematemesis with dark emesis - Appears to have resolved at this time and patient is having no symptoms - Continue to monitor, Zofran when necessary nausea Qualifiers: Nausea presence: with nausea Qualified Code(s): K92.0 - Hematemesis (12) DVT prophylaxis Current Visit: Yes Status: Acute Assessment and plan: - Anticoagulation contraindicated at this time due to GI bleed with anemia - SCDs - Time Spent With Patient less than 15 minutes - Subjective Interval history: Patient was seen and examined this morning at bedside. He states that he is doing overall well following his surgery. No new complaints today. Tolerating pain well. No complaints of nausea, vomiting. Admits to flatus and one bowel movement yesterday. He is tolerating clear liquid diet without complaints. - Constitutional Vitals: Temp Pulse Resp BP Pulse Ox 97.8 F 64 16 124/57 93 10/18/17 15:41 10/18/17 15:41 10/18/17 15:41 10/18/17 15:41 10/18/17 15:41 General appearance: Present: cooperative, A&O X 3, pleasant, answers questions appropriately Exam: Gen.: Vitals noted. No acute distress. AAOx3. Sitting pleasantly in bed. HEENT: PERRL/EOMI, oropharynx clear, Normocephalic, atraumatic Cardiac: RRR, no murmur, +S1/S2 Pulmonary: CTA bilaterally, no wheezes, rales or rhonchi, equal chest expansion Abdomen: soft, nontender, BS noted, no guarding. Incision with dressing without obvious signs of infection including erythema, drainage Extremities: no BLE edema, nontender calf, no cyanosis or clubbing Neuro: A&Ox3, moves all extremities, no focal deficits Psych: Appropriate mood and behavior Internal Medicine: Result - Labs CBC & Chem 7: 10/18/17 03:38 10/18/17 03:38 Labs: Short CBC 10/18/17 Range/Units 03:38 WBC 7.5 (4.3-11.1) K/mcL Hgb 8.5 L (12.9-16.9) g/dL Hct 26.8 L (37.5-50.1) % Plt Count 231 (140-400) K/mcL Neutrophils # 4.7 (1.6-8.9) K/mcL BMP 10/18/17 03:38 Sodium 130 L Potassium 5.0 Chloride 101 Carbon Dioxide 26 BUN 29 H Creatinine 0.64 L Glucose 89 Calcium 7.9 L - VTE Documentation of Mechanical Device: Intermittent pneumatic compression device Consult Discharge Plan - Plan [facility]errals: [facility] - <Donn Anderson - Last Filed: 10/18/17 19:36> Date of Encounter: 10/18/17 - Assessment and plan (1) Hyponatremia Current Visit: Yes Status: Acute (2) Acute urinary retention Current Visit: Yes Status: Resolved (3) Erosive esophagitis Current Visit: No Status: Acute (4) Reflux esophagitis Current Visit: No Status: Chronic (5) Essential hypertension Current Visit: Yes Status: Chronic (6) Schizophrenia Current Visit: Yes Status: Chronic Qualifiers: Schizophrenia type: unspecified Qualified Code(s): F20.9 - Schizophrenia, unspecified (7) Malnutrition of moderate degree Current Visit: Yes Status: Chronic (8) Status post Obed fundoplication Current Visit: Yes Status: Acute - Constitutional Vitals: Temp Pulse Resp BP Pulse Ox 97.8 F 64 16 124/57 93 10/18/17 15:41 10/18/17 15:41 10/18/17 15:41 10/18/17 15:41 10/18/17 15:41 Internal Medicine: Result - Labs CBC & Chem 7: 10/18/17 03:38 10/18/17 03:38 Labs: Short CBC 10/18/17 Range/Units 03:38 WBC 7.5 (4.3-11.1) K/mcL Hgb 8.5 L (12.9-16.9) g/dL Hct 26.8 L (37.5-50.1) % Plt Count 231 (140-400) K/mcL Neutrophils # 4.7 (1.6-8.9) K/mcL BMP 10/18/17 03:38 Sodium 130 L Potassium 5.0 Chloride 101 Carbon Dioxide 26 BUN 29 H Creatinine 0.64 L Glucose 89 Calcium 7.9 L - Attending Attestation I examined this patient and my medical decision-making was reviewed with the Resident Physician on 10/18/17. I agree with the documented findings, disposition and treatment plan as described except to the extent set forth below. Mr Roa is currently admitted for esophagitis and GERD. He is s/p surgery. He remains moderate to high risk due to potential for worsening clinical status. Mr Roa is feeling a little better. He is tolerating clear liquids. TPN to be weaned off. Pain is controlled. He has gotten up and walked some. Exam alert. Comfortable Mucus membranes dry Heart reg No wheeze I/P 1. Esophagitis 2. hyponatremia Further diagnoses and plan as above.
[2017-10-18] MEDS ORDERED: Clinimix E 5%-15% SOLUTION 2,000 ML with MVI, adult with vitamin K 10 ML IVC SCH (17:00)
[2017-10-18] MEDS: MVI IVC SCH (17:18)
[2017-10-18] MEDS: [UNRECOGNIZED DRUG - OTHER] IVC SCH (17:18)
[2017-10-18] MEDS: CLINIMIX E IVC SCH (17:18)
[2017-10-18] MEDS: VITAMIN K IVC SCH (17:18)
[2017-10-18] MEDS: Nicotine 7 MG PATCH.TD24 TD SCH (17:55)
[2017-10-18] MEDS: OLANZapine 10 MG TAB.RAPDIS PO SCH (20:47)
[2017-10-19] MEDS: Pantoprazole 40 MG in 0.9 % Sodium Chloride Mini Bag 100 ML IVC SCH ×5 (01:50→21:08)
[2017-10-19 04:56] LABS: BUN/Creatinine Ratio 36 (6-26); Blood Urea Nitrogen 19 mg/dL (8-23); Calcium 7.9 mg/dL (8.6-10.3); Carbon Dioxide 26 mEq/L (23-29); Chloride 102 mEq/L (98-107); Glucose 74 mg/dL (70-105); Osmolality,Calculated 275 (280-300); Potassium 4.7 mEq/L (3.5-5.1); Sodium 132 mEq/L (136-145); eGFR For African Americans > 60 (> 60); eGFR For Non-African Americans > 60 (> 60)
[2017-10-19 04:57] LABS: Magnesium 1.4 mg/dL (1.6-2.6)
[2017-10-19] MEDS: *HR* Heparin 5,000 UNIT/ML VIAL SQ SCH ×2 (06:03→17:33)
--- NOTE | 2017-10-19 07:19 | Nephrology Progress Note ---
<Evans Dutta - Last Filed: 10/19/17 15:10> Date of Encounter: 10/19/17 Time of Encounter: 07:19 - Assessment and Plan (1) Hyponatremia Status: Acute Sodium improving at 132, etiology of acute hyponatremia appears to be ADH excess post surgery along with decreased intake Anticipate even more improvement now that TPN off Continue salt tabs for now and liberalize sodium in diet when able Uric acid very low at 1.5 consistent with excess fluids from ADH TSH and cortisol WNL (2) Hyperkalemia Status: Acute Resolved Potassium noted elevated at 5.4 likely from TPN (normal 3.5-5.1), improved once TPN stopped Kayexalate not necessary (3) Hypomagnesemia Status: Acute Supplement mag Continue to monitor Subjective Principal diagnosis: Hyponatremia Interval history: Patient seen and examined. Patient denies any new c/o and is tolerating PO intake. TPN was discontinued yesterday. Patient reports good urine output today. Objective - Vital Signs Vital signs: Vital Signs Temp Pulse Resp BP Pulse Ox 10/19/17 03:16 98.6 F 73 16 144/77 91 10/18/17 23:02 97.6 F 74 16 136/71 91 10/18/17 19:40 98 F 71 16 147/75 95 10/18/17 15:41 97.8 F 64 16 124/57 93 10/18/17 11:56 97.7 F 78 16 146/78 96 10/18/17 07:26 98.2 F 85 16 144/68 91 Intake and Output 10/18/17 10/18/17 10/19/17 15:59 23:59 07:59 Intake Total 700 / 700 1280 / 1280 500 / 500 Output Total 1100 / 1100 Balance -400 / -400 1280 / 1280 500 / 500 Intake: IV Fluids 100 / 100 100 / 100 200 / 200 Protonix 40 MG In 0.9 % Sodium 100 / 100 100 / 100 200 / 200 Chloride (Mini-Bag +) 100 ML @ 20 mls/hr IVC .Q5H DELFINA Rx#: [id number] Oral 600 / 600 1180 / 1180 Free Water 300 / 300 Output: Urine 1100 / 1100 Other: Meal Dinner Percent of Meal Consumed 0% Stool Size Large Moderate Stool Consistency loose soft Stool Color Brown Isacc Colored Green # Voids 1 1 # Bowel Movements 1 Weight 63.911 kg Blood Glucose* 110 85 87 Patient Weight 10/19/17 23:59 Weight 63.911 kg - General Appearance General appearance: Present: appears started age EENT: Present: ATNC, PERRL, mucous membranes moist Neck: Present: no JVD, supple Respiratory: Present: clear Cardiology: Present: no murmurs, no rub, no gallops, no edema, regular rate, regular rhythm, normal S1, normal S2 Gastrointestinal: Present: normoactive bowel sounds, tenderness (appropriate TTP , midline abd incision C/D/I), no guarding, no organomegaly Integumentary: Present: no rash, warm and dry Neurologic: Present: no focal deficit, alert and oriented x3 Musculoskeletal: Present: no deformities, no erythema, no cyanosis Psychiatric: Present: mood/affect appropriate, cooperative - Lab 10/18/17 03:38 10/19/17 03:43 Most recent lab results Calcium 7.9 mg/dL (8.6-10.3) L 10/19/17 03:43 Phosphorus 3.0 mg/dL (2.7-4.5) 10/19/17 03:43 Magnesium 1.4 mg/dL (1.6-2.6) L 10/19/17 03:43 - VTE Documentation of Mechanical Device: Intermittent pneumatic compression device Consult Discharge Plan - Plan Instructions: Hiatal Hernia (DC), Adult Open Obed Fundoplication (DC) Additional Instructions: General Instructions After Obed Surgery 1. No pushing, pulling, or lifting greater than 15 lbs for two weeks. 2. You may shower beginning today, but no tub baths, soaking, or swimming for 2 weeks. 3. You may resume driving when you are off narcotics and are safe to react in a car. 4. Take narcotics as directed. Do not take more narcotics then directed and do not share your narcotics with any other person. Do not drink alcohol while on narcotics. 5. Take stool softeners (Colace) or a water based laxative (Miramax) while taking narcotics. You may hold for loose stools. 6. Report any fevers greater than 100.5F, increase abdominal discomfort, drainage that looks like pus, increased redness or pain at the surgical site, or any vomiting. 7. Report any pain in the calves, shortness of breath, or rapid heartbeat. 8. Continue to take your heartburn medications until directed to stop. Do not stop them abruptly as this can cause symptoms of reflux. 9. Do not drink alcohol or carbonated beverages. 10. Do not deviate from the recommended Obed diet below. Doing so can affect your outcomes. [facility] After Obed Fundoplication Surgery This diet information is for patients who have recently had Obed Fundoplication Surgery to correct reflux disease or to repair various types of hernias, such as hiatal hernia and intrathoracic stomach. This diet may also be used for other gastrointestinal surgeries, such as Heller myotomy and repair of achalasia. The diet will help control diarrhea, excess gas and swallowing problems, which may occur after this type of surgery. Important Steps to Keep Your Stomach From Stretching Eat small, frequent meals (six to eight per day). This will help you consume the majority of the nutrients you need without causing your stomach to feel full or distended. Drinking large amounts of fluids with meals can stretch your stomach. You may drink fluids between meals as often as you like, but limit fluids to 1/2 cup (4 fluid ounces) with meals and one cup (8 fluid ounces) with snacks. Sit upright while eating, and stay upright for 30 minutes after each meal. [place] can help food move through your digestive tract. Do not lie down after eating. Sit upright for 2 hours after your last meal or snack of the day. Eat very slowly. Take your time when eating. Take small bites and chew your food well to splitting machine operator helper in swallowing and digestion. Avoid crusty breads and sticky, gummy foods, such as bananas, fresh doughy breads, rolls and doughnuts. These types of foods become sticky and difficult to swallow. Toasted breads tend to be better tolerated. Lastly, if you eat sweets, consume them at the end of your meal to avoid a group of symptoms referred to as dumping syndrome. This describes the rapid emptying of foods from the stomach to the small intestine. Sweetened beverages, candy and desserts move more rapidly and dump quickly into the intestines. This can cause symptoms of nausea, weakness, cold sweats, cramps, diarrhea and dizzy spells. Important Steps to Avoid Gas Do not drink through a straw, chew gum, or chew tobacco. These actions cause you to swallow air, which will produce excess gas in your stomach. Chew with your mouth closed and chew your food thoroughly. Avoid foods that cause stomach gas and distention. The foods include corn, dried beans, peas, lentils, onions, broccoli, cauliflower, and any food item from the cabbage family. Do not drink carbonated drinks, alcohol, citrus, or tomato products. What Will I Be Able To Eat and Drink After Surgery After Obed Fundoplication Surgery, your diet will be advanced slowly by your surgeon. Generally, you will be on a thin/clear liquid diet for the first 10 days. Then you will advance to the full liquid diet for 4 days and eventually to a Obed soft diet for 7 days. After any surgery, protein consumption is important for healing. To get enough protein, drink 3-4 [place] Instant Breakfast, Ensure, or equivalent daily. Reminder: Carbonated beverages (such as sodas, energy drinks, flavored carbonated water), and alcohol are not permitted for the 1st 6 to 8 weeks after surgery. After this time you may attempt to reintroduce them in small amounts. Please note: Dairy products such as milk, ice cream, and pudding may cause diarrhea in some people after surgery. You may need to avoid milk products. If so you may substitute them with lactose free beverages, such as soy, rice, lactate, or almond milk. Please be aware that each patient's tolerance to food is different. Your doctor will advance your diet depending on how well you progress after surgery. Thin Liquid Diet The first diet after Obed Fundoplication Surgery is the thin liquids diet. Follow this diet for postoperative days 1-10 [10/14/17]- [10/23/17]. Thin liquids include: Apple, Cranberry, or Grape Juice (no citrus juice) Chicken Broth Beef Broth Flavored Gelatin (Jell-O) Decaffeinated Tea or Coffee Popsicles or [place] Ice Caffeinated Beverages Will Be Permitted Based upon Tolerance and at a later date Dairy if tolerated Thin Milkshakes (strawberry or vanilla flavored- No chocolate) Drink 3-4 [place] instant breakfast, Ensure, or equivalent daily. May be mixed with dairy for thin milkshakes Full Liquid Diet Follow this diet for postoperative days 11-14 [10/24/17 ] - [10/27/17]. Full liquid diet includes anything in the thin liquid diet plus: Milk: Dairy, Soy, Rice, and [place] (No Chocolate) Cream of Wheat, Cream of Rice, Grits Strained Creamed Soups (No Tomato or Broccoli) Vanilla and [place] Flavored Ice Cream Sherbet Vanilla and Butterscotch Pudding (No Chocolate or Coconut) Continue 3-4 [place] Instant Breakfast, Ensure, or an Equivalent Daily. May be mixed with Dairy for Thin Milkshakes. Obed Soft Diet Follow this diet for postoperative days 15-20 [10/28/17 ] - [ 11/02/17]. (If you are consuming enough protein, you may stop the protein supplements). Please note: You will need extra fluids throughout the day to meet your fluid needs. Referrals: Bryce Canseco MD [Partnered Physician] - 10/26/17 1:40 pm (Hospital F/u; Repair of Paraesophageal Hernia and s/p Obed Fundoplication ) [facility] - Prescriptions: amLODIPine [Norvasc] 5 mg PO DAILY #30 tablet <Irlanda Douglas - Last Filed: 11/16/17 17:30> Date of Encounter: 10/19/17 - Assessment and Plan (1) Hyponatremia Status: Acute (2) Hyperkalemia Status: Acute Objective - Lab 10/20/17 10:10 10/20/17 10:10 Most recent lab results Calcium 7.9 mg/dL (8.6-10.3) L 10/20/17 10:10 Phosphorus 3.0 mg/dL (2.7-4.5) 10/19/17 03:43 Magnesium 1.8 mg/dL (1.6-2.6) 10/20/17 10:10 - Attending Attestation I examined this patient and my medical decision-making was reviewed with the Resident Physician. I agree with the documented findings, disposition and treatment plan as described except to the extent set forth below. Pt seen and examined with no new complaints. Sodium now at 132. TPN tapered off as of yesterday. Continue salt tabs. Continue liberalized sodium in diet. Potassium normalized off TPN.
[2017-10-19] MEDS ORDERED: Magnesium Sulfate 2 GM in D5% in Water 100 ML IVPB ONE (07:20)
[2017-10-19] MEDS: amLODIPine 5 MG TABLET PO SCH (08:46)
[2017-10-19] MEDS: Valproic Acid Oral Soln 250 MG/5 ML UDC PO SCH (08:46)
[2017-10-19] MEDS: ARIPiprazole 5 MG TABLET PO SCH (08:47)
[2017-10-19] MEDS: Nicotine 7 MG PATCH.TD24 TD SCH (08:47)
--- NOTE | 2017-10-19 10:37 | General Surgery Progress Note ---
<Iliana Vo - Last Filed: 10/19/17 11:17> Date of Encounter: 10/19/17 Time of Encounter: 10:32 - Assessment and Plan (1) Paraesophageal hernia Current Visit: Yes Status: Acute Date of procedure: 10/13/17 Pre-op diagnosis: Esophageal hernia with severe reflux esophagitis Post-op diagnosis: same Procedure: Open repair of paraesophageal hernia and Obed fundoplication Anesthesia: TONY Surgeon: Bryce Canseco Estimated blood loss (cc): 25 POD 6 as above. Plan: Clear liquid diet, and may take PO meds. Ensure High protein permissible. ambulate TID with assistance Up to chair for all trays Incentive spirometry while awake Recommend daily dressing changes or leave to air, may cover with gauze for patient comfort Pt stable to discharge from surgical standpoint Will follow [facility] After Obed Fundoplication Surgery as outpatient (2) GERD (gastroesophageal reflux disease) Current Visit: Yes Status: Chronic As above. Pt tolerating liquids without difficulty. Qualifiers: Esophagitis presence: with esophagitis Qualified Code(s): K21.0 - Gastro- esophageal reflux disease with esophagitis (3) Hyponatremia Current Visit: Yes Status: Acute Management per nephro and primary, greatly appreciate recs. Agree to d/c TPN, as pt tolerating diet per mouth (4) Malnutrition of moderate degree Current Visit: Yes Status: Chronic Management per primary. (5) Essential hypertension Current Visit: Yes Status: Chronic Management per primary team. (6) Increased white blood cell count Current Visit: Yes Status: Resolved Resolved. Qualifiers: Leukocytosis type: unspecified Qualified Code(s): D72.829 - Elevated white blood cell count, unspecified (7) Anemia Current Visit: Yes Status: Resolved Management per primary team. Qualifiers: Anemia type: other cause Other causes of anemia: acute posthemorrhagic Qualified Code(s): D62 - Acute posthemorrhagic anemia (8) Schizophrenia Current Visit: Yes Status: Chronic Management per primary team. Pt has resumed PO home meds. Qualifiers: Schizophrenia type: unspecified Qualified Code(s): F20.9 - Schizophrenia, unspecified (9) DVT prophylaxis Current Visit: Yes Status: Acute Per primary. Subjective Patient reports: no new complaints, afebrile Narrative: No acute events overnight. Pt tolerating liquids without difficulty. Denied abdominal tenderness in early AM and later visit this morning. Endorses BM. Endorses passing consistent flatus. Looking forward to discharge. Objective Vital Signs - Last 8 Hours Temp Pulse Resp BP Pulse Ox 10/19/17 07:21 98.0 F 76 18 156/88 93 10/19/17 03:16 98.6 F 73 16 144/77 91 Intake and Output 10/18/17 10/19/17 10/19/17 23:59 07:59 15:59 Intake Total 1280 / 1280 500 / 500 240 / 240 Balance 1280 / 1280 500 / 500 240 / 240 Intake: IV Fluids 100 / 100 200 / 200 Protonix 40 MG In 0.9 % Sodium 100 / 100 200 / 200 Chloride (Mini-Bag +) 100 ML @ 20 mls/hr IVC .Q5H [facility] Rx#: [id number] Oral 1180 / 1180 240 / 240 Free Water 300 / 300 Other: Meal Dinner Breakfast Percent of Meal Consumed 0% 20% Stool Size Moderate Stool Consistency soft Stool Color Isacc Colored # Voids 1 # Bowel Movements 1 Weight 63.911 kg Blood Glucose* 85 87 Patient Weight 10/19/17 23:59 Weight 63.911 kg - General physical appearance no distress - Eyes normal ocular movement - Respiratory normal respiratory effort, clear to auscultation - Cardiovascular Cardiovascular exam: Present: regular rhythm, no murmurs/rubs/gallops - Abdomen Abdomen: Present: bowel sounds present, soft, non tender - Incision Incision: Present: intact (s). Absent: draining, purulent - Psychiatric oriented to person, oriented to place - Labs 10/18/17 03:38 10/19/17 03:43 Diabetes panel 10/18/17 10/19/17 Range/Units 03:38 03:43 Sodium 132 L (136-145) mEq/L Potassium 4.7 (3.5-5.1) mEq/L Chloride 102 (98-107) mEq/L Carbon Dioxide 26 (23-29) mEq/L BUN 19 (8-23) mg/dL Creatinine 0.64 L 0.53 L (0.70-1.30) mg/dL Glucose 74 (70-105) mg/dL Calcium 7.9 L (8.6-10.3) mg/dL Calcium panel 10/19/17 10/19/17 Range/Units 03:43 03:43 Calcium 7.9 L (8.6-10.3) mg/dL Phosphorus 3.0 (2.7-4.5) mg/dL Pituitary panel 10/18/17 10/19/17 Range/Units 03:38 03:43 Sodium 132 L (136-145) mEq/L Potassium 4.7 (3.5-5.1) mEq/L Chloride 102 (98-107) mEq/L Carbon Dioxide 26 (23-29) mEq/L BUN 19 (8-23) mg/dL Creatinine 0.64 L 0.53 L (0.70-1.30) mg/dL Glucose 74 (70-105) mg/dL Calcium 7.9 L (8.6-10.3) mg/dL Adrenal panel 10/18/17 10/19/17 Range/Units 03:38 03:43 Sodium 132 L (136-145) mEq/L Potassium 4.7 (3.5-5.1) mEq/L Chloride 102 (98-107) mEq/L Carbon Dioxide 26 (23-29) mEq/L BUN 19 (8-23) mg/dL Creatinine 0.64 L 0.53 L (0.70-1.30) mg/dL Glucose 74 (70-105) mg/dL Calcium 7.9 L (8.6-10.3) mg/dL - VTE Documentation of Mechanical Device: Intermittent pneumatic compression device Consult Discharge Plan - Plan Additional Instructions: General Instructions After Obed Surgery 1. No pushing, pulling, or lifting greater than 15 lbs for two weeks. 2. You may shower beginning today, but no tub baths, soaking, or swimming for 2 weeks. 3. You may resume driving when you are off narcotics and are safe to react in a car. 4. Take narcotics as directed. Do not take more narcotics then directed and do not share your narcotics with any other person. Do not drink alcohol while on narcotics. 5. Take stool softeners (Colace) or a water based laxative (Miramax) while taking narcotics. You may hold for loose stools. 6. Report any fevers greater than 100.5F, increase abdominal discomfort, drainage that looks like pus, increased redness or pain at the surgical site, or any vomiting. 7. Report any pain in the calves, shortness of breath, or rapid heartbeat. 8. Continue to take your heartburn medications until directed to stop. Do not stop them abruptly as this can cause symptoms of reflux. 9. Do not drink alcohol or carbonated beverages. 10. Do not deviate from the recommended Obed diet below. Doing so can affect your outcomes. [facility] Diet After Obed Fundoplication Surgery This diet information is for patients who have recently had Obed Fundoplication Surgery to correct reflux disease or to repair various types of hernias, such as hiatal hernia and intrathoracic stomach. This diet may also be used for other gastrointestinal surgeries, such as Heller myotomy and repair of achalasia. The diet will help control diarrhea, excess gas and swallowing problems, which may occur after this type of surgery. Important Steps to Keep Your Stomach From Stretching Eat small, frequent meals (six to eight per day). This will help you consume the majority of the nutrients you need without causing your stomach to feel full or distended. Drinking large amounts of fluids with meals can stretch your stomach. You may drink fluids between meals as often as you like, but limit fluids to 1/2 cup (4 fluid ounces) with meals and one cup (8 fluid ounces) with snacks. Sit upright while eating, and stay upright for 30 minutes after each meal. [place] can help food move through your digestive tract. Do not lie down after eating. Sit upright for 2 hours after your last meal or snack of the day. Eat very slowly. Take your time when eating. Take small bites and chew your food well to cooper helper in swallowing and digestion. Avoid crusty breads and sticky, gummy foods, such as bananas, fresh doughy breads, rolls and doughnuts. These types of foods become sticky and difficult to swallow. Toasted breads tend to be better tolerated. Lastly, if you eat sweets, consume them at the end of your meal to avoid a group of symptoms referred to as dumping syndrome. This describes the rapid emptying of foods from the stomach to the small intestine. Sweetened beverages, candy and desserts move more rapidly and dump quickly into the intestines. This can cause symptoms of nausea, weakness, cold sweats, cramps, diarrhea and dizzy spells. Important Steps to Avoid Gas Do not drink through a straw, chew gum, or chew tobacco. These actions cause you to swallow air, which will produce excess gas in your stomach. Chew with your mouth closed and chew your food thoroughly. Avoid foods that cause stomach gas and distention. The foods include corn, dried beans, peas, lentils, onions, broccoli, cauliflower, and any food item from the cabbage family. Do not drink carbonated drinks, alcohol, citrus, or tomato products. What Will I Be Able To Eat and Drink After Surgery After Obed Fundoplication Surgery, your diet will be advanced slowly by your surgeon. Generally, you will be on a thin/clear liquid diet for the first 10 days. Then you will advance to the full liquid diet for 4 days and eventually to a Obed soft diet for 7 days. After any surgery, protein consumption is important for healing. To get enough protein, drink 3-4 [place] Instant Breakfast, Ensure, or equivalent daily. Reminder: Carbonated beverages (such as sodas, energy drinks, flavored carbonated water), and alcohol are not permitted for the 1st 6 to 8 weeks after surgery. After this time you may attempt to reintroduce them in small amounts. Please note: Dairy products such as milk, ice cream, and pudding may cause diarrhea in some people after surgery. You may need to avoid milk products. If so you may substitute them with lactose free beverages, such as soy, rice, lactate, or almond milk. Please be aware that each patient's tolerance to food is different. Your doctor will advance your diet depending on how well you progress after surgery. Thin Liquid Diet The first diet after Obed Fundoplication Surgery is the thin liquids diet. Follow this diet for postoperative days 1-10 [10/14/17]- [10/23/17]. Thin liquids include: Apple, Cranberry, or Grape Juice (no citrus juice) Chicken Broth Beef Broth Flavored Gelatin (Jell-O) Decaffeinated Tea or Coffee Popsicles or [place] Ice Caffeinated Beverages Will Be Permitted Based upon Tolerance and at a later date Dairy if tolerated Thin Milkshakes (strawberry or vanilla flavored- No chocolate) Drink 3-4 [place] instant breakfast, Ensure, or equivalent daily. May be mixed with dairy for thin milkshakes Full Liquid Diet Follow this diet for postoperative days 11-14 [10/24/17 ] - [10/27/17]. Full liquid diet includes anything in the thin liquid diet plus: Milk: Dairy, Soy, Rice, and [place] (No Chocolate) Cream of Wheat, Cream of Rice, Grits Strained Creamed Soups (No Tomato or Broccoli) Vanilla and [place] Flavored Ice Cream Sherbet Vanilla and Butterscotch Pudding (No Chocolate or Coconut) Continue 3-4 [place] Instant Breakfast, Ensure, or an Equivalent Daily. May be mixed with Dairy for Thin Milkshakes. Obed Soft Diet Follow this diet for postoperative days 15-20 [10/28/17 ] - [ 11/02/17]. (If you are consuming enough protein, you may stop the protein supplements). Please note: You will need extra fluids throughout the day to meet your fluid needs. [facility] - Bryce Canseco MD [Partnered Physician] - 10/26/17 1:40 pm (Hospital F/u; Repair of Paraesophageal Hernia and s/p Obed Fundoplication ) <Bryce Canseco - Last Filed: 10/19/17 14:38> Date of Encounter: 10/19/17 Objective Vital Signs - Last 8 Hours Temp Pulse Resp BP Pulse Ox 10/19/17 12:02 98.0 F 70 16 145/65 90 10/19/17 07:21 98.0 F 76 18 156/88 93 Intake and Output 10/18/17 10/19/17 10/19/17 23:59 07:59 15:59 Intake Total 1280 / 1280 500 / 500 1060 / 1060 Output Total 1000 / 1000 Balance 1280 / 1280 500 / 500 60 / 60 Intake: IV Fluids 100 / 100 200 / 200 100 / 100 Protonix 40 MG In 0.9 % Sodium 100 / 100 200 / 200 100 / 100 Chloride (Mini-Bag +) 100 ML @ 20 mls/hr IVC .Q5H [facility] Rx#: [id number] Oral 1180 / 1180 960 / 960 Free Water 300 / 300 Output: Urine 1000 / 1000 Other: Meal Dinner Lunch Percent of Meal Consumed 0% 0% Stool Size Moderate Stool Consistency soft Stool Color Isacc Colored # Voids 1 # Bowel Movements 1 Weight 63.911 kg Blood Glucose* 85 87 80 Patient Weight 10/19/17 23:59 Weight 63.911 kg - Labs 10/18/17 03:38 10/19/17 03:43 Diabetes panel 10/19/17 Range/Units 03:43 Sodium 132 L (136-145) mEq/L Potassium 4.7 (3.5-5.1) mEq/L Chloride 102 (98-107) mEq/L Carbon Dioxide 26 (23-29) mEq/L BUN 19 (8-23) mg/dL Creatinine 0.53 L (0.70-1.30) mg/dL Glucose 74 (70-105) mg/dL Calcium 7.9 L (8.6-10.3) mg/dL Calcium panel 10/19/17 10/19/17 Range/Units 03:43 03:43 Calcium 7.9 L (8.6-10.3) mg/dL Phosphorus 3.0 (2.7-4.5) mg/dL Pituitary panel 10/19/17 Range/Units 03:43 Sodium 132 L (136-145) mEq/L Potassium 4.7 (3.5-5.1) mEq/L Chloride 102 (98-107) mEq/L Carbon Dioxide 26 (23-29) mEq/L BUN 19 (8-23) mg/dL Creatinine 0.53 L (0.70-1.30) mg/dL Glucose 74 (70-105) mg/dL Calcium 7.9 L (8.6-10.3) mg/dL Adrenal panel 10/19/17 Range/Units 03:43 Sodium 132 L (136-145) mEq/L Potassium 4.7 (3.5-5.1) mEq/L Chloride 102 (98-107) mEq/L Carbon Dioxide 26 (23-29) mEq/L BUN 19 (8-23) mg/dL Creatinine 0.53 L (0.70-1.30) mg/dL Glucose 74 (70-105) mg/dL Calcium 7.9 L (8.6-10.3) mg/dL - Attending Attestation I examined this patient and my medical decision-making was reviewed with the Resident Physician. I agree with the documented findings, disposition and treatment plan as described except to the extent set forth below. The patient is seen and evaluated on morning rounds. The findings were discussed with the clinical nurse practitioner in the resident. Patient is doing quite well after surgery we should be able to wean his TPN to off and discharge as soon as his by mouth intake is adequate Bryce Canseco MD FACS
--- NOTE | 2017-10-19 17:23 | Electrocardiograph Report ---
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
[2017-10-19] MEDS: OLANZapine 10 MG TAB.RAPDIS PO SCH (21:06)
--- NOTE | 2017-10-19 23:41 | Internal Med Progress Note ---
Date of Encounter: 10/19/17 Time of Encounter: 13:41 - Assessment and plan (1) Status post Obed fundoplication Current Visit: Yes Status: Acute Assessment and plan: - POD # 6 following Obed fundoplication as well as hiatal hernia repair - Patient tolerated the surgery well without incident. - Pain meds per surgery team - Afebrile, VSS. - Tolerating clear liquid diet - Bowel sounds noted, return of bowel function given flatus and bowel movement yesterday Plan - Continue management per surgery team - Zofran PRN nausea - Diet advancement per surgery team. TPN discontinued 10/18 (2) Hyponatremia Current Visit: Yes Status: Acute Assessment and plan: - Hyponatremia with most recent sodium at 130 today - Serum osmolality still low at 275 - Possible etiologies include decreased oral intake secondary to surgery, psych medication side effect, postoperative SIADH Plan - Nephrology following, appreciate recommendations - will recheck labs tomorrow. - on PO sodium chloride (3) Upper gastrointestinal bleed Current Visit: Yes Status: Acute Assessment and plan: - Secondary to Known history of esophagitis with severe ulcers on EGD - Hemoglobin on presentation of 7.7, status post 2 units packed red blood cells - Most recent H/H of 8.5/26.8, stable from previous. - Hemodynamically stable - Recently discharged from this facility for similar symptoms on 09/30/17, discharged home on Protonix and Carafate - Repeat EGD on 10/07/17 revealed 2 large/gigantic esophageal ulcers with some spontaneous bleeding. Biopsies taken and pending. Gastroenterology recommends continue Carafate, PPI drip, H2 jed. - Obed fundoplication POD #5 Plan - Surgery following, appreciate recs. - Daily labs - Continue Carafate, Protonix, Pepcid 40 mg daily at bedtime IV, clear liquid diet as tolerated - Will continue to monitor post operatively. (4) Essential hypertension Current Visit: Yes Status: Chronic Assessment and plan: - Mildly elevated at 144/68 - Increased Cozaar dose - PRN Hydralazine (5) GERD (gastroesophageal reflux disease) Current Visit: Yes Status: Chronic Assessment and plan: - Severe GERD with large hiatal hernia and esophageal ulcers as demonstrated on EGD most recently 09/29/17 - Has had multiple EGDs during previous admission - Not well controlled as outpatient. Plan - continue Protonix gtt, Carafate, Pepcid - Further management as above - S/p Obed, POD 6 Qualifiers: Esophagitis presence: with esophagitis Qualified Code(s): K21.0 - Gastro- esophageal reflux disease with esophagitis (6) Malnutrition of moderate degree Current Visit: Yes Status: Chronic Assessment and plan: tolerating clear liquid diet without complaints (7) Schizophrenia Current Visit: Yes Status: Chronic Assessment and plan: Continue home meds. Does not appear to be having any symptoms at this time. Qualifiers: Schizophrenia type: unspecified Qualified Code(s): F20.9 - Schizophrenia, unspecified (8) Acute urinary retention Current Visit: Yes Status: Resolved Assessment and plan: - Status post Villarreal catheter placement on 10/14/17 - Villarreal discontinued by surgery - Output appears to be adequate (9) Anemia Current Visit: Yes Status: Resolved Assessment and plan: - Related GI bleed as above - H&H stable - Continue to monitor and transfuse as necessary - Asymptomatic at this time Qualifiers: Anemia type: other cause Other causes of anemia: acute posthemorrhagic Qualified Code(s): D62 - Acute posthemorrhagic anemia (10) Chest pain Current Visit: Yes Status: Resolved Assessment and plan: Substernal in nature, no association with exertion - If that is very similar to his reflux pain - No complaints of retrosternal pain this morning - Complaint of epigastric pain likely related to recent open surgery. Controlled with Dilaudid Plan - Treat as above for gastroesophageal reflux - Echocardiogram performed in August 2017, EF 55% - Stress test in September 2017 non diagnostic for ischemia, gated EF 37% Qualifiers: Chest pain type: other chest pain Qualified Code(s): R07.89 - Other chest pain; R07.8 - Other chest pain (11) COPD (chronic obstructive pulmonary disease) Current Visit: Yes Status: Acute Qualifiers: COPD type: chronic bronchitis Chronic bronchitis type: unspecified Qualified Code(s): J42 - Unspecified chronic bronchitis - Subjective Interval history: No complaints, no acute events. Tolerated lunch and breakfast - Constitutional Vitals: Temp Pulse Resp BP Pulse Ox 98.1 F 61 17 154/79 92 10/19/17 23:04 10/19/17 23:04 10/19/17 23:04 10/19/17 23:04 10/19/17 23:04 Exam: Gen: AAOx3 HEENT: PERRL/EOMI, oropharynx clear, Normocephalic, atraumatic Cardiac: RRR, no murmur, +S1/S2 Pulmonary: CTA bilaterally, no wheezes, rales or rhonchi, equal chest expansion Abdomen: soft, nontender, BS noted, no guarding. Incision with dressing without obvious signs of infection including erythema, drainage Extremities: no BLE edema, nontender calf, no cyanosis or clubbing Neuro: A&Ox3, moves all extremities, no focal deficits Psych: Appropriate mood and behavior Internal Medicine: Result - Labs CBC & Chem 7: 10/18/17 03:38 10/19/17 03:43 Labs: BMP 10/19/17 03:43 Sodium 132 L Potassium 4.7 Chloride 102 Carbon Dioxide 26 BUN 19 Creatinine 0.53 L Glucose 74 Calcium 7.9 L - VTE Documentation of Mechanical Device: Intermittent pneumatic compression device Consult Discharge Plan - Plan Additional Instructions: General Instructions After Obed Surgery 1. No pushing, pulling, or lifting greater than 15 lbs for two weeks. 2. You may shower beginning today, but no tub baths, soaking, or swimming for 2 weeks. 3. You may resume driving when you are off narcotics and are safe to react in a car. 4. Take narcotics as directed. Do not take more narcotics then directed and do not share your narcotics with any other person. Do not drink alcohol while on narcotics. 5. Take stool softeners (Colace) or a water based laxative (Miramax) while taking narcotics. You may hold for loose stools. 6. Report any fevers greater than 100.5F, increase abdominal discomfort, drainage that looks like pus, increased redness or pain at the surgical site, or any vomiting. 7. Report any pain in the calves, shortness of breath, or rapid heartbeat. 8. Continue to take your heartburn medications until directed to stop. Do not stop them abruptly as this can cause symptoms of reflux. 9. Do not drink alcohol or carbonated beverages. 10. Do not deviate from the recommended Obed diet below. Doing so can affect your outcomes. [place] [facility] Diet After Obed Fundoplication Surgery This diet information is for patients who have recently had Obed Fundoplication Surgery to correct reflux disease or to repair various types of hernias, such as hiatal hernia and intrathoracic stomach. This diet may also be used for other gastrointestinal surgeries, such as Heller myotomy and repair of achalasia. The diet will help control diarrhea, excess gas and swallowing problems, which may occur after this type of surgery. Important Steps to Keep Your Stomach From Stretching Eat small, frequent meals (six to eight per day). This will help you consume the majority of the nutrients you need without causing your stomach to feel full or distended. Drinking large amounts of fluids with meals can stretch your stomach. You may drink fluids between meals as often as you like, but limit fluids to 1/2 cup (4 fluid ounces) with meals and one cup (8 fluid ounces) with snacks. Sit upright while eating, and stay upright for 30 minutes after each meal. [place] can help food move through your digestive tract. Do not lie down after eating. Sit upright for 2 hours after your last meal or snack of the day. Eat very slowly. Take your time when eating. Take small bites and chew your food well to nut roaster helper in swallowing and digestion. Avoid crusty breads and sticky, gummy foods, such as bananas, fresh doughy breads, rolls and doughnuts. These types of foods become sticky and difficult to swallow. Toasted breads tend to be better tolerated. Lastly, if you eat sweets, consume them at the end of your meal to avoid a group of symptoms referred to as dumping syndrome. This describes the rapid emptying of foods from the stomach to the small intestine. Sweetened beverages, candy and desserts move more rapidly and dump quickly into the intestines. This can cause symptoms of nausea, weakness, cold sweats, cramps, diarrhea and dizzy spells. Important Steps to Avoid Gas Do not drink through a straw, chew gum, or chew tobacco. These actions cause you to swallow air, which will produce excess gas in your stomach. Chew with your mouth closed and chew your food thoroughly. Avoid foods that cause stomach gas and distention. The foods include corn, dried beans, peas, lentils, onions, broccoli, cauliflower, and any food item from the cabbage family. Do not drink carbonated drinks, alcohol, citrus, or tomato products. What Will I Be Able To Eat and Drink After Surgery After Obed Fundoplication Surgery, your diet will be advanced slowly by your surgeon. Generally, you will be on a thin/clear liquid diet for the first 10 days. Then you will advance to the full liquid diet for 4 days and eventually to a Obed soft diet for 7 days. After any surgery, protein consumption is important for healing. To get enough protein, drink 3-4 Kelly Instant Breakfast, Ensure, or equivalent daily. Reminder: Carbonated beverages (such as sodas, energy drinks, flavored carbonated water), and alcohol are not permitted for the 1st 6 to 8 weeks after surgery. After this time you may attempt to reintroduce them in small amounts. Please note: Dairy products such as milk, ice cream, and pudding may cause diarrhea in some people after surgery. You may need to avoid milk products. If so you may substitute them with lactose free beverages, such as soy, rice, lactate, or almond milk. Please be aware that each patient's tolerance to food is different. Your doctor will advance your diet depending on how well you progress after surgery. Thin Liquid Diet The first diet after Obed Fundoplication Surgery is the thin liquids diet. Follow this diet for postoperative days 1-10 [10/14/17]- [10/23/17]. Thin liquids include: Apple, Cranberry, or Grape Juice (no citrus juice) Chicken Broth Beef Broth Flavored Gelatin (Jell-O) Decaffeinated Tea or Coffee Popsicles or [place] Ice Caffeinated Beverages Will Be Permitted Based upon Tolerance and at a later date Dairy if tolerated Thin Milkshakes (strawberry or vanilla flavored- No chocolate) Drink 3-4 Kelly instant breakfast, Ensure, or equivalent daily. May be mixed with dairy for thin milkshakes Full Liquid Diet Follow this diet for postoperative days 11-14 [10/24/17 ] - [10/27/17]. Full liquid diet includes anything in the thin liquid diet plus: Milk: Dairy, Soy, Rice, and [place] (No Chocolate) Cream of Wheat, Cream of Rice, Grits Strained Creamed Soups (No Tomato or Broccoli) Vanilla and [place] Flavored Ice Cream Sherbet Vanilla and Butterscotch Pudding (No Chocolate or Coconut) Continue 3-4 Kelly Instant Breakfast, Ensure, or an Equivalent Daily. May be mixed with Dairy for Thin Milkshakes. Obed Soft Diet Follow this diet for postoperative days 15-20 [10/28/17 ] - [ 11/02/17]. (If you are consuming enough protein, you may stop the protein supplements). Please note: You will need extra fluids throughout the day to meet your fluid needs. Referrals: Bryce Canseco MD [Partnered Physician] - 10/26/17 1:40 pm (Hospital F/u; Repair of Paraesophageal Hernia and s/p Obed Fundoplication ) [facility] -
[2017-10-20] MEDS: Pantoprazole 40 MG in 0.9 % Sodium Chloride Mini Bag 100 ML IVC SCH ×4 (06:11→15:51)
[2017-10-20] MEDS: *HR* Heparin 5,000 UNIT/ML VIAL SQ SCH ×2 (06:14→18:23)
--- NOTE | 2017-10-20 07:54 | General Surgery Progress Note ---
<Iliana Vo - Last Filed: 10/20/17 07:57> Date of Encounter: 10/20/17 Time of Encounter: 07:52 - Assessment and Plan (1) Paraesophageal hernia Status: Acute Date of procedure: 10/13/17 Pre-op diagnosis: Esophageal hernia with severe reflux esophagitis Post-op diagnosis: same Procedure: Open repair of paraesophageal hernia and Obed fundoplication Anesthesia: CUCAA Surgeon: Bryce Canseco Estimated blood loss (cc): 25 POD 7 as above. Plan: Clear liquid diet, and may take PO meds. Ensure High protein permissible. Ambulate TID with assistance Up to chair for all trays Incentive spirometry while awake Recommend daily dressing changes or leave to air, may cover with gauze for patient comfort From surgical standpoint for post-operative care, post-op status stable for discharge Pt to please follow [place] [facility] Diet After Obed Fundoplication Surgery as outpatient (2) GERD (gastroesophageal reflux disease) Status: Chronic As above. Pt tolerating liquids without difficulty. Qualifiers: Esophagitis presence: with esophagitis Qualified Code(s): K21.0 - Gastro- esophageal reflux disease with esophagitis (3) Hyponatremia Status: Acute Management per nephro and primary. (4) Malnutrition of moderate degree Status: Chronic Management per primary. (5) Essential hypertension Status: Chronic Management per primary team. (6) Increased white blood cell count Status: Resolved Resolved. Qualifiers: Leukocytosis type: unspecified Qualified Code(s): D72.829 - Elevated white blood cell count, unspecified (7) Anemia Status: Resolved Management per primary team. Qualifiers: Anemia type: other cause Other causes of anemia: acute posthemorrhagic Qualified Code(s): D62 - Acute posthemorrhagic anemia (8) Schizophrenia Status: Chronic Management per primary team. Pt has resumed PO home meds. Qualifiers: Schizophrenia type: unspecified Qualified Code(s): F20.9 - Schizophrenia, unspecified (9) DVT prophylaxis Status: Acute Per primary. Subjective Patient reports: no new complaints, afebrile Objective Vital Signs - Last 8 Hours Temp Pulse Resp BP Pulse Ox 10/20/17 07:36 98.4 F 72 18 142/83 93 10/20/17 03:45 98 F 60 17 157/77 92 Intake and Output 10/19/17 10/19/17 10/20/17 15:59 23:59 07:59 Intake Total 1060 / 1060 1400 / 1400 100 / 100 Output Total 1000 / 1000 Balance 60 / 60 1400 / 1400 100 / 100 Intake: IV Fluids 100 / 100 200 / 200 100 / 100 Protonix 40 MG In 0.9 % Sodium 100 / 100 200 / 200 100 / 100 Chloride (Mini-Bag +) 100 ML @ 20 mls/hr IVC .Q5H DELFINA Rx#: [id number] Oral 960 / 960 600 / 600 Free Water 600 / 600 Output: Urine 1000 / 1000 Other: Meal Lunch Dinner Percent of Meal Consumed 0% Stool Size Moderate Stool Consistency soft Stool Color [place] # Voids 1 # Bowel Movements 1 Weight 65 kg Blood Glucose* 80 112 114 Patient Weight 10/20/17 23:59 Weight 65 kg - General physical appearance no distress - Eyes normal ocular movement - Respiratory other (B/l equal breath sounds. No wheezing. No rales or rhonchi appreciated. ) - Cardiovascular Cardiovascular exam: Present: regular rhythm (+S1, S2 ). Absent: murmurs - Abdomen Abdomen: Present: bowel sounds present, soft, non tender - Incision Incision: Present: clean and dry, intact. Absent: draining, purulent - Labs 10/18/17 03:38 10/19/17 03:43 - VTE Documentation of Mechanical Device: Intermittent pneumatic compression device Consult Discharge Plan - Plan Instructions: Hiatal Hernia (DC), Adult Open Obed Fundoplication (DC) Additional Instructions: General Instructions After Obed Surgery 1. No pushing, pulling, or lifting greater than 15 lbs for two weeks. 2. You may shower beginning today, but no tub baths, soaking, or swimming for 2 weeks. 3. You may resume driving when you are off narcotics and are safe to react in a car. 4. Take narcotics as directed. Do not take more narcotics then directed and do not share your narcotics with any other person. Do not drink alcohol while on narcotics. 5. Take stool softeners (Colace) or a water based laxative (Miramax) while taking narcotics. You may hold for loose stools. 6. Report any fevers greater than 100.5F, increase abdominal discomfort, drainage that looks like pus, increased redness or pain at the surgical site, or any vomiting. 7. Report any pain in the calves, shortness of breath, or rapid heartbeat. 8. Continue to take your heartburn medications until directed to stop. Do not stop them abruptly as this can cause symptoms of reflux. 9. Do not drink alcohol or carbonated beverages. 10. Do not deviate from the recommended Obed diet below. Doing so can affect your outcomes. [place] [facility] Diet After Obed Fundoplication Surgery This diet information is for patients who have recently had Obed Fundoplication Surgery to correct reflux disease or to repair various types of hernias, such as hiatal hernia and intrathoracic stomach. This diet may also be used for other gastrointestinal surgeries, such as Heller myotomy and repair of achalasia. The diet will help control diarrhea, excess gas and swallowing problems, which may occur after this type of surgery. Important Steps to Keep Your Stomach From Stretching Eat small, frequent meals (six to eight per day). This will help you consume the majority of the nutrients you need without causing your stomach to feel full or distended. Drinking large amounts of fluids with meals can stretch your stomach. You may drink fluids between meals as often as you like, but limit fluids to 1/2 cup (4 fluid ounces) with meals and one cup (8 fluid ounces) with snacks. Sit upright while eating, and stay upright for 30 minutes after each meal. [place] can help food move through your digestive tract. Do not lie down after eating. Sit upright for 2 hours after your last meal or snack of the day. Eat very slowly. Take your time when eating. Take small bites and chew your food well to cotton ginner helper in swallowing and digestion. Avoid crusty breads and sticky, gummy foods, such as bananas, fresh doughy breads, rolls and doughnuts. These types of foods become sticky and difficult to swallow. Toasted breads tend to be better tolerated. Lastly, if you eat sweets, consume them at the end of your meal to avoid a group of symptoms referred to as dumping syndrome. This describes the rapid emptying of foods from the stomach to the small intestine. Sweetened beverages, candy and desserts move more rapidly and dump quickly into the intestines. This can cause symptoms of nausea, weakness, cold sweats, cramps, diarrhea and dizzy spells. Important Steps to Avoid Gas Do not drink through a straw, chew gum, or chew tobacco. These actions cause you to swallow air, which will produce excess gas in your stomach. Chew with your mouth closed and chew your food thoroughly. Avoid foods that cause stomach gas and distention. The foods include corn, dried beans, peas, lentils, onions, broccoli, cauliflower, and any food item from the cabbage family. Do not drink carbonated drinks, alcohol, citrus, or tomato products. What Will I Be Able To Eat and Drink After Surgery After Obed Fundoplication Surgery, your diet will be advanced slowly by your surgeon. Generally, you will be on a thin/clear liquid diet for the first 10 days. Then you will advance to the full liquid diet for 4 days and eventually to a Obed soft diet for 7 days. After any surgery, protein consumption is important for healing. To get enough protein, drink 3-4 [place] Instant Breakfast, Ensure, or equivalent daily. Reminder: Carbonated beverages (such as sodas, energy drinks, flavored carbonated water), and alcohol are not permitted for the 1st 6 to 8 weeks after surgery. After this time you may attempt to reintroduce them in small amounts. Please note: Dairy products such as milk, ice cream, and pudding may cause diarrhea in some people after surgery. You may need to avoid milk products. If so you may substitute them with lactose free beverages, such as soy, rice, lactate, or almond milk. Please be aware that each patient's tolerance to food is different. Your doctor will advance your diet depending on how well you progress after surgery. Thin Liquid Diet The first diet after Obed Fundoplication Surgery is the thin liquids diet. Follow this diet for postoperative days 1-10 [10/14/17]- [10/23/17]. Thin liquids include: Apple, Cranberry, or Grape Juice (no citrus juice) Chicken Broth Beef Broth Flavored Gelatin (Jell-O) Decaffeinated Tea or Coffee Popsicles or [place] Ice Caffeinated Beverages Will Be Permitted Based upon Tolerance and at a later date Dairy if tolerated Thin Milkshakes (strawberry or vanilla flavored- No chocolate) Drink 3-4 [place] instant breakfast, Ensure, or equivalent daily. May be mixed with dairy for thin milkshakes Full Liquid Diet Follow this diet for postoperative days 11-14 [10/24/17 ] - [10/27/17]. Full liquid diet includes anything in the thin liquid diet plus: Milk: Dairy, Soy, Rice, and [place] (No Chocolate) Cream of Wheat, Cream of Rice, Grits Strained Creamed Soups (No Tomato or Broccoli) Vanilla and [place] Flavored Ice Cream Sherbet Vanilla and Butterscotch Pudding (No Chocolate or Coconut) Continue 3-4 [place] Instant Breakfast, Ensure, or an Equivalent Daily. May be mixed with Dairy for Thin Milkshakes. Obed Soft Diet Follow this diet for postoperative days 15-20 [10/28/17 ] - [ 11/02/17]. (If you are consuming enough protein, you may stop the protein supplements). Please note: You will need extra fluids throughout the day to meet your fluid needs. Referrals: Bryce Canseco MD [Partnered Physician] - 10/26/17 1:40 pm (Hospital F/u; Repair of Paraesophageal Hernia and s/p Obed Fundoplication ) [facility] - Prescriptions: amLODIPine [Norvasc] 5 mg PO DAILY #30 tablet <Bryce Canseco - Last Filed: 10/21/17 07:35> Date of Encounter: 10/20/17 Objective Intake and Output 10/20/17 10/20/17 10/21/17 15:59 23:59 07:59 Intake Total 440 / 440 Balance 440 / 440 Intake: IV Fluids 200 / 200 Protonix 40 MG In 0.9 % Sodium 200 / 200 Chloride (Mini-Bag +) 100 ML @ 20 mls/hr IVC .Q5H DELFINA Rx#: [id number] Oral 240 / 240 Other: Meal Breakfast Percent of Meal Consumed 100% Blood Glucose* 78 - Labs 10/20/17 10:10 10/20/17 10:10 Diabetes panel 10/20/17 Range/Units 10:10 Sodium 132 L (136-145) mEq/L Potassium 4.1 (3.5-5.1) mEq/L Chloride 103 (98-107) mEq/L Carbon Dioxide 27 (23-29) mEq/L BUN 16 (8-23) mg/dL Creatinine 0.67 L (0.70-1.30) mg/dL Glucose 96 (70-105) mg/dL Calcium 7.9 L (8.6-10.3) mg/dL Calcium panel 10/20/17 Range/Units 10:10 Calcium 7.9 L (8.6-10.3) mg/dL Pituitary panel 10/20/17 Range/Units 10:10 Sodium 132 L (136-145) mEq/L Potassium 4.1 (3.5-5.1) mEq/L Chloride 103 (98-107) mEq/L Carbon Dioxide 27 (23-29) mEq/L BUN 16 (8-23) mg/dL Creatinine 0.67 L (0.70-1.30) mg/dL Glucose 96 (70-105) mg/dL Calcium 7.9 L (8.6-10.3) mg/dL Adrenal panel 10/20/17 Range/Units 10:10 Sodium 132 L (136-145) mEq/L Potassium 4.1 (3.5-5.1) mEq/L Chloride 103 (98-107) mEq/L Carbon Dioxide 27 (23-29) mEq/L BUN 16 (8-23) mg/dL Creatinine 0.67 L (0.70-1.30) mg/dL Glucose 96 (70-105) mg/dL Calcium 7.9 L (8.6-10.3) mg/dL - Attending Attestation I examined this patient and my medical decision-making was reviewed with the Resident Physician. I agree with the documented findings, disposition and treatment plan as described except to the extent set forth below. The patient is seen and evaluated with rest and on morning rounds. His diet is progressing well. He should be ready for discharge with a Obed fundoplication diet plan .Bryce Canseco MD FACS
--- NOTE | 2017-10-20 08:13 | Nephrology Progress Note ---
<Evans Dutta - Last Filed: 10/20/17 13:29> Date of Encounter: 10/20/17 Time of Encounter: 08:13 - Assessment and Plan (1) Hyponatremia Status: Acute Sodium improving, etiology of acute hyponatremia appears to be ADH excess post surgery along with decreased intake Continue salt tabs for now and liberalize sodium in diet when able Uric acid very low at 1.5 consistent with excess fluids from ADH TSH and cortisol WNL Patient is stable for discharge from nephrology standpoint Patient will need BMP in 1 week and outpatient nephrology follow up (2) Hyperkalemia Status: Acute Resolved once TPN stopped Kayexalate not necessary Continue to monitor (3) Hypomagnesemia Status: Acute Resolved Continue to monitor Subjective Principal diagnosis: Hyponatremia Interval history: Patient seen and examined sitting up n bedside chair. Patient denies any new c/ o and is tolerating PO intake. Patient reports good urine output and ambulating TID. Morning labs were delayed this AM. Objective - Vital Signs Vital signs: Vital Signs Temp Pulse Resp BP Pulse Ox 10/20/17 07:36 98.4 F 72 18 142/83 93 10/20/17 03:45 98 F 60 17 157/77 92 10/19/17 23:04 98.1 F 61 17 154/79 92 10/19/17 19:41 97.9 F 67 16 170/86 93 10/19/17 14:55 97.4 F L 63 16 154/84 92 10/19/17 12:02 98.0 F 70 16 145/65 90 Intake and Output 10/19/17 10/20/17 10/20/17 23:59 07:59 15:59 Intake Total 1400 / 1400 100 / 100 Balance 1400 / 1400 100 / 100 Intake: IV Fluids 200 / 200 100 / 100 Protonix 40 MG In 0.9 % Sodium 200 / 200 100 / 100 Chloride (Mini-Bag +) 100 ML @ 20 mls/hr IVC .Q5H DELFINA Rx#: [id number] Oral 600 / 600 Free Water 600 / 600 Other: Meal Dinner Stool Size Moderate Stool Consistency soft Stool Color [place] # Voids 1 # Bowel Movements 1 Weight 65 kg Blood Glucose* 112 114 Patient Weight 10/20/17 23:59 Weight 65 kg - General Appearance General appearance: Present: appears started age Exam: pleasant EENT: Present: ATNC, PERRL, mucous membranes moist Neck: Present: supple Respiratory: Present: clear Cardiology: Present: no murmurs, no rub, no gallops, regular rate, regular rhythm, normal S1, normal S2 Gastrointestinal: Present: normoactive bowel sounds, tenderness (midline abd incision C/D/I), no guarding, no organomegaly Integumentary: Present: no rash, warm and dry Neurologic: Present: no focal deficit, alert and oriented x3 Musculoskeletal: Present: no deformities, no erythema, no cyanosis Psychiatric: Present: mood/affect appropriate, cooperative - Lab 10/20/17 10:10 10/20/17 10:10 Most recent lab results Calcium 7.9 mg/dL (8.6-10.3) L 10/19/17 03:43 Phosphorus 3.0 mg/dL (2.7-4.5) 10/19/17 03:43 Magnesium 1.4 mg/dL (1.6-2.6) L 10/19/17 03:43 - VTE Documentation of Mechanical Device: Intermittent pneumatic compression device Consult Discharge Plan - Plan Instructions: Hiatal Hernia (DC), Adult Open Obed Fundoplication (DC) Additional Instructions: General Instructions After Obed Surgery 1. No pushing, pulling, or lifting greater than 15 lbs for two weeks. 2. You may shower beginning today, but no tub baths, soaking, or swimming for 2 weeks. 3. You may resume driving when you are off narcotics and are safe to react in a car. 4. Take narcotics as directed. Do not take more narcotics then directed and do not share your narcotics with any other person. Do not drink alcohol while on narcotics. 5. Take stool softeners (Colace) or a water based laxative (Miramax) while taking narcotics. You may hold for loose stools. 6. Report any fevers greater than 100.5F, increase abdominal discomfort, drainage that looks like pus, increased redness or pain at the surgical site, or any vomiting. 7. Report any pain in the calves, shortness of breath, or rapid heartbeat. 8. Continue to take your heartburn medications until directed to stop. Do not stop them abruptly as this can cause symptoms of reflux. 9. Do not drink alcohol or carbonated beverages. 10. Do not deviate from the recommended Obed diet below. Doing so can affect your outcomes. [facility] Diet After Obed Fundoplication Surgery This diet information is for patients who have recently had Obed Fundoplication Surgery to correct reflux disease or to repair various types of hernias, such as hiatal hernia and intrathoracic stomach. This diet may also be used for other gastrointestinal surgeries, such as Heller myotomy and repair of achalasia. The diet will help control diarrhea, excess gas and swallowing problems, which may occur after this type of surgery. Important Steps to Keep Your Stomach From Stretching Eat small, frequent meals (six to eight per day). This will help you consume the majority of the nutrients you need without causing your stomach to feel full or distended. Drinking large amounts of fluids with meals can stretch your stomach. You may drink fluids between meals as often as you like, but limit fluids to 1/2 cup (4 fluid ounces) with meals and one cup (8 fluid ounces) with snacks. Sit upright while eating, and stay upright for 30 minutes after each meal. [place] can help food move through your digestive tract. Do not lie down after eating. Sit upright for 2 hours after your last meal or snack of the day. Eat very slowly. Take your time when eating. Take small bites and chew your food well to stretcher leveler operator helper in swallowing and digestion. Avoid crusty breads and sticky, gummy foods, such as bananas, fresh doughy breads, rolls and doughnuts. These types of foods become sticky and difficult to swallow. Toasted breads tend to be better tolerated. Lastly, if you eat sweets, consume them at the end of your meal to avoid a group of symptoms referred to as dumping syndrome. This describes the rapid emptying of foods from the stomach to the small intestine. Sweetened beverages, candy and desserts move more rapidly and dump quickly into the intestines. This can cause symptoms of nausea, weakness, cold sweats, cramps, diarrhea and dizzy spells. Important Steps to Avoid Gas Do not drink through a straw, chew gum, or chew tobacco. These actions cause you to swallow air, which will produce excess gas in your stomach. Chew with your mouth closed and chew your food thoroughly. Avoid foods that cause stomach gas and distention. The foods include corn, dried beans, peas, lentils, onions, broccoli, cauliflower, and any food item from the cabbage family. Do not drink carbonated drinks, alcohol, citrus, or tomato products. What Will I Be Able To Eat and Drink After Surgery After Obed Fundoplication Surgery, your diet will be advanced slowly by your surgeon. Generally, you will be on a thin/clear liquid diet for the first 10 days. Then you will advance to the full liquid diet for 4 days and eventually to a Obed soft diet for 7 days. After any surgery, protein consumption is important for healing. To get enough protein, drink 3-4 [place] Instant Breakfast, Ensure, or equivalent daily. Reminder: Carbonated beverages (such as sodas, energy drinks, flavored carbonated water), and alcohol are not permitted for the 1st 6 to 8 weeks after surgery. After this time you may attempt to reintroduce them in small amounts. Please note: Dairy products such as milk, ice cream, and pudding may cause diarrhea in some people after surgery. You may need to avoid milk products. If so you may substitute them with lactose free beverages, such as soy, rice, lactate, or almond milk. Please be aware that each patient's tolerance to food is different. Your doctor will advance your diet depending on how well you progress after surgery. Thin Liquid Diet The first diet after Obed Fundoplication Surgery is the thin liquids diet. Follow this diet for postoperative days 1-10 [10/14/17]- [10/23/17]. Thin liquids include: Apple, Cranberry, or Grape Juice (no citrus juice) Chicken Broth Beef Broth Flavored Gelatin (Jell-O) Decaffeinated Tea or Coffee Popsicles or [place] Ice Caffeinated Beverages Will Be Permitted Based upon Tolerance and at a later date Dairy if tolerated Thin Milkshakes (strawberry or vanilla flavored- No chocolate) Drink 3-4 [place] instant breakfast, Ensure, or equivalent daily. May be mixed with dairy for thin milkshakes Full Liquid Diet Follow this diet for postoperative days 11-14 [10/24/17 ] - [10/27/17]. Full liquid diet includes anything in the thin liquid diet plus: Milk: Dairy, Soy, Rice, and [place] (No Chocolate) Cream of Wheat, Cream of Rice, Grits Strained Creamed Soups (No Tomato or Broccoli) Vanilla and [place] Flavored Ice Cream Sherbet Vanilla and Butterscotch Pudding (No Chocolate or Coconut) Continue 3-4 [place] Instant Breakfast, Ensure, or an Equivalent Daily. May be mixed with Dairy for Thin Milkshakes. Obed Soft Diet Follow this diet for postoperative days 15-20 [10/28/17 ] - [ 11/02/17]. (If you are consuming enough protein, you may stop the protein supplements). Please note: You will need extra fluids throughout the day to meet your fluid needs. Referrals: Bryce Canseco MD [Partnered Physician] - 10/26/17 1:40 pm (Hospital F/u; Repair of Paraesophageal Hernia and s/p Obed Fundoplication ) [facility] - Prescriptions: amLODIPine [Norvasc] 5 mg PO DAILY #30 tablet <Irlanda Douglas - Last Filed: 11/16/17 23:33> Date of Encounter: 10/20/17 - Assessment and Plan (1) Hyponatremia Status: Acute (2) Hyperkalemia Status: Acute Objective - Lab 10/20/17 10:10 10/20/17 10:10 Most recent lab results Calcium 7.9 mg/dL (8.6-10.3) L 10/20/17 10:10 Phosphorus 3.0 mg/dL (2.7-4.5) 10/19/17 03:43 Magnesium 1.8 mg/dL (1.6-2.6) 10/20/17 10:10 - Attending Attestation I examined this patient and my medical decision-making was reviewed with the Resident Physician. I agree with the documented findings, disposition and treatment plan as described except to the extent set forth below. Pt seen and examined sitting up in bed, no new complaints. Sodium stable at 132. Continue salt tabs. Potassium normalized. okay to discharge from a renal standpoint. Repeat BMP in a week. followup within 4 weeks with nephrology.
[2017-10-20] MEDS: Nicotine 7 MG PATCH.TD24 TD SCH (08:30)
[2017-10-20] MEDS: amLODIPine 5 MG TABLET PO SCH (08:31)
[2017-10-20] MEDS: Valproic Acid Oral Soln 250 MG/5 ML UDC PO SCH (08:31)
[2017-10-20] MEDS: ARIPiprazole 5 MG TABLET PO SCH (08:31)
[2017-10-20 10:50] LABS: Hematocrit 30.1 % (37.5-50.1); Hemoglobin 9.4 g/dL (12.9-16.9); Mean Corpuscular HGB Conc 31.2 g/dL (31.6-35.5); Mean Corpuscular Hemoglobin 28.1 pg (28.0-33.3); Mean Corpuscular Volume 89.9 fL (83.0-100.0); Mean Platelet Volume 9.7 fL (9.4-12.4); Platelet Count 276 K/mcL (140-400); Red Blood Count 3.35 M/mcL (4.19-5.50); Red Cell Distribution Width 14.8 % (11.5-14.5)
[2017-10-20 11:16] LABS: BUN/Creatinine Ratio 24 (6-26); Blood Urea Nitrogen 16 mg/dL (8-23); Calcium 7.9 mg/dL (8.6-10.3); Carbon Dioxide 27 mEq/L (23-29); Chloride 103 mEq/L (98-107); Glucose 96 mg/dL (70-105); Magnesium 1.8 mg/dL (1.6-2.6); Osmolality,Calculated 275 (280-300); Potassium 4.1 mEq/L (3.5-5.1); Sodium 132 mEq/L (136-145); eGFR For African Americans > 60 (> 60); eGFR For Non-African Americans > 60 (> 60)
[2017-10-20] MEDS ORDERED: FLUPHENAZINE DECANOATE IM SCH (13:15)
[2017-10-20 15:26] VITALS: BP 139/84
--- NOTE | 2017-10-20 17:52 | Discharge Summary ---
Date of Encounter: 10/20/17 Time of Encounter: 17:48 - Discharge Diagnosis (1) Status post Obed fundoplication Priority: Primary Status: Acute (2) Hyponatremia Priority: Secondary Status: Acute (3) Upper gastrointestinal bleed Priority: Secondary Status: Acute (4) Essential hypertension Priority: Secondary Status: Chronic (5) GERD (gastroesophageal reflux disease) Priority: Secondary Status: Chronic Qualifiers: Esophagitis presence: with esophagitis Qualified Code(s): K21.0 - Gastro- esophageal reflux disease with esophagitis (6) Malnutrition of moderate degree Priority: Secondary Status: Chronic (7) Schizophrenia Priority: Secondary Status: Chronic Qualifiers: Schizophrenia type: unspecified Qualified Code(s): F20.9 - Schizophrenia, unspecified (8) Acute urinary retention Priority: Secondary Status: Resolved (9) Anemia Priority: Secondary Status: Resolved Qualifiers: Anemia type: other cause Other causes of anemia: acute posthemorrhagic Qualified Code(s): D62 - Acute posthemorrhagic anemia (10) Chest pain Priority: Secondary Status: Resolved Qualifiers: Chest pain type: other chest pain Qualified Code(s): R07.89 - Other chest pain; R07.8 - Other chest pain (11) COPD (chronic obstructive pulmonary disease) Priority: Secondary Status: Acute Qualifiers: COPD type: chronic bronchitis Chronic bronchitis type: unspecified Qualified Code(s): J42 - Unspecified chronic bronchitis - Discharge Medications Prescriptions: amLODIPine [Norvasc] 5 mg PO DAILY #30 tablet Home Medications: ARIPiprazole [Abilify] 5 mg PO QAM 09/17/17 [History] Benztropine Mesylate 1 mg PO BID 09/17/17 [History] Cetirizine HCl [All Day Allergy] 10 mg PO DAILY 09/17/17 [History] Multivit-Minerals/Ferrous Fum [Complete Multivit-Mineral Liq] 10 ml PO DAILY [History] Mupirocin 1 appl TP TID 09/17/17 [History] Naproxen [Naprosyn] 500 mg PO BID PRN 09/17/17 [History] OLANZapine [Zyprexa] 2.5 mg PO Q8H PRN 09/17/17 [History] OLANZapine [Zyprexa] 20 mg PO HS 09/17/17 [History] Olodaterol HCl [Striverdi Respimat] 2 puff IH DAILY 09/17/17 [History] Pantoprazole Sodium [Protonix] 40 mg PO BID 09/17/17 [History] Valproic Acid Oral Soln [Depakene Oral Soln] 500 mg PO DAILY 09/17/17 [History] fluPHENAZine decanoate [Fluphenazine Decanoate] 87.5 mg IM Q2W 09/17/17 [History ] Calcium Carbonate/Vitamin D3 [Calcium 500-Vit D3 200 Tablet] 1 each PO BID 09/24 [History] Citalopram Hydrobromide [Citalopram HBr] 10 mg PO DAILY 09/24/17 [History] Docusate [Colace] 100 mg PO BID 09/24/17 [History] Levalbuterol Tartrate [Xopenex Hfa] 2 puff IH Q6H PRN 09/24/17 [History] hydrOXYzine pamoate [HydrOXYzine Pamoate] 25 mg PO QID PRN 09/24/17 [History] Losartan [Cozaar] 50 mg PO DAILY #0 09/30/17 [Rx] Metoprolol [Lopressor] 12.5 mg PO BID #15 tablet 09/30/17 [Rx] Sucralfate [Carafate] 1 gm PO QIDAC 30 Days udc 09/30/17 [Rx] amLODIPine [Norvasc] 5 mg PO DAILY #30 tablet 10/20/17 [Rx] Allergies/Adverse Reactions: 3 Allergy/AdvReac Type Severity Reaction Status Date / Time azithromycin [From Zithromax] AdvReac See Verified 09/24/17 16:55 Comments Thiothixene [From Navane] AdvReac See Verified 09/24/17 16:55 Comments Date of admission: 10/07/17 01:01 Primary care physician: PCP [facility] Consults: 10/07/17 10:22 Consult to Gastroenterology [CONS] Routine Consulting Provider: Gastroenterology [facility] Reason for Consult: GI bleed, hematemasis Call Completed: Yes 10/07/17 11:57 Consult to Office Communication Professor [CONS] Routine Reason for SW Consult: From [facility] 10/08/17 14:46 Consult to Occupational Therapy [CONS] Routine Comment: Evaluate, develop and implement POC Reason for Consult: discharge planning Consult to Physical Therapy [CONS] Routine Comment: Evaluate, develop and implement POC Reason for Consult: discharge planning 10/09/17 13:24 Consult to Surgery [CONS] Routine Consulting Provider: Surgery [facility] Reason for Consult: J-tube placement Call Completed: Yes 10/11/17 10:00 consult to wash driller helper [Consult to Nutrition] [CONS] Routine Comment: Consulting Provider: NUTRITION Reason for Dietary Consult: TPN Start and Manage 10/11/17 10:01 Consult to PICC team [Consult to Invasive Line Access Team] [CONS] Routine Reason for Consult: TPN - PT has PoIvan Carmela Knapp. Line Type: PICC 10/11/17 14:43 Consult to Invasive Line Access Team [CONS] Routine Reason for Consult: Picc Line Insertion Line Type: PICC 10/15/17 12:08 Consult to Nephrology [CONS] Routine Consulting Provider: Kidney [facility]/CHERI/NICK/EFRAIN Reason for Consult: hyponatremia and pre-renal azotemia post-op Time Notified: 12:05 Call Completed: Yes Discharging clinician: Lakia Morris - Patient Status Disposition: Home, Self-Care Condition: Fair Functional capacity at discharge: independent ambulation Overall status at discharge: patient is progressing back to baseline - Discharge Instructions Follow Up With: Bryce Canseco MD [Partnered Physician] - 10/26/17 1:40 pm (Hospital F/u; Repair of Paraesophageal Hernia and s/p Obed Fundoplication ) [facility] - Additional Instructions: General Instructions After Obed Surgery 1. No pushing, pulling, or lifting greater than 15 lbs for two weeks. 2. You may shower beginning today, but no tub baths, soaking, or swimming for 2 weeks. 3. You may resume driving when you are off narcotics and are safe to react in a car. 4. Take narcotics as directed. Do not take more narcotics then directed and do not share your narcotics with any other person. Do not drink alcohol while on narcotics. 5. Take stool softeners (Colace) or a water based laxative (Miramax) while taking narcotics. You may hold for loose stools. 6. Report any fevers greater than 100.5F, increase abdominal discomfort, drainage that looks like pus, increased redness or pain at the surgical site, or any vomiting. 7. Report any pain in the calves, shortness of breath, or rapid heartbeat. 8. Continue to take your heartburn medications until directed to stop. Do not stop them abruptly as this can cause symptoms of reflux. 9. Do not drink alcohol or carbonated beverages. 10. Do not deviate from the recommended Obed diet below. Doing so can affect your outcomes. [facility] Diet After Obed Fundoplication Surgery This diet information is for patients who have recently had Obed Fundoplication Surgery to correct reflux disease or to repair various types of hernias, such as hiatal hernia and intrathoracic stomach. This diet may also be used for other gastrointestinal surgeries, such as Heller myotomy and repair of achalasia. The diet will help control diarrhea, excess gas and swallowing problems, which may occur after this type of surgery. Important Steps to Keep Your Stomach From Stretching Eat small, frequent meals (six to eight per day). This will help you consume the majority of the nutrients you need without causing your stomach to feel full or distended. Drinking large amounts of fluids with meals can stretch your stomach. You may drink fluids between meals as often as you like, but limit fluids to 1/2 cup (4 fluid ounces) with meals and one cup (8 fluid ounces) with snacks. Sit upright while eating, and stay upright for 30 minutes after each meal. [place] can help food move through your digestive tract. Do not lie down after eating. Sit upright for 2 hours after your last meal or snack of the day. Eat very slowly. Take your time when eating. Take small bites and chew your food well to maintenance construction helper in swallowing and digestion. Avoid crusty breads and sticky, gummy foods, such as bananas, fresh doughy breads, rolls and doughnuts. These types of foods become sticky and difficult to swallow. Toasted breads tend to be better tolerated. Lastly, if you eat sweets, consume them at the end of your meal to avoid a group of symptoms referred to as dumping syndrome. This describes the rapid emptying of foods from the stomach to the small intestine. Sweetened beverages, candy and desserts move more rapidly and dump quickly into the intestines. This can cause symptoms of nausea, weakness, cold sweats, cramps, diarrhea and dizzy spells. Important Steps to Avoid Gas Do not drink through a straw, chew gum, or chew tobacco. These actions cause you to swallow air, which will produce excess gas in your stomach. Chew with your mouth closed and chew your food thoroughly. Avoid foods that cause stomach gas and distention. The foods include corn, dried beans, peas, lentils, onions, broccoli, cauliflower, and any food item from the cabbage family. Do not drink carbonated drinks, alcohol, citrus, or tomato products. What Will I Be Able To Eat and Drink After Surgery After Obed Fundoplication Surgery, your diet will be advanced slowly by your surgeon. Generally, you will be on a thin/clear liquid diet for the first 10 days. Then you will advance to the full liquid diet for 4 days and eventually to a Obed soft diet for 7 days. After any surgery, protein consumption is important for healing. To get enough protein, drink 3-4 [place] Instant Breakfast, Ensure, or equivalent daily. Reminder: Carbonated beverages (such as sodas, energy drinks, flavored carbonated water), and alcohol are not permitted for the 1st 6 to 8 weeks after surgery. After this time you may attempt to reintroduce them in small amounts. Please note: Dairy products such as milk, ice cream, and pudding may cause diarrhea in some people after surgery. You may need to avoid milk products. If so you may substitute them with lactose free beverages, such as soy, rice, lactate, or almond milk. Please be aware that each patient's tolerance to food is different. Your doctor will advance your diet depending on how well you progress after surgery. Thin Liquid Diet The first diet after Obed Fundoplication Surgery is the thin liquids diet. Follow this diet for postoperative days 1-10 [10/14/17]- [10/23/17]. Thin liquids include: Apple, Cranberry, or Grape Juice (no citrus juice) Chicken Broth Beef Broth Flavored Gelatin (Jell-O) Decaffeinated Tea or Coffee Popsicles or [place] Ice Caffeinated Beverages Will Be Permitted Based upon Tolerance and at a later date Dairy if tolerated Thin Milkshakes (strawberry or vanilla flavored- No chocolate) Drink 3-4 [place] instant breakfast, Ensure, or equivalent daily. May be mixed with dairy for thin milkshakes Full Liquid Diet Follow this diet for postoperative days 11-14 [10/24/17 ] - [10/27/17]. Full liquid diet includes anything in the thin liquid diet plus: Milk: Dairy, Soy, Rice, and [place] (No Chocolate) Cream of Wheat, Cream of Rice, Grits Strained Creamed Soups (No Tomato or Broccoli) Vanilla and [place] Flavored Ice Cream Sherbet Vanilla and Butterscotch Pudding (No Chocolate or Coconut) Continue 3-4 [place] Instant Breakfast, Ensure, or an Equivalent Daily. May be mixed with Dairy for Thin Milkshakes. Obed Soft Diet Follow this diet for postoperative days 15-20 [10/28/17 ] - [ 11/02/17]. (If you are consuming enough protein, you may stop the protein supplements). Please note: You will need extra fluids throughout the day to meet your fluid needs. - Diet and Activity Activity: increase activity as tolerated Diet: advance to your usual diet Interval History: Mr. Roa is a 62 year old male with history of schizophrenia, COPD, GERD, reflux esophagitis, and recent admission for sepsis/HCAP and GI bleed who presents to the ED with recurrence of hematemesis. He had fatigue, SOB, and discomfort in his chest that is relatively constant. He went to his PCP at the [facility] for follow-up, and he was referred to ED for abnormal labs. He does admit to a swollen left leg that is abnormal. During his last admission he had an EGD (09/27/17) which demonstrated severe reflux esophagitis, non-bleeding ulcers and a large hiatal hernia. Patient had hemoglobin of 7.7 in ED. He was transfused 2 units of PRBC, started on protonix drip and carafate. GI and Surgery were consulted as patient. Repeat EGD on 10/07/17 showed 2 large esophageal ulcers with spontaneous bleeding. He underwent paraesophageal hernia and Obed fundoplication on 10/13 and tolerated procedure without issue. Patient had hyponatremia persistently and Nephrology was consulted. Likely this was postoperative hyponatremia likely ADH excess with TPN use. Patient was treated with supplementing sodium. TPN stopped, patient was able to to advance diet without issue. Nephrology recommends continuing salt tabs and liberalizing sodium in diet until outpatient follow-up in one week. - Time Spent with Patient Total time spent providing and/or coordinating discharge services: - Constitutional Vitals: Temp Pulse Resp BP Pulse Ox 98.2 F 71 16 139/84 93 10/20/17 15:25 10/20/17 15:25 10/20/17 15:25 10/20/17 15:25 10/20/17 15:25 General appearance: Present: cooperative, A&O X 3, pleasant, answers questions appropriately Exam: HEENT: oropharynx clear, Normocephalic, atraumatic Neck: Supple. No adenopathy. Cardiac: RRR, no murmur, +S1/S2 Pulmonary: diffusely rhonchorous without obvious wheezes or crackles Abdomen: soft, nontender, BS noted, no guarding Back: Nontender throughout. MSK: ROM intact, no joint swelling noted Extremities: 2+ edema LLE Neuro: A&Ox3, moves all extremities, no focal deficits Psych: Appropriate mood and behavior - VTE Documentation of Mechanical Device: Intermittent pneumatic compression device
== END 2017-10-20 20:27 | disposition home or self-care (01) | DRG 327 ==
LOC: 2NENU 15:44 → EMEROO 15:44 → 2NENU 21:35 → 3BNU 10-10 15:19
PROVIDERS: ADMIT Pediatrics; ATTEND Internal Medicine
PROC: ENDOEBX (2017-10-07 16:00)

== ENCOUNTER 2020-08-02 18:29 | Observation (INO) ==
[2020-08-02] MEDS ORDERED: Acetaminophen 325 MG TABLET PO ONE (18:46)
[2020-08-02] MEDS ORDERED: Dexamethasone 4 MG/ML VIAL IVP ONE (18:47)
[2020-08-02 19:00] LABS: Basophils % 0.2 %; Eosinophils % 0.1 %; Hematocrit 36.3 % (37.5-50.1); Hemoglobin 11.7 g/dL (12.9-16.9); Immature Granulocytes % 0.4 % (0-4); Lymphocytes # 0.7 K/mcL (0.6-4.6); Lymphocytes % 3.1 %; Mean Corpuscular HGB Conc 32.2 g/dL (31.6-35.5); Mean Corpuscular Hemoglobin 30.8 pg (28.0-33.3); Mean Corpuscular Volume 95.5 fL (83.0-100.0); Mean Platelet Volume 9.3 fL (9.4-12.4); Monocytes # 0.9 K/mcL (0.0-1.3); Monocytes % 3.9 %; Neutrophils # 20.5 K/mcL (1.6-8.9); Platelet Count 302 K/mcL (140-400); Red Cell Distribution Width 13.6 % (11.5-14.5); Segmented Neutrophils % 92.3 %; White Blood Count 22.2 K/mcL (4.3-11.1)
[2020-08-02 19:05] LABS: INR 1.1; Prothrombin Time 13.1 Seconds (9.4-12.1)
[2020-08-02 19:06] LABS: Activated Partial Thrombo Time 34.2 Seconds (26.0-36.0)
[2020-08-02 19:33] LABS: Alanine Aminotransferase 13 Units/L (7-52); Albumin 3.8 g/dL (3.5-5.7); Albumin/Globulin Ratio 1.2 (1.1-2.2); Alkaline Phosphatase 76 Units/L (34-104); Aspartate Amino Transferase 19 Units/L (13-39); BUN/Creatinine Ratio 16 (6-26); Bilirubin,Direct 0.1 mg/dL (0.0-0.2); Bilirubin,Indirect 0.5 mg/dL (0.0-1.0); Bilirubin,Total 0.6 mg/dL (0.3-1.0); Blood Urea Nitrogen 13 mg/dL (8-23); C-Reactive Protein 63 mg/L (Less than 10); Calcium 9.1 mg/dL (8.6-10.3); Carbon Dioxide 29 mEq/L (23-29); Chloride 95 mEq/L (98-107); Globulin 3.1 g/dL (2.4-3.5); Glucose 121 mg/dL (70-105); Lactate Dehydrogenase 137 Units/L (140-271); Magnesium 1.6 mg/dL (1.6-2.6); Osmolality,Calculated 273 (280-300); Phosphorous 3.4 mg/dL (2.7-4.5); Sodium 131 mEq/L (136-145); Total Protein 6.9 g/dL (6.4-8.9); Troponin I 0.04 ng/mL (< 0.04); eGFR For African Americans > 60 (> 60); eGFR For Non-African Americans > 60 (> 60)
[2020-08-02 19:39] LABS: Ferritin 77 ng/mL (20-250)
[2020-08-02] MEDS ORDERED: levoFLOXacin 750 MG/150 ML 750 MG/150 ML BAG IVPB SCH (20:30)
[2020-08-02] MEDS ORDERED: Doxycycline 100 MG in 0.9 % Sodium Chloride Mini Bag 100 ML IVPB ONE (20:53)
[2020-08-02] MEDS ORDERED: cefTRIAXone 1,000 MG in Water for inj. (sterile) 10 ML IVP ONE (20:53)
[2020-08-02] MEDS ORDERED: Acetaminophen 325 MG TABLET PO PRN (21:46)
[2020-08-02] MEDS ORDERED: Naloxone 0.4 MG/ML INJ IVP PRN (21:46)
[2020-08-02] MEDS ORDERED: Ondansetron 4 MG/2 ML VIAL IVP PRN (21:46)
[2020-08-02] MEDS ORDERED: Nicotine 2 MG GUM BC PRN (21:49)
[2020-08-02] MEDS ORDERED: Ipratropium/Albuterol Neb 3 ML IH PRN (21:50)
[2020-08-03 03:35] LABS: Basophils % 0.1 %; Hematocrit 35.4 % (37.5-50.1); Hemoglobin 11.4 g/dL (12.9-16.9); Immature Granulocytes % 0.5 % (0-4); Lymphocytes # 0.3 K/mcL (0.6-4.6); Lymphocytes % 2.4 %; Mean Corpuscular HGB Conc 32.2 g/dL (31.6-35.5); Mean Corpuscular Hemoglobin 30.8 pg (28.0-33.3); Mean Corpuscular Volume 95.7 fL (83.0-100.0); Mean Platelet Volume 9.6 fL (9.4-12.4); Monocytes # 0.1 K/mcL (0.0-1.3); Monocytes % 0.7 %; Neutrophils # 13.8 K/mcL (1.6-8.9); Platelet Count 296 K/mcL (140-400); Red Cell Distribution Width 13.4 % (11.5-14.5); Segmented Neutrophils % 96.3 %; White Blood Count 14.4 K/mcL (4.3-11.1)
[2020-08-03 03:45] LABS: INR 1.2; Prothrombin Time 13.5 Seconds (9.4-12.1)
[2020-08-03 03:47] LABS: BUN/Creatinine Ratio 21 (6-26); Blood Urea Nitrogen 14 mg/dL (8-23); Calcium 8.9 mg/dL (8.6-10.3); Carbon Dioxide 29 mEq/L (23-29); Chloride 96 mEq/L (98-107); Glucose 174 mg/dL (70-105); Magnesium 1.6 mg/dL (1.6-2.6); Osmolality,Calculated 277 (280-300); Potassium 4.2 mEq/L (3.5-5.1); Sodium 131 mEq/L (136-145); eGFR For African Americans > 60 (> 60); eGFR For Non-African Americans > 60 (> 60)
[2020-08-03] MEDS: Ipratropium/Albuterol Neb 3 ML IH SCH ×6 (04:14→20:09)
[2020-08-03 05:25] LABS: Troponin I 0.04 ng/mL (< 0.04)
[2020-08-03] MEDS: *HR* Enoxaparin 40 MG/0.4 ML SYRINGE SQ SCH (05:57)
[2020-08-03] MEDS: Doxycycline 100 MG in 0.9 % Sodium Chloride Mini Bag 100 ML IVPB SCH ×2 (05:57→17:40)
[2020-08-03] MEDS: Valproic Acid Oral Soln 250 MG/5 ML UDC PO SCH (08:44)
[2020-08-03] MEDS: ARIPiprazole 10 MG TABLET PO SCH (08:44)
[2020-08-03] MEDS: Pyridoxine (B-6) 50 MG TABLET PO SCH (08:45)
[2020-08-03] MEDS: OLANZapine 5 MG TAB.RAPDIS PO SCH ×2 (08:46→17:41)
[2020-08-03] MEDS: Loratadine 10 MG TABLET PO SCH (08:46)
[2020-08-03] MEDS: cefTRIAXone 1,000 MG in 0.9 % Sodium Chloride Mini Bag 100 ML IVP SCH (08:47)
[2020-08-03] MEDS: OLANZapine 10 MG TAB.RAPDIS PO SCH (20:24)
[2020-08-03] MEDS: Nicotine 21 MG PATCH.TD24 TD SCH (20:24)
[2020-08-03] MEDS: traZODone 50 MG TABLET PO SCH (20:24)
[2020-08-04] MEDS: Ipratropium/Albuterol Neb 3 ML IH SCH ×6 (03:58→20:18)
[2020-08-04] MEDS: *HR* Enoxaparin 40 MG/0.4 ML SYRINGE SQ SCH (05:30)
[2020-08-04] MEDS: Doxycycline 100 MG in 0.9 % Sodium Chloride Mini Bag 100 ML IVPB SCH ×2 (05:31→16:58)
[2020-08-04] MEDS: Pyridoxine (B-6) 50 MG TABLET PO SCH (08:04)
[2020-08-04] MEDS: Valproic Acid Oral Soln 250 MG/5 ML UDC PO SCH (08:04)
[2020-08-04] MEDS: Loratadine 10 MG TABLET PO SCH (08:04)
[2020-08-04] MEDS: ARIPiprazole 10 MG TABLET PO SCH (08:05)
[2020-08-04] MEDS: Nicotine 21 MG PATCH.TD24 TD SCH (08:05)
[2020-08-04] MEDS: OLANZapine 5 MG TAB.RAPDIS PO SCH ×2 (08:05→16:58)
[2020-08-04] MEDS: cefTRIAXone 1,000 MG in 0.9 % Sodium Chloride Mini Bag 100 ML IVP SCH (08:06)
[2020-08-04 08:37] LABS: Basophils % 0.4 %; Eosinophils # 0.1 K/mcL (0.0-0.6); Eosinophils % 0.6 %; Hematocrit 36.4 % (37.5-50.1); Hemoglobin 11.8 g/dL (12.9-16.9); Immature Granulocytes % 0.5 % (0-4); Lymphocytes # 1.2 K/mcL (0.6-4.6); Lymphocytes % 10.8 %; Mean Corpuscular HGB Conc 32.4 g/dL (31.6-35.5); Mean Corpuscular Hemoglobin 31.1 pg (28.0-33.3); Mean Platelet Volume 9.4 fL (9.4-12.4); Monocytes # 0.8 K/mcL (0.0-1.3); Monocytes % 7.3 %; Neutrophils # 8.7 K/mcL (1.6-8.9); Platelet Count 323 K/mcL (140-400); Red Blood Count 3.79 M/mcL (4.19-5.50); Red Cell Distribution Width 13.7 % (11.5-14.5); Segmented Neutrophils % 80.4 %; White Blood Count 10.7 K/mcL (4.3-11.1)
[2020-08-04 08:57] LABS: BUN/Creatinine Ratio 22 (6-26); Blood Urea Nitrogen 16 mg/dL (8-23); Calcium 9.1 mg/dL (8.6-10.3); Carbon Dioxide 28 mEq/L (23-29); Chloride 99 mEq/L (98-107); Glucose 81 mg/dL (70-105); Osmolality,Calculated 276 (280-300); Potassium 4.2 mEq/L (3.5-5.1); Sodium 133 mEq/L (136-145); eGFR For African Americans > 60 (> 60); eGFR For Non-African Americans > 60 (> 60)
[2020-08-04] MEDS: hydrOXYzine pamoate 25 MG CAPSULE PO SCH ×3 (13:10→20:51)
[2020-08-04] MEDS: traZODone 50 MG TABLET PO SCH (20:50)
[2020-08-04] MEDS: OLANZapine 10 MG TAB.RAPDIS PO SCH (20:51)
[2020-08-05] MEDS: Ipratropium/Albuterol Neb 3 ML IH SCH ×4 (00:15→12:11)
[2020-08-05 04:25] LABS: Basophils % 0.4 %; Eosinophils # 0.2 K/mcL (0.0-0.6); Eosinophils % 2.6 %; Hemoglobin 11.2 g/dL (12.9-16.9); Immature Granulocytes % 0.6 % (0-4); Lymphocytes # 1.5 K/mcL (0.6-4.6); Lymphocytes % 17.5 %; Mean Corpuscular HGB Conc 32.9 g/dL (31.6-35.5); Mean Corpuscular Hemoglobin 31.4 pg (28.0-33.3); Mean Corpuscular Volume 95.2 fL (83.0-100.0); Mean Platelet Volume 9.4 fL (9.4-12.4); Monocytes # 0.9 K/mcL (0.0-1.3); Neutrophils # 5.7 K/mcL (1.6-8.9); Platelet Count 305 K/mcL (140-400); Red Blood Count 3.57 M/mcL (4.19-5.50); Red Cell Distribution Width 13.5 % (11.5-14.5); Segmented Neutrophils % 67.9 %; White Blood Count 8.3 K/mcL (4.3-11.1)
[2020-08-05 04:44] LABS: BUN/Creatinine Ratio 23 (6-26); Blood Urea Nitrogen 15 mg/dL (8-23); Calcium 8.6 mg/dL (8.6-10.3); Carbon Dioxide 27 mEq/L (23-29); Chloride 101 mEq/L (98-107); Glucose 91 mg/dL (70-105); Osmolality,Calculated 278 (280-300); Potassium 4.1 mEq/L (3.5-5.1); Sodium 134 mEq/L (136-145); eGFR For African Americans > 60 (> 60); eGFR For Non-African Americans > 60 (> 60)
[2020-08-05] MEDS: Doxycycline 100 MG in 0.9 % Sodium Chloride Mini Bag 100 ML IVPB SCH (05:56)
[2020-08-05] MEDS: *HR* Enoxaparin 40 MG/0.4 ML SYRINGE SQ SCH (05:56)
[2020-08-05 06:57] VITALS: BP 145/79
[2020-08-05] MEDS: hydrOXYzine pamoate 25 MG CAPSULE PO SCH (08:46)
[2020-08-05] MEDS: Pyridoxine (B-6) 50 MG TABLET PO SCH (08:47)
[2020-08-05] MEDS: OLANZapine 5 MG TAB.RAPDIS PO SCH (08:50)
[2020-08-05] MEDS: ARIPiprazole 10 MG TABLET PO SCH (08:50)
[2020-08-05] MEDS: Valproic Acid Oral Soln 250 MG/5 ML UDC PO SCH (08:52)
[2020-08-05] MEDS: Nicotine 21 MG PATCH.TD24 TD SCH (08:53)
[2020-08-05] MEDS: Loratadine 10 MG TABLET PO SCH (08:55)
[2020-08-05] MEDS: cefTRIAXone 1,000 MG in 0.9 % Sodium Chloride Mini Bag 100 ML IVP SCH (08:57)
[2020-08-05] MEDS ORDERED: Multivit/Ca/Min/Fe/FA 1 TAB TABLET PO SCH (09:00)
== END 2020-08-05 15:25 | disposition home or self-care (01) ==
LOC: 3ANU 18:29 → EMEROOARM 18:29 → 3ANU 22:00
PROVIDERS: ADMIT Internal Medicine; ATTEND Internal Medicine

== ENCOUNTER 2021-04-06 21:05 | Inpatient (IN) ==
[2021-04-06] MEDS ORDERED: Vancomycin 1,500 MG/265 ML IV.SOLN IVPB ONE (23:55)
[2021-04-06] MEDS ORDERED: Isovue-370 500 ML BOTTLE IVP ONE (23:55)
[2021-04-07] MEDS ORDERED: Acetaminophen 325 MG TABLET PO PRN (02:47)
[2021-04-07] MEDS ORDERED: Ondansetron 4 MG/2 ML VIAL IVP PRN (02:47)
[2021-04-07] MEDS ORDERED: Naloxone 0.4 MG/ML INJ IVP PRN (02:47)
[2021-04-07] MEDS ORDERED: Ipratropium/Albuterol Neb 3 ML IH PRN ×2 (02:49→17:27)
[2021-04-07] MEDS ORDERED: polyethylene glycoL 3350 17 GM POWD.PACK PO PRN (03:10)
[2021-04-07] MEDS: 0.9 % Sodium Chloride 1,000 ML IVC SCH ×2 (03:40→17:10)
[2021-04-07] MEDS: Nicotine 14 MG PATCH.TD24 TD SCH (03:40)
[2021-04-07 03:45] LABS: Basophils % 0.2 %; Red Cell Distribution Width 13.8 % (11.5-14.5)
[2021-04-07 03:46] LABS: Basophils # 0.1 K/mcL (0.0-0.2); Eosinophils # 0.3 K/mcL (0.0-0.6); Eosinophils % 1.2 %; Hematocrit 29.7 % (37.5-50.1); Hemoglobin 10.2 g/dL (12.9-16.9); Immature Granulocytes % 0.8 % (0-4); Lymphocytes # 1.2 K/mcL (0.6-4.6); Lymphocytes % 4.8 %; Mean Corpuscular HGB Conc 34.3 g/dL (31.6-35.5); Mean Corpuscular Hemoglobin 31.1 pg (28.0-33.3); Mean Corpuscular Volume 90.5 fL (83.0-100.0); Mean Platelet Volume 9.1 fL (9.4-12.4); Monocytes # 1.2 K/mcL (0.0-1.3); Monocytes % 4.5 %; Neutrophils # 22.7 K/mcL (1.6-8.9); Platelet Count 223 K/mcL (140-400); Red Blood Count 3.28 M/mcL (4.19-5.50); Segmented Neutrophils % 88.5 %; White Blood Count 25.7 K/mcL (4.3-11.1)
[2021-04-07 03:54] LABS: INR 1.4; Prothrombin Time 15.8 Seconds (9.4-12.1)
[2021-04-07 04:01] LABS: BUN/Creatinine Ratio 35 (6-26); Blood Urea Nitrogen 29 mg/dL (8-23); Calcium 8.1 mg/dL (8.6-10.3); Carbon Dioxide 25 mEq/L (23-29); Chloride 100 mEq/L (98-107); Glucose 101 mg/dL (70-105); Magnesium 1.4 mg/dL (1.6-2.6); Osmolality,Calculated 278 (280-300); Potassium 3.6 mEq/L (3.5-5.1); Sodium 131 mEq/L (136-145); eGFR For African Americans > 60 (> 60); eGFR For Non-African Americans > 60 (> 60)
[2021-04-07] MEDS: *HR* Heparin 5,000 UNIT/ML VIAL SQ SCH ×3 (06:28→20:47)
[2021-04-07] MEDS: Piperacillin/Tazobactam 3.375 GM in 0.9 % Sodium Chloride Mini Bag 100 ML IVPB SCH ×2 (10:52→17:09)
[2021-04-07] MEDS ORDERED: Vancomycin 1,250 MG/262.5 ML IV.SOLN IVPB SCH (12:00)
[2021-04-07] MEDS: Vancomycin 1,250 MG/262.5 ML IV.SOLN IVPB SCH (12:16)
[2021-04-07] MEDS ORDERED: Nicotine 2 MG GUM BC PRN (17:27)
[2021-04-07] MEDS ORDERED: Levalbuterol 1 PUFF INHALER IH PRN (17:27)
[2021-04-07] MEDS ORDERED: Artificial Tears SOLN 15 ML BOTTLE BOTH EYES PRN (17:27)
[2021-04-07] MEDS: OLANZapine 10 MG TAB.RAPDIS PO SCH (20:47)
[2021-04-07] MEDS: traZODone 50 MG TABLET PO SCH (20:47)
[2021-04-07] MEDS: OLANZapine 5 MG TAB.RAPDIS PO SCH (20:47)
[2021-04-08] MEDS: Piperacillin/Tazobactam 3.375 GM in 0.9 % Sodium Chloride Mini Bag 100 ML IVPB SCH ×3 (00:08→17:03)
[2021-04-08] MEDS: Nicotine 14 MG PATCH.TD24 TD SCH (03:08)
[2021-04-08 05:07] LABS: Basophils % 0.3 %; Eosinophils # 0.4 K/mcL (0.0-0.6); Eosinophils % 3.4 %; Immature Granulocytes % 0.4 % (0-4); Lymphocytes # 1.2 K/mcL (0.6-4.6); Lymphocytes % 9.7 %; Mean Corpuscular HGB Conc 33.3 g/dL (31.6-35.5); Mean Corpuscular Hemoglobin 30.4 pg (28.0-33.3); Mean Corpuscular Volume 91.2 fL (83.0-100.0); Mean Platelet Volume 9.5 fL (9.4-12.4); Monocytes # 0.7 K/mcL (0.0-1.3); Monocytes % 6.1 %; Neutrophils # 9.5 K/mcL (1.6-8.9); Platelet Count 277 K/mcL (140-400); Red Blood Count 3.62 M/mcL (4.19-5.50); Red Cell Distribution Width 13.9 % (11.5-14.5); Segmented Neutrophils % 80.1 %
[2021-04-08 05:08] LABS: White Blood Count 11.9 K/mcL (4.3-11.1)
[2021-04-08 05:16] LABS: BUN/Creatinine Ratio 24 (6-26); Blood Urea Nitrogen 13 mg/dL (8-23); Calcium 8.3 mg/dL (8.6-10.3); Carbon Dioxide 23 mEq/L (23-29); Chloride 105 mEq/L (98-107); Glucose 85 mg/dL (70-105); Osmolality,Calculated 279 (280-300); Potassium 3.9 mEq/L (3.5-5.1); Sodium 135 mEq/L (136-145); eGFR For African Americans > 60 (> 60); eGFR For Non-African Americans > 60 (> 60)
[2021-04-08] MEDS: *HR* Heparin 5,000 UNIT/ML VIAL SQ SCH ×3 (06:02→20:55)
[2021-04-08] MEDS: ARIPiprazole 5 MG TABLET PO SCH (07:48)
[2021-04-08] MEDS: OLANZapine 5 MG TAB.RAPDIS PO SCH ×2 (07:49→20:55)
[2021-04-08] MEDS: Multivit/Ca/Min/Fe/FA 1 TAB TABLET PO SCH (07:49)
[2021-04-08] MEDS: Pyridoxine (B-6) 50 MG TABLET PO SCH (07:49)
[2021-04-08] MEDS: Loratadine 10 MG TABLET PO SCH (07:49)
[2021-04-08] MEDS ORDERED: MIST INHAL IH SCH (09:00)
[2021-04-08] MEDS ORDERED: OLODATEROL HCL IH SCH (09:00)
[2021-04-08] MEDS: Valproic Acid Oral Soln 250 MG/5 ML UDC PO SCH (09:50)
[2021-04-08] MEDS: Vancomycin 1,500 MG/265 ML IV.SOLN IVPB SCH (14:04)
[2021-04-08] MEDS: Budesonide/Formoterol 80/4.5 1 PUFF INH IH SCH (19:58)
[2021-04-08] MEDS: OLANZapine 10 MG TAB.RAPDIS PO SCH (20:54)
[2021-04-08] MEDS: traZODone 50 MG TABLET PO SCH (20:54)
[2021-04-08] MEDS: *HR* HYDROcodone/Acet 5/325 mg TABLET PO PRN (20:55)
[2021-04-09] MEDS: Piperacillin/Tazobactam 3.375 GM in 0.9 % Sodium Chloride Mini Bag 100 ML IVPB SCH ×4 (00:20→23:40)
[2021-04-09 03:43] LABS: Basophils % 0.3 %; Eosinophils # 0.5 K/mcL (0.0-0.6); Hematocrit 31.7 % (37.5-50.1); Hemoglobin 10.9 g/dL (12.9-16.9); Immature Granulocytes % 0.6 % (0-4); Lymphocytes # 1.3 K/mcL (0.6-4.6); Lymphocytes % 14.7 %; Mean Corpuscular HGB Conc 34.4 g/dL (31.6-35.5); Mean Corpuscular Hemoglobin 31.6 pg (28.0-33.3); Mean Corpuscular Volume 91.9 fL (83.0-100.0); Mean Platelet Volume 9.2 fL (9.4-12.4); Monocytes # 0.7 K/mcL (0.0-1.3); Neutrophils # 6.2 K/mcL (1.6-8.9); Platelet Count 308 K/mcL (140-400); Red Blood Count 3.45 M/mcL (4.19-5.50); Segmented Neutrophils % 70.4 %; White Blood Count 8.8 K/mcL (4.3-11.1)
[2021-04-09 04:01] LABS: BUN/Creatinine Ratio 17 (6-26); Blood Urea Nitrogen 12 mg/dL (8-23); Calcium 8.6 mg/dL (8.6-10.3); Carbon Dioxide 27 mEq/L (23-29); Chloride 103 mEq/L (98-107); Glucose 84 mg/dL (70-105); Osmolality,Calculated 281 (280-300); Potassium 3.9 mEq/L (3.5-5.1); Sodium 136 mEq/L (136-145); eGFR For African Americans > 60 (> 60); eGFR For Non-African Americans > 60 (> 60)
[2021-04-09] MEDS: *HR* Heparin 5,000 UNIT/ML VIAL SQ SCH ×3 (04:03→21:15)
[2021-04-09] MEDS: Nicotine 14 MG PATCH.TD24 TD SCH (04:04)
[2021-04-09] MEDS: *HR* HYDROcodone/Acet 5/325 mg TABLET PO PRN (04:04)
[2021-04-09] MEDS: Budesonide/Formoterol 80/4.5 1 PUFF INH IH SCH ×2 (07:25→20:07)
[2021-04-09] MEDS: Multivit/Ca/Min/Fe/FA 1 TAB TABLET PO SCH (09:50)
[2021-04-09] MEDS: Loratadine 10 MG TABLET PO SCH (09:51)
[2021-04-09] MEDS: OLANZapine 5 MG TAB.RAPDIS PO SCH ×2 (09:51→21:21)
[2021-04-09] MEDS: ARIPiprazole 5 MG TABLET PO SCH (09:51)
[2021-04-09] MEDS: Pyridoxine (B-6) 50 MG TABLET PO SCH (09:52)
[2021-04-09] MEDS: Valproic Acid Oral Soln 250 MG/5 ML UDC PO SCH (09:57)
[2021-04-09] MEDS: Vancomycin 1,500 MG/265 ML IV.SOLN IVPB SCH (13:05)
[2021-04-09] MEDS: Vancomycin 1,250 MG/262.5 ML IV.SOLN IVPB SCH (19:45)
[2021-04-09] MEDS: traZODone 50 MG TABLET PO SCH (21:15)
[2021-04-09] MEDS: OLANZapine 10 MG TAB.RAPDIS PO SCH (21:15)
[2021-04-10] MEDS: Nicotine 14 MG PATCH.TD24 TD SCH (03:42)
[2021-04-10] MEDS: *HR* Heparin 5,000 UNIT/ML VIAL SQ SCH (05:06)
[2021-04-10 07:13] VITALS: BP 160/82; PULSE 89; TEMP 98.1; O2SAT 93
[2021-04-10] MEDS ORDERED: Nicotine 14 MG PATCH.TD24 TD SCH (08:00)
[2021-04-10] MEDS: Budesonide/Formoterol 80/4.5 1 PUFF INH IH SCH (08:01)
[2021-04-10] MEDS: Multivit/Ca/Min/Fe/FA 1 TAB TABLET PO SCH (09:02)
[2021-04-10] MEDS: Piperacillin/Tazobactam 3.375 GM in 0.9 % Sodium Chloride Mini Bag 100 ML IVPB SCH (09:02)
[2021-04-10] MEDS: Valproic Acid Oral Soln 250 MG/5 ML UDC PO SCH (09:02)
[2021-04-10] MEDS: ARIPiprazole 5 MG TABLET PO SCH (09:02)
[2021-04-10] MEDS: Pyridoxine (B-6) 50 MG TABLET PO SCH (09:02)
[2021-04-10] MEDS: OLANZapine 5 MG TAB.RAPDIS PO SCH (09:04)
[2021-04-10] MEDS: Loratadine 10 MG TABLET PO SCH (09:04)
[2021-04-17] MEDS ORDERED: FluPHENAZine Decanoate 25 MG/ML MLS IM SCH (09:00)
== END 2021-04-10 14:05 | disposition home health service (06) | DRG 698 ==
LOC: EMEROOARM 21:05 → 3ANU 21:05 → SUATTDRO 04-07 02:00 → 3ANU 04-07 02:32 → SUATTDRO 04-08 22:35 → 2ANU 04-09 00:41
PROVIDERS: ADMIT Student in an Organized Health Care Education/Training Program; ATTEND Internal Medicine